=== PATIENT | female | born 1960 | race Caucasian/White ===

== ENCOUNTER 2019-04-04 15:50 | Inpatient (IN) | payer MEDICARE, MEDICAID, SELFPAY ==
[2019-04-04] VITALS (9 sets, daily range): BP systolic 99–150; BP diastolic 38–91; PULSE 84–92; RESP 16–22; TEMP 36.1–36.7; O2SAT 92–100; BMI 26.6
--- NOTE | ~2019-04-04 | US_ITS ---
EXAMINATION: US soft tissue buttock LT DATE: 04/08/2019 13:56 INDICATION: Left buttock hematoma. TECHNIQUE: Multiple grayscale and Doppler ultrasound images of the left buttock were obtained. COMPARISON: CT abdomen and pelvis 04/04/2019 FINDINGS: There is a large hematoma in the left buttock. IMPRESSION: 1. Large hematoma in the left buttock. Consider repeat CT if a size comparison with the prior exam is desired. Reviewed, dictated and finalized at location A. MANAGER CPA
--- NOTE | ~2019-04-04 | CT_ITS ---
EXAMINATION: CT abdomen pelvis w con DATE: 04/04/2019 17:51 INDICATION: Status post fall. Pelvic hematoma. TECHNIQUE: Computed tomography (CT) of the abdomen and pelvis was performed with 100 cc Omnipaque 350 intravenous contrast. The dose-length product was 930.30 mGy-cm. Automated exposure control and iter ative reconstruction technique were employed. COMPARISON: CT dated 09/24/2018 FINDINGS: There is a right pleural effusion which may be partially loculated. There is right basilar airspace consolidation. There is extensive edema throughout the soft tissues. In the anterior abdomin al wall to the left of the umbilicus there is a 1.8 cm hyperdense mass, image 124. There is a bilobed fluid collection in the left anterior abdominal wall measuring 9.3 x 3.1 cm greatest axial dimension with enhancing rim, image 131. There is a hyperdense mass of the left gluteal region overlying the l eft iliac crest measuring 5.8 x 3.6 cm greatest axial dimension, 139. There is a walled off fluid col lection in the subcutaneous tissues adjacent to the gluteal musculature, image 161. There is signific ant enlargement of the left gluteal musculature with areas of hypervascularity, consistent with large complex hematoma with possible active hemorrhage. This extends into the left leg posteriorly, incomp letely visualized. There is free fluid in the pelvis. The liver, spleen, pancreas, adrenal glands are unremarkable. There is severe renal atrophy. Nonobstr uctive bowel gas pattern. No acute osseous abnormality. There is atherosclerosis throughout the abdom en. No evidence for aneurysm. No lymphadenopathy. IMPRESSION: 1. Large complex fluid collection of the left gluteal musculature extending into the left leg posteri lucia. There are associated areas of focal contrast enhancement internally, suspicious for active hemo rrhage. 2: Multiple complex fluid collections and focal areas of hyperdense mass involving the left anterior abdominal wall and left lateral gluteal soft tissues, likely representing areas of focal hemorrhage g iven the clinical history, although infection could have a similar appearance. 3: Moderate right pleural effusion, likely loculated. 4: Right basilar airspace consolidation may represent atelectasis and/or pneumonia. 5: Ascites. 6: Extensive subcutaneous edema. Reviewed, dictated and finalized at location A. OSIVE OPERATOR GRENADE IMPRESSION: 1. Large complex fluid collection of the left gluteal musculature extending int o the left leg posteriorly. There are associated areas of focal contrast enhanc ement internally, suspicious for active hemorrhage. 2: Multiple complex fluid collections and focal areas of hyperdense mass involv ing the left anterior abdominal wall and left lateral gluteal soft tissues, lik kp representing areas of focal hemorrhage given the clinical history, although infection could have a similar appearance. 3: Moderate right pleural effusion, likely loculated. 4: Right basilar airspace consolidation may represent atelectasis and/or pneumo gregg. 5: Ascites. 6: Extensive subcutaneous edema.
--- NOTE | ~2019-04-04 | CT_ITS ---
EXAMINATION: CT abdomen pelvis w con INDICATION: Gluteal hematoma and TECHNIQUE: Computed tomographic images of the abdomen and pelvis were obtained after the administrati on of 100 cc of Omnipaque 350 intravenous contrast. The dose-length product (DLP) was 759.20 mGy-cm. Automated exposure control and iterative reconstruction technique were employed. COMPARISON: 04/04/2019 FINDINGS: There is a moderate-sized loculated right pleural effusion with heterogeneous attenuation. Cardiomegaly is noted. There are airspace opacities of the right lower lobe. There is dependent atele ctasis in the left lower lobe. There is heterogeneous enhancement of liver. The spleen, pancreas, and adrenal glands are normal. Stones are present in the nondistended gallbladder. There is atrophy of t he kidneys. There is a small amount of abdominal and pelvic ascites. No pathologically enlarged abdom inal or pelvic lymph nodes are identified. There is no free intraperitoneal gas or evidence of bowel obstruction. There is a large hematoma of the left buttock which extends into the left proximal thigh and appears to be encompassed in the fascial layer of the left leg resulting in mass effect on the lower extremit y vasculature. Overall size of the hematoma has increased accounting for differences in technique. A 4.6 x 3.6 cm left pelvic soft tissue hematoma projecting over the iliac wing is slightly decreased in size. There are two additional stable hematomas of the left anterior abdominal wall. IMPRESSION: 1. Large hematoma of the left buttock extending into the left proximal thigh within the fascial layer with mass effect on the lower limb vasculature. Recommend clinical correlation for any signs of comp artment syndrome. 2. Three additional hematomas of the left anterior abdominal wall and left pelvic soft tissues, stabl e to slightly decreased in size. 3. Loculated pleural effusion with heterogeneous attenuation, possible empyema. 4. Right lower lobe airspace opacity, consistent with atelectasis and pneumonia. 5. Cardiomegaly. Reviewed, dictated and finalized at location A. TRANSPORT NURSE IMPRESSION: 1. Large hematoma of the left buttock extending into the left proximal thigh wi thin the fascial layer with mass effect on the lower limb vasculature. Recommen d clinical correlation for any signs of compartment syndrome. 2. Three additional hematomas of the left anterior abdominal wall and left pelv ic soft tissues, stable to slightly decreased in size. 3. Loculated pleural effusion with heterogeneous attenuation, possible empyema. 4. Right lower lobe airspace opacity, consistent with atelectasis and pneumonia . 5. Cardiomegaly.
--- NOTE | ~2019-04-04 | CT_ITS ---
EXAMINATION: CT brain wo con DATE: 04/05/2019 12:07 INDICATION: Mental status change. TECHNIQUE: Computed tomography (CT) of the head was performed without intravenous contrast. The mA wa s adjusted according to patient size. Iterative reconstruction technique was employed. The dose-lengt h product was 605.33 mGy-cm. COMPARISON: Head CT 02/27/2019 FINDINGS: Motion artifact is noted. There are scattered areas of low attenuation in the cerebral whit e matter. There is no intracranial hemorrhage, acute infarction, or abnormal intracranial mass lesion . The ventricles are normal in size. The paranasal sinuses are clear. The orbits are normal. There is a trace left mastoid effusion. IMPRESSION: 1. Unchanged moderate nonspecific cerebral white matter disease, which likely represents chronic smal l vessel ischemic disease. Reviewed, dictated and finalized at location A. K LEASING MANAGER IMPRESSION: 1. Unchanged moderate nonspecific cerebral white matter disease, which likely r epresents chronic small vessel ischemic disease.
--- NOTE | 2019-04-04 16:23 | ED.LOWEXIN ---
HPI - Extremity Injury (Lower) General Chief Complaint: Extremity Injury, Lower Stated Complaint: L HIP PAIN S/P FALL Time Seen by Provider: 04/04/19 16:13 Source: patient and RN notes reviewed Mode of arrival: EMS Limitations: no limitations History of Present Illness HPI Narrative: A 59 y/o female presents to the ED via EMS from [facility] with lt hip pain beginning this morning. She states that she fell out of her bed on 03/28/2019 but she denied any pain at that time. She reports associated bruising. She notes that she is on Warfarin. She denies any HI, RENTERIA, arm pain, ABD pain, CP, N/V/D, or SOB. MD complaint: hip injury Onset (ago): hour(s) (pain began this morning but she fell a week ago) Injury: Left: hip Type of Injury: blunt Place: other (NH) Context: fall (out of bed) Associated symptoms: other (pain and bruising) Other symptoms: none Related Data Home Medications Medication Instructions Recorded Confirmed Symbicort 2 puff INHALATION BID 01/31/19 02/27/19 Vraylar 3 mg PO DAILY 01/31/19 02/27/19 albuterol sulfate [Ventolin HFA] 2 puff INHALATION TID PRN 01/31/19 02/27/19 carvedilol 6.25 mg PO BID 01/31/19 02/27/19 clotrimazole-betamethasone 1 applic TOPICAL BID 01/31/19 02/27/19 duloxetine 60 mg PO DAILY 01/31/19 02/27/19 escitalopram oxalate [Lexapro] 10 mg PO DAILY 01/31/19 02/27/19 esomeprazole magnesium 20 mg PO DAILY 01/31/19 02/27/19 furosemide 80 mg PO DAILY 01/31/19 02/27/19 ipratropium-albuterol 3 ml INHALATION QID 01/31/19 02/27/19 lamotrigine 400 mg PO HS 01/31/19 02/27/19 levothyroxine 125 mcg PO DAILY 01/31/19 02/27/19 meclizine 12.5 mg PO TID PRN 01/31/19 02/27/19 omeprazole 40 mg PO DAILY 01/31/19 02/27/19 polyethylene glycol 3350 [Miralax] 17 g PO DAILY PRN 01/31/19 02/27/19 ropinirole 5 mg PO HS 01/31/19 02/27/19 sevelamer carbonate [Renvela] 800 mg PO TIDWM 01/31/19 02/27/19 simvastatin 40 mg PO DAILY 01/31/19 02/27/19 alprazolam 1 mg PO DAILY 02/27/19 02/27/19 alprazolam 2 mg PO HS 02/27/19 02/27/19 warfarin [Coumadin] 8 mg PO DAILY 02/27/19 02/27/19 Allergies Allergy/AdvReac Type Severity Reaction Status Date / Time adhesive tape Allergy Intermediate blisters Verified 04/04/19 19:31 iron Allergy Unknown Nausea And Verified 04/04/19 19:31 Vomiting Review of Systems Review of Systems: All systems reviewed & are unremarkable except as noted in HPI and below Cardiovascular: Cardiovascular: Denies chest pain Respiratory: Respiratory: Denies dyspnea Gastrointestinal: Gastrointestinal: Denies abdominal pain, Denies diarrhea, Denies nausea and Denies vomiting Musculoskeletal: Musculoskeletal: Reports arthralgias (lt hip with bruising) and Denies other (arm pain) Neurologic: Denies headache(s) and Denies other (HI) [facility] Past Medical History Medical History Anemia of chronic disease With history of blood transfusion. Arthritis Atrial fibrillation Bipolar disorder Breast mass Chronic breast mass which was biopsied previously, showing acute on chronic inflammation and fat necrosis. She had a negative bone scan done at that time as well. Cataracts, bilateral Chronic anticoagulation Long-term warfarin due to presence of mechanical heart valves. Chronic back pain With history of narcotic abuse. Chronic respiratory failure with hypoxia Clostridium difficile infection COPD (chronic obstructive pulmonary disease) Coronary artery disease Depression with anxiety Diastolic congestive heart failure DVT (deep venous thrombosis) Eating disorder Emphysema of lung End-stage renal disease on hemodialysis Endometriosis Status post hysterectomy. ESRD (end stage renal disease) GERD (gastroesophageal reflux disease) Gout History of ectopic Hyperlipidemia Hypertension Hyperthyroidism Morbid obesity Prior history of obesity, reportedly weighing as much as 408 pounds previously. She now appears to have protein calorie mal
[2019-04-04 17:16] LABS: Basophils Percent Auto 0.3 % (0.2-1.2); Eosinophils Absolute Auto 0.1 K/mm3 (0-0.3); Eosinophils Percent Auto 1.2 % (0-4.4); Immature Granulocyte Percent A 2.6 % (0-0.5); Lymphocytes Absolute Auto 0.76 K/mm3 (0.9-3.2); Mean Corpuscular HGB Conc 30.5 g/dl (32-36); Mean Corpuscular Hemoglobin 28.4 pg (26-34); Mean Platelet Volume 10.2 fl (7.4-10.4); Monocytes Absolute Auto 0.5 K/mm3 (0.1-0.6); Monocytes Percent Auto 6.2 % (2.6-8.5); Neutrophils Absolute Auto 6.1 K/mm3 (1.3-6.7); Neutrophils Percent Auto 79.7 % (45.5-73.1); Platelet Count Result 141 k/mm3 (150-375); Red Blood Count 2.01 M/mm3 (4.2-5.4); Red Cell Distribution Width 18.7 % (11.5-14.5); White Blood Count 7.6 K/mm3 (4.5-10.0)
[2019-04-04 17:26] LABS: INR 1.7; Prothrombin Time 19.7 Seconds (11.1-14.7)
[2019-04-04 17:28] LABS: Alanine Aminotransferase 9 U/L (4-35); Albumin Level 3.2 g/dL (3.5-5.1); Alkaline Phosphatase 153 U/L (38-126); Aspartate Amino Transferase 19 U/L (14-36); Bilirubin,Total 0.6 mg/dL (0.2-1.3); Blood Urea Nitrogen 26 mg/dL (7-17); Calcium 7.9 mg/dL (8.4-10.2); Carbon Dioxide 26 mmol/L (22-30); Chloride 102 mmol/L (98-107); Estimated Glomerular Filt Rate 14; Glucose 105 mg/dL (65-105); Partial Thromboplastin Time 95.7 SECONDS (22.3-36.8); Potassium 4.2 mmol/L (3.4-5.0); Sodium 135 mmol/L (137-145)
[2019-04-04 17:30] LABS: Hematocrit 18.7 % (37.0-47.0); Hemoglobin 5.7 g/dL (12.0-15.0)
[2019-04-04] MEDS: MORPHINE SULFATE 2 MG/ML INJ IV PUSH (19:30)
--- NOTE | 2019-04-04 19:32 | PC.NURSE ---
Attempted to contact patient's son, no answer.
--- NOTE | 2019-04-04 19:55 | ADMGEN ---
This patient, Bessy Pandey, was admitted to IMU Room 200-01 from er 04/04/191944. Patient/family oriented to hospital policies and general routines including ID bracelet, bed and alarms, visiting hours, pain management, procedures, bathroom and other care routines, personal items, smoking policy, room service/diet, and visiting hours. Valuables list has been completed. Information on how to activate the Rapid Response Team has been discussed. Patient/Family are encouraged to report perceived risks to care and to ask questions if they do not understand what they are told or what they should do.
--- NOTE | 2019-04-04 20:15 | PM.IMHP ---
H&P: HPI History of Present Illness Chief complaint: Left butt pain Narrative: Date and time of patient contact: 04/04/20192014 Bessy Pandey is a 59 year old female with past medical history of mechanical mitral and aortic valve replacement on long-term anticoagulant, end-stage renal disease on hemodialysis and anemia who presented to the ER from [facility] via EMS due to left hip pain following a fall March 28. The patient stated that she fell in the shower on the . She denies having any injury. Then on the she rolled out of the bed at the custodial. She denies hitting her head or having loss of consciousnes. She did not have any immediate pain at that time. She woke up this morning with pain in her left buttock radiating down into her thigh. She reports that her pain was a 10/10 intensity. She reported that the morphine 4 mg given by EMS did not help her pain at all. She then received 2 mg of morphine in the ER and 1 gram of IV Tylenol. She reports that her pain is now a 5/10 in intensity. He she has noticed a larger bruising on anterior left hip over the last couple of days. She reports that the area is a lumpy. She had a CT scan performed in the ER that demonstrated a large complex fluid collection left gluteal muscle extending into the left leg posteriorly with evidence of active hemorrhage with contrast enhancement internally. Multiple complex fluid collections left anterior abdominal wall and left gluteal soft tissues representing areas of focal hemorrhage. But reports that her pain is worse in the left buttock and down the back of the left leg. She reports that her weight is down a few pounds. She reports that her appetite is been variable. She has not had any recent shortness of breath or cough or congestion. She has cut down her tobacco use down to a couple of cigarettes a day since she has been at the custodial. She is due for dialysis in the morning. She denies any nausea vomiting or changes in bowel habits. Review of Systems Review of Systems: Narrative: Except as documented in the HPI, all other systems were reviewed and are negative. [facility] Past Medical History Medical History Anemia of chronic disease With history of blood transfusion. Arthritis Atrial fibrillation Bipolar disorder Breast mass Chronic breast mass which was biopsied previously, showing acute on chronic inflammation and fat necrosis. She had a negative bone scan done at that time as well. Cataracts, bilateral Chronic anticoagulation Long-term warfarin due to presence of mechanical heart valves. Chronic back pain With history of narcotic abuse. Chronic respiratory failure with hypoxia Clostridium difficile infection COPD (chronic obstructive pulmonary disease) Coronary artery disease Depression with anxiety Diastolic congestive heart failure DVT (deep venous thrombosis) Eating disorder Emphysema of lung End-stage renal disease on hemodialysis Endometriosis Status post hysterectomy. ESRD (end stage renal disease) GERD (gastroesophageal reflux disease) Gout History of ectopic Hyperlipidemia Hypertension Hyperthyroidism Morbid obesity Prior history of obesity, reportedly weighing as much as 408 pounds previously. She now appears to have protein calorie malnutrition. 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 Myocardial infarction Obstructive sleep apnea Osteoarthritis Both knees. Patient has refused replacement and is no essentially wheelchair-bound. PVD (peripheral vascular disease) Restless leg syndrome Rheumatic disease Suicidal ideation Prior hospitalization October 2017 due to suicidal ideation overdose. TIA (transient ischemic attack) Tobacco dependence UTI (urinary tract infection) Valvular heart disease Status post mechanical mitral and aortic valv
[2019-04-04] MEDS: TUBING, BLOOD PLUM PUMP TUBING 1 EACH XX (20:52)
[2019-04-04] MEDS: SODIUM CHLORIDE 0.9% IV 250 ML 30 ML IV CONT (20:52)
[2019-04-04] MEDS: ALPRAZOLAM 0.5 MG TABLET 2 MG PO (21:42)
[2019-04-04] MEDS: lamoTRIgine 100 MG TABLET 400 MG PO (22:07)
[2019-04-05] VITALS (37 sets, daily range): BP systolic 104–178; BP diastolic 35–76; PULSE 1–103; RESP 12–22; TEMP 36.2–37.1; O2SAT 95–100; BMI 26.9
[2019-04-05 04:24] LABS: Mean Corpuscular HGB Conc 30.8 g/dl (32-36); Mean Corpuscular Hemoglobin 28.6 pg (26-34); Mean Corpuscular Volume 92.9 fl (80-100); Mean Platelet Volume 11.5 fl (7.4-10.4); Platelet Count Result 163 k/mm3 (150-375); Red Blood Count 2.24 M/mm3 (4.2-5.4); Red Cell Distribution Width 17.2 % (11.5-14.5); White Blood Count 16.2 K/mm3 (4.5-10.0)
[2019-04-05 04:32] LABS: Hematocrit 20.8 % (37.0-47.0); Hemoglobin 6.4 g/dL (12.0-15.0)
[2019-04-05 04:43] LABS: Blood Urea Nitrogen 26 mg/dL (7-17); Calcium 7.9 mg/dL (8.4-10.2); Carbon Dioxide 18 mmol/L (22-30); Chloride 99 mmol/L (98-107); Estimated CRCL calculation 14 ml/min; Estimated Glomerular Filt Rate 12; Glucose 109 mg/dL (65-105); Magnesium 1.6 mg/dL (1.6-2.3); Phosphorus 3.7 mg/dL (2.5-4.5); Potassium 4.6 mmol/L (3.4-5.0); Sodium 133 mmol/L (137-145)
[2019-04-05 05:12] LABS: Hepatitis B Surface Antigen Negative (Negative)
[2019-04-05 05:18] LABS: HAV RESULT Negative (Negative); Hepatitis B Core IgM Result Negative (Negative)
[2019-04-05 05:30] LABS: Hepatitis B Surface Anti Res Negative; Hepatitis C Virus Antibody Negative (Negative)
[2019-04-05] MEDS: LEVOTHYROXINE SODIUM 125 MCG TABLET PO (06:09)
[2019-04-05] MEDS: BUDESONIDE RESPULE NEB 0.5 MG/2 ML AMP 0.25 MG INHALATION ×2 (07:47→19:30)
[2019-04-05] MEDS: ALBUTEROL SULFATE NEB 2.5 MG/0.5 ML INH INHALATION ×4 (07:47→19:30)
[2019-04-05] MEDS: IPRATROPIUM BR 0.02% INH SOLN 0.5 MG/2.5 ML VIAL INHALATION ×4 (07:47→19:31)
[2019-04-05] MEDS: FLUTICASONE PROPIONATE 0.05% NA SPR 16 GM BTL (*BKC) 1 SPRAY NASAL ×2 (09:09→21:06)
[2019-04-05] MEDS: BETAMETHASONE/CLOTRIMAZOLE CR 15 GM TUBE 1 APPLIC TOPICAL ×2 (09:09→18:37)
[2019-04-05] MEDS: ESCITALOPRAM OXALATE 10 MG TABLET PO (09:09)
[2019-04-05] MEDS: SIMVASTATIN 20 MG TABLET 40 MG PO (09:10)
[2019-04-05] MEDS: FUROSEMIDE 80 MG TABLET PO (09:10)
[2019-04-05] MEDS: PANTOPRAZOLE 40 MG TABLET PO (09:10)
[2019-04-05] MEDS: ALPRAZOLAM 0.5 MG TABLET 1 MG PO (09:15)
--- NOTE | 2019-04-05 09:42 | PM.IMPN ---
Progress Note: A&P Assessment and Plan (1) Acute post-hemorrhagic anemia: Code(s): D62 - Acute posthemorrhagic anemia Status: Acute Assessment and Plan: Likely due to hematoma and buttock and thigh due to blunt trauma sustained during fall from bed at facility INR was subtherapeutic at 1.7 upon admission. (2) Chronic anticoagulation: Code(s): Z79.01 - senior care (current) use of anticoagulants Status: Acute Assessment and Plan: Patient has active bleeding visit very high risk for stroke due to mechanical heart valves Will need to resume coagulation with heparin expeditiously when safe (3) Mechanical heart valve present: Code(s): Z95.2 - Presence of prosthetic heart valve Status: Acute Assessment and Plan: Aortic and mitral Very high risk for stroke Will likely need heparin when bleeding stops Due to possible head trauma and excessive drowsiness this morning which may be due to narcotics will obtain CT brain prior to considering further anticoagulation (4) ESRD (end stage renal disease): Code(s): N18.6 - End stage renal disease Status: Chronic Assessment and Plan: Nephrology has been consulted for dialysis management. Subjective Date/time seen: 04/05/19 09:42 Interval history: Drowsy this morning. Review of Systems Review of Systems: ROS unobtainable: unobtainable due to mental status Exam Narrative: Exam Narrative: Skin with ecchymoses over right shoulder and buttocks with tenderness HEENT: EOMI, PERRL, pharyngeal mucosa pink and intact NECK: No JVD CHEST: Clear to auscultation. Normal effort. HEART: Metallic s1/S2, regular ABDOMEN: BS+, soft, nontender, no mass, no bruits EXTREMITIES: No cyanosis, edema, or clubbing NEUROLOGIC: CN intact and symmetric to inspection. MUSCULOSKELETAL: Tone and strength symmetric. PSYCH: Drowsy. Difficult to arouse. Objective Data Vital Signs Vital Signs: Vital Signs - 24 hr 04/04/19 15:59 04/04/19 18:53 04/04/19 19:45 Temperature 98.1 F 97.1 F L Pulse Rate 88 84 84 Respiratory Rate 19 17 16 Blood Pressure 150/82 H 122/74 110/38 L Pulse Oximetry 100 100 100 04/04/19 20:00 04/04/19 21:32 04/04/19 21:49 Temperature 97 F L 97.1 F L Pulse Rate 90 85 88 Respiratory Rate 20 22 H Blood Pressure 128/54 L 99/55 L Pulse Oximetry 100 98 04/04/19 22:00 04/04/19 22:49 04/04/19 23:49 Temperature 97.2 F L 97.1 F L Pulse Rate 86 92 90 Respiratory Rate 22 H 18 Blood Pressure 107/91 H 116/40 L Pulse Oximetry 96 92 04/05/19 00:00 04/05/19 00:39 04/05/19 00:58 Temperature 97.1 F L 97.6 F Pulse Rate 88 90 88 Respiratory Rate 22 H 22 H Blood Pressure 128/56 L 141/63 H Pulse Oximetry 96 98 04/05/19 01:58 04/05/19 02:00 04/05/19 02:58 Temperature 97.1 F L 97.7 F Pulse Rate 88 90 1 L Respiratory Rate 18 20 Blood Pressure 117/55 L 108/71 Pulse Oximetry 100 100 04/05/19 03:07 04/05/19 03:48 04/05/19 04:00 Temperature 97.6 F 97.5 F L Pulse Rate 88 90 92 Respiratory Rate 22 H 18 Blood Pressure 154/76 H 155/75 H Pulse Oximetry 98 100 04/05/19 06:00 04/05/19 08:16 Temperature 97.3 F L Pulse Rate 93 93 Respiratory Rate 14 Blood Pressure 152/65 H Pulse Oximetry 99 Intake/Output Intake/Output: Intake & Output 04/02/19 04/03/19 04/04/19 04/05/19 23:59 23:59 23:59 23:59 Intake Total 450 1145 Balance 450 1145 Meds/Results Medications: Active Medications Generic Name Dose Route Start Last Admin Trade Name Freq PRN Reason Stop Dose Admin Acetaminophen 650 mg 04/04/19 18:37 Tylenol Tablet PO Q4H PRN Mild Pain (1-3) or Fever Albuterol 2.5 mg 04/05/19 08:00 04/05/19 07:47 Albuterol Sulf Neb 2.5mg/0.5ml INHALATION 2.5 mg QIDRT GORDON Administration Alprazolam 1 mg 04/05/19 09:00 04/05/19 09:15 Xanax PO 1 mg DAILY GORDON Administration Alprazolam 2 mg 04/05/19 21:00 Xanax PO HS GORDON Valier
--- NOTE | 2019-04-05 11:52 | PM.PNNEP ---
Progress Note: A&P Assessment and Plan (1) ESRD (end stage renal disease): Code(s): N18.6 - End stage renal disease Status: Chronic Assessment and Plan: HD today and continue M/W/F schedule follow electrolytes, volume status, and clearance may consider HD tomorrow as well as since quite insistent on ending her treatment early today (2) Anemia: Qualifiers: Anemia type: unspecified type Qualified Code(s): D64.9 - Anemia, unspecified Code(s): D64.9 - Anemia, unspecified Status: Acute Assessment and Plan: PRBC transfusion yesterday and today with HD follow H/H anticoagulation on hold for now FULL CONSULT TO FOLLOW Subjective Date/time seen: 04/05/19 11:52 Tolerating dialysis at the time of my visit (seen at ~ 10:35am) but states she will end her treatment after PRBC infusion is complete due to pain; no other complaints voiced other than pain. Exam Narrative: Exam Narrative: General: WD/WN female in NAD Heart: normal S1 and S2; no rub Lungs: clear to auscultation Abdomen: soft, nontender, nondistended, positive bowel sounds Extremities: no cyanosis or clubbing; 1+ edema Skin: warm and dry Objective Data Vital Signs Vital Signs: Vital Signs Temp Pulse Resp BP Pulse Ox 04/05/19 11:41 94 18 04/05/19 10:25 37.1 C 90 12 104/51 L 04/05/19 10:00 91 04/05/19 08:16 36.3 C L 93 14 152/65 H 99 04/05/19 08:00 92 04/05/19 07:57 92 18 04/05/19 07:47 90 18 04/05/19 06:00 93 04/05/19 04:00 36.4 C L 92 18 155/75 H 100 04/05/19 03:48 90 04/05/19 03:07 36.4 C 88 22 H 154/76 H 98 04/05/19 02:58 36.5 C 1 L 20 108/71 100 04/05/19 02:00 90 04/05/19 01:58 36.2 C L 88 18 117/55 L 100 04/05/19 00:58 36.4 C 88 22 H 141/63 H 98 04/05/19 00:39 36.2 C L 90 22 H 128/56 L 96 04/05/19 00:00 88 04/04/19 23:49 36.2 C L 90 18 116/40 L 92 04/04/19 22:49 36.2 C L 92 22 H 107/91 H 96 04/04/19 22:00 86 04/04/19 21:49 36.2 C L 88 22 H 99/55 L 98 04/04/19 21:32 36.1 C L 85 20 128/54 L 100 04/04/19 20:00 90 04/04/19 19:45 36.2 C L 84 16 110/38 L 100 04/04/19 18:53 84 17 122/74 100 04/04/19 15:59 36.7 C 88 19 150/82 H 100 Intake/Output Intake/Output: Intake & Output 04/02/19 04/03/19 04/04/19 04/05/19 23:59 23:59 23:59 23:59 Intake Total 450 1495 Balance 450 1495 Meds/Results Medications: Active Medications Generic Name Dose Route Start Last Admin Trade Name Freq PRN Reason Stop Dose Admin Acetaminophen 650 mg 04/04/19 18:37 Tylenol Tablet PO Q4H PRN Mild Pain (1-3) or Fever Albuterol 2.5 mg 04/05/19 08:00 04/05/19 11:41 Albuterol Sulf Neb 2.5mg/0.5ml INHALATION 2.5 mg QIDRT GORDON Administration Alprazolam 1 mg 04/05/19 09:00 04/05/19 09:15 Xanax PO 1 mg DAILY GORDON Administration Alprazolam 2 mg 04/05/19 21:00 Xanax PO HS GORDON Budesonide 0.25 mg 04/05/19 08:00 04/05/19 07:47 Pulmicort Respule Neb INHALATION 0.25 mg Q12HRT GORDON Administration Clotrimazole 1 applic 04/05/19 09:00 04/05/19 09:09 Lotrisone Cream TOPICAL 1 applic BID GORDON Administration Epoetin Jeronimo 20,000 units 04/05/19 19:00 Epogen IV PUSH 04/05/19 19:01 ONCE ONE Escitalopram Oxalate 10 mg 04/05/19 09:00 04/05/19 09:09 Lexapro PO 10 mg DAILY GORDON Administration Fluticasone Propionate 1 spray 04/05/19 09:00 04/05/19 09:09 Flonase 0.05% Nasal [place]ibernia NASAL 1 spray Q12HR GORDON Administration Furosemide 80 mg 04/05/19 09:00 04/05/19 09:10 Lasix Tablet PO 80 mg DAILY GORDON Administration Acetaminophen 1,000 mg in 100 mls @ 400 mls/hr 04/04/19 21:13 Ofirmev 1,000 Mg Ivpb IVPB 04/05/19 21:14 Q6H PRN Pain Rated 4-6 Albumin Human 50 mls @ 999 mls/hr 04/05/19 07:00 Albutein IVPB 05/05/19 07:01 Q10M PRN HYPOTENSION
[2019-04-05] MEDS: SEVELAMER CARBONATE 800 MG TABLET PO ×2 (12:56→18:37)
--- NOTE | 2019-04-05 13:11 | PM.CNCAR ---
Assessment and Plan Additional Plan 59-year-old white female with very challenging situation in that she require systemic anticoagulation as she has mechanical prosthetic mitral and aortic valves. In this setting she has a fall a hematoma in the region of her buttocks that is very painful and according to imaging seems to have evidence of ongoing bleeding. We have no choice but to interrupt systemic anticoagulation at this time. When it is clear that there is no longer active bleeding she should be heparinized. There is no role for Lovenox in the setting of this patient with mechanical valves and end-stage renal disease. Once it is clear that she is not bleeding any longer also than warfarin can be reinstituted. I anticipate this to be a fairly likely hospitalization since when anticoagulation in this lady has been interrupted in the past and has taken a long time to achieve a therapeutic INR allowing discharge to occur. Remi Mohr MD [facility] History of Present Illness History of Present Illness Consult date/time: D service: 04/05/19 13:11 Reason For Visit: Left butt pain Narrative: This is a chronically ill-appearing very complex 59-year-old patient with valvular heart disease followed in our office by Dr. Luz. Patient has a history of rheumatic valvular heart disease and has undergone mechanical aortic and mitral valve prosthetic replacements. The patient has been very challenging to manage because at times she has been noncompliant with medical therapy including her anticoagulation and follow-up per INRs. Now that I believe she is in a assisted living/skilled care facility of some sort the follow-up seems to have been more consistent. In any event she came to the hospital yesterday because she sustained a fall at her assisted living/skilled facility falling out of bed. She states she was in a bed without any side rales and fell about the bed on the floor. She was admitted to the hospitalist she was having severe pain in the region of her buttocks and has been found to have a significant traumatic hematoma in that area. According to the studies that have been done there appears to be concern regarding active venous oozing into the hematoma cavity this morning. The patient's Coumadin has appropriately been discontinued her INR upon arrival was actually below target at 1.7. And in this setting I am seeing her in consultation. She is not having any specific cardiac symptoms in the way of chest pain pressure heaviness shortness of breath palpitations or syncope. The patient is not known to have any history of coronary artery disease in the past from our looking at her records. The last 2 or 3 appointments in our office was with the nurse practitioner at which time there was no significant cardiac instability. There have been some frustrating conversations with the patient regarding anticoagulation with Lovenox when she needs to be bridged off her Coumadin. I have set in previous consultation notes at [facility] that Lovenox is not just not indicated for this but contraindicated given her end-stage renal disease and dialysis. For some reason she states that physicians at her detention facility still bridge her with Lovenox at times. Upon entering the room to see her for consultation she was sleeping upon awakening her her only complaint is pain around the buttocks. Review of Systems Constitutional: Constitutional: Reports lethargy and Reports weakness Eyes: Eyes: Reports no additional eye complaints ENT: Reports system reviewed and no additional complaints, except as documented Cardiovascular: Cardiovascular: Reports no additional cardiovascular complaints Respiratory: Respiratory: Reports no additional respiratory complaints Gastrointestinal: Gastrointestinal: Reports no additional gastrointestinal complaints Musculoskeletal: Comments: Significant pain in the region of the buttocks Neurologic: Reports as per HPI Psychiatri
[2019-04-05 13:14] LABS: Hematocrit 19.8 % (37.0-47.0); Hemoglobin 6.3 g/dL (12.0-15.0)
[2019-04-05] MEDS: SODIUM CHLORIDE 0.9% IV 250 ML 30 ML IV CONT (14:40)
--- NOTE | 2019-04-05 15:10 | PC.NURSE ---
This patient, Bessy Pandey, [facility] 04[facility] at 1510. Personal belongings sent with patient. Belongings list checked and signed with receiving RN. Report given to COLT Veras. Appropriate documentation sent with patient.
[2019-04-05] MEDS: ACETAMINOPHEN 325 MG TABLET 650 MG PO (18:31)
[2019-04-05] MEDS: ALPRAZOLAM 0.5 MG TABLET 2 MG PO (21:01)
[2019-04-05] MEDS: lamoTRIgine 100 MG TABLET 400 MG PO (21:05)
--- NOTE | 2019-04-05 21:50 | PC.NURSE ---
This patient, Bessy Pandey, was received from [facility][ ] on 04/05/19 at 1505 . Personal belongings list checked and signed. Patient/family oriented to unit policies and routines
[2019-04-05] MEDS: ACETAMINOPHEN 500 MG TABLET 1000 MG PO (23:25)
[2019-04-06] VITALS (32 sets, daily range): BP systolic 106–164; BP diastolic 40–76; PULSE 64–103; RESP 16–22; TEMP 35.9–37.1; O2SAT 92–100
[2019-04-06] MEDS: LEVOTHYROXINE SODIUM 125 MCG TABLET PO (05:53)
[2019-04-06] MEDS: ACETAMINOPHEN 500 MG TABLET 1000 MG PO ×2 (05:54→20:32)
[2019-04-06 06:44] LABS: Mean Corpuscular HGB Conc 32.7 g/dl (32-36); Mean Corpuscular Hemoglobin 29.9 pg (26-34); Mean Corpuscular Volume 91.6 fl (80-100); Mean Platelet Volume 10.7 fl (7.4-10.4); Platelet Count Result 162 k/mm3 (150-375); Red Blood Count 1.67 M/mm3 (4.2-5.4); Red Cell Distribution Width 16.5 % (11.5-14.5); White Blood Count 23.1 K/mm3 (4.5-10.0)
[2019-04-06 06:47] LABS: Hematocrit 15.3 % (37.0-47.0)
[2019-04-06 06:54] LABS: INR 1.7; Prothrombin Time 19.8 Seconds (11.1-14.7)
[2019-04-06 07:12] LABS: Blood Urea Nitrogen 29 mg/dL (7-17); Calcium 8.1 mg/dL (8.4-10.2); Carbon Dioxide 22 mmol/L (22-30); Chloride 96 mmol/L (98-107); Estimated CRCL calculation 15 ml/min; Estimated Glomerular Filt Rate 13; Glucose 130 mg/dL (65-105); Potassium 4.7 mmol/L (3.4-5.0); Sodium 132 mmol/L (137-145)
[2019-04-06] MEDS: BUDESONIDE RESPULE NEB 0.5 MG/2 ML AMP 0.25 MG INHALATION ×2 (07:49→20:52)
[2019-04-06] MEDS: ALBUTEROL SULFATE NEB 2.5 MG/0.5 ML INH INHALATION ×3 (07:49→20:52)
[2019-04-06] MEDS: IPRATROPIUM BR 0.02% INH SOLN 0.5 MG/2.5 ML VIAL INHALATION ×3 (07:49→20:52)
[2019-04-06] MEDS: FLUTICASONE PROPIONATE 0.05% NA SPR 16 GM BTL (*BKC) 1 SPRAY NASAL ×2 (08:31→20:31)
[2019-04-06] MEDS: SEVELAMER CARBONATE 800 MG TABLET PO ×2 (08:31→17:05)
[2019-04-06] MEDS: ESCITALOPRAM OXALATE 10 MG TABLET PO (08:31)
[2019-04-06] MEDS: BETAMETHASONE/CLOTRIMAZOLE CR 15 GM TUBE 1 APPLIC TOPICAL ×2 (08:31→17:03)
[2019-04-06] MEDS: FUROSEMIDE 80 MG TABLET PO (08:32)
[2019-04-06] MEDS: SIMVASTATIN 20 MG TABLET 40 MG PO (08:32)
[2019-04-06] MEDS: PANTOPRAZOLE 40 MG TABLET PO (08:32)
--- NOTE | 2019-04-06 11:09 | PC.NURSE ---
Pt complaining of intense pain in left hip. She states she cannot tolerated dialysis. When I informed her that she needed two units of PRBCs transfused, she asked how long it would take. I informed her 5-6 hours, she repeatedly stated she can't do that. She also stated that was too long that yesterday she got three units in one hour. I told her she received one unit yesterday evening and it took a couple of hours as well. I let her know that she would be able to move about and adjust to any position she wanted. Pt stated she needed something for her nerves and for her pain. I spoke with Dr. Lomeli who wants to wait until she will complete some dialysis to help improve kidney function. Pt restless and agitated, but then fell asleep after 15 minutes.
--- NOTE | 2019-04-06 13:39 | PM.PNCARD ---
Progress Note: A&P Assessment and Plan (1) Intramuscular hematoma: Code(s): T14.8XXA - Other injury of unspecified body region, initial encounter Status: Acute (2) ESRD (end stage renal disease) on dialysis: Code(s): N18.6 - End stage renal disease; Z99.2 - Dependence on renal dialysis Status: Acute Assessment and Plan: Renal replacement therapy with hemodialysis (3) Mechanical heart valve present: Code(s): Z95.2 - Presence of prosthetic heart valve Status: Acute Assessment and Plan: Patient has history of remote valvular heart disease, and status post mechanical mitral and aortic valve replacement. She will need to be on chronic anticoagulation with warfarin, target INR 2.5-3.5; with low-dose aspirin regimen. Unfortunately, patient had a fall and has left gluteal hematoma with possible active bleed. Her anticoagulation has been put on hold. Recommend further evaluation from surgery as soon as possible, and advise if it is safe to resume anticoagulation. Patient will need unfractionated heparin, to be bridged with warfarin with a target INR as mentioned above. Plan discussed with the patient and the staff. Subjective Date/time seen: 04/06/19 13:39 Patient admitted with a fall, found to have left gluteal area hematoma. Patient has history of mechanical mitral and aortic valve, and is on chronic anticoagulation with warfarin. Today, patient was undergoing hemodialysis at the time of evaluation. She complained of left hip discomfort. She denies chest pain, shortness of breath. Exam Const: General: no acute distress, alert and awake HENMT: Head: normocephalic and atraumatic Ears: hearing grossly normal bilaterally and external ears normal General nose exam: Normal external nose present and no epistaxis Face and sinus: normal facial exam and no ecchymosis Mouth: Yes tongue normal and Yes moist mucous membranes Teeth and gingiva: dentition normal Eyes: Conjunctivae: conjunctivae normal Sclera: sclerae normal Pupils: Equal, round and reactive pupils present EOM: EOMs intact bilaterally Neck: Neck: normal visual inspection, supple and no JVD Thyroid: thyroid normal Carotids: normal carotid upstroke Resp: Effort & Inspection: normal respiratory effort and able to speak in complete sentences Auscultation: clear to auscultation bilaterally Cardio: Jugular venous distension: no JVD Rate: regular rate Rhythm: regular rhythm Heart sounds: Murmur heart sound present Other: Mechanical S1 and S2 GI: Inspection: normal to inspection GI Palp: No abdominal tenderness Auscultation: normal bowel sounds Skin: Other: no rash on exposed areas, no cyanosis Neuro: Cranial nerves: Yes Equal, round and reactive pupils present and Yes Normal hearing present Other: alert, oriented, no major focal deficits on gross neurological examination Extrem: Other: no edema, no cyanosis, no major deformities Psych: Appearance: grossly normal Mental Status: mental status grossly normal Objective Data Vital Signs Vital Signs: Vital Signs - 24 hr 04/05/19 15:05 04/05/19 16:05 04/05/19 16:15 Temperature 36.2 C L Pulse Rate 97 96 97 Respiratory Rate 18 18 18 Blood Pressure 158/55 H Pulse Oximetry 98 04/05/19 16:40 04/05/19 16:58 04/05/19 18:00 Temperature 36.7 C 36.6 C 36.7 C Pulse Rate 101 H 96 95 Respiratory Rate 16 20 18 Blood Pressure 152/52 H 146/50 H 147/55 H Pulse Oximetry 100 100 95 04/05/19 19:00 04/05/19 19:31 04/05/19 19:40 Temperature 36.8 C 36.8 C Pulse Rate 96 96 96 Respiratory Rate 20 18 20 Blood Pressure 151/69 H 151/69 H Pulse Oximetry 98 98 04/05/19 19:41 04/05/19 22:00 04/06/19 06:00 Temperature 36.4 C L 36.6 C Pulse Rate 97 94 82 Respiratory Rate 18 18 20 Blood Pressure 155/70 H 153/49 H Pulse Oximetry 96 100 04/06/19 07:49 04/06/19 08:01 04/06/19 09:13 Temperature 35.9 C L Pulse Rate 86 87 64 Respiratory Rate 18 18 18 Blood Pre
--- NOTE | 2019-04-06 13:55 | PM.CNNEP ---
Assessment and Plan Assessment and plan (1) ESRD (end stage renal disease): Code(s): N18.6 - End stage renal disease Status: Chronic (2) Anemia: Qualifiers: Anemia type: unspecified type Qualified Code(s): D64.9 - Anemia, unspecified Code(s): D64.9 - Anemia, unspecified Status: Acute (3) Intramuscular hematoma: Code(s): T14.8XXA - Other injury of unspecified body region, initial encounter Status: Acute (4) Mechanical heart valve present: Code(s): Z95.2 - Presence of prosthetic heart valve Status: Acute (5) Bipolar disorder: Qualifiers: Active/Remission status: currently active Current bipolar episode type: mixed Current episode severity: unspecified Qualified Code(s): F31.60 - Bipolar disorder, current episode mixed, unspecified Code(s): F31.9 - Bipolar disorder, unspecified Status: Acute Assessment and Plan: . Additional Plan Bessy has end-stage renal disease. She only received a partial treatment of dialysis yesterday and she was rescheduled to make up what she did not receive yesterday with a dialysis treatment today. From what I am told by nursing, she refused dialysis today as well as another unit of packed red blood cells despite her critical hemoglobin and hematocrit. I was able to convince the patient to do her dialysis treatment today as well as to receive the packed red blood cells with her dialysis treatment. However, I am more concerned by the fact that she received several units of blood already and she initially increment appropriately but then dropped again as evidenced by her a.m. labs. To further facilitate stability in her hemoglobin and hematocrit, I will give high-dose Epogen therapy and follow trend of her H&H. I suspect she will probably need more packed red blood cell transfusions during her hospital course given the severity of the acute bleeding as noted by her CT scan yesterday on admission. Her anticoagulation has been placed on hold and will likely need to be reinstituted once her active bleeding has subsided/resolved. While she remains hospitalized, I will continue her scheduled dialysis treatment on her Monday, Monday, Monday schedule with further adjustments in her dialysis prescription as deemed necessary by her labs. I will continue follow the patient with you while she is hospitalized make further recommendations during hospital course. Thank you for allowing me to participate in the care this patient. History of Present Illness Reason for Consult Consult date: 04/06/19 Reason for consult: end stage renal disease Chief Complaint Chief complaint: Left butt pain History of Present Illness Narrative: The patient is a 59 year old female with an extensive medical history as outlined below who presented to the [facility] ER from [facility] via EMS due to left hip pain following a fall almost a week ago. The patient states that she fell in the shower on March 26 and denied any injury. She then reportedly fell/rolled of her bed on March 28 but denied and immediate injury or pain at that time. She did not his her head or loose consciousness. However, on the day of admission, she woke up this morning with pain in her left buttock area with radiation down into her thigh that was 10/10 in intensity. While in the ER, she noted a large bruising on anterior left hip that she thinks started a couple of days ago. She has not had any recent shortness of breath or cough or congestion. She denies any nausea vomiting or changes in bowel habits. Work-up and evaluation in the ER demonstrated severe anemia and a CT scan with a large complex fluid collection in the left gluteal muscle extending into the left leg posteriorly with evidence of active hemorrhage with contrast enhancement internally along with multiple complex fluid collections left anterior abdominal wall and
[2019-04-06] MEDS: ACETAMINOPHEN 325 MG TABLET 650 MG PO (15:15)
[2019-04-06] MEDS: EPOETIN ALFA 20,000 UNITS/ML VIAL 20000 UNITS IV PUSH (16:02)
[2019-04-06] MEDS: TUBING, BLOOD PLUM PUMP TUBING 1 EACH XX ×3 (16:27→16:28)
[2019-04-06] MEDS: SODIUM CHLORIDE 0.9% IV 250 ML 30 ML IV CONT (16:27)
[2019-04-06] MEDS: SODIUM CHLORIDE 0.9% IV 250 ML 30 ML (16:28)
[2019-04-06] MEDS: HEPARIN SODIUM 1,000 UNITS/ML VIAL 1000 UNITS IV PUSH (16:52)
--- NOTE | 2019-04-06 17:28 | PC.NURSE ---
Received call from billet heater operator. Stated patient wished to speak with someone other than my nurse . Upon arrival, patient was resting comfortably in bed. Patient stated she felt RN was rude because she would not let her go to the cafeteria or go outside to smoke. Patient stated, I know I can go out and smoke 4 times a day and I have never had to stay in my room to eat . Patient was asked if she thought she was at the rehab facility and she stated, Of course I am at rehab . Patient reoriented to place. Patient denies further needs or complaints at this time. Nurse assignement changed.
[2019-04-06 17:53] LABS: Hemoglobin 6.9 g/dL (12.0-15.0)
[2019-04-06 17:54] LABS: Hematocrit 20.3 % (37.0-47.0)
--- NOTE | 2019-04-06 18:16 | PC.NURSE ---
At 1130 pt called me in the room to let me know she was refusing her second unit and dialysis again. I reminded her that her H&H were extremely low and that 2 units were the minimum recommended. She said she knew, but she still wanted to refuse. She later let me know she wanted to get dressed and go downstairs for lunch. I let her know that we would be happy to call food up for her at any time. She said she wanted to go down. I informed her that patients do not leave the floor for meals. She asked why not; I let her know hospital policy that patients stay on their floor. She wanted to know why. I let her know that administrators set that up for patient safety. She wanted to know why they did that. I explained how difficult it would be to manage patient care for all of the patients with people leaving the floor. She still wanted to go. I again offered a tray. She stated she wanted a good reason. I let her know that I explained why and apologized that it was not what she wanted. I offered if there was anything else she needed. She stated a good reason. I let her know that I would be back to check on her. She stated, do not leave, Im not through with you.
--- NOTE | 2019-04-06 18:21 | PM.IMPN ---
Progress Note: A&P Assessment and Plan (1) Acute post-hemorrhagic anemia: Code(s): D62 - Acute posthemorrhagic anemia Status: Acute Assessment and Plan: Likely due to hematoma and buttock and thigh due to blunt trauma sustained during fall from bed at facility INR was subtherapeutic at 1.7 upon admission, 04/06 1.7 Hgb 6.9 after transfusion 04/06 (6 U since admission) (2) Chronic anticoagulation: Code(s): Z79.01 - penitentiary (current) use of anticoagulants Status: Acute Assessment and Plan: Patient has active bleeding visit very high risk for stroke due to mechanical heart valves Will need to resume coagulation with heparin expeditiously when h/h stabilizes, likely 04/07 (3) Mechanical heart valve present: Code(s): Z95.2 - Presence of prosthetic heart valve Status: Acute Assessment and Plan: Aortic and mitral Very high risk for stroke Will need heparin bridge when bleeding stops (4) ESRD (end stage renal disease): Code(s): N18.6 - End stage renal disease Status: Chronic Assessment and Plan: HD TIW (5) Left foot drop: Code(s): M21.372 - Foot drop, left foot Status: Acute (6) Bipolar disorder: Qualifiers: Active/Remission status: currently active Current bipolar episode type: mixed Current episode severity: unspecified Qualified Code(s): F31.60 - Bipolar disorder, current episode mixed, unspecified Code(s): F31.9 - Bipolar disorder, unspecified Status: Acute Assessment and Plan: Reduce alprazolam Switch antidepressant from escitalpram to mirtazapine (to improve sleep and appetite) Continue Vraylar and lamotrigine for mood stabilization (7) Tobacco dependence: Code(s): F17.200 - Nicotine dependence, unspecified, uncomplicated Status: Acute Assessment and Plan: Not interested in quitting (8) Narcotic dependence: Code(s): F11.20 - Opioid dependence, uncomplicated Status: Acute Assessment and Plan: Dose oxycodone at bedtime and possibly with dialysis Subjective Date/time seen: 04/06/19 18:21 Interval history: C/o tingling left foot since her fall. C/o moderate to severe pain over left buttock. No bleeding. No cp or sob. Chronic cough stable. Poor appetite. Refuses to take supplements. Review of Systems Review of Systems: All systems reviewed & are unremarkable except as noted in HPI and below Exam Narrative: Exam Narrative: Skin with ecchymoses over right shoulder and left buttock with tenderness HEENT: EOMI, PERRL, pharyngeal mucosa pink and intact NECK: No JVD CHEST: Coarse BS HEART: Metallic s1/S2, regular ABDOMEN: BS+, soft, nontender, no mass, no bruits EXTREMITIES: No cyanosis, edema, or clubbing NEUROLOGIC: CN intact and symmetric to inspection. MUSCULOSKELETAL: Tone and strength symmetric.Left foot drop. PSYCH: Drowsy. Difficult to arouse. Objective Data Vital Signs Vital Signs: Vital Signs - 24 hr 04/05/19 19:00 04/05/19 19:31 04/05/19 19:40 Temperature 98.2 F 98.2 F Pulse Rate 96 96 96 Respiratory Rate 20 18 20 Blood Pressure 151/69 H 151/69 H Pulse Oximetry 98 98 04/05/19 19:41 04/05/19 22:00 04/06/19 06:00 Temperature 97.5 F L 97.8 F Pulse Rate 97 94 82 Respiratory Rate 18 18 20 Blood Pressure 155/70 H 153/49 H Pulse Oximetry 96 100 04/06/19 07:49 04/06/19 08:01 04/06/19 09:13 Temperature 96.6 F L Pulse Rate 86 87 64 Respiratory Rate 18 18 18 Blood Pressure 140/40 L Pulse Oximetry 99 04/06/19 09:28 04/06/19 10:15 04/06/19 11:15 Temperature 96.7 F L 97.2 F L 97.4 F L Pulse Rate 88 78 85 Respiratory Rate 20 16 18 Blood Pressure 138/40 L 149/71 H 140/57 L Pulse Oximetry 100 93 92 04/06/19 11:30 04/06/19 12:04 04/06/19 12:11 Temperature 96.8 F L Pulse Rate 89 85 80 Respiratory Rate 18 18 18 Blood Pressure 152/63 H Pulse Oximetry 100 04/06/19 13:22 04/06/19
[2019-04-06] MEDS: ALPRAZOLAM 0.5 MG TABLET 1 MG PO (20:32)
[2019-04-06] MEDS: MIRTAZAPINE 15 MG TABLET PO (20:32)
[2019-04-06] MEDS: lamoTRIgine 100 MG TABLET 400 MG PO (20:32)
[2019-04-07] VITALS (20 sets, daily range): BP systolic 103–146; BP diastolic 35–65; PULSE 98–110; RESP 16–24; TEMP 36.6–37.7; O2SAT 91–100
[2019-04-07] MEDS: ACETAMINOPHEN 500 MG TABLET 1000 MG PO ×3 (05:43→20:26)
[2019-04-07] MEDS: LEVOTHYROXINE SODIUM 125 MCG TABLET PO (05:43)
[2019-04-07 06:18] LABS: Mean Corpuscular HGB Conc 33.2 g/dl (32-36); Mean Corpuscular Hemoglobin 29.9 pg (26-34); Mean Corpuscular Volume 90.2 fl (80-100); Mean Platelet Volume 10.6 fl (7.4-10.4); Platelet Count Result 158 k/mm3 (150-375); Red Blood Count 2.04 M/mm3 (4.2-5.4); Red Cell Distribution Width 16.7 % (11.5-14.5); White Blood Count 23.1 K/mm3 (4.5-10.0)
[2019-04-07 06:20] LABS: Hematocrit 18.4 % (37.0-47.0); Hemoglobin 6.1 g/dL (12.0-15.0)
[2019-04-07 06:27] LABS: INR 1.6; Prothrombin Time 18.6 Seconds (11.1-14.7)
[2019-04-07 06:32] LABS: Blood Urea Nitrogen 22 mg/dL (7-17); Calcium 7.8 mg/dL (8.4-10.2); Carbon Dioxide 27 mmol/L (22-30); Chloride 95 mmol/L (98-107); Estimated CRCL calculation 20 ml/min; Estimated Glomerular Filt Rate 19; Glucose 106 mg/dL (65-105); Potassium 4.1 mmol/L (3.4-5.0); Sodium 135 mmol/L (137-145)
[2019-04-07] MEDS: IPRATROPIUM BR 0.02% INH SOLN 0.5 MG/2.5 ML VIAL INHALATION ×4 (07:26→21:12)
[2019-04-07] MEDS: BUDESONIDE RESPULE NEB 0.5 MG/2 ML AMP 0.25 MG INHALATION ×2 (07:26→21:12)
[2019-04-07] MEDS: ALBUTEROL SULFATE NEB 2.5 MG/0.5 ML INH INHALATION ×4 (07:26→21:12)
[2019-04-07] MEDS: SIMVASTATIN 20 MG TABLET 40 MG PO (09:20)
[2019-04-07] MEDS: PANTOPRAZOLE 40 MG TABLET PO (09:20)
[2019-04-07] MEDS: FUROSEMIDE 80 MG TABLET PO (09:20)
[2019-04-07] MEDS: SEVELAMER CARBONATE 800 MG TABLET PO ×3 (09:20→17:25)
[2019-04-07] MEDS: BETAMETHASONE/CLOTRIMAZOLE CR 15 GM TUBE 1 APPLIC TOPICAL ×2 (09:21→17:25)
[2019-04-07] MEDS: FLUTICASONE PROPIONATE 0.05% NA SPR 16 GM BTL (*BKC) 1 SPRAY NASAL ×2 (09:21→20:26)
--- NOTE | 2019-04-07 11:56 | PM.PNCARD ---
Progress Note: A&P Assessment and Plan (1) Intramuscular hematoma: Code(s): T14.8XXA - Other injury of unspecified body region, initial encounter Status: Acute (2) ESRD (end stage renal disease) on dialysis: Code(s): N18.6 - End stage renal disease; Z99.2 - Dependence on renal dialysis Status: Acute Assessment and Plan: Renal replacement therapy with hemodialysis (3) Mechanical heart valve present: Code(s): Z95.2 - Presence of prosthetic heart valve Status: Acute Assessment and Plan: Patient has history of remote valvular heart disease, and status post mechanical mitral and aortic valve replacement. She will need to be on chronic anticoagulation with warfarin, target INR 2.5-3.5; with low-dose aspirin regimen. Unfortunately, patient had a fall and has left gluteal hematoma with possible active bleed. Her anticoagulation has been put on hold. She has been receiving multiple transfusions due to severe anemia. Her anticoagulation is on hold for now. Monitor H&H and improvement in the left gluteal hematoma. Patient will need unfractionated heparin, to be bridged with warfarin with a target INR as mentioned above. Plan discussed with the patient and the staff. Subjective Date/time seen: 04/06/19 13:39 Patient admitted with a fall, found to have left gluteal area hematoma. Patient has history of mechanical mitral and aortic valve, and is on chronic anticoagulation with warfarin. Today, patient was undergoing hemodialysis at the time of evaluation. She complained of left hip discomfort. She denies chest pain, shortness of breath. 04/07/19 11:56 Patient reports left discomfort, which is minimally improved. She received hemodialysis yesterday. She has received 6 units of PRBC so far for severe anemia. She denies chest pain or shortness of breath at rest. Her anticoagulation has been put on hold for now due to severe anemia requiring transfusions, and also due to hematoma in the left gluteal area. Exam Const: General: no acute distress, alert and awake HENMT: Head: normocephalic and atraumatic Ears: hearing grossly normal bilaterally and external ears normal General nose exam: Normal external nose present and no epistaxis Face and sinus: normal facial exam and no ecchymosis Mouth: Yes tongue normal and Yes moist mucous membranes Teeth and gingiva: dentition normal Eyes: Conjunctivae: conjunctivae normal Sclera: sclerae normal Pupils: Equal, round and reactive pupils present EOM: EOMs intact bilaterally Neck: Neck: normal visual inspection, supple and no JVD Thyroid: thyroid normal Carotids: normal carotid upstroke Resp: Effort & Inspection: normal respiratory effort and able to speak in complete sentences Auscultation: clear to auscultation bilaterally Cardio: Jugular venous distension: no JVD Rate: regular rate Rhythm: regular rhythm Heart sounds: Murmur heart sound present Other: Mechanical S1 and S2 GI: Inspection: normal to inspection Auscultation: normal bowel sounds Skin: Other: no rash on exposed areas, no cyanosis Neuro: Cranial nerves: Yes Equal, round and reactive pupils present and Yes Normal hearing present Other: alert, oriented, no major focal deficits on gross neurological examination Extrem: Other: no edema, no cyanosis, no major deformities Psych: Appearance: grossly normal Mental Status: mental status grossly normal Objective Data Vital Signs Vital Signs: Vital Signs - 24 hr 04/06/19 12:04 04/06/19 12:11 04/06/19 13:22 Temperature 36.0 C L Pulse Rate 85 80 90 Respiratory Rate 18 18 16 Blood Pressure 164/70 H Pulse Oximetry 04/06/19 13:36 04/06/19 13:45 04/06/19 14:00 Temperature Pulse Rate 91 90 89 Respiratory Rate Blood Pressure 159/69 H 151/57 H 142/53 H Pulse Oximetry 04/06/19 14:15 04/06/19 14:30 04/06/19 14:34 Temperature 36.4 C L Pulse Rate 92 92 92 Respiratory Rate 18 Blood Pressure 135/64 11
--- NOTE | 2019-04-07 12:47 | PM.IMPN ---
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 Status: Acute Assessment and Plan: Patient has active bleeding visit very high risk for stroke due to mechanical heart valves Will need to resume coagulation with heparin expeditiously when h/h stabilizes, likely 04/07 PM if h/h stabe after transfusion (3) Mechanical heart valve present: Code(s): Z95.2 - Presence of prosthetic heart valve Status: Acute Assessment and Plan: Aortic and mitral Very high risk for stroke Will need heparin bridge when bleeding stops (4) ESRD (end stage renal disease): Code(s): N18.6 - End stage renal disease Status: Chronic Assessment and Plan: HD TIW (5) Left foot drop: Code(s): M21.372 - Foot drop, left foot Status: Acute (6) Bipolar disorder: Qualifiers: Active/Remission status: currently active Current bipolar episode type: mixed Current episode severity: unspecified Qualified Code(s): F31.60 - Bipolar disorder, current episode mixed, unspecified Code(s): F31.9 - Bipolar disorder, unspecified Status: Acute Assessment and Plan: Reduce alprazolam Switch antidepressant from escitalpram to mirtazapine (to improve sleep and appetite) Continue Vraylar and lamotrigine for mood stabilization (7) Tobacco dependence: Code(s): F17.200 - Nicotine dependence, unspecified, uncomplicated Status: Acute Assessment and Plan: Not interested in quitting (8) Narcotic dependence: Code(s): F11.20 - Opioid dependence, uncomplicated Status: Acute Assessment and Plan: Dose oxycodone at bedtime and possibly with dialysis Subjective Date/time seen: 04/07/19 12:47 Interval history: No overt bleeding. No chest pain or shortness of breath. Chronic smoker's cough. Left buttock and thigh swelling diminished. Still with pain on with pressure movement. Slept well. Mood better. Tolerating diet but not much appetite. No GI or complaints. Review of Systems Review of Systems: All systems reviewed & are unremarkable except as noted in HPI and below Exam Narrative: Exam Narrative: Skin with ecchymoses over right shoulder and left buttock with tenderness HEENT: EOMI, PERRL, pharyngeal mucosa pink and intact NECK: No JVD CHEST: Coarse BS HEART: Metallic s1/S2, regular ABDOMEN: BS+, soft, nontender, no mass, no bruits EXTREMITIES: No cyanosis, edema, or clubbing NEUROLOGIC: CN intact and symmetric to inspection. MUSCULOSKELETAL: Tone and strength symmetric.Left foot drop. PSYCH: Drowsy. Difficult to arouse. Objective Data Vital Signs Vital Signs: Vital Signs - 24 hr 04/06/19 13:22 04/06/19 13:36 04/06/19 13:45 Temperature 96.8 F L Pulse Rate 90 91 90 Respiratory Rate 16 Blood Pressure 164/70 H 159/69 H 151/57 H Pulse Oximetry 04/06/19 14:00 04/06/19 14:15 04/06/19 14:30 Temperature Pulse Rate 89 92 92 Respiratory Rate Blood Pressure 142/53 H 135/64 115/52 L Pulse Oximetry 04/06/19 14:34 04/06/19 14:45 04/06/19 14:50 Temperature 97.5 F L 97.7 F Pulse Rate 92 102 H 92 Respiratory Rate 18 20 Blood Pressure 115/52 L 118/55 L 106/43 L Pulse Oximetry 99 04/06/19 15:00 04/06/19 15:15 04/06/19 15:30 Temperature 98.1 F Pulse Rate 94 92 90 Respiratory Rate 20 Blood Pressure 126/64 123/63 140/54 L Pulse Oximetry 04/06/19 15:45 04/06/19 16:00 04/06/19 16:15 Temperature Pulse Rat
--- NOTE | 2019-04-07 16:29 | PM.PNNEP ---
Progress Note: A&P Assessment and Plan (1) ESRD (end stage renal disease): Code(s): N18.6 - End stage renal disease Status: Chronic Assessment and Plan: HD tomorrow and continue M/W/F dialysis schedule while hospitalized electrolytes, volume status, and clearance acceptable (2) Anemia: Qualifiers: Anemia type: unspecified type Qualified Code(s): D64.9 - Anemia, unspecified Code(s): D64.9 - Anemia, unspecified Status: Acute Assessment and Plan: quite severe and secondary to #3 anticoagulation on hold PRBC transfusion per protocol Epogen with HD (3) Intramuscular hematoma: Code(s): T14.8XXA - Other injury of unspecified body region, initial encounter Status: Acute Assessment and Plan: as evidence by imagining on admission follow H/H with transfusions as needed continue supportive therapy (4) Mechanical heart valve present: Code(s): Z95.2 - Presence of prosthetic heart valve Status: Acute Assessment and Plan: Cardiology following resume anticoagulation when safe to do so (5) Bipolar disorder: Qualifiers: Active/Remission status: currently active Current bipolar episode type: mixed Current episode severity: unspecified Qualified Code(s): F31.60 - Bipolar disorder, current episode mixed, unspecified Code(s): F31.9 - Bipolar disorder, unspecified Status: Acute Assessment and Plan: mentation/mood better today follow trend Will continue to follow. Subjective Date/time seen: 04/07/19 16:29 Tolerated dialysis yestereday without any issue or problems; H/H still fluctuating in spite of multiple PRBC transfusions to date; sleeping a bit better and seems more calm today. Exam Narrative: Exam Narrative: General: WD/WN female in NAD Heart: normal S1 and S2; no rub Lungs: clear to auscultation Abdomen: soft, nontender, nondistended, positive bowel sounds Extremities: no cyanosis or clubbing; 1+ edema Skin: warm and dry Objective Data Vital Signs Vital Signs: Vital Signs Temp Pulse Resp BP Pulse Ox 04/07/19 16:30 106 H 16 04/07/19 14:35 37.7 C H 106 H 20 144/65 H 94 04/07/19 14:23 36.8 C 102 H 20 132/62 94 04/07/19 12:35 36.8 C 102 H 20 132/62 94 04/07/19 12:18 37.2 C 98 20 146/54 H 98 04/07/19 12:10 37.2 C 104 H 20 146/54 H 98 04/07/19 12:04 102 H 16 04/07/19 11:55 103 H 16 04/07/19 11:25 36.9 C 100 22 H 136/52 L 94 04/07/19 10:24 37.0 C 100 22 H 136/56 L 93 04/07/19 09:25 37.2 C 102 H 24 H 103/35 L 96 04/07/19 09:05 37.1 C 103 H 24 H 132/49 L 96 04/07/19 08:00 101 H 16 100 04/07/19 07:36 101 H 16 04/07/19 07:28 102 H 16 04/07/19 06:00 37.1 C 100 18 139/55 L 100 04/07/19 02:40 37.6 C 104 H 20 138/60 94 04/06/19 21:56 37.1 C 103 H 22 H 141/52 H 96 04/06/19 20:55 101 H 16 04/06/19 17:32 36.4 C 84 18 142/76 H 93 04/06/19 16:45 36.4 C 82 16 128/61 04/06/19 16:37 87 117/59 L Intake/Output Intake/Output: Intake & Output 04/04/19 04/05/19 04/06/19 04/07/19 23:59 23:59 23:59 23:59 Intake Total 450 1950 907 830 Output Total 3000 0 Balance 450 1950 -2092 830 Meds/Results Medications: Active Medications Generic Name Dose Route Start Last Admin Trade Name Freq PRN Reason Stop Dose Admin Acetaminophen 1,000 mg 04/06/19 22:00 04/07/19 05:43 Tylenol Tablet PO 1,000 mg Q8HR GORDON Administration Albuterol 2.5 mg 04/05/19 08:00 04/07/19 16:28 Albuterol Sulf Neb 2.5mg/0.5ml INHALATION 2.5 mg QIDRT GORDON Administration Alprazolam 1 mg 04/06/19 21:00 04/06/19 20:32 Xanax PO 1 mg HS GORDON Administration Budesonide 0.25 mg 04/05/19 08:00 04/07/19 07:26 Pulmicort Respule Neb INHALATION 0.25 mg Q12HRT GORDON Administration Clotrimazole 1 applic 04/05/19 09:00 04/07/19 09:21 Lotrisone Cream TOPICA
[2019-04-07 17:03] LABS: Hemoglobin 8.2 g/dL (12.0-15.0)
[2019-04-07 19:12] LABS: Basophils Percent Auto 0.2 % (0.2-1.2); Eosinophils Percent Auto 0.1 % (0-4.4); Hematocrit 22.8 % (37.0-47.0); Hemoglobin 7.8 g/dL (12.0-15.0); Immature Granulocyte Absolute 0.23 K/mm3 (0.00-0.031); Immature Granulocyte Percent A 1.2 % (0-0.5); Lymphocytes Absolute Auto 0.79 K/mm3 (0.9-3.2); Lymphocytes Percent Auto 4.2 % (18.3-44.2); Mean Corpuscular HGB Conc 34.2 g/dl (32-36); Mean Corpuscular Hemoglobin 30.6 pg (26-34); Mean Corpuscular Volume 89.4 fl (80-100); Mean Platelet Volume 10.5 fl (7.4-10.4); Monocytes Absolute Auto 1.2 K/mm3 (0.1-0.6); Monocytes Percent Auto 6.3 % (2.6-8.5); Neutrophils Absolute Auto 16.7 K/mm3 (1.3-6.7); Platelet Count Result 151 k/mm3 (150-375); Red Blood Count 2.55 M/mm3 (4.2-5.4); Red Cell Distribution Width 15.7 % (11.5-14.5)
[2019-04-07 19:20] LABS: INR 1.3; Prothrombin Time 15.6 Seconds (11.1-14.7)
[2019-04-07 19:21] LABS: Partial Thromboplastin Time 57.5 SECONDS (22.3-36.8)
[2019-04-07] MEDS: lamoTRIgine 100 MG TABLET 400 MG PO (20:25)
[2019-04-07] MEDS: ALPRAZOLAM 0.5 MG TABLET 1 MG PO (20:25)
[2019-04-07] MEDS: HEPARIN SOD/D5W 100 UNITS/ML 25,000 UNITS/250 ML BAG 8 UNITS IV CONT (20:26)
[2019-04-07] MEDS: MIRTAZAPINE 15 MG TABLET PO (20:26)
[2019-04-08] VITALS (31 sets, daily range): BP systolic 89–139; BP diastolic 40–64; PULSE 15–108; RESP 16–20; TEMP 36.4–37; O2SAT 94–100
[2019-04-08 03:00] LABS: Blood Urea Nitrogen 32 mg/dL (7-17); Calcium 8.1 mg/dL (8.4-10.2); Carbon Dioxide 26 mmol/L (22-30); Chloride 96 mmol/L (98-107); Estimated CRCL calculation 16 ml/min; Estimated Glomerular Filt Rate 14; Glucose 100 mg/dL (65-105); Potassium 4.1 mmol/L (3.4-5.0); Sodium 133 mmol/L (137-145)
[2019-04-08 03:14] LABS: Basophils Percent Auto 0.2 % (0.2-1.2); Eosinophils Percent Auto 0.2 % (0-4.4); Hematocrit 24.1 % (37.0-47.0); Hemoglobin 7.9 g/dL (12.0-15.0); Immature Granulocyte Absolute 0.15 K/mm3 (0.00-0.031); Immature Granulocyte Percent A 0.9 % (0-0.5); Lymphocytes Absolute Auto 0.92 K/mm3 (0.9-3.2); Lymphocytes Percent Auto 5.7 % (18.3-44.2); Mean Corpuscular HGB Conc 32.8 g/dl (32-36); Mean Corpuscular Volume 91.6 fl (80-100); Mean Platelet Volume 10.7 fl (7.4-10.4); Monocytes Absolute Auto 0.9 K/mm3 (0.1-0.6); Monocytes Percent Auto 5.9 % (2.6-8.5); Neutrophils Percent Auto 87.1 % (45.5-73.1); Platelet Count Result 157 k/mm3 (150-375); Red Blood Count 2.63 M/mm3 (4.2-5.4); Red Cell Distribution Width 16.3 % (11.5-14.5); White Blood Count 16.1 K/mm3 (4.5-10.0)
[2019-04-08 03:23] LABS: INR 1.4; Prothrombin Time 16.5 Seconds (11.1-14.7)
[2019-04-08] MEDS: HEPARIN SODIUM 5,000 UNITS/ML VIAL 4000 UNITS IV PUSH ×3 (03:29→19:21)
[2019-04-08] MEDS: LEVOTHYROXINE SODIUM 125 MCG TABLET PO (05:53)
[2019-04-08] MEDS: ACETAMINOPHEN 500 MG TABLET 1000 MG PO ×3 (05:53→22:07)
--- NOTE | 2019-04-08 09:39 | PC.NURSE ---
To dialysis per bed at 0805.
--- NOTE | 2019-04-08 10:10 | PM.PNCARD ---
Progress Note: A&P Assessment and Plan (1) Intramuscular hematoma: Code(s): T14.8XXA - Other injury of unspecified body region, initial encounter Status: Acute Assessment and Plan: will reimage with ultrasound today. Will consider CT scan with contrast also if the ultrasound is not effective enough fat assessing active hemorrhage. Will need to restart anticoagulation ARIEL (2) ESRD (end stage renal disease) on dialysis: Code(s): N18.6 - End stage renal disease; Z99.2 - Dependence on renal dialysis Status: Acute Assessment and Plan: Renal replacement therapy with hemodialysis (3) Mechanical heart valve present: Code(s): Z95.2 - Presence of prosthetic heart valve Status: Acute Assessment and Plan: Patient has history of remote valvular heart disease, and status post mechanical mitral and aortic valve replacement. She will need to be on chronic anticoagulation with warfarin, target INR 2.5-3.5; with low-dose aspirin regimen. Unfortunately, patient had a fall and has left gluteal hematoma with possible active bleed. Her anticoagulation has been put on hold. She has been receiving multiple transfusions due to severe anemia. Her anticoagulation is on hold for now. Monitor H&H and improvement in the left gluteal hematoma. Patient will need unfractionated heparin, to be bridged with warfarin with a target INR as mentioned above. Plan discussed with the patient and the staff. Additional Plan 59-year-old white female with very challenging situation in that she require systemic anticoagulation as she has mechanical prosthetic mitral and aortic valves. Subjective Date/time seen: 04/08/19 10:10 Interval history: reason for visit: Hematoma, anticoagulation, mechanical mitral and aortic valves date of service 04/08/2019: Still has buttock pain but she states that this is better. No chest pain or shortness of breath. No stroke symptoms Review of Systems Review of Systems: All systems reviewed & are unremarkable except as noted in HPI and below Constitutional: Constitutional: Reports lethargy and Reports weakness Eyes: Eyes: Reports no additional eye complaints ENT: Reports system reviewed and no additional complaints, except as documented and Reports Normal hearing present Cardiovascular: Cardiovascular: Reports no additional cardiovascular complaints Respiratory: Respiratory: Reports no additional respiratory complaints Gastrointestinal: Gastrointestinal: Reports no additional gastrointestinal complaints Musculoskeletal: Comments: buttock pain as above Integumentary/Breasts: Skin/Breast: Reports as per HPI Neurologic: Reports as per HPI, Reports Normal hearing present and Reports weakness Psychiatric: Psychiatric: Reports anxiety Hematologic/Lymphatic: Hematologic/Lymphatic: Reports no additional hematologic/lymphatic complaints Exam Const: General: no acute distress, alert, awake and uncomfortable Other: Chronically ill-appearing white female with his significantly older than stated age was sleeping and upon awakening is only complaining of pain in the region of the buttocks because of the fall and hematoma HENMT: Head: normocephalic and atraumatic Ears: hearing grossly normal bilaterally and external ears normal General nose exam: Normal external nose present and no epistaxis Face and sinus: normal facial exam and no ecchymosis Mouth: Yes tongue normal, Yes moist mucous membranes and Yes dry mucous membranes Teeth and gingiva: dentition normal Eyes: Conjunctivae: conjunctivae normal Sclera: sclerae normal Pupils: Equal, round and reactive pupils present EOM: EOMs intact bilaterally Neck: Neck: normal visual inspection, supple and no JVD Thyroid: thyroid normal Carotids: normal carotid upstroke Resp: Effort & Inspection: normal respiratory effort and able to speak in complete sentences Auscultation: clear to auscultation bilaterally Cardio: Jugular venous
[2019-04-08] MEDS: HEPARIN SOD/D5W 100 UNITS/ML 25,000 UNITS/250 ML BAG 14 UNITS IV CONT (10:54)
[2019-04-08] MEDS: EPOETIN ALFA 20,000 UNITS/ML VIAL 20000 UNITS IV PUSH (11:18)
[2019-04-08] MEDS: IPRATROPIUM BR 0.02% INH SOLN 0.5 MG/2.5 ML VIAL INHALATION ×3 (11:20→21:00)
[2019-04-08] MEDS: BUDESONIDE RESPULE NEB 0.5 MG/2 ML AMP 0.25 MG INHALATION ×2 (11:20→20:59)
[2019-04-08] MEDS: ALBUTEROL SULFATE NEB 2.5 MG/0.5 ML INH INHALATION ×3 (11:21→20:59)
--- NOTE | 2019-04-08 11:26 | PCNFU ---
Nutrition Follow-Up Complete: Involuntary weight loss related to multiple medical issues as evidenced by reported and documented weight loss. Patient to consume 50% of meals or greater in addition to Nepro Shake. Goal: progressing towards goal. Pt current nutrition is Renal Dialysis Diet . Nutrition recommendation: Agree Last recorded weight is 76.5 kg. Bowel Motility:no reported BM Labs Reviewed:GFR 14,BUN 32,Cr 3.4,Na 133 Meds Noted:Remeron Additional Notes: Patient in dialysis this morning. Reported intakes 50%, had been refusing meals over the weekend. Agree with diet orders. Patient is also receiving Nepro Shakes BID for an additional 425 kcals and 19 gms protein. Monitoring: Follow up in 5 days.
[2019-04-08] MEDS: HEPARIN SODIUM 1,000 UNITS/ML VIAL 1000 UNITS IV PUSH (12:04)
--- NOTE | 2019-04-08 12:15 | PC.NURSE ---
Ret'd from dialysis per bed.
[2019-04-08] MEDS: FLUTICASONE PROPIONATE 0.05% NA SPR 16 GM BTL (*BKC) 1 SPRAY NASAL ×2 (12:16→20:36)
[2019-04-08] MEDS: SEVELAMER CARBONATE 800 MG TABLET PO ×2 (12:16→17:25)
[2019-04-08] MEDS: PANTOPRAZOLE 40 MG TABLET PO (12:17)
[2019-04-08] MEDS: SIMVASTATIN 20 MG TABLET 40 MG PO (12:17)
[2019-04-08] MEDS: FUROSEMIDE 80 MG TABLET PO (12:17)
--- NOTE | 2019-04-08 12:28 | PM.PNNEP ---
Progress Note: A&P Assessment and Plan (1) ESRD (end stage renal disease): Code(s): N18.6 - End stage renal disease Status: Chronic Assessment and Plan: HD today and continue M/W/F dialysis schedule while hospitalized electrolytes, volume status, and clearance acceptable (2) Anemia: Qualifiers: Anemia type: unspecified type Qualified Code(s): D64.9 - Anemia, unspecified Code(s): D64.9 - Anemia, unspecified Status: Acute Assessment and Plan: quite severe and secondary to #3 anticoagulation on hold PRBC transfusion per protocol Epogen with HD (3) Intramuscular hematoma: Code(s): T14.8XXA - Other injury of unspecified body region, initial encounter Status: Acute Assessment and Plan: as evidence by imagining on admission follow H/H with transfusions as needed continue supportive therapy (4) Mechanical heart valve present: Code(s): Z95.2 - Presence of prosthetic heart valve Status: Acute Assessment and Plan: Cardiology following resume anticoagulation when safe to do so (5) Bipolar disorder: Qualifiers: Active/Remission status: currently active Current bipolar episode type: mixed Current episode severity: unspecified Qualified Code(s): F31.60 - Bipolar disorder, current episode mixed, unspecified Code(s): F31.9 - Bipolar disorder, unspecified Status: Acute Assessment and Plan: mentation/mood better follow trend Will continue to follow. Subjective Date/time seen: 04/08/19 12:28 Tolerating dialysis at the time of my visit (seen on HD at ~ 11:45AM); seems to be sleeping better with better mood in the last couple of days; noted trend of H/H; no acute distress voiced at this time. Exam Narrative: Exam Narrative: General: WD/WN female in NAD Heart: normal S1 and S2; no rub Lungs: clear to auscultation Abdomen: soft, nontender, nondistended, positive bowel sounds Extremities: no cyanosis or clubbing; 1+ edema Skin: warm and intact Objective Data Vital Signs Vital Signs: Vital Signs Temp Pulse Resp BP Pulse Ox 04/08/19 11:55 36.6 C 108 H 20 99/55 L 04/08/19 11:51 107 H 112/56 L 04/08/19 11:45 107 H 102/57 L 04/08/19 11:43 95 04/08/19 11:42 98 16 04/08/19 11:30 102 H 116/40 L 04/08/19 11:21 100 16 04/08/19 11:15 102 H 102/46 L 04/08/19 11:00 15 L 89/48 L 04/08/19 10:45 106 H 93/52 L 04/08/19 10:30 101 H 93/51 L 04/08/19 10:15 106 H 110/61 04/08/19 10:00 102 H 107/53 L 04/08/19 09:45 100 105/55 L 04/08/19 09:30 104 H 108/56 L 04/08/19 09:15 102 H 110/60 04/08/19 09:00 102 H 98/56 L 04/08/19 08:45 102 H 113/61 04/08/19 08:30 101 H 123/56 L 04/08/19 08:21 102 H 115/64 04/08/19 08:10 36.8 C 103 H 20 118/62 04/08/19 05:45 36.6 C 101 H 20 139/56 L 100 04/07/19 22:05 36.6 C 100 20 112/47 L 91 04/07/19 21:22 110 H 16 04/07/19 21:12 103 H 16 04/07/19 16:30 106 H 16 04/07/19 14:35 37.7 C H 106 H 20 144/65 H 94 04/07/19 14:23 36.8 C 102 H 20 132/62 94 04/07/19 12:35 36.8 C 102 H 20 132/62 94 Intake/Output Intake/Output: Intake & Output 04/05/19 04/06/19 04/07/19 04/08/19 23:59 23:59 23:59 23:59 Intake Total 3719 453 3739 100 Output Total 3000 300 3000 Balance 1950 850 -2900 Meds/Results Medications: Active Medications Generic Name Dose Route Start Last Admin Trade Name Freq PRN Reason Stop Dose Admin Acetaminophen 1,000 mg 04/06/19 22:00 04/08/19 05:53 Tylenol Tablet PO 1,000 mg Q8HR GORDON Administration Albuterol 2.5 mg 04/05/19 08:00 04/08/19 11:21 Albuterol Sulf Neb 2.5mg/0.5ml INHALATION 2.5 mg QIDRT GORDON Administration Alprazolam 1 mg 04/06/19 21:00 04/07/19 20:25 Xanax PO 1 mg HS GORDON Administration Budesonide 0.25 mg 04/05/19 08:00 0
[2019-04-08 13:33] LABS: Hematocrit 25.9 % (37.0-47.0); Hemoglobin 8.8 g/dL (12.0-15.0)
--- NOTE | 2019-04-08 15:35 | P.PNIM_ITS ---
Progress Note: A&P Assessment and Plan (1) Acute post-hemorrhagic anemia: Code(s): D62 - Acute posthemorrhagic anemia Status: Acute Assessment and Plan: * Likely due to hematoma and buttock and thigh due to blunt trauma sustained during fall from bed at facility * INR was subtherapeutic at 1.7 upon admission, 04/06 1.7 * Hgb 6.9 after transfusion 04/06 (6 U since admission) * Hgb 6.1 04/07 AM, additional 1 U PRBC ordered * 04/07 PM restarted anticoagulation with heparin, * 04/08AM hgb 8.8 * consider adding back warfarin 04/09 if H/H remains relatively stable, w/o signs of bleeding (2) Chronic anticoagulation: Code(s): Z79.01 - assisted (current) use of anticoagulants Status: Acute Assessment and Plan: * Patient was active bleeding visit very high risk for stroke due to mechanical heart valves * High risk for falls, but very high risk for stroke (3) Mechanical heart valve present: Code(s): Z95.2 - Presence of prosthetic heart valve Status: Acute Assessment and Plan: * Aortic and mitral * Very high risk for stroke (4) ESRD (end stage renal disease): Code(s): N18.6 - End stage renal disease Status: Chronic Assessment and Plan: * HD TIW (5) Left foot drop: Code(s): M21.372 - Foot drop, left foot Status: Acute Assessment and Plan: * Likely due to traumatic sciatic nerve injury during fall at [facility] * Will ask neurology to confirm (6) Bipolar disorder: Qualifiers: Active/Remission status: currently active Current bipolar episode type: mixed Current episode severity: unspecified Qualified Code(s): F31.60 - Bipolar disorder, current episode mixed, unspecified Code(s): F31.9 - Bipolar disorder, unspecified Status: Acute Assessment and Plan: * Reduce alprazolam * Switch antidepressant from escitalpram to mirtazapine (to improve sleep and appetite) * Give low dose oxycodone 2.5mg at HS only * Continue Vraylar and lamotrigine for mood stabilization * So far she is sleeping much better (7) Tobacco dependence: Code(s): F17.200 - Nicotine dependence, unspecified, uncomplicated Status: Acute Assessment and Plan: * Not interested in quitting (8) Narcotic dependence: Code(s): F11.20 - Opioid dependence, uncomplicated Status: Acute Assessment and Plan: * Dose oxycodone at bedtime and possibly with dialysis (but so far she is tolerating bedtime dose only) Subjective Date/time seen: 04/08/19 15:35 Interval history: Buttock pain better. Appetite poor (chronic). Left foot weak and numb since fall at [facility] (landed on left buttock). No BM for 4 days. Denied cp or sob (at rest). Denied other gi/gu c/o. Denied bleeding. Review of Systems Review of Systems: All systems reviewed & are unremarkable except as noted in HPI and below Exam Narrative: Exam Narrative: Skin with ecchymoses over right shoulder and left buttock with tenderness HEENT: EOMI, PERRL, pharyngeal mucosa pink and intact NECK: No JVD CHEST: Coarse BS HEART: Metallic s1/S2, regular ABDOMEN: BS+, soft, nontender, no mass, no bruits EXTREMITIES: No cyanosis, edema, or clubbing NEUROLOGIC: CN intact and symmetric to inspection. DTRs intact at knees, absent at ankles MUSCULOSKELETAL: Tone and strength symmetric.Left foot drop. PSYCH: Drowsy. Difficult to arouse. Objective Data Vital Signs Vital Signs: Vital Signs - 24 hr
--- NOTE | 2019-04-08 15:35 | PM.IMPN ---
Progress Note: A&P Assessment and Plan (1) Acute post-hemorrhagic anemia: Code(s): D62 - Acute posthemorrhagic anemia Status: Acute Assessment and Plan: Likely due to hematoma and buttock and thigh due to blunt trauma sustained during fall from bed at facility INR was subtherapeutic at 1.7 upon admission, 04/06 1.7 Hgb 6.9 after transfusion 04/06 (6 U since admission) Hgb 6.1 04/07 AM, additional 1 U PRBC ordered 04/07 PM restarted anticoagulation with heparin, 04/08AM hgb 8.8 consider adding back warfarin 04/09 if H/H remains relatively stable, w/o signs of bleeding (2) Chronic anticoagulation: Code(s): Z79.01 - group home (current) use of anticoagulants Status: Acute Assessment and Plan: Patient was active bleeding visit very high risk for stroke due to mechanical heart valves High risk for falls, but very high risk for stroke (3) Mechanical heart valve present: Code(s): Z95.2 - Presence of prosthetic heart valve Status: Acute Assessment and Plan: Aortic and mitral Very high risk for stroke (4) ESRD (end stage renal disease): Code(s): N18.6 - End stage renal disease Status: Chronic Assessment and Plan: HD TIW (5) Left foot drop: Code(s): M21.372 - Foot drop, left foot Status: Acute Assessment and Plan: Likely due to traumatic sciatic nerve injury during fall at [facility] Will ask neurology to confirm (6) Bipolar disorder: Qualifiers: Active/Remission status: currently active Current bipolar episode type: mixed Current episode severity: unspecified Qualified Code(s): F31.60 - Bipolar disorder, current episode mixed, unspecified Code(s): F31.9 - Bipolar disorder, unspecified Status: Acute Assessment and Plan: Reduce alprazolam Switch antidepressant from escitalpram to mirtazapine (to improve sleep and appetite) Give low dose oxycodone 2.5mg at HS only Continue Vraylar and lamotrigine for mood stabilization So far she is sleeping much better (7) Tobacco dependence: Code(s): F17.200 - Nicotine dependence, unspecified, uncomplicated Status: Acute Assessment and Plan: Not interested in quitting (8) Narcotic dependence: Code(s): F11.20 - Opioid dependence, uncomplicated Status: Acute Assessment and Plan: Dose oxycodone at bedtime and possibly with dialysis (but so far she is tolerating bedtime dose only) Subjective Date/time seen: 04/08/19 15:35 Interval history: Buttock pain better. Appetite poor (chronic). Left foot weak and numb since fall at [facility] (landed on left buttock). No BM for 4 days. Denied cp or sob (at rest). Denied other gi/gu c/o. Denied bleeding. Review of Systems Review of Systems: All systems reviewed & are unremarkable except as noted in HPI and below Exam Narrative: Exam Narrative: Skin with ecchymoses over right shoulder and left buttock with tenderness HEENT: EOMI, PERRL, pharyngeal mucosa pink and intact NECK: No JVD CHEST: Coarse BS HEART: Metallic s1/S2, regular ABDOMEN: BS+, soft, nontender, no mass, no bruits EXTREMITIES: No cyanosis, edema, or clubbing NEUROLOGIC: CN intact and symmetric to inspection. DTRs intact at knees, absent at ankles MUSCULOSKELETAL: Tone and strength symmetric.Left foot drop. PSYCH: Drowsy. Difficult to arouse. Objective Data Vital Signs Vital Signs: Vital Signs - 24 hr 04/07/19 16:30 04/07/19 21:12 04/07/19 21:22 Temperature Pulse Rate 106 H 103 H 110 H Respiratory Rate 16 16 16 Blood Pressure Pulse Oximetry 04/07/19 22:05 04/08/19 05:45 04/08/19 08:10 Temperature 97.8 F 97.9 F 98.3 F Pulse Rate 100 101 H 103 H Respiratory Rate 20 20 20 Blood Pressure 112/47 L 139/56 L 118/62 Pulse Oximetry 91 100 04/08/19 08:21 04/08/19 08:30 04/08/19 08:45 Temperature Pulse Rate 102 H 101 H 102 H Respiratory Rate Blood Pressure 115/64 123/56 L 113/61
[2019-04-08] MEDS: polyethylene glycoL 3350 17 GM POWD.PACK PO (17:24)
[2019-04-08] MEDS: SENNOSIDES 8.6 MG TABLET PO (17:26)
[2019-04-08 17:38] LABS: Partial Thromboplastin Time 45.9 SECONDS (22.3-36.8)
[2019-04-08] MEDS: MIRTAZAPINE 15 MG TABLET PO (20:37)
[2019-04-08] MEDS: lamoTRIgine 100 MG TABLET 400 MG PO (20:37)
[2019-04-08] MEDS: ALPRAZOLAM 0.5 MG TABLET 1 MG PO (22:06)
[2019-04-09] VITALS (14 sets, daily range): BP systolic 105–119; BP diastolic 60–66; PULSE 77–98; RESP 16–22; TEMP 36.3–36.8; O2SAT 93–100
[2019-04-09 01:21] LABS: Partial Thromboplastin Time 52.6 SECONDS (22.3-36.8)
[2019-04-09] MEDS: HEPARIN SODIUM 5,000 UNITS/ML VIAL 4000 UNITS IV PUSH (01:28)
[2019-04-09] MEDS: HEPARIN SOD/D5W 100 UNITS/ML 25,000 UNITS/250 ML BAG 20 UNITS IV CONT ×2 (05:42→18:57)
[2019-04-09] MEDS: LEVOTHYROXINE SODIUM 125 MCG TABLET PO (05:47)
[2019-04-09] MEDS: ACETAMINOPHEN 500 MG TABLET 1000 MG PO ×3 (05:47→23:25)
[2019-04-09 07:34] LABS: Hematocrit 22.2 % (37.0-47.0); Mean Corpuscular HGB Conc 31.5 g/dl (32-36); Mean Corpuscular Hemoglobin 29.7 pg (26-34); Mean Corpuscular Volume 94.1 fl (80-100); Mean Platelet Volume 10.2 fl (7.4-10.4); Platelet Count Result 163 k/mm3 (150-375); Red Blood Count 2.36 M/mm3 (4.2-5.4); Red Cell Distribution Width 17.2 % (11.5-14.5); White Blood Count 11.9 K/mm3 (4.5-10.0)
[2019-04-09 07:42] LABS: Blood Urea Nitrogen 24 mg/dL (7-17); Calcium 7.9 mg/dL (8.4-10.2); Carbon Dioxide 28 mmol/L (22-30); Chloride 98 mmol/L (98-107); Estimated CRCL calculation 20 ml/min; Estimated Glomerular Filt Rate 18; Glucose 88 mg/dL (65-105); Potassium 3.9 mmol/L (3.4-5.0); Sodium 136 mmol/L (137-145)
[2019-04-09 07:43] LABS: INR 1.3; Prothrombin Time 15.5 Seconds (11.1-14.7)
[2019-04-09 07:44] LABS: Partial Thromboplastin Time 80.2 SECONDS (22.3-36.8)
[2019-04-09] MEDS: FUROSEMIDE 80 MG TABLET PO (08:35)
[2019-04-09] MEDS: SIMVASTATIN 20 MG TABLET 40 MG PO (08:35)
[2019-04-09] MEDS: SENNOSIDES 8.6 MG TABLET PO ×2 (08:35→18:41)
[2019-04-09] MEDS: BETAMETHASONE/CLOTRIMAZOLE CR 15 GM TUBE 1 APPLIC TOPICAL ×2 (08:36→18:41)
[2019-04-09] MEDS: SEVELAMER CARBONATE 800 MG TABLET PO ×3 (08:36→18:36)
[2019-04-09] MEDS: FLUTICASONE PROPIONATE 0.05% NA SPR 16 GM BTL (*BKC) 1 SPRAY NASAL ×2 (08:36→20:39)
[2019-04-09] MEDS: PANTOPRAZOLE 40 MG TABLET PO (08:36)
--- NOTE | 2019-04-09 09:08 | PM.PNCARD ---
Progress Note: A&P Assessment and Plan (1) Intramuscular hematoma: Code(s): T14.8XXA - Other injury of unspecified body region, initial encounter Status: Acute Assessment and Plan: Ultrasound 04/08/2019: Hematoma. Hemoglobin 7.[address] scan with contrast to reassess for any active bleeding. Should be done sometime this afternoon as she is eating breakfast at this time. If there is no evidence of any active bleeding will restart warfarin. Heparin was started on 04/07/2019 (2) ESRD (end stage renal disease) on dialysis: Code(s): N18.6 - End stage renal disease; Z99.2 - Dependence on renal dialysis Status: Acute Assessment and Plan: Renal replacement therapy with hemodialysis (3) Mechanical heart valve present: Code(s): Z95.2 - Presence of prosthetic heart valve Status: Acute Assessment and Plan: History of remote valvular heart disease, and status post mechanical mitral and aortic valve replacement. She will need to be on chronic anticoagulation with warfarin, target INR 2.5-3.5; with low-dose aspirin regimen. Plan as above Additional Plan Plan discussed with Dr. Campos 0915 04/09/2019 Subjective Date/time seen: 04/09/19 09:08 Interval history: Follow-up for:: Hematoma, anticoagulation, mechanical mitral and aortic valves Date of service: 04/09/2019 Subjective: Left foot numbness bothering her the most. Buttock pain no worse. Denied chest discomfort or shortness of breath. Eating breakfast. Review of Systems Constitutional: Constitutional: Denies fatigue and Denies weakness Eyes: Eyes: Denies blurry vision ENT: Reports Normal hearing present Cardiovascular: Cardiovascular: Denies chest pain, Reports pedal edema (Bilateral), Reports leg edema (Left), Denies lightheadedness and Denies palpitations Respiratory: Respiratory: Denies cough, Denies dyspnea and Denies dyspnea on exertion Gastrointestinal: Gastrointestinal: Denies abdominal pain and Denies bloating Musculoskeletal: Musculoskeletal: Reports numbness (Left foot with drop) Integumentary/Breasts: Skin/Breast: Reports other (Significant ecchymosis left hip/buttocks/lower abdomen) Neurologic: Denies Abnormal speech present and Reports numbness (Left foot) Psychiatric: Psychiatric: Denies anxiety Exam Const: General: no acute distress, alert, awake and uncomfortable HENMT: Head: normocephalic and atraumatic Ears: hearing grossly normal bilaterally and external ears normal General nose exam: Normal external nose present and no epistaxis Face and sinus: normal facial exam and no ecchymosis Mouth: Yes dry mucous membranes Eyes: Conjunctivae: conjunctivae normal Sclera: sclerae normal Pupils: Equal, round and reactive pupils present EOM: EOMs intact bilaterally Neck: Neck: normal visual inspection and supple Resp: Effort & Inspection: normal respiratory effort and able to speak in complete sentences Auscultation: clear to auscultation bilaterally Cardio: Rate: regular rate Rhythm: regular rhythm Heart sounds: Murmur heart sound present systolic II/ and at the apex and Other heart sounds present (Mechanical S1 and S2) GI: Inspection: normal to inspection Auscultation: normal bowel sounds Skin: General skin exam: normal color Neuro: Cranial nerves: Yes Equal, round and reactive pupils present and Yes Normal hearing present Cognition (Neuro): normal cognition Extrem: General: normal to inspection Psych: Appearance: grossly normal Mental Status: mental status grossly normal Objective Data Vital Signs Vital Signs: Vital Signs - 24 hr 04/08/19 09:15 04/08/19 09:30 04/08/19 09:45 Temperature Pulse Rate 102 H 104 H 100 Respiratory Rate Blood Pressure 110/60 108/56 L 105/55 L Pulse Oximetry 04/08/19 10:00 04/08/19 10:15 04/08/19 10:30 Temperature Pu
[2019-04-09] MEDS: IPRATROPIUM BR 0.02% INH SOLN 0.5 MG/2.5 ML VIAL INHALATION ×4 (09:15→19:46)
[2019-04-09] MEDS: BUDESONIDE RESPULE NEB 0.5 MG/2 ML AMP 0.25 MG INHALATION ×2 (09:15→19:46)
[2019-04-09] MEDS: ALBUTEROL SULFATE NEB 2.5 MG/0.5 ML INH INHALATION ×4 (09:15→19:46)
--- NOTE | 2019-04-09 11:19 | PM.PNNEP ---
Progress Note: A&P Assessment and Plan (1) ESRD (end stage renal disease): Code(s): N18.6 - End stage renal disease Status: Chronic Assessment and Plan: HD tomorrow and continue M/W/F dialysis schedule while hospitalized electrolytes, volume status, and clearance acceptable (2) Anemia: Qualifiers: Anemia type: unspecified type Qualified Code(s): D64.9 - Anemia, unspecified Code(s): D64.9 - Anemia, unspecified Status: Acute Assessment and Plan: quite severe and secondary to #3 anticoagulation on hold PRBC transfusion per protocol Epogen with HD (3) Intramuscular hematoma: Code(s): T14.8XXA - Other injury of unspecified body region, initial encounter Status: Acute Assessment and Plan: as evidence by imagining on admission follow H/H with transfusions as needed continue supportive therapy (4) Mechanical heart valve present: Code(s): Z95.2 - Presence of prosthetic heart valve Status: Acute Assessment and Plan: Cardiology following resume anticoagulation when safe to do so (today?) (5) Bipolar disorder: Qualifiers: Active/Remission status: currently active Current bipolar episode type: mixed Current episode severity: unspecified Qualified Code(s): F31.60 - Bipolar disorder, current episode mixed, unspecified Code(s): F31.9 - Bipolar disorder, unspecified Status: Acute Assessment and Plan: mentation/mood better follow trend Will continue to follow. Subjective Date/time seen: 04/09/19 11:19 Tolerated dialysis yesterday without any issues or problems; H/H seems relatively stable at this time; no apparent distress voiced at the time of my visit. Exam Narrative: Exam Narrative: General: WD/WN female in NAD Heart: normal S1 and S2; no rub Lungs: clear to auscultation Abdomen: soft, nontender, nondistended, positive bowel sounds Extremities: no cyanosis or clubbing; 1+ edema Skin: no rash Objective Data Vital Signs Vital Signs: Vital Signs Temp Pulse Resp BP Pulse Ox 04/09/19 09:31 93 20 04/09/19 09:16 77 22 H 93 04/09/19 08:54 95 04/09/19 07:48 88 20 96 04/09/19 06:00 36.3 C L 88 20 114/61 96 04/08/19 22:00 36.4 C L 97 18 109/56 L 94 04/08/19 21:15 97 20 04/08/19 21:06 96 100 04/08/19 21:04 96 20 04/08/19 20:32 90 122/61 100 04/08/19 15:35 102 H 18 04/08/19 15:29 104 H 18 04/08/19 14:00 36.8 C 105 H 18 116/49 L 100 04/08/19 11:55 36.6 C 108 H 20 99/55 L 04/08/19 11:51 107 H 112/56 L 04/08/19 11:45 107 H 102/57 L 04/08/19 11:43 95 04/08/19 11:42 98 16 04/08/19 11:30 102 H 116/40 L 04/08/19 11:21 100 16 Intake/Output Intake/Output: Intake & Output 04/06/19 04/07/19 04/08/19 04/09/19 23:59 23:59 23:59 23:59 Intake Total 907 1150 640 820 Output Total 3000 300 3070 0 Balance -2093 850 -2430 820 Meds/Results Medications: Active Medications Generic Name Dose Route Start Last Admin Trade Name Freq PRN Reason Stop Dose Admin Acetaminophen 1,000 mg 04/06/19 22:00 04/09/19 05:47 Tylenol Tablet PO 1,000 mg Q8HR GORDON Administration Albuterol 2.5 mg 04/05/19 08:00 04/09/19 09:15 Albuterol Sulf Neb 2.5mg/0.5ml INHALATION 2.5 mg QIDRT GORDON Administration Alprazolam 1 mg 04/06/19 21:00 04/08/19 22:06 Xanax PO 1 mg HS GORDON Administration Budesonide 0.25 mg 04/05/19 08:00 04/09/19 09:15 Pulmicort Respule Neb INHALATION 0.25 mg Q12HRT GORDON Administration Clotrimazole 1 applic 04/05/19 09:00 04/09/19 08:36 Lotrisone Cream TOPICAL 1 applic BID GORDON Administration Fluticasone Propionate 1 spray 04/05/19 09:00 04/09/19 08:36 Flonase 0.05% Nasal [place] NASAL 1 spray Q12HR GORDON Administration Furosemide 80 mg 04/05/19 09:00 04/09/19 08:35 Lasix Tablet PO 80 mg DAILY GORDON
[2019-04-09 13:07] LABS: Hematocrit 22.3 % (37.0-47.0); Hemoglobin 7.1 g/dL (12.0-15.0); Mean Corpuscular HGB Conc 31.8 g/dl (32-36); Mean Corpuscular Hemoglobin 30.1 pg (26-34); Mean Corpuscular Volume 94.5 fl (80-100); Mean Platelet Volume 10.5 fl (7.4-10.4); Platelet Count Result 169 k/mm3 (150-375); Red Blood Count 2.36 M/mm3 (4.2-5.4); White Blood Count 10.7 K/mm3 (4.5-10.0)
[2019-04-09] MEDS: polyethylene glycoL 3350 17 GM POWD.PACK PO (14:42)
--- NOTE | 2019-04-09 14:54 | CONS_ITS ---
DATE OF CONSULTATION: 04/09/2019 HISTORY OF PRESENT ILLNESS: This 59-year-old right-handed female has been admitted to [facility] through the emergency room via EMS for the complaints of left hip pain subsequent to a fall on 03/28. When she fell in shower on , she rolled out of the bed at senior care, hitting her head becoming unconscious, and she woke up in the morning with pain in her left buttock radiating down into her right thigh for which she received the pain medication, but the pain was unbearable. She was noted to have bruising on the lip over the last couple of days, which was lumpy on palpation. CT scan was performed in the ER, which documented a large complex fluid collection in the left gluteal muscle extending into the left leg posteriorly with evidence of active hemorrhage with contrast enhancement internally. There were multiple complex fluid collections in left anterior abdominal wall, left gluteal soft tissue representing areas of focal hemorrhage. Pain was worse in the left buttock and down the back of the left leg. PAST MEDICAL HISTORY: As per the other information, she has ongoing history of anemia of chronic diseases with history of blood transfusion, arthritis, atrial fibrillation, bipolar disorder, chronic breast mass, which had been biopsied, showing acute on chronic inflammation and fat necrosis with a negative bone scan, bilateral cataract, chronic anticoagulation therapy due to presence of mechanical heart valves, chronic back pain, chronic respiratory failure, C difficile infection in the past, COPD, coronary artery disease, depression with anxiety, diastolic congestive heart failure, history of DVT, eating disorder, emphysema of the lung, end-stage renal disease, on hemodialysis; GERD, gout, hyperlipidemia, hypertension, hyperthyroidism, and morbid obesity. PAST SURGICAL HISTORY: She has undergone cardiac cath, mitral valve replacement with mechanical valve, arthroscopy of the left knee, cholecystectomy, hemorrhoidectomy, hysterectomy, left foot surgery, mechanical aortic valve replacement, tonsillectomy, and tubal ligation. SOCIAL HISTORY: She has smoked 2 packs per day with a smoking history of 92 pack-years. Former alcohol drinker. MEDICATIONS: Multiple as outlined above. ALLERGIES: SHE IS ALLERGIC TO ADHESIVE TAPE AND IRON. PHYSICAL EXAMINATION: GENERAL: On examination, she is awake, alert. HEENT: Head normocephalic with no cranial bruit. Ears, nose, throat examination normal. NECK: Supple with no meningeal signs. No cervical bruit. No thyromegaly or lymphadenopathy. HEART: Irregular. LUNGS: With occasional rhonchi. ABDOMEN: Soft. No organomegaly. NEUROLOGICAL: She is awake, alert. Pupils round, regular. Lopez of vision full. Extraocular movements full. Face symmetrical. Tongue midline. Motor examination revealed her to have decreased strength in upper and lower extremities. Reflexes are sluggish and plantars are downgoing. IMPRESSION: Chronically ill patient with multiple medical problems as outlined above with most recent abdominal and pelvic x-ray documenting large complex fluid collection in left gluteal musculature, obviously more weakness in that side with moderate right pleural effusion. Head scan on 04/05 is with chronic small-vessel ischemic changes. Tissue ultrasound on 04/08 showed large hematoma in the left buttock for which repeat CT scan is recommended. She also has had, as mentioned above, head CT scan which is negative. I will discuss and recommend further what is necessary neurologically. WILLIAM LISA M.D. MIRROR MACHINE FEEDER MIRROR MACHINE FEEDER D Peg [place]
--- NOTE | 2019-04-09 15:25 | P.PNIM_ITS ---
Progress Note: A&P Assessment and Plan (1) Acute post-hemorrhagic anemia: Code(s): D62 - Acute posthemorrhagic anemia Status: Acute Assessment and Plan: * Likely due to hematoma and buttock and thigh due to blunt trauma sustained during fall from bed at facility * INR was subtherapeutic at 1.7 upon admission, 04/06 1.7 * Hgb 6.9 after transfusion 04/06 (6 U since admission) * Hgb 6.1 04/07 AM, additional 1 U PRBC ordered * 04/07 PM restarted anticoagulation with heparin, * 04/08AM hgb 8.8 * 04/09 hemoglobin is 7, 6 hours later still 7.1, CT scan showed with looked be large hematoma around the hip but smaller on the abdominal wall with no active bleeding * Have resumed anticoagulation hand will start warfarin this p.m. 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 (4) ESRD (end stage renal disease): Code(s): N18.6 - End stage renal disease Status: Chronic Assessment and Plan: * HD continue all usual regime (5) Left foot drop: Code(s): M21.372 - Foot drop, left foot Status: Acute Assessment and Plan: * Likely due to traumatic sciatic nerve injury during fall at [place] * Will ask neurology to confirm (6) Bipolar disorder: Qualifiers: Active/Remission status: currently active Current bipolar episode type: mixed Current episode severity: unspecified Qualified Code(s): F31.60 - Bipolar disorder, current episode mixed, unspecified Code(s): F31.9 - Bipolar disorder, unspecified Status: Acute Assessment and Plan: * Reduce alprazolam * Switched antidepressant from escitalpram to mirtazapine (to improve sleep and appetite) * low dose oxycodone 2.5mg at HS only * Continue Vraylar and lamotrigine for mood stabilization * So far she is sleeping much better (7) Tobacco dependence: Code(s): F17.200 - Nicotine dependence, unspecified, uncomplicated Status: Acute Assessment and Plan: * Not interested in quitting (8) Narcotic dependence: Code(s): F11.20 - Opioid dependence, uncomplicated Status: Acute Assessment and Plan: * Dose oxycodone at bedtime and possibly with dialysis (but so far she is tolerating bedtime dose only) Subjective Date/time seen: 04/09/19 15:25 Interval history: Follow-up for:: Hematoma, anticoagulation, mechanical mitral and aortic valves Date of service: 04/09/2019 Subjective: Left foot numbness bothering her the most. Buttock pain no worse. Denied chest discomfort or shortness of breath. Back on heparin Exam Narrative: Exam Narrative: Blood pressure 106/66 pulse is 90 regular Skin with ecchymoses over right shoulder and left buttock still but slowly resolving HEENT: EOMI, PERRL, NECK: No JVD supple CHEST: Coarse BS HEART: Metallic s1/S2, regular ABDOMEN: BS+, soft, nontender, no mass, no bruits EXTREMITIES: No cyanosis, edema, or clubbing NEUROLOGIC: CN intact and symmetric to inspection. DTRs intact at knees, absent at ankles MUSCULOSKELETAL: Tone and
--- NOTE | 2019-04-09 15:25 | PM.IMPN ---
Progress Note: A&P Assessment and Plan (1) Acute post-hemorrhagic anemia: Code(s): D62 - Acute posthemorrhagic anemia Status: Acute Assessment and Plan: Likely due to hematoma and buttock and thigh due to blunt trauma sustained during fall from bed at facility INR was subtherapeutic at 1.7 upon admission, 04/06 1.7 Hgb 6.9 after transfusion 04/06 (6 U since admission) Hgb 6.1 04/07 AM, additional 1 U PRBC ordered 04/07 PM restarted anticoagulation with heparin, 04/08AM hgb 8.8 04/09 hemoglobin is 7, 6 hours later still 7.1, CT scan showed with looked be large hematoma around the hip but smaller on the abdominal wall with no active bleeding Have resumed anticoagulation hand will start warfarin this p.m. 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 (4) ESRD (end stage renal disease): Code(s): N18.6 - End stage renal disease Status: Chronic Assessment and Plan: HD continue all usual regime (5) Left foot drop: Code(s): M21.372 - Foot drop, left foot Status: Acute Assessment and Plan: Likely due to traumatic sciatic nerve injury during fall at [place] Will ask neurology to confirm (6) Bipolar disorder: Qualifiers: Active/Remission status: currently active Current bipolar episode type: mixed Current episode severity: unspecified Qualified Code(s): F31.60 - Bipolar disorder, current episode mixed, unspecified Code(s): F31.9 - Bipolar disorder, unspecified Status: Acute Assessment and Plan: Reduce alprazolam Switched antidepressant from escitalpram to mirtazapine (to improve sleep and appetite) low dose oxycodone 2.5mg at HS only Continue Vraylar and lamotrigine for mood stabilization So far she is sleeping much better (7) Tobacco dependence: Code(s): F17.200 - Nicotine dependence, unspecified, uncomplicated Status: Acute Assessment and Plan: Not interested in quitting (8) Narcotic dependence: Code(s): F11.20 - Opioid dependence, uncomplicated Status: Acute Assessment and Plan: Dose oxycodone at bedtime and possibly with dialysis (but so far she is tolerating bedtime dose only) Subjective Date/time seen: 04/09/19 15:25 Interval history: Follow-up for:: Hematoma, anticoagulation, mechanical mitral and aortic valves Date of service: 04/09/2019 Subjective: Left foot numbness bothering her the most. Buttock pain no worse. Denied chest discomfort or shortness of breath. Back on heparin Exam Narrative: Exam Narrative: Blood pressure 106/66 pulse is 90 regular Skin with ecchymoses over right shoulder and left buttock still but slowly resolving HEENT: EOMI, PERRL, NECK: No JVD supple CHEST: Coarse BS HEART: Metallic s1/S2, regular ABDOMEN: BS+, soft, nontender, no mass, no bruits EXTREMITIES: No cyanosis, edema, or clubbing NEUROLOGIC: CN intact and symmetric to inspection. DTRs intact at knees, absent at ankles MUSCULOSKELETAL: Tone and strength symmetric.Left foot drop. Unchanged : Alert and talking. Objective Data Vital Signs Vital Signs: Vital Signs - 24 hr 04/08/19 15:29 04/08/19 15:35 04/08/19 20:32 Temperature Pulse Rate 104 H 102 H 90 Respiratory Rate 18 18 Blood Pressure 122/61 Pulse Oximetry 100 04/08/19 21:04 04/08/19 21:06 04/08/19 21:15 Temperature Pulse Rate 96 96 97 Respiratory Rate 20 20 Blood Pressure Pulse Oximetry 100
[2019-04-09 18:13] LABS: Partial Thromboplastin Time > 200.0 SECONDS (22.3-36.8)
[2019-04-09] MEDS: WARFARIN (*PBKC) 4 MG TABLET 8 MG PO (18:35)
[2019-04-09] MEDS: lamoTRIgine 100 MG TABLET 400 MG PO (20:40)
[2019-04-09] MEDS: MIRTAZAPINE 15 MG TABLET PO (20:41)
[2019-04-09] MEDS: ALPRAZOLAM 0.5 MG TABLET 1 MG PO (21:55)
[2019-04-10] VITALS (36 sets, daily range): BP systolic 91–152; BP diastolic 50–82; PULSE 77–100; RESP 16–20; TEMP 36.3–37.1; O2SAT 90–95
[2019-04-10 01:23] LABS: Partial Thromboplastin Time 143.6 SECONDS (22.3-36.8)
[2019-04-10] MEDS: TRAMADOL HCL 50 MG TABLET PO ×4 (02:01→14:46)
[2019-04-10] MEDS: ACETAMINOPHEN 500 MG TABLET 1000 MG PO ×3 (06:21→21:18)
[2019-04-10] MEDS: LEVOTHYROXINE SODIUM 125 MCG TABLET PO (06:21)
--- NOTE | 2019-04-10 07:30 | PHAR ---
Patient info sheet sent with first eopgen dose for dialysis.
[2019-04-10] MEDS: ALBUTEROL SULFATE NEB 2.5 MG/0.5 ML INH INHALATION ×4 (07:34→20:40)
[2019-04-10] MEDS: IPRATROPIUM BR 0.02% INH SOLN 0.5 MG/2.5 ML VIAL INHALATION ×4 (07:34→20:41)
[2019-04-10] MEDS: BUDESONIDE RESPULE NEB 0.5 MG/2 ML AMP 0.25 MG INHALATION ×2 (07:34→20:40)
[2019-04-10] MEDS: FLUTICASONE PROPIONATE 0.05% NA SPR 16 GM BTL (*BKC) 1 SPRAY NASAL ×2 (08:00→21:18)
[2019-04-10] MEDS: FUROSEMIDE 80 MG TABLET PO (08:00)
[2019-04-10] MEDS: PANTOPRAZOLE 40 MG TABLET PO (08:00)
[2019-04-10] MEDS: SEVELAMER CARBONATE 800 MG TABLET PO ×3 (08:00→19:10)
[2019-04-10] MEDS: SENNOSIDES 8.6 MG TABLET PO ×2 (08:02→19:10)
[2019-04-10] MEDS: SIMVASTATIN 20 MG TABLET 40 MG PO (08:03)
[2019-04-10] MEDS: BETAMETHASONE/CLOTRIMAZOLE CR 15 GM TUBE 1 APPLIC TOPICAL ×2 (08:21→19:10)
[2019-04-10 10:43] LABS: Blood Urea Nitrogen 36 mg/dL (7-17); Calcium 7.8 mg/dL (8.4-10.2); Carbon Dioxide 28 mmol/L (22-30); Chloride 94 mmol/L (98-107); Estimated CRCL calculation 16 ml/min; Estimated Glomerular Filt Rate 14; Glucose 86 mg/dL (65-105); Sodium 132 mmol/L (137-145)
[2019-04-10 10:47] LABS: Basophils Percent Auto 0.2 % (0.2-1.2); Eosinophils Absolute Auto 0.1 K/mm3 (0-0.3); Eosinophils Percent Auto 1.3 % (0-4.4); Hematocrit 21.3 % (37.0-47.0); Immature Granulocyte Absolute 0.09 K/mm3 (0.00-0.031); Lymphocytes Absolute Auto 0.69 K/mm3 (0.9-3.2); Lymphocytes Percent Auto 7.5 % (18.3-44.2); Mean Corpuscular HGB Conc 31.9 g/dl (32-36); Mean Corpuscular Hemoglobin 30.2 pg (26-34); Mean Corpuscular Volume 94.7 fl (80-100); Mean Platelet Volume 10.8 fl (7.4-10.4); Monocytes Absolute Auto 0.5 K/mm3 (0.1-0.6); Monocytes Percent Auto 5.8 % (2.6-8.5); Neutrophils Absolute Auto 7.8 K/mm3 (1.3-6.7); Neutrophils Percent Auto 84.2 % (45.5-73.1); Nucleated Red Blood Cells Perc 0.3 % (0.0-0.2); Platelet Count Result 196 k/mm3 (150-375); Red Blood Count 2.25 M/mm3 (4.2-5.4); Red Cell Distribution Width 17.3 % (11.5-14.5); White Blood Count 9.3 K/mm3 (4.5-10.0)
[2019-04-10 10:51] LABS: INR 1.3; Prothrombin Time 15.6 Seconds (11.1-14.7)
[2019-04-10 10:53] LABS: Partial Thromboplastin Time 120.1 SECONDS (22.3-36.8)
[2019-04-10 10:55] LABS: Hemoglobin 6.8 g/dL (12.0-15.0)
--- NOTE | 2019-04-10 11:12 | PM.PNNEP ---
Progress Note: A&P Assessment and Plan (1) ESRD (end stage renal disease): Code(s): N18.6 - End stage renal disease Status: Chronic Assessment and Plan: HD today and continue M/W/F dialysis schedule while hospitalized electrolytes, volume status, and clearance acceptable (2) Anemia: Qualifiers: Anemia type: unspecified type Qualified Code(s): D64.9 - Anemia, unspecified Code(s): D64.9 - Anemia, unspecified Status: Acute Assessment and Plan: quite severe and secondary to #3 anticoagulation resumed (but H/H dropped again) PRBC transfusion per protocol Epogen with HD (3) Intramuscular hematoma: Code(s): T14.8XXA - Other injury of unspecified body region, initial encounter Status: Acute Assessment and Plan: as evidence by imagining on admission follow H/H with transfusions as needed continue supportive therapy (4) Mechanical heart valve present: Code(s): Z95.2 - Presence of prosthetic heart valve Status: Acute Assessment and Plan: Cardiology following resumed on anticoagulation (5) Bipolar disorder: Qualifiers: Active/Remission status: currently active Current bipolar episode type: mixed Current episode severity: unspecified Qualified Code(s): F31.60 - Bipolar disorder, current episode mixed, unspecified Code(s): F31.9 - Bipolar disorder, unspecified Status: Acute Assessment and Plan: mentation/mood better follow trend Will continue to follow. Subjective Date/time seen: 04/10/19 11:12 Tolerated dialysis at the time of visit (seen on HD at ~ 10:45AM); sleeping comfortably and in no apparent distress; back on anticoagulation. Exam Narrative: Exam Narrative: General: WD/WN female in NAD Heart: normal S1 and S2; no rub Lungs: clear to auscultation Abdomen: soft, nontender, nondistended, positive bowel sounds Extremities: no cyanosis or clubbing; 1+ edema Skin: no nodules Objective Data Vital Signs Vital Signs: Vital Signs Temp Pulse Resp BP Pulse Ox 04/10/19 11:00 92 119/65 04/10/19 10:45 93 125/60 04/10/19 10:30 94 95/57 L 04/10/19 10:15 90 91/52 L 04/10/19 10:00 94 102/64 04/10/19 09:45 94 113/50 L 04/10/19 09:42 95 113/58 L 04/10/19 09:30 36.6 C 92 20 113/58 L 04/10/19 08:00 94 20 91 04/10/19 07:49 96 20 04/10/19 07:35 91 18 91 04/10/19 06:38 36.4 C L 94 16 95/53 L 90 04/10/19 01:57 121/63 04/09/19 22:00 36.6 C 95 16 119/66 96 04/09/19 20:36 98 108/60 100 04/09/19 20:03 96 04/09/19 19:49 94 94 04/09/19 16:32 88 16 04/09/19 16:23 94 16 04/09/19 14:35 36.8 C 92 16 105/65 98 04/09/19 12:51 93 20 04/09/19 12:47 92 16 Intake/Output Intake/Output: Intake & Output 04/07/19 04/08/19 04/09/19 04/10/19 23:59 23:59 23:59 23:59 Intake Total 1385 004 3047 324 Output Total 300 3070 0 0 Balance 850 -2430 2150 324 Meds/Results Medications: Active Medications Generic Name Dose Route Start Last Admin Trade Name Camelia PRN Reason Stop Dose Admin Acetaminophen 1,000 mg 04/06/19 22:00 04/10/19 06:21 Tylenol Tablet PO 1,000 mg Q8HR GORDON Administration Albuterol 2.5 mg 04/05/19 08:00 04/10/19 07:34 Albuterol Sulf Neb 2.5mg/0.5ml INHALATION 2.5 mg QIDRT GORDON Administration Alprazolam 1 mg 04/06/19 21:00 04/09/19 21:55 Xanax PO 1 mg HS GORDON Administration Budesonide 0.25 mg 04/05/19 08:00 04/10/19 07:34 Pulmicort Respule Neb INHALATION 0.25 mg Q12HRT GORDON Administration Clotrimazole 1 applic 04/05/19 09:00 04/10/19 08:21 Lotrisone Cream TOPICAL 1 applic BID GORDON Administration Fluticasone Propionate 1 spray 04/05/19 09:00 04/10/19 08:00 Flonase 0.05% Nasal [place] NASAL 1 spray Q12HR GORDON Administration Furosemide 80 mg 04/05/19 09:00 04/10/19 08:00 Adalgisa Leon
[2019-04-10] MEDS: EPOETIN ALFA 20,000 UNITS/ML VIAL 20000 UNITS IV PUSH (11:45)
[2019-04-10] MEDS: HEPARIN SOD/D5W 100 UNITS/ML 25,000 UNITS/250 ML BAG 15 UNITS IV CONT (12:56)
[2019-04-10] MEDS: HEPARIN SODIUM 1,000 UNITS/ML VIAL 4000 UNITS (14:02)
[2019-04-10] MEDS: polyethylene glycoL 3350 17 GM POWD.PACK PO (14:40)
--- NOTE | 2019-04-10 15:21 | P.PNIM_ITS ---
Progress Note: A&P Assessment and Plan (1) Acute post-hemorrhagic anemia: Code(s): D62 - Acute posthemorrhagic anemia Status: Acute Assessment and Plan: * Likely due to hematoma and buttock and thigh due to blunt trauma sustained during fall from bed at facility * INR was subtherapeutic at 1.7 upon admission, 04/06 1.7 * Hgb 6.9 after transfusion 04/06 (6 U since admission) * Hgb 6.1 04/07 AM, additional 1 U PRBC ordered * 04/07 PM restarted anticoagulation with heparin, * 04/08AM hgb 8.8 * 04/09 hemoglobin is 7, 6 hours later still 7.1, CT scan showed with looked be large hematoma around the hip but smaller on the abdominal wall with no active bleeding * hgb 6.8 today so 1 unit given at dialysis(8 total) * Have resumed anticoagulation with heparin and warfarin D # 2 INR 1.3 (2) Chronic anticoagulation: Code(s): Z79.01 - correction (current) use of anticoagulants Status: Acute Assessment and Plan: * Patient had active bleeding and very high risk for stroke due to mechanical heart valves * High risk for falls, but very high risk for stroke so have to continue anticoagulation (3) Mechanical heart valve present: Code(s): Z95.2 - Presence of prosthetic heart valve Status: Acute Assessment and Plan: * Aortic and mitral * Very high risk for stroke * On heparin and back on oral warfarin 04/10 D #2 (4) ESRD (end stage renal disease): Code(s): N18.6 - End stage renal disease Status: Chronic Assessment and Plan: * HD continue all usual regime, MWF and 3 liters off today (5) Left foot drop: Code(s): M21.372 - Foot drop, left foot Status: Acute Assessment and Plan: * Likely due to traumatic sciatic nerve injury during fall at [facility] * Neurology seeing (6) Bipolar disorder: Qualifiers: Active/Remission status: currently active Current bipolar episode type: mixed Current episode severity: unspecified Qualified Code(s): F31.60 - Bip olar disorder, current episode mixed, unspecified Code(s): F31.9 - Bipolar disorder, unspecified Status: Acute Assessment and Plan: * Reduce alprazolam * Switched antidepressant from escitalpram to mirtazapine (to improve sleep and appetite) * low dose oxycodone 2.5mg at HS and bid prn * Continue Vraylar and lamotrigine for mood stabilization * So far she is sleeping much better (7) Tobacco dependence: Code(s): F17.200 - Nicotine dependence, unspecified, uncomplicated Status: Acute Assessment and Plan: * Not interested in quitting (8) Narcotic dependence: Code(s): F11.20 - Opioid dependence, uncomplicated Status: Acute Assessment and Plan: * Dose oxycodone at bedtime and with dialysis and daily as needed Subjective Date/time seen: 04/10/19 15:21 Interval history: Follow-up for:: Hematoma, anticoagulation, mechanical mitral and aortic valves Date of service: 04/09/2019 Subjective: Left foot numbness bothering her the most. Buttock pain no worse. Denied chest discomfort or shortness of breath. on heparin and warfarin started last pm. still pain and wants increase in pain med Exam Narrative: Exam Narrative: Blood pressure 144/82 pulse is 86 regular Skin with ecchymoses over right shoulder and left buttock still but slowly resolving HEENT: EOMI, PERRL, NECK: No JVD supple CHEST: Coarse BS HEART: Metallic s1/S2, regular ABDOMEN: BS+, soft, nontender, no mass, no bruits EXTREMITIES: No cyanosis, edema, or clubbing, warm with strong
--- NOTE | 2019-04-10 15:21 | PM.IMPN ---
Progress Note: A&P Assessment and Plan (1) Acute post-hemorrhagic anemia: Code(s): D62 - Acute posthemorrhagic anemia Status: Acute Assessment and Plan: Likely due to hematoma and buttock and thigh due to blunt trauma sustained during fall from bed at facility INR was subtherapeutic at 1.7 upon admission, 04/06 1.7 Hgb 6.9 after transfusion 04/06 (6 U since admission) Hgb 6.1 04/07 AM, additional 1 U PRBC ordered 04/07 PM restarted anticoagulation with heparin, 04/08AM hgb 8.8 04/09 hemoglobin is 7, 6 hours later still 7.1, CT scan showed with looked be large hematoma around the hip but smaller on the abdominal wall with no active bleeding hgb 6.8 today so 1 unit given at dialysis(8 total) Have resumed anticoagulation with heparin and warfarin D # 2 INR 1.3 (2) Chronic anticoagulation: Code(s): 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 Status: Acute Assessment and Plan: Patient had active bleeding and very high risk for stroke due to mechanical heart valves High risk for falls, but very high risk for stroke so have to continue anticoagulation (3) Mechanical heart valve present: Code(s): Z95.2 - Presence of prosthetic heart valve Status: Acute Assessment and Plan: Aortic and mitral Very high risk for stroke On heparin and back on oral warfarin 04/10 D #2 (4) ESRD (end stage renal disease): Code(s): N18.6 - End stage renal disease Status: Chronic Assessment and Plan: HD continue all usual regime, MWF and 3 liters off today (5) Left foot drop: Code(s): M21.372 - Foot drop, left foot Status: Acute Assessment and Plan: Likely due to traumatic sciatic nerve injury during fall at [place] Neurology seeing (6) Bipolar disorder: Qualifiers: Active/Remission status: currently active Current bipolar episode type: mixed Current episode severity: unspecified Qualified Code(s): F31.60 - Bipolar disorder, current episode mixed, unspecified Code(s): F31.9 - Bipolar disorder, unspecified Status: Acute Assessment and Plan: Reduce alprazolam Switched antidepressant from escitalpram to mirtazapine (to improve sleep and appetite) low dose oxycodone 2.5mg at HS and bid prn Continue Vraylar and lamotrigine for mood stabilization So far she is sleeping much better (7) Tobacco dependence: Code(s): F17.200 - Nicotine dependence, unspecified, uncomplicated Status: Acute Assessment and Plan: Not interested in quitting (8) Narcotic dependence: Code(s): F11.20 - Opioid dependence, uncomplicated Status: Acute Assessment and Plan: Dose oxycodone at bedtime and with dialysis and daily as needed Subjective Date/time seen: 04/10/19 15:21 Interval history: Follow-up for:: Hematoma, anticoagulation, mechanical mitral and aortic valves Date of service: 04/09/2019 Subjective: Left foot numbness bothering her the most. Buttock pain no worse. Denied chest discomfort or shortness of breath. on heparin and warfarin started last pm. still pain and wants increase in pain med Exam Narrative: Exam Narrative: Blood pressure 144/82 pulse is 86 regular Skin with ecchymoses over right shoulder and left buttock still but slowly resolving HEENT: EOMI, PERRL, NECK: No JVD supple CHEST: Coarse BS HEART: Metallic s1/S2, regular ABDOMEN: BS+, soft, nontender, no mass, no bruits EXTREMITIES: No cyanosis, edema, or clubbing, warm with strong DP, PT NEUROLOGIC: CN intact and symmetric to inspection. DTRs intact at knees, absent at ankles MUSCULOSKELETAL: Tone and strength symmetric.Left foot drop. Unchanged : Alert and talking. Objective Data Vital Signs Vital Signs: Vital Signs - 24 hr 04/09/19 16:23 04/09/19 16:32 04/09/19 19:49 Temperature Pulse Rate 94 88 94 Respiratory Rate 16 16 Blood Pressure Pulse Oximetry 94 04/09/19 20:03 04/09/19 2
[2019-04-10 18:40] LABS: Partial Thromboplastin Time 81.4 SECONDS (22.3-36.8)
[2019-04-10] MEDS: WARFARIN (*PBKC) 4 MG TABLET 8 MG PO (19:10)
[2019-04-10] MEDS: MAGNESIUM HYDROXIDE SUSP 30 ML UDC PO (19:10)
[2019-04-10] MEDS: ALPRAZOLAM 0.5 MG TABLET 1 MG PO (21:16)
[2019-04-10] MEDS: MIRTAZAPINE 15 MG TABLET PO (21:17)
[2019-04-10] MEDS: lamoTRIgine 100 MG TABLET 400 MG PO (21:17)
[2019-04-10] MEDS: MECLIZINE HCL 12.5 MG TABLET PO (21:17)
[2019-04-11] VITALS (13 sets, daily range): BP systolic 122–171; BP diastolic 64–74; PULSE 83–99; RESP 18–20; TEMP 36.5–36.9; O2SAT 90–98
[2019-04-11 00:38] LABS: Partial Thromboplastin Time 77.4 SECONDS (22.3-36.8)
[2019-04-11] MEDS: TRAMADOL HCL 50 MG TABLET PO (03:52)
[2019-04-11] MEDS: ACETAMINOPHEN 500 MG TABLET 1000 MG PO ×3 (05:57→21:19)
[2019-04-11] MEDS: LEVOTHYROXINE SODIUM 125 MCG TABLET PO (05:57)
[2019-04-11] MEDS: HEPARIN SOD/D5W 100 UNITS/ML 25,000 UNITS/250 ML BAG 15 UNITS IV CONT (06:00)
[2019-04-11 06:25] LABS: Basophils Percent Auto 0.3 % (0.2-1.2); Eosinophils Absolute Auto 0.1 K/mm3 (0-0.3); Hematocrit 28.1 % (37.0-47.0); Immature Granulocyte Absolute 0.14 K/mm3 (0.00-0.031); Immature Granulocyte Percent A 1.3 % (0-0.5); Lymphocytes Absolute Auto 0.66 K/mm3 (0.9-3.2); Lymphocytes Percent Auto 6.2 % (18.3-44.2); Mean Corpuscular Hemoglobin 29.7 pg (26-34); Mean Corpuscular Volume 92.7 fl (80-100); Mean Platelet Volume 10.5 fl (7.4-10.4); Monocytes Absolute Auto 0.7 K/mm3 (0.1-0.6); Monocytes Percent Auto 6.6 % (2.6-8.5); Neutrophils Percent Auto 84.6 % (45.5-73.1); Nucleated Red Blood Cells Perc 0.4 % (0.0-0.2); Platelet Count Result 223 k/mm3 (150-375); Red Blood Count 3.03 M/mm3 (4.2-5.4); Red Cell Distribution Width 17.4 % (11.5-14.5); White Blood Count 10.6 K/mm3 (4.5-10.0)
[2019-04-11 06:39] LABS: Blood Urea Nitrogen 23 mg/dL (7-17); Calcium 8.2 mg/dL (8.4-10.2); Carbon Dioxide 28 mmol/L (22-30); Chloride 94 mmol/L (98-107); Estimated CRCL calculation 22 ml/min; Estimated Glomerular Filt Rate 21; Glucose 89 mg/dL (65-105); Potassium 4.2 mmol/L (3.4-5.0); Sodium 135 mmol/L (137-145)
[2019-04-11 06:40] LABS: INR 1.7; Prothrombin Time 19.1 Seconds (11.1-14.7)
[2019-04-11 06:42] LABS: Partial Thromboplastin Time 117.6 SECONDS (22.3-36.8)
[2019-04-11] MEDS: IPRATROPIUM BR 0.02% INH SOLN 0.5 MG/2.5 ML VIAL INHALATION ×4 (08:01→20:05)
[2019-04-11] MEDS: ALBUTEROL SULFATE NEB 2.5 MG/0.5 ML INH INHALATION ×4 (08:01→20:05)
[2019-04-11] MEDS: BUDESONIDE RESPULE NEB 0.5 MG/2 ML AMP 0.25 MG INHALATION ×2 (08:02→20:05)
[2019-04-11] MEDS: polyethylene glycoL 3350 17 GM POWD.PACK PO (09:13)
[2019-04-11] MEDS: PANTOPRAZOLE 40 MG TABLET PO (09:13)
[2019-04-11] MEDS: SEVELAMER CARBONATE 800 MG TABLET PO ×3 (09:13→17:16)
[2019-04-11] MEDS: FUROSEMIDE 80 MG TABLET PO (09:13)
[2019-04-11] MEDS: SIMVASTATIN 20 MG TABLET 40 MG PO (09:13)
[2019-04-11] MEDS: FLUTICASONE PROPIONATE 0.05% NA SPR 16 GM BTL (*BKC) 1 SPRAY NASAL ×2 (09:15→21:16)
[2019-04-11] MEDS: SENNOSIDES 8.6 MG TABLET PO ×2 (09:21→17:15)
--- NOTE | 2019-04-11 11:48 | WPDNEUROPN ---
Progress Note: A&P Assessment and Plan (1) Sciatic neuropathy: Code(s): G57.00 - Lesion of sciatic nerve, unspecified lower limb Status: Acute Additional Plan LLE extension and abduction weekness at the hip secondary to hematoma Review of Systems Review of Systems: All systems reviewed & are unremarkable except as noted in HPI and below Exam Const: General: cooperative, comfortable, no acute distress, alert and awake Nutritional Appearance: average body habitus Orientation/consciousness: patient oriented x3 Limitations: no limitations Other: LLE weekness Eyes: General: appearance normal, both eyes and all related structures Alignment and Position: alignment normal Periorbital: periorbital findings normal Eyelids: eyelids normal Conjunctivae: conjunctivae normal Sclera: sclerae normal Pupils: Equal, round and reactive pupils present EOM: EOMs intact bilaterally Resp: Effort & Inspection: normal respiratory effort Auscultation: clear to auscultation bilaterally Cardio: Rhythm: abnormal rhythm GI: Auscultation: normal bowel sounds Neuro: General: patient oriented x3, moves all extremities, no meningeal signs and no focal motor deficits (LLEextension at hip particularly and abduction as well) Cranial nerves: Yes CN's II-XII intact bilaterally, Yes Equal, round and reactive pupils present, Yes Bilaterally intact EOM present, Yes Normal facial strength present, Yes facial symmetry, Yes Midline tongue present, Yes Symmetric palate elevation present, Yes Normal hearing present and Yes Ability to bilaterally rotate head present Cognition (Neuro): normal cognition Speech: normal speech Psych: Appearance: grossly normal Objective Data Vital Signs Vital Signs: Vital Signs - 24 hr 04/10/19 12:00 04/10/19 12:15 04/10/19 12:29 Temperature 36.6 C Pulse Rate 96 89 86 Respiratory Rate 20 Blood Pressure 116/70 99/56 L 121/57 L Pulse Oximetry 04/10/19 12:30 04/10/19 12:44 04/10/19 12:45 Temperature 36.3 C L Pulse Rate 90 88 88 Respiratory Rate 20 Blood Pressure 116/70 128/67 137/65 Pulse Oximetry 04/10/19 13:00 04/10/19 13:07 04/10/19 13:08 Temperature 36.4 C Pulse Rate 88 88 88 Respiratory Rate 20 Blood Pressure 129/73 134/76 134/76 Pulse Oximetry 04/10/19 13:14 04/10/19 13:20 04/10/19 14:00 Temperature 36.4 C 37.1 C Pulse Rate 86 88 96 Respiratory Rate 20 19 Blood Pressure 152/81 H 144/82 H 144/76 H Pulse Oximetry 95 04/10/19 16:29 04/10/19 16:42 04/10/19 20:41 Temperature Pulse Rate 100 92 77 Respiratory Rate 18 18 20 Blood Pressure Pulse Oximetry 04/10/19 20:53 04/10/19 22:00 04/11/19 06:00 Temperature 36.3 C L 36.7 C Pulse Rate 96 93 91 Respiratory Rate 20 20 20 Blood Pressure 112/54 L 151/64 H Pulse Oximetry 94 90 04/11/19 08:02 04/11/19 08:13 Temperature Pulse Rate 91 92 Respiratory Rate 20 20 Blood Pressure Pulse Oximetry Intake/Output Intake/Output: Intake & Output 04/08/19 04/09/19 04/10/19 04/11/19 23:59 23:59 23:59 23:59 Intake Total 640 2150 1180 630 Output Total 3070 0 3150 Balance -2430 2150 -1970 630 Meds/Results Medications: Active Medications Generic Name Dose Route Start Last Admin Trade Name Freq PRN Reason Stop Dose Admin Acetaminophen 1,000 mg 04/06/19 22:00 04/11/19 05:57 Tylenol Tablet PO 1,000 mg Q8HR GORDON Administration Albuterol 2.5 mg 04/05/19 08:00 04/11/19 08:01 Albuterol Sulf Neb 2.5mg/0.5ml INHALATION 2.5 mg QIDRT GORDON Administration Alprazolam 1 mg 04/06/19 21:00 04/10/19 21:16 Xanax PO 1 mg HS GORDON Administration Budesonide 0.25 mg 04/05/19 08:00 04/11/19 08:02 Pulmicort Respule Neb INHALATION 0.25 mg Q12HRT GORDON Administration Clotrimazole 1 applic 04/05/19 09:00 04/11/19 09:22 Lotrisone Cream TOPICAL Not Given BID GORDON Fluticasone Propionate 1 spray 04/05/19 09:00 04/11/19 09:15 Flonase 0.05% Nasal [place]
[2019-04-11 13:12] LABS: Partial Thromboplastin Time 56.1 SECONDS (22.3-36.8)
[2019-04-11] MEDS: HEPARIN SODIUM 5,000 UNITS/ML VIAL 2500 UNITS IV PUSH (13:18)
--- NOTE | 2019-04-11 13:50 | PCDIET ---
Nutrition Follow-Up Complete: Involuntary weight loss related to multiple medical issues as evidenced by reported and documented weight loss. Patient to consume 50% of meals or greater in addition to Nepro Shake. Goal:Goal partially met. Continue adequate intake but change supplement Pt current nutrition is Renal Dialysis + Nepro BID. Nutrition recommendation: Recommend low Na diet and Thrive BID per pt request vs Nepro Last recorded weight is 73.2 kg (down from 77.8 kg on assessment) Bowel Motility: yesterday BM Labs Reviewed:K normal, no PO4, GFR up to 21 from 14 on assessment Meds Noted:Senna, Miralax, Remeron, Lasix, Heparin Additional Notes: Pt not liking current diet. PO intake has been 50-100%. She is refusing Nepro for additional protein. Pt agreeable to trying Thrive BID. Thrive provides 9 grams of protein, 24 vitamins and minerals, 6grams of fiber, and 270 kcal per serving. No PO 4 lab ordered. K normal today. Pt may be appropriate for liberalized diet: 2gm Na. Recommend daily weights and PO 4 lab every other day. We will continue to monitor labs, PO intake and wt every five days.
[2019-04-11] MEDS: BISACODYL 5 MG TABLET EC 10 MG PO (14:27)
--- NOTE | 2019-04-11 14:41 | PM.PNCARD ---
Progress Note: A&P Assessment and Plan (1) Intramuscular hematoma: Code(s): T14.8XXA - Other injury of unspecified body region, initial encounter Status: Acute Assessment and Plan: Remains on heparin drip. INR 1.7. Has had 2 doses of warfarin at 8 mg. Continue at current dose. (2) ESRD (end stage renal disease) on dialysis: Code(s): N18.6 - End stage renal disease; Z99.2 - Dependence on renal dialysis Status: Acute Assessment and Plan: Renal replacement therapy with hemodialysis (3) Mechanical heart valve present: Code(s): Z95.2 - Presence of prosthetic heart valve Status: Acute Assessment and Plan: History of remote valvular heart disease, and status post mechanical mitral and aortic valve replacement. Chronic anticoagulation with warfarin, target INR 2.5-3.5; with low-dose aspirin regimen. Plan as above Additional Plan Only real complaint is that she is constipated. Receiving medications at this time to resolve this problem. Plan discussed with Dr. Campos [id number] 04/11/2019 Subjective Date/time seen: 04/11/19 14:41 Interval history: Follow-up for:: Hematoma, anticoagulation, mechanical mitral and aortic valves Date of service: 04/11/2019 Subjective: Able to move left leg better. Still not able to move foot. Pain is somewhat better. Swelling is better. Denied chest discomfort, shortness of breath, lightheadedness or palpitations. No stroke symptoms. Review of Systems Constitutional: Constitutional: Denies fatigue and Denies weakness Eyes: Eyes: Denies blurry vision ENT: Reports Normal hearing present Cardiovascular: Cardiovascular: Denies chest pain, Denies lightheadedness, Denies palpitations, Denies dyspnea and Denies dyspnea on exertion Respiratory: Respiratory: Denies cough, Denies dyspnea and Denies dyspnea on exertion Gastrointestinal: Gastrointestinal: Denies abdominal pain, Denies bloating and Reports constipation Musculoskeletal: Musculoskeletal: Denies numbness Integumentary/Breasts: Skin/Breast: Reports other (Significant ecchymosis left hip/buttocks/lower abdomen) Neurologic: Reports Normal hearing present, Denies Abnormal speech present, Reports numbness (Left foot) and Denies weakness Psychiatric: Psychiatric: Denies anxiety Endocrine: Endocrine: Denies fatigue and Denies palpitations Hematologic/Lymphatic: Hematologic/Lymphatic: Reports easy bruising Exam Const: General: cooperative, comfortable, no acute distress, alert and awake HENMT: Head: normocephalic and atraumatic Ears: hearing grossly normal bilaterally and external ears normal General nose exam: Normal external nose present and no epistaxis Face and sinus: normal facial exam and no ecchymosis Mouth: Yes dry mucous membranes Eyes: Conjunctivae: conjunctivae normal Sclera: sclerae normal Neck: Neck: normal visual inspection and supple Resp: Effort & Inspection: normal respiratory effort and able to speak in complete sentences Auscultation: clear to auscultation bilaterally Cardio: Rate: regular rate Rhythm: regular rhythm Heart sounds: Murmur heart sound present systolic II/ and at the apex and Other heart sounds present (Mechanical S1 and S2) GI: Inspection: normal to inspection Auscultation: normal bowel sounds Skin: General skin exam: normal color Neuro: Cranial nerves: Yes Equal, round and reactive pupils present and Yes Normal hearing present Cognition (Neuro): normal cognition Speech: No Abnormal speech present Extrem: General: normal to inspection Psych: Appearance: grossly normal Mental Status: mental status grossly normal Objective Data Vital Signs Vital Signs: Vital Signs - 24 hr 04/10/19 16:29 04/10/19 16:42 04/10/19 20:41 Temperature Pulse Rate 100 92 77 Respiratory Rate 18 18 20 Blood Pressure Pulse Oximetry 04/10/19 20:53 04/10/19
--- NOTE | 2019-04-11 15:07 | PM.PNNEP ---
Progress Note: A&P Assessment and Plan (1) ESRD (end stage renal disease): Code(s): N18.6 - End stage renal disease Status: Chronic Assessment and Plan: HD tomorrow and continue M/W/F dialysis schedule while hospitalized electrolytes, volume status, and clearance acceptable (2) Anemia: Qualifiers: Anemia type: unspecified type Qualified Code(s): D64.9 - Anemia, unspecified Code(s): D64.9 - Anemia, unspecified Status: Acute Assessment and Plan: quite severe and secondary to #3 anticoagulation resumed (but H/H dropped again) PRBC transfusion per protocol Epogen with HD (3) Intramuscular hematoma: Code(s): T14.8XXA - Other injury of unspecified body region, initial encounter Status: Acute Assessment and Plan: as evidence by imagining on admission follow H/H with transfusions as needed continue supportive therapy (4) Mechanical heart valve present: Code(s): Z95.2 - Presence of prosthetic heart valve Status: Acute Assessment and Plan: Cardiology following resumed on anticoagulation (5) Bipolar disorder: Qualifiers: Active/Remission status: currently active Current bipolar episode type: mixed Current episode severity: unspecified Qualified Code(s): F31.60 - Bipolar disorder, current episode mixed, unspecified Code(s): F31.9 - Bipolar disorder, unspecified Status: Acute Assessment and Plan: mentation/mood better follow trend Will continue to follow. Subjective Date/time seen: 04/11/19 15:07 Tolerated dialysis yesterday without any acute issues or problems; sleeping at the time of my visit in no apparent distress; no other events overnight or this AM. Exam Narrative: Exam Narrative: General: WD/WN female in NAD Heart: normal S1 and S2; no rub Lungs: clear to auscultation Abdomen: soft, nontender, nondistended, positive bowel sounds Extremities: no cyanosis or clubbing; trace edema Skin: warm and dry Objective Data Vital Signs Vital Signs: Vital Signs Temp Pulse Resp BP Pulse Ox 04/11/19 12:47 90 20 04/11/19 12:41 89 20 04/11/19 08:13 92 20 04/11/19 08:02 91 20 04/11/19 06:00 36.7 C 91 20 151/64 H 90 04/10/19 22:00 36.3 C L 93 20 112/54 L 94 04/10/19 20:53 96 20 04/10/19 20:41 77 20 04/10/19 16:42 92 18 04/10/19 16:29 100 18 Intake/Output Intake/Output: Intake & Output 04/08/19 04/09/19 04/10/19 04/11/19 23:59 23:59 23:59 23:59 Intake Total 640 2150 1180 630 Output Total 3070 0 3150 Balance -2430 2150 -1970 630 Meds/Results Medications: Active Medications Generic Name Dose Route Start Last Admin Trade Name Freq PRN Reason Stop Dose Admin Acetaminophen 1,000 mg 04/06/19 22:00 04/11/19 14:28 Tylenol Tablet PO 1,000 mg Q8HR GORDON Administration Albuterol 2.5 mg 04/05/19 08:00 04/11/19 12:40 Albuterol Sulf Neb 2.5mg/0.5ml INHALATION 2.5 mg QIDRT GORDON Administration Alprazolam 1 mg 04/06/19 21:00 04/10/19 21:16 Xanax PO 1 mg HS GORDON Administration Budesonide 0.25 mg 04/05/19 08:00 04/11/19 08:02 Pulmicort Respule Neb INHALATION 0.25 mg Q12HRT GORDON Administration Clotrimazole 1 applic 04/05/19 09:00 04/11/19 09:22 Lotrisone Cream TOPICAL Not Given BID GORDON Fluticasone Propionate 1 spray 04/05/19 09:00 04/11/19 09:15 Flonase 0.05% Nasal [place] NASAL 1 spray Q12HR GORDON Administration Furosemide 80 mg 04/05/19 09:00 04/11/19 09:13 Lasix Tablet PO 80 mg DAILY GORDON Administration Heparin Sodium (Porcine) 4,000 units 04/07/19 18:41 04/09/19 01:28 Heparin Sodium IV PUSH 4,000 units PRN PRN Administration aPTT less than 55 seconds Heparin Sodium (Porcine) 2,500 units 04/07/19 18:41 04/11/19 13:18 Heparin Sodium IV PUSH 2,500 units PRN PRN Administration aPTT 55 - 70 seconds Albumin
[2019-04-11] MEDS: polyethylene glycoL 3350 17 GM POWD.PACK 34 GM PO (15:10)
--- NOTE | 2019-04-11 16:43 | P.PNIM_ITS ---
Progress Note: A&P Assessment and Plan (1) Acute post-hemorrhagic anemia: Code(s): D62 - Acute posthemorrhagic anemia Status: Acute Assessment and Plan: * Likely due to hematoma and buttock and thigh due to blunt trauma sustained during fall from bed at facility * INR was subtherapeutic upon admission, 04/06 1.7 * Hgb 6.9 after transfusion 04/06 (6 U since admission) * Hgb 6.1 04/07 AM, additional 1 U PRBC ordered * 04/07 PM restarted anticoagulation with heparin, * 04/08AM hgb 8.8 * 04/09 hemoglobin is 7, 6 hours later still 7.1, CT scan showed with looked be large hematoma around the hip but smaller on the abdominal wall with no active bleeding * hgb 6.8 04/10 so 1 unit given at dialysis(8 total) * ghb 9.0 04/01 * Have resumed anticoagulation with heparin and warfarin D # 3 INR 1.7 (2) Chronic anticoagulation: 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 Status: Acute Assessment and Plan: * Patient had active bleeding and very high risk for stroke due to mechanical heart valves * High risk for falls, but very high risk for stroke so have to continue anticoagulation (3) Mechanical heart valve present: Code(s): Z95.2 - Presence of prosthetic heart valve Status: Acute Assessment and Plan: * Aortic and mitral * Very high risk for stroke * On heparin and back on oral warfarin 04/10 D #3 (4) ESRD (end stage renal disease): Code(s): N18.6 - End stage renal disease Status: Chronic Assessment and Plan: * HD continue all usual regime, MWF and 3 liters off 04/10 and repeat dialysis 04/12 (5) Left foot drop: Code(s): M21.372 - Foot drop, left foot Status: Acute Assessment and Plan: * Likely due to traumatic sciatic nerve injury during fall at [place] * Neurology seeing (6) Bipolar disorder: Qualifiers: Active/Remission status: currently active Current bipolar episode type: mixed Current episode severity: unspecified Qualified Code(s): F31.60 - Bipolar disorder, current episode mixed, unspecified Code(s): F31.9 - Bipolar disorder, unspecified Status: Acute Assessment and Plan: * Reduce alprazolam * Switched antidepressant from escitalpram to mirtazapine (to improve sleep and appetite) * low dose oxycodone 2.5mg at HS and bid prn * Continue Vraylar and lamotrigine for mood stabilization * So far she is sleeping much better (7) Tobacco dependence: Code(s): F17.200 - Nicotine dependence, unspecified, uncomplicated Status: Acute Assessment and Plan: * Not interested in quitting (8) Narcotic dependence: Code(s): F11.20 - Opioid dependence, uncomplicated Status: Acute Assessment and Plan: * Dose oxycodone at bedtime and with dialysis and daily as needed Subjective Date/time seen: 04/11/19 16:43 Interval history: Follow-up for:: Hematoma, anticoagulation, mechanical mitral and aortic valves Date of service: 04/11/2019 Subjective: Left foot numbness still present but less. Buttock pain no worse. Denied chest discomfort or shortness of breath. on heparin and warfarin started pm 3 . still some pain constipated also Exam Narrative: Exam Narrative: Blood pressure 160/74 pulse is 82 regular Skin with ecchymoses over right shoulder and left buttock still but slowly resolving HEENT: EOMI, PERRL, NECK: No JVD supple CHEST: Coarse BS HEART: Metallic s1/S2, regular ABDOMEN: BS+, soft, nontender, no mass, no bruits EXTREMITIES: No cya
--- NOTE | 2019-04-11 16:43 | PM.IMPN ---
Progress Note: A&P Assessment and Plan (1) Acute post-hemorrhagic anemia: Code(s): D62 - Acute posthemorrhagic anemia Status: Acute Assessment and Plan: Likely due to hematoma and buttock and thigh due to blunt trauma sustained during fall from bed at facility INR was subtherapeutic upon admission, 04/06 1.7 Hgb 6.9 after transfusion 04/06 (6 U since admission) Hgb 6.1 04/07 AM, additional 1 U PRBC ordered 04/07 PM restarted anticoagulation with heparin, 04/08AM hgb 8.8 04/09 hemoglobin is 7, 6 hours later still 7.1, CT scan showed with looked be large hematoma around the hip but smaller on the abdominal wall with no active bleeding hgb 6.8 04/10 so 1 unit given at dialysis(8 total) ghb 9.0 04/01 Have resumed anticoagulation with heparin and warfarin D # 3 INR 1.7 (2) 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 Status: Acute Assessment and Plan: Patient had active bleeding and very high risk for stroke due to mechanical heart valves High risk for falls, but very high risk for stroke so have to continue anticoagulation (3) Mechanical heart valve present: Code(s): Z95.2 - Presence of prosthetic heart valve Status: Acute Assessment and Plan: Aortic and mitral Very high risk for stroke On heparin and back on oral warfarin 04/10 D #3 (4) ESRD (end stage renal disease): Code(s): N18.6 - End stage renal disease Status: Chronic Assessment and Plan: HD continue all usual regime, MWF and 3 liters off 04/10 and repeat dialysis 04/12 (5) Left foot drop: Code(s): M21.372 - Foot drop, left foot Status: Acute Assessment and Plan: Likely due to traumatic sciatic nerve injury during fall at [place] [facility] seeing (6) Bipolar disorder: Qualifiers: Active/Remission status: currently active Current bipolar episode type: mixed Current episode severity: unspecified Qualified Code(s): F31.60 - Bipolar disorder, current episode mixed, unspecified Code(s): F31.9 - Bipolar disorder, unspecified Status: Acute Assessment and Plan: Reduce alprazolam Switched antidepressant from escitalpram to mirtazapine (to improve sleep and appetite) low dose oxycodone 2.5mg at HS and bid prn Continue Vraylar and lamotrigine for mood stabilization So far she is sleeping much better (7) Tobacco dependence: Code(s): F17.200 - Nicotine dependence, unspecified, uncomplicated Status: Acute Assessment and Plan: Not interested in quitting (8) Narcotic dependence: Code(s): F11.20 - Opioid dependence, uncomplicated Status: Acute Assessment and Plan: Dose oxycodone at bedtime and with dialysis and daily as needed Subjective Date/time seen: 04/11/19 16:43 Interval history: Follow-up for:: Hematoma, anticoagulation, mechanical mitral and aortic valves Date of service: 04/11/2019 Subjective: Left foot numbness still present but less. Buttock pain no worse. Denied chest discomfort or shortness of breath. on heparin and warfarin started pm 05/07 . still some pain constipated also Exam Narrative: Exam Narrative: Blood pressure 160/74 pulse is 82 regular Skin with ecchymoses over right shoulder and left buttock still but slowly resolving HEENT: EOMI, PERRL, NECK: No JVD supple CHEST: Coarse BS HEART: Metallic s1/S2, regular ABDOMEN: BS+, soft, nontender, no mass, no bruits EXTREMITIES: No cyanosis, edema, or clubbing, warm with strong DP, PT NEUROLOGIC: CN intact and symmetric to inspection. DTRs intact at knees, absent at ankles MUSCULOSKELETAL: Tone and strength symmetric.Left foot drop. Unchanged but moving left leg better : drowsy during exam today Objective Data Vital Signs Vital Signs: Vital Signs - 24 hr 04/10/19 20:41 04/10/19 20:53 04/10/19 22:00 Temperature 36.3 C L Pulse Rate 77 96 93 Respiratory Rate 20 20 20
[2019-04-11] MEDS: WARFARIN (*PBKC) 4 MG TABLET 8 MG PO (17:15)
[2019-04-11 19:22] LABS: Partial Thromboplastin Time 127.7 SECONDS (22.3-36.8)
[2019-04-11] MEDS: ALPRAZOLAM 0.5 MG TABLET 1 MG PO (21:15)
[2019-04-11] MEDS: lamoTRIgine 100 MG TABLET 400 MG PO (21:18)
[2019-04-11] MEDS: MIRTAZAPINE 15 MG TABLET PO (21:19)
[2019-04-12] VITALS (24 sets, daily range): BP systolic 126–165; BP diastolic 64–83; PULSE 77–99; RESP 16–20; TEMP 36.6–37.1; O2SAT 90–97
[2019-04-12] MEDS: HEPARIN SOD/D5W 100 UNITS/ML 25,000 UNITS/250 ML BAG 14 UNITS IV CONT (02:47)
[2019-04-12 03:15] LABS: Basophils Percent Auto 0.3 % (0.2-1.2); Eosinophils Absolute Auto 0.1 K/mm3 (0-0.3); Eosinophils Percent Auto 0.7 % (0-4.4); Hematocrit 27.5 % (37.0-47.0); Hemoglobin 8.6 g/dL (12.0-15.0); Immature Granulocyte Absolute 0.13 K/mm3 (0.00-0.031); Immature Granulocyte Percent A 1.5 % (0-0.5); Lymphocytes Absolute Auto 0.79 K/mm3 (0.9-3.2); Lymphocytes Percent Auto 9.2 % (18.3-44.2); Mean Corpuscular HGB Conc 31.3 g/dl (32-36); Mean Corpuscular Hemoglobin 29.6 pg (26-34); Mean Corpuscular Volume 94.5 fl (80-100); Mean Platelet Volume 10.6 fl (7.4-10.4); Monocytes Absolute Auto 0.6 K/mm3 (0.1-0.6); Monocytes Percent Auto 7.1 % (2.6-8.5); Neutrophils Percent Auto 81.2 % (45.5-73.1); Platelet Count Result 220 k/mm3 (150-375); Red Blood Count 2.91 M/mm3 (4.2-5.4); Red Cell Distribution Width 18.2 % (11.5-14.5); White Blood Count 8.6 K/mm3 (4.5-10.0)
[2019-04-12 03:19] LABS: INR 2.4; Prothrombin Time 25.8 Seconds (11.1-14.7)
[2019-04-12 03:21] LABS: Partial Thromboplastin Time 107.5 SECONDS (22.3-36.8)
[2019-04-12] MEDS: ACETAMINOPHEN 500 MG TABLET 1000 MG PO ×3 (06:44→21:25)
[2019-04-12] MEDS: LEVOTHYROXINE SODIUM 125 MCG TABLET PO (06:44)
[2019-04-12] MEDS: ALBUTEROL SULFATE NEB 2.5 MG/0.5 ML INH INHALATION ×4 (08:37→21:55)
[2019-04-12] MEDS: BUDESONIDE RESPULE NEB 0.5 MG/2 ML AMP 0.25 MG INHALATION ×2 (08:38→21:55)
[2019-04-12] MEDS: IPRATROPIUM BR 0.02% INH SOLN 0.5 MG/2.5 ML VIAL INHALATION ×4 (08:38→21:54)
[2019-04-12] MEDS: FLUTICASONE PROPIONATE 0.05% NA SPR 16 GM BTL (*BKC) 1 SPRAY NASAL ×2 (09:35→21:25)
[2019-04-12] MEDS: SEVELAMER CARBONATE 800 MG TABLET PO ×3 (09:36→21:26)
[2019-04-12] MEDS: FUROSEMIDE 80 MG TABLET PO (09:36)
[2019-04-12] MEDS: PANTOPRAZOLE 40 MG TABLET PO (09:37)
[2019-04-12] MEDS: SIMVASTATIN 20 MG TABLET 40 MG PO (09:38)
[2019-04-12] MEDS: BISACODYL 5 MG TABLET EC 15 MG PO (09:43)
--- NOTE | 2019-04-12 09:43 | PM.PNCARD ---
Progress Note: A&P Assessment and Plan (1) Intramuscular hematoma: Code(s): T14.8XXA - Other injury of unspecified body region, initial encounter Status: Acute Assessment and Plan: INR 2.4 this morning after 3 doses of 8 mg of warfarin. Discontinue heparin drip. She is happy that she will no longer have to have labs drawn except in the morning. Check INR in the morning. (2) ESRD (end stage renal disease) on dialysis: Code(s): N18.6 - End stage renal disease; Z99.2 - Dependence on renal dialysis Status: Acute Assessment and Plan: Renal replacement therapy with hemodialysis (3) Mechanical heart valve present: Code(s): Z95.2 - Presence of prosthetic heart valve Status: Acute Assessment and Plan: History of remote valvular heart disease, and status post mechanical mitral and aortic valve replacement. Chronic anticoagulation with warfarin, target INR 2.5-3.5 Plan as above Additional Plan Still working on her constipation. Has lot of leg pain today. Pain medications are being given now. Plan discussed with Dr. Mohr [id number] 04/12/2019 Subjective Date/time seen: 04/12/19 09:43 Interval history: Follow-up for:: Hematoma, anticoagulation, mechanical mitral and aortic valves Date of service: 04/12/2019 Subjective: Having a lot of leg pain today. Still able to move it is much she did yesterday. Still has foot drop in unable to move the foot. Hematomas are smaller again today. No chest pain or shortness of breath. No lightheadedness or palpitations. No stroke symptoms. Review of Systems Constitutional: Constitutional: Denies fatigue, Reports lethargy and Denies weakness Eyes: Eyes: Reports no additional eye complaints and Denies blurry vision ENT: Reports system reviewed and no additional complaints, except as documented and Reports Normal hearing present Cardiovascular: Cardiovascular: Reports no additional cardiovascular complaints, Denies chest pain, Denies lightheadedness, Denies palpitations, Denies dyspnea and Denies dyspnea on exertion Respiratory: Respiratory: Reports no additional respiratory complaints, Denies cough, Denies dyspnea and Denies dyspnea on exertion Gastrointestinal: Gastrointestinal: Reports no additional gastrointestinal complaints, Denies abdominal pain, Denies bloating and Reports constipation Musculoskeletal: Musculoskeletal: Reports numbness (Left foot) and Reports other (Left leg pain.) Integumentary/Breasts: Skin/Breast: Reports other (Significant ecchymosis left hip/buttocks/lower abdomen) Neurologic: Reports Normal hearing present, Denies Abnormal speech present, Reports numbness (Left foot) and Denies weakness Psychiatric: Psychiatric: Denies anxiety Endocrine: Endocrine: Denies fatigue and Denies palpitations Hematologic/Lymphatic: Hematologic/Lymphatic: Reports easy bruising Exam Const: General: cooperative, no acute distress, alert and awake HENMT: Head: normocephalic and atraumatic Ears: hearing grossly normal bilaterally and external ears normal General nose exam: Normal external nose present and no epistaxis Face and sinus: normal facial exam and no ecchymosis Mouth: Yes dry mucous membranes Eyes: Conjunctivae: conjunctivae normal Sclera: sclerae normal Pupils: Equal, round and reactive pupils present EOM: EOMs intact bilaterally Neck: Neck: normal visual inspection and supple Resp: Effort & Inspection: normal respiratory effort and able to speak in complete sentences Auscultation: rhonchi (Course throughout) Cardio: Rate: regular rate Rhythm: regular rhythm Heart sounds: Murmur heart sound present systolic II/ and at the apex and Other heart sounds present (Mechanical S1 and S2) GI: Inspection: normal to inspection Auscultation: normal bowel sounds Skin: General skin exam: normal color Neuro: Cranial nerves: Yes Equal,
[2019-04-12] MEDS: polyethylene glycoL 3350 238 GM BOTTLE 64 GM PO (09:45)
--- NOTE | 2019-04-12 11:35 | PHAR ---
Home med verified: Vraylar 3mg take 1 capsule PO daily #5 remaining in bubble packing
--- NOTE | 2019-04-12 12:39 | PM.IMPN ---
Subjective Date/time seen: 04/12/19 12:39 Objective Data Vital Signs Vital Signs: Vital Signs - 24 hr 04/11/19 12:41 04/11/19 12:47 04/11/19 14:00 Temperature 36.9 C Pulse Rate 89 90 83 Respiratory Rate 20 20 18 Blood Pressure 171/74 H Pulse Oximetry 93 04/11/19 15:40 04/11/19 15:48 04/11/19 20:00 Temperature Pulse Rate 99 88 86 Respiratory Rate 20 20 18 Blood Pressure Pulse Oximetry 98 04/11/19 20:05 04/11/19 20:20 04/11/19 20:24 Temperature Pulse Rate 88 88 Respiratory Rate 20 20 Blood Pressure Pulse Oximetry 97 04/11/19 22:00 04/12/19 06:00 04/12/19 08:39 Temperature 36.5 C 37.1 C Pulse Rate 86 95 95 Respiratory Rate 18 18 20 Blood Pressure 122/72 148/76 H Pulse Oximetry 98 95 90 04/12/19 11:25 04/12/19 11:31 Temperature Pulse Rate 91 92 Respiratory Rate 20 20 Blood Pressure Pulse Oximetry Intake/Output Intake/Output: Intake & Output 04/09/19 04/10/19 04/11/19 04/12/19 23:59 23:59 23:59 23:59 Intake Total 0 1180 1190 480 Output Total 0 3150 Balance 2149 -1969 1190 480 Meds/Results Medications: Active Medications Generic Name Dose Route Start Last Admin Trade Name Freq PRN Reason Stop Dose Admin Acetaminophen 1,000 mg 04/06/19 22:00 04/12/19 09:44 Tylenol Tablet PO 1,000 mg Q8HR GORDON Administration Albuterol 2.5 mg 04/05/19 08:00 04/12/19 11:25 Albuterol Sulf Neb 2.5mg/0.5ml INHALATION 2.5 mg QIDRT GORDON Administration Alprazolam 1 mg 04/06/19 21:00 04/11/19 21:15 Xanax PO 1 mg HS GORDON Administration Budesonide 0.25 mg 04/05/19 08:00 04/12/19 08:38 Pulmicort Respule Neb INHALATION 0.25 mg Q12HRT GORDON Administration Clotrimazole 1 applic 04/05/19 09:00 04/12/19 09:45 Lotrisone Cream TOPICAL Not Given BID GORDON Epoetin [place] 20,000 units 04/12/19 20:00 Epogen IV PUSH 04/12/19 20:01 ONCE ONE Fluticasone Propionate 1 spray 04/05/19 09:00 04/12/19 09:35 Flonase 0.05% Nasal [place] NASAL 1 spray Q12HR GORDON Administration Furosemide 80 mg 04/05/19 09:00 04/12/19 09:36 Lasix Tablet PO 80 mg DAILY GORDON Administration Albumin Human 50 mls @ 999 mls/hr 04/05/19 07:00 Albutein IVPB 05/05/19 07:01 Q10M PRN HYPOTENSION Ipratropium [place] 0.5 mg 04/05/19 08:00 04/12/19 11:25 Atrovent Neb INHALATION 0.5 mg QIDRT GORDON Administration Lamotrigine 400 mg 04/04/19 21:35 04/11/19 21:18 Lamictal PO 400 mg HS GORDON Administration Levothyroxine Sodium 125 mcg 04/05/19 06:30 04/12/19 06:44 Synthroid PO 125 mcg DAILY@0630 GORDON Administration Meclizine HCl 12.5 mg 04/04/19 21:16 04/10/19 21:17 Antivert PO 12.5 mg TID PRN Administration Dizziness Mirtazapine 15 mg 04/06/19 21:00 04/11/19 21:19 Remeron PO 15 mg HS GORDON Administration Oxycodone HCl 2.5 mg 04/10/19 15:00 04/12/19 09:44 Roxicodone Ir Tablet PO 2.5 mg BID PRN Administration Pain Rated 7-10 Pantoprazole Sodium 40 mg 04/05/19 09:00 04/12/19 09:37 Protonix PO 05/05/19 09:01 40 mg DAILY GORDON Administration Polyethylene Glycol 17 gm 04/08/19 15:35 04/10/19 14:40 Miralax PO 17 gm QAM PRN Administration Constipation Polyethylene Glycol 17 gm 04/11/19 09:00 04/12/19 09:35 Miralax PO 17 gm QAM GORDON Administration Ropinirole HCl 5 mg 04/04/19 21:30 04/11/19 21:17 Requip PO 5 mg HS GORDON Administration Senna 8.6 mg 04/08/19 17:00 04/11/19 17:15 Senokot Tablet PO 8.6 mg BID GORDON Administration Sevelamer Carbonate 800 mg 04/05/19 08:00 04/12/19 09:36 Renvela PO 800 mg TIDWM GORDON Administration Simvastatin 40 mg 04/05/19 09:00 04/12/19 09:38 Zocor PO 40 mg DAILY GORDON Administration Tramadol HCl 50 mg 04/09/19 18:15 04/11/19 03:52 Ultram PO 50 mg Q6H PRN Administration Pain Rated 4-6 Warfarin Sodium 8 mg 04/09/19 17:00 04/11/19
--- NOTE | 2019-04-12 12:41 | PM.IMPN ---
Progress Note: A&P Assessment and Plan (1) Acute post-hemorrhagic anemia: Code(s): D62 - Acute posthemorrhagic anemia Status: Acute Assessment and Plan: Likely due to hematoma and buttock and thigh due to blunt trauma sustained during fall from bed at facility INR was subtherapeutic at 1.7 upon admission, 04/06 1.7 Hgb 6.9 after transfusion 04/06 (6 U since admission) Hgb 6.1 04/07 AM, additional 1 U PRBC ordered 04/07 PM restarted anticoagulation with heparin, 04/08AM hgb 8.8 04/09 hemoglobin is 7, 6 hours later still 7.1, CT scan showed with looked be large hematoma around the hip but smaller on the abdominal wall with no active bleeding hgb 6.8 04/10 so 1 unit given at dialysis(8 total) Have resumed anticoagulation with heparin and warfarin INR 2.4 after 3 days and heparin drip stopped D# 4 of warfarin today and hgb 8.6 (2) 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 Status: Acute Assessment and Plan: Patient had active bleeding and very high risk for stroke due to mechanical heart valves High risk for falls, but very high risk for stroke so have to continue anticoagulation (3) Mechanical heart valve present: Code(s): Z95.2 - Presence of prosthetic heart valve Status: Acute Assessment and Plan: Aortic and mitral Very high risk for stroke On heparin and back on oral warfarin 04/09 D #4 (4) ESRD (end stage renal disease): Code(s): N18.6 - End stage renal disease Status: Chronic Assessment and Plan: HD continue all usual regime, MWF and 3 liters off 04/10 and repeat today (5) Left foot drop: Code(s): M21.372 - Foot drop, left foot Status: Acute Assessment and Plan: Likely due to traumatic sciatic nerve injury during fall at [place] [facility] seeing (6) Bipolar disorder: Qualifiers: Active/Remission status: currently active Current bipolar episode type: mixed Current episode severity: unspecified Qualified Code(s): F31.60 - Bipolar disorder, current episode mixed, unspecified Code(s): F31.9 - Bipolar disorder, unspecified Status: Acute Assessment and Plan: Reduce alprazolam Switched antidepressant from escitalpram to mirtazapine (to improve sleep and appetite) low dose oxycodone 2.5mg at HS and bid prn Continue Vraylar and lamotrigine for mood stabilization So far she is sleeping much better (7) Tobacco dependence: Code(s): F17.200 - Nicotine dependence, unspecified, uncomplicated Status: Acute Assessment and Plan: Not interested in quitting (8) Narcotic dependence: Code(s): F11.20 - Opioid dependence, uncomplicated Status: Acute Assessment and Plan: Dose oxycodone at bedtime and with dialysis and daily as needed Subjective Date/time seen: 04/12/19 12:41 Interval history: Follow-up for:: Hematoma, anticoagulation, mechanical mitral and aortic valves Date of service: 04/12/2019 Subjective: Left foot numbness still present but less. Buttock pain better. Denied chest discomfort or shortness of breath. on heparin and warfarin started pm 05/07 . still some pain constipated also, small bm last pm Exam Narrative: Exam Narrative: Blood pressure 148/76 pulse is 84 regular Skin with ecchymoses over right shoulder and left buttock still but slowly resolving HEENT: EOMI, PERRL, NECK: No JVD supple CHEST: Coarse BS HEART: Metallic s1/S2, regular ABDOMEN: BS+, soft, nontender, no mass, no bruits, resolving hematoma of abd wall EXTREMITIES: No cyanosis, edema, or clubbing, warm with strong DP, PT NEUROLOGIC: CN intact MUSCULOSKELETAL: Tone and strength symmetric .Left foot drop. Unchanged but moving left leg better : more alert today Objective Data Vital Signs Vital Signs: Vital Signs - 24 hr 04/11/19 12:47 04/11/19 14:00 04/11/19 15:40 Temperature 36.9 C Pulse Rate 90 83 99 Re
--- NOTE | 2019-04-12 12:41 | P.PNIM_ITS ---
Progress Note: A&P Assessment and Plan (1) Acute post-hemorrhagic anemia: Code(s): D62 - Acute posthemorrhagic anemia Status: Acute Assessment and Plan: * Likely due to hematoma and buttock and thigh due to blunt trauma sustained during fall from bed at facility * INR was subtherapeutic at 1.7 upon admission, 04/06 1.7 * Hgb 6.9 after transfusion 04/06 (6 U since admission) * Hgb 6.1 04/07 AM, additional 1 U PRBC ordered * 04/07 PM restarted anticoagulation with heparin, * 04/08AM hgb 8.8 * 04/09 hemoglobin is 7, 6 hours later still 7.1, CT scan showed with looked be large hematoma around the hip but smaller on the abdominal wall with no active bleeding * hgb 6.8 04/10 so 1 unit given at dialysis(8 total) * Have resumed anticoagulation with heparin and warfarin INR 2.4 after 3 days and heparin drip stopped * D# 4 of warfarin today and hgb 8.6 (2) 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 Status: Acute Assessment and Plan: * Patient had active bleeding and very high risk for stroke due to mechanical heart valves * High risk for falls, but very high risk for stroke so have to continue anticoagulation (3) Mechanical heart valve present: Code(s): Z95.2 - Presence of prosthetic heart valve Status: Acute Assessment and Plan: * Aortic and mitral * Very high risk for stroke * On heparin and back on oral warfarin 04/09 D #4 (4) ESRD (end stage renal disease): Code(s): N18.6 - End stage renal disease Status: Chronic Assessment and Plan: * HD continue all usual regime, MWF and 3 liters off 04/10 and repeat today (5) Left foot drop: Code(s): M21.372 - Foot drop, left foot Status: Acute Assessment and Plan: * Likely due to traumatic sciatic nerve injury during fall at [facility] * Neurology seeing (6) Bipolar disorder: Qualifiers: Active/Remission status: currently active Current bipolar episode type: mixed Current episode severity: unspecified Qualified Code(s): F31.60 - Bipolar disorder, current episode mixed, unspecified Code(s): F31.9 - Bipolar disorder, unspecified Status: Acute Assessment and Plan: * Reduce alprazolam * Switched antidepressant from escitalpram to mirtazapine (to improve sleep and appetite) * low dose oxycodone 2.5mg at HS and bid prn * Continue Vraylar and lamotrigine for mood stabilization * So far she is sleeping much better (7) Tobacco dependence: Code(s): F17.200 - Nicotine dependence, unspecified, uncomplicated Status: Acute Assessment and Plan: * Not interested in quitting (8) Narcotic dependence: Code(s): F11.20 - Opioid dependence, uncomplicated Status: Acute Assessment and Plan: * Dose oxycodone at bedtime and with dialysis and daily as needed Subjective Date/time seen: 04/12/19 12:41 Interval history: Follow-up for:: Hematoma, anticoagulation, mechanical mitral and aortic valves Date of service: 04/12/2019 Subjective: Left foot numbness still present but less. Buttock pain better. Denied chest discomfort or shortness of breath. on heparin and warfarin started pm 05/07 . still some pain constipated also, small bm last pm Exam Narrative: Exam Narrative: Blood pressure 148/76 pulse is 84 regular Skin with ecchymoses over right shoulder and left buttock still but slowly resolving HEENT: EOMI, PERRL, NECK: No JVD supple CHEST: Coarse BS HEART: Metallic s1/S2, regular ABD
--- NOTE | 2019-04-12 12:56 | WPDNEUROPN ---
Progress Note: A&P Assessment and Plan (1) Sciatic neuropathy: Code(s): G57.00 - Lesion of sciatic nerve, unspecified lower limb Status: Acute (2) Narcotic dependence: Code(s): F11.20 - Opioid dependence, uncomplicated Status: Acute (3) Left foot drop: Code(s): M21.372 - Foot drop, left foot Status: Acute (4) Intramuscular hematoma: Code(s): T14.8XXA - Other injury of unspecified body region, initial encounter Status: Acute (5) Anemia: Qualifiers: Anemia type: unspecified type Qualified Code(s): D64.9 - Anemia, unspecified Code(s): D64.9 - Anemia, unspecified Status: Acute (6) Warfarin-induced coagulopathy: Code(s): D68.32 - Hemorrhagic disorder due to extrinsic circulating anticoagulants; T45.515A - Adverse effect of anticoagulants, initial encounter Status: Acute (7) ESRD (end stage renal disease) on dialysis: Code(s): N18.6 - End stage renal disease; Z99.2 - Dependence on renal dialysis Status: Acute (8) Acute post-hemorrhagic anemia: Code(s): D62 - Acute posthemorrhagic anemia Status: Acute (9) Metabolic encephalopathy: Code(s): G93.41 - Metabolic encephalopathy Status: Acute (10) Acute respiratory failure with hypoxia: Code(s): J96.01 - Acute respiratory failure with hypoxia Status: Acute (11) Tobacco dependence: Code(s): F17.200 - Nicotine dependence, unspecified, uncomplicated Status: Acute (12) Thrombocytopenia: Code(s): D69.6 - Thrombocytopenia, unspecified Status: Acute (13) Psychiatric illness: Code(s): F99 - Mental disorder, not otherwise specified Status: Acute (14) Protein calorie malnutrition: Code(s): E46 - Unspecified protein-calorie malnutrition Status: Acute (15) Acute on chronic anemia: Code(s): D64.9 - Anemia, unspecified Status: Acute (16) Hypotension: Qualifiers: Hypotension type: other hypotension type Qualified Code(s): I95.89 - Other hypotension Code(s): I95.9 - Hypotension, unspecified Status: Acute (17) COPD (chronic obstructive pulmonary disease): Qualifiers: COPD type: unspecified COPD Qualified Code(s): J44.9 - Chronic obstructive pulmonary disease, unspecified Code(s): J44.9 - Chronic obstructive pulmonary disease, unspecified Status: Acute (18) Pulmonary edema: Code(s): J81.1 - Chronic pulmonary edema Status: Acute (19) Encephalopathy: Code(s): G93.40 - Encephalopathy, unspecified Status: Acute (20) ESRD (end stage renal disease): Code(s): N18.6 - End stage renal disease Status: Chronic (21) Chronic 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 Status: Acute (22) Mechanical heart valve present: Code(s): Z95.2 - Presence of prosthetic heart valve Status: Acute (23) Hypothyroidism: Qualifiers: Hypothyroidism type: acquired Qualified Code(s): E03.9 - Hypothyroidism, unspecified Code(s): E03.9 - Hypothyroidism, unspecified Status: Acute (24) Bipolar disorder: Qualifiers: Active/Remission status: currently active Current bipolar episode type: mixed Current episode severity: unspecified Qualified Code(s): F31.60 - Bipolar disorder, current episode mixed, unspecified Code(s): F31.9 - Bipolar disorder, unspecified Status: Acute (25) Anemia: Code(s): D64.9 - Anemia, unspecified Status: Chronic (26) Elevated troponin: Code(s): R79.89 - Other specified abnormal findings of blood chemistry Status: Acute Additional Plan better Review of Systems Review of Systems: All systems reviewed & are unremarkable except as noted in HPI and below Exam Const: General: cooperative, comfortable and no acute distress Eyes: General: appearance normal, both
[2019-04-12] MEDS: SENNOSIDES 8.6 MG TABLET PO ×2 (13:40→18:52)
--- NOTE | 2019-04-12 15:42 | PM.PNNEP ---
Progress Note: A&P Assessment and Plan (1) ESRD (end stage renal disease): Code(s): N18.6 - End stage renal disease Status: Chronic Assessment and Plan: HD today and continue M/W/F dialysis schedule while hospitalized electrolytes, volume status, and clearance acceptable (2) Anemia: Qualifiers: Anemia type: unspecified type Qualified Code(s): D64.9 - Anemia, unspecified Code(s): D64.9 - Anemia, unspecified Status: Acute Assessment and Plan: quite severe and secondary to #3 anticoagulation resumed PRBC transfusion per protocol Epogen with HD (3) Intramuscular hematoma: Code(s): T14.8XXA - Other injury of unspecified body region, initial encounter Status: Acute Assessment and Plan: as evidence by imagining on admission follow H/H with transfusions as needed continue supportive therapy (4) Mechanical heart valve present: Code(s): Z95.2 - Presence of prosthetic heart valve Status: Acute Assessment and Plan: Cardiology following resumed on anticoagulation - INR almost to goal (5) Bipolar disorder: Qualifiers: Active/Remission status: currently active Current bipolar episode type: mixed Current episode severity: unspecified Qualified Code(s): F31.60 - Bipolar disorder, current episode mixed, unspecified Code(s): F31.9 - Bipolar disorder, unspecified Status: Acute Assessment and Plan: mentation/mood better follow trend Will continue to follow. Subjective Date/time seen: 04/12/19 15:42 Patient tolerating dialysis at the time of my visit (seen on HD at ~ 3:30 PM); very anxious for discharge; no issues or problems overnight; no apparent distress voiced; overall, feels pretty good. Exam Narrative: Exam Narrative: General: WD/WN female in NAD Heart: normal S1 and S2; no rub Lungs: clear to auscultation Abdomen: soft, nontender, nondistended, positive bowel sounds Extremities: no cyanosis or clubbing; trace edema Skin: warm and intact Objective Data Vital Signs Vital Signs: Vital Signs Temp Pulse Resp BP Pulse Ox 04/12/19 15:14 86 20 04/12/19 15:09 83 20 04/12/19 11:31 92 20 04/12/19 11:25 91 20 04/12/19 08:39 95 20 90 02/28/20 06:00 37.1 C 95 18 148/76 H 95 04/11/19 22:00 36.5 C 86 18 122/72 98 04/11/19 20:24 88 20 04/11/19 20:20 97 04/11/19 20:05 88 20 04/11/19 20:00 86 18 98 04/11/19 15:48 88 20 Intake/Output Intake/Output: Intake & Output 04/09/19 04/10/19 04/11/19 04/12/19 23:59 23:59 23:59 23:59 Intake Total 2150 1180 1190 504 Output Total 0 3150 Balance 2149 1190 504 Meds/Results Medications: Active Medications Generic Name Dose Route Start Last Admin Trade Name Freq PRN Reason Stop Dose Admin Acetaminophen 1,000 mg 04/06/19 22:00 04/12/19 13:39 Tylenol Tablet PO 1,000 mg Q8HR GORDON Administration Albuterol 2.5 mg 04/05/19 08:00 04/12/19 15:09 Albuterol Sulf Neb 2.5mg/0.5ml INHALATION 2.5 mg QIDRT GORDON Administration Alprazolam 1 mg 04/06/19 21:00 04/11/19 21:15 Xanax PO 1 mg HS GORDON Administration Budesonide 0.25 mg 04/05/19 08:00 04/12/19 08:38 Pulmicort Respule Neb INHALATION 0.25 mg Q12HRT GORDON Administration Clotrimazole 1 applic 04/05/19 09:00 04/12/19 09:45 Lotrisone Cream TOPICAL Not Given BID [facility] Epoetin [place] 20,000 units 04/12/19 20:00 Epogen IV PUSH 04/12/19 20:01 ONCE ONE Fluticasone Propionate 1 spray 04/05/19 09:00 04/12/19 09:35 Flonase 0.05% Nasal [place] NASAL 1 spray Q12HR GORDON Administration Furosemide 80 mg 04/05/19 09:00 04/12/19 09:36 Lasix Tablet PO 80 mg DAILY GORDON Administration Albumin Human 50 mls @ 999 mls/hr 04/05/19 07:00 Albutein IVPB 05/05/19 07:01 Q10M PRN HYPOTENSION Ipratropium [place] 0.5 mg 04/05/19 08:00 02/2
[2019-04-12] MEDS: EPOETIN ALFA 20,000 UNITS/ML VIAL 20000 UNITS IV PUSH (17:27)
[2019-04-12] MEDS: WARFARIN (*PBKC) 4 MG TABLET 8 MG PO (18:48)
[2019-04-12] MEDS: ALPRAZOLAM 0.5 MG TABLET 1 MG PO (21:25)
[2019-04-12] MEDS: lamoTRIgine 100 MG TABLET 400 MG PO (21:25)
[2019-04-12] MEDS: MIRTAZAPINE 15 MG TABLET PO (21:25)
[2019-04-12] MEDS: TRAMADOL HCL 50 MG TABLET PO (21:31)
[2019-04-13] MEDS: LEVOTHYROXINE SODIUM 125 MCG TABLET PO (05:34)
[2019-04-13] MEDS: ACETAMINOPHEN 500 MG TABLET 1000 MG PO ×2 (05:34→13:12)
[2019-04-13] MEDS: TRAMADOL HCL 50 MG TABLET PO (05:36)
[2019-04-13 06:00] VITALS: BP 172/63; PULSE 86; RESP 20; TEMP 36.5; O2SAT 100
[2019-04-13 06:24] LABS: Basophils Percent Auto 0.6 % (0.2-1.2); Eosinophils Absolute Auto 0.1 K/mm3 (0-0.3); Eosinophils Percent Auto 1.6 % (0-4.4); Hematocrit 31.4 % (37.0-47.0); Hemoglobin 9.5 g/dL (12.0-15.0); Immature Granulocyte Absolute 0.24 K/mm3 (0.00-0.031); Immature Granulocyte Percent A 3.6 % (0-0.5); Lymphocytes Absolute Auto 0.59 K/mm3 (0.9-3.2); Lymphocytes Percent Auto 8.8 % (18.3-44.2); Mean Corpuscular HGB Conc 30.3 g/dl (32-36); Mean Corpuscular Hemoglobin 29.1 pg (26-34); Mean Corpuscular Volume 96.3 fl (80-100); Mean Platelet Volume 10.3 fl (7.4-10.4); Monocytes Absolute Auto 0.6 K/mm3 (0.1-0.6); Monocytes Percent Auto 9.4 % (2.6-8.5); Neutrophils Absolute Auto 5.1 K/mm3 (1.3-6.7); Platelet Count Result 239 k/mm3 (150-375); Red Blood Count 3.26 M/mm3 (4.2-5.4); Red Cell Distribution Width 18.9 % (11.5-14.5); White Blood Count 6.7 K/mm3 (4.5-10.0)
[2019-04-13 06:34] LABS: Albumin Level 3.2 g/dL (3.5-5.1); Blood Urea Nitrogen 26 mg/dL (7-17); Calcium 8.2 mg/dL (8.4-10.2); Carbon Dioxide 26 mmol/L (22-30); Chloride 94 mmol/L (98-107); Estimated CRCL calculation 20 ml/min; Estimated Glomerular Filt Rate 19; Glucose 88 mg/dL (65-105); Phosphorus 2.8 mg/dL (2.5-4.5); Potassium 3.9 mmol/L (3.4-5.0); Sodium 134 mmol/L (137-145)
[2019-04-13 06:35] LABS: INR 3.5; Prothrombin Time 34.9 Seconds (11.1-14.7)
[2019-04-13 07:35] VITALS: PULSE 76; RESP 20
[2019-04-13 07:44] VITALS: PULSE 78; RESP 20
[2019-04-13] MEDS: BUDESONIDE RESPULE NEB 0.5 MG/2 ML AMP 0.25 MG INHALATION (07:44)
[2019-04-13] MEDS: ALBUTEROL SULFATE NEB 2.5 MG/0.5 ML INH INHALATION ×2 (07:44→12:36)
[2019-04-13] MEDS: IPRATROPIUM BR 0.02% INH SOLN 0.5 MG/2.5 ML VIAL INHALATION ×2 (07:44→12:36)
[2019-04-13] MEDS: SEVELAMER CARBONATE 800 MG TABLET PO ×2 (08:35→12:41)
[2019-04-13] MEDS: SIMVASTATIN 20 MG TABLET 40 MG PO (08:36)
[2019-04-13] MEDS: PANTOPRAZOLE 40 MG TABLET PO (08:36)
[2019-04-13] MEDS: SENNOSIDES 8.6 MG TABLET PO (08:37)
[2019-04-13] MEDS: FUROSEMIDE 80 MG TABLET PO (08:37)
[2019-04-13] MEDS: FLUTICASONE PROPIONATE 0.05% NA SPR 16 GM BTL (*BKC) 1 SPRAY NASAL (08:38)
[2019-04-13] MEDS: BETAMETHASONE/CLOTRIMAZOLE CR 15 GM TUBE 1 APPLIC TOPICAL (08:38)
--- NOTE | 2019-04-13 12:00 | WPDNEUROPN ---
Progress Note: A&P Assessment and Plan (1) Sciatic neuropathy: Code(s): G57.00 - Lesion of sciatic nerve, unspecified lower limb Status: Acute (2) Narcotic dependence: Code(s): F11.20 - Opioid dependence, uncomplicated Status: Acute (3) Left foot drop: Code(s): M21.372 - Foot drop, left foot Status: Acute (4) Intramuscular hematoma: Code(s): T14.8XXA - Other injury of unspecified body region, initial encounter Status: Acute (5) Anemia: Qualifiers: Anemia type: unspecified type Qualified Code(s): D64.9 - Anemia, unspecified Code(s): D64.9 - Anemia, unspecified Status: Acute (6) Warfarin-induced coagulopathy: Code(s): D68.32 - Hemorrhagic disorder due to extrinsic circulating anticoagulants; T45.515A - Adverse effect of anticoagulants, initial encounter Status: Acute (7) ESRD (end stage renal disease) on dialysis: Code(s): N18.6 - End stage renal disease; Z99.2 - Dependence on renal dialysis Status: Acute (8) Acute post-hemorrhagic anemia: Code(s): D62 - Acute posthemorrhagic anemia Status: Acute (9) Acute respiratory failure with hypoxia: Code(s): J96.01 - Acute respiratory failure with hypoxia Status: Acute (10) Tobacco dependence: Code(s): F17.200 - Nicotine dependence, unspecified, uncomplicated Status: Acute (11) Thrombocytopenia: Code(s): D69.6 - Thrombocytopenia, unspecified Status: Acute (12) Psychiatric illness: Code(s): F99 - Mental disorder, not otherwise specified Status: Acute (13) Protein calorie malnutrition: Code(s): E46 - Unspecified protein-calorie malnutrition Status: Acute (14) Acute on chronic anemia: Code(s): D64.9 - Anemia, unspecified Status: Acute (15) Hypotension: Qualifiers: Hypotension type: other hypotension type Qualified Code(s): I95.89 - Other hypotension Code(s): I95.9 - Hypotension, unspecified Status: Acute (16) COPD (chronic obstructive pulmonary disease): Qualifiers: COPD type: unspecified COPD Qualified Code(s): J44.9 - Chronic obstructive pulmonary disease, unspecified Code(s): J44.9 - Chronic obstructive pulmonary disease, unspecified Status: Acute (17) Pulmonary edema: Code(s): J81.1 - Chronic pulmonary edema Status: Acute (18) Encephalopathy: Code(s): G93.40 - Encephalopathy, unspecified Status: Acute (19) ESRD (end stage renal disease): Code(s): N18.6 - End stage renal disease Status: Chronic (20) Chronic anticoagulation: Code(s): Z79.01 - retirement (current) use of anticoagulants Status: Acute (21) Mechanical heart valve present: Code(s): Z95.2 - Presence of prosthetic heart valve Status: Acute (22) Hypothyroidism: Qualifiers: Hypothyroidism type: acquired Qualified Code(s): E03.9 - Hypothyroidism, unspecified Code(s): E03.9 - Hypothyroidism, unspecified Status: Acute (23) Bipolar disorder: Qualifiers: Active/Remission status: currently active Current bipolar episode type: mixed Current episode severity: unspecified Qualified Code(s): F31.60 - Bipolar disorder, current episode mixed, unspecified Code(s): F31.9 - Bipolar disorder, unspecified Status: Acute (24) Anemia: Code(s): D64.9 - Anemia, unspecified Status: Chronic (25) Elevated troponin: Code(s): R79.89 - Other specified abnormal findings of blood chemistry Status: Acute Additional Plan improving left siatic nerve injury secondary to hematoma Review of Systems Review of Systems: All systems reviewed & are unremarkable except as noted in HPI and below Exam Const: General: cooperative, comfortable, no acute distress, alert and awake Nutritional Appearance: average body habitus Orientation/consciousness: oriented
[2019-04-13 12:30] VITALS: PULSE 75; RESP 20
[2019-04-13 12:37] VITALS: PULSE 78; RESP 20
[2019-04-13 14:00] VITALS: BP 122/54; PULSE 92; RESP 16; TEMP 36.8; O2SAT 100
--- NOTE | 2019-04-13 14:34 | PM.PNNEP ---
Progress Note: A&P Assessment and Plan (1) ESRD (end stage renal disease): Code(s): N18.6 - End stage renal disease Status: Chronic Assessment and Plan: HD yesterday and continue M/W/ dialysis schedule while hospitalized electrolytes, volume status, and clearance acceptable (2) Anemia: Qualifiers: Anemia type: unspecified type Qualified Code(s): D64.9 - Anemia, unspecified Code(s): D64.9 - Anemia, unspecified Status: Acute Assessment and Plan: H/H stable at this time quite severe on admission and secondary to #3 anticoagulation resumed PRBC transfusion per protocol Epogen with HD (3) Intramuscular hematoma: Code(s): T14.8XXA - Other injury of unspecified body region, initial encounter Status: Acute Assessment and Plan: as evidence by imagining on admission follow H/H with transfusions as needed continue supportive therapy (4) Mechanical heart valve present: Code(s): Z95.2 - Presence of prosthetic heart valve Status: Acute Assessment and Plan: Cardiology following resumed on anticoagulation - INR in range today (5) Bipolar disorder: Qualifiers: Active/Remission status: currently active Current bipolar episode type: mixed Current episode severity: unspecified Qualified Code(s): F31.60 - Bipolar disorder, current episode mixed, unspecified Code(s): F31.9 - Bipolar disorder, unspecified Status: Acute Assessment and Plan: mentation/mood better follow trend Not opposed to discharge today from renal perspective - Dr. Johnson will follow-up with her at her outpatient dialysis center. Subjective Date/time seen: 04/13/19 14:34 Tolerated dialysis yesterday but insistent on a reduce treatment time; no other acute issues or problems mentioned at this time; no distress noted. Exam Narrative: Exam Narrative: General: WD/WN female in NAD Heart: normal S1 and S2; no rub Lungs: clear to auscultation Abdomen: soft, nontender, nondistended, positive bowel sounds Extremities: no cyanosis or clubbing; trace edema Skin: warm and intact Objective Data Vital Signs Vital Signs: Vital Signs Temp Pulse Resp BP Pulse Ox 04/13/19 12:37 78 20 04/13/19 12:30 75 20 04/13/19 07:44 78 20 04/13/19 07:35 76 20 04/13/19 06:00 36.5 C 86 20 172/63 H 100 04/12/19 22:08 78 20 04/12/19 22:00 36.9 C 85 20 138/72 97 04/12/19 21:56 77 20 04/12/19 18:00 36.6 C 89 20 155/76 H 04/12/19 17:55 89 157/79 H 04/12/19 17:45 93 165/79 H 04/12/19 17:30 88 131/71 04/12/19 17:15 86 134/67 04/12/19 17:00 85 140/68 04/12/19 16:45 93 149/74 H 04/12/19 16:15 99 145/80 H 04/12/19 16:00 85 132/64 04/12/19 15:45 77 133/67 04/12/19 15:30 87 137/70 04/12/19 15:15 86 158/81 H 04/12/19 15:14 86 20 04/12/19 15:09 83 20 04/12/19 15:05 85 164/70 H 04/12/19 14:53 36.7 C 88 16 161/76 H Intake/Output Intake/Output: Intake & Output 04/10/19 04/11/19 04/12/19 04/13/19 23:59 23:59 23:59 23:59 Intake Total 1180 1190 904 480 Output Total 3150 3130 Balance -1970 1190 -2226 480 Meds/Results Medications: Active Medications Generic Name Dose Route Start Last Admin Trade Name Freq PRN Reason Stop Dose Admin Acetaminophen 1,000 mg 04/06/19 22:00 04/13/19 13:12 Tylenol Tablet PO 1,000 mg Q8HR GORDON Administration Albuterol 2.5 mg 04/05/19 08:00 04/13/19 12:36 Albuterol Sulf Neb 2.5mg/0.5ml INHALATION 2.5 mg QIDRT GORDON Administration Alprazolam 1 mg 04/06/19 21:00 04/12/19 21:25 Xanax PO 1 mg HS GORDON Administration Budesonide 0.25 mg 04/05/19 08:00 04/13/19 07:44 Pulmicort Respule Neb INHALATION 0.25 mg Q12HRT GORDON Administration Clotrimazole 1 applic 04/05/19 09:00 04/13/19 08:38 Lotrisone Cream TOPICAL 1 applic
--- NOTE | 2019-04-13 16:07 | P.DS_ITS ---
DS: Diagnosis Admitting Diagnosis Admitting Diagnosis: Acute posthemorrhagic anemia Discharge Diagnosis (1) Acute post-hemorrhagic anemia: Code(s): D62 - Acute posthemorrhagic anemia Status: Acute Assessment and Plan: * Likely due to hematoma and buttock and thigh due to blunt trauma sustained during fall from bed at facility * INR was subtherapeutic at 1.7 upon admission, 04/06 1.7 * Hgb 6.9 after transfusion 04/06 (6 U since admission) * Hgb 6.1 04/07 AM, additional 1 U PRBC ordered * 04/07 PM restarted anticoagulation with heparin, * 04/08AM hgb 8.8 * 04/09 hemoglobin is 7, 6 hours later still 7.1, CT scan showed with looked be large hematoma around the hip but smaller on the abdominal wall with no active bleeding * hgb 6.8 04/10 so 1 unit given at dialysis(8 total) * Have resumed anticoagulation with heparin and warfarin INR 2.4 after 3 days and heparin drip stopped * D# 4 of warfarin today and hgb 8.6 * Discharge her INR with 3.5 and hemoglobin 9.2 and will be discharged on 7 mg a warfarin to have INR drawn on the (2) Chronic anticoagulation: Code(s): 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 INR 3.5 the day of discharge and warfarin decrease to 7 mg daily (4) ESRD (end stage renal disease): Code(s): N18.6 - End stage renal disease Status: Chronic Assessment and Plan: * HD continue all usual regime, MWF and 3 liters off 04/10 and 04/12 (5) Left foot drop: Code(s): M21.372 - Foot drop, left foot Status: Acute Assessment and Plan: * Likely due to traumatic sciatic nerve injury during fall at [place] * Neurology seeing continued exercises and PT OT at [facility] (6) Bipolar disorder: Qualifiers: Active/Remission status: currently active Current bipolar episode type: mixed Current episode severity: unspecified Qualified Code(s): F31.60 - Bipolar disorder, current episode mixed, unspecified Code(s): F31.9 - Bipolar disorder, unspecified Status: Acute Assessment and Plan: * Reduce alprazolam * Switched antidepressant from escitalpram to mirtazapine (to improve sleep and appetite) * low dose oxycodone 5.0 mg at HS and bid prn * Continue Vraylar and lamotrigine for mood stabilization * So far she is sleeping much better (7) Tobacco dependence: Code(s): F17.200 - Nicotine dependence, unspecified, uncomplicated Status: Acute Assessment and Plan: * Not interested in quitting (8) Narcotic dependence: Code(s): F11.20 - Opioid dependence, uncomplicated Status: Acute Assessment and Plan: * Dose oxycodone at bedtime and with dialysis and daily as needed and hopefully taper as hematoma and compression neuropathy resolve DS: Summary Hospital Course Hospital Course: 59-year-old white female with bipolar disorder and aortic and mitral mechanical valves on chronic warfarin therapy [facility] after she had [facility] and sustained large hematoma to left buttocks initial area. She had drop in hemoglobin secondary to that and had to be transfused a total of
--- NOTE | 2019-04-13 16:07 | PM.DS ---
DS: Diagnosis Admitting Diagnosis Admitting Diagnosis: Acute posthemorrhagic anemia Discharge Diagnosis (1) Acute post-hemorrhagic anemia: Code(s): D62 - Acute posthemorrhagic anemia Status: Acute Assessment and Plan: Likely due to hematoma and buttock and thigh due to blunt trauma sustained during fall from bed at facility INR was subtherapeutic at 1.7 upon admission, 04/06 1.7 Hgb 6.9 after transfusion 04/06 (6 U since admission) Hgb 6.1 04/07 AM, additional 1 U PRBC ordered 04/07 PM restarted anticoagulation with heparin, hgb 8.8 04/09 hemoglobin is 7, 6 hours later still 7.1, CT scan showed with looked be large hematoma around the hip but smaller on the abdominal wall with no active bleeding hgb 6.8 04/10 so 1 unit given at dialysis(8 total) Have resumed anticoagulation with heparin and warfarin INR 2.4 after 3 days and heparin drip stopped D# 4 of warfarin today and hgb 8.6 Discharge her INR with 3.5 and hemoglobin 9.2 and will be discharged on 7 mg a warfarin to have INR drawn on the (2) Chronic anticoagulation: Code(s): 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 INR 3.5 the day of discharge and warfarin decrease to 7 mg daily (4) ESRD (end stage renal disease): Code(s): N18.6 - End stage renal disease Status: Chronic Assessment and Plan: HD continue all usual regime, MWF and 3 liters off 04/10 and 04/12 (5) Left foot drop: Code(s): M21.372 - Foot drop, left foot Status: Acute Assessment and Plan: Likely due to traumatic sciatic nerve injury during fall at [place] Neurology seeing continued exercises and PT OT at [facility] living (6) Bipolar disorder: Qualifiers: Active/Remission status: currently active Current bipolar episode type: mixed Current episode severity: unspecified Qualified Code(s): F31.60 - Bipolar disorder, current episode mixed, unspecified Code(s): F31.9 - Bipolar disorder, unspecified Status: Acute Assessment and Plan: Reduce alprazolam Switched antidepressant from escitalpram to mirtazapine (to improve sleep and appetite) low dose oxycodone 5.0 mg at HS and bid prn Continue Vraylar and lamotrigine for mood stabilization So far she is sleeping much better (7) Tobacco dependence: Code(s): F17.200 - Nicotine dependence, unspecified, uncomplicated Status: Acute Assessment and Plan: Not interested in quitting (8) Narcotic dependence: Code(s): F11.20 - Opioid dependence, uncomplicated Status: Acute Assessment and Plan: Dose oxycodone at bedtime and with dialysis and daily as needed and hopefully taper as hematoma and compression neuropathy resolve DS: Summary Hospital Course Hospital Course: 59-year-old white female with bipolar disorder and aortic and mitral mechanical valves on chronic warfarin therapy admitted from the [facility] living after she had fallen and sustained large hematoma to left buttocks initial area. She had drop in hemoglobin secondary to that and had to be transfused a total of 8 units while here. Held her anticoagulation 1st couple days with trepidation with her mechanical valves. When hemoglobin stabilized she is placed back on IV heparin until stay INR was therapeutic with her warfarin. Date of discharge hemoglobin 9.2 and INR was 3.5 after 4 days of warfarin 8 mg. She would discharge on 7 mg daily. INR will be drawn on the 2nd. She had compression neuropathy and footdrop on the lef
== END 2019-04-13 14:25 | DRG 604 ==
LOC: ANHED 19:01 → ANHIMU 20:35 → ANH3MEDSUR 04-05 16:56 → ANHIMU 04-15 14:08
PROVIDERS: Internal Medicine; Internal Medicine Nephrology; Admitting Provider Internal Medicine; Emergency Provider Emergency Medicine; PCP Family Medicine; Visit Provider Internal Medicine
DX: S30.0XXA Contusion of lower back and pelvis, initial encounter (principal); N18.6 End stage renal disease; D62 Acute posthemorrhagic anemia; I13.2 Hypertensive heart and chronic kidney disease with heart failure and with stage 5 chronic kidney disease, or end stage renal disease; I50.32 Chronic diastolic (congestive) heart failure; J96.11 Chronic respiratory failure with hypoxia; F11.20 Opioid dependence, uncomplicated; F31.60 Bipolar disorder, current episode mixed, unspecified; E46 Unspecified protein-calorie malnutrition; D68.32 Hemorrhagic disorder due to extrinsic circulating anticoagulants; G93.40 Encephalopathy, unspecified; S70.11XA Contusion of right thigh, initial encounter; S74.02XA Injury of sciatic nerve at hip and thigh level, left leg, initial encounter; W06.XXXA Fall from bed, initial encounter; M21.372 Foot drop, left foot; F17.210 Nicotine dependence, cigarettes, uncomplicated; D63.8 Anemia in other chronic diseases classified elsewhere; J43.9 Emphysema, unspecified; M19.90 Unspecified osteoarthritis, unspecified site; I25.10 Atherosclerotic heart disease of native coronary artery without angina pectoris; E78.5 Hyperlipidemia, unspecified; E05.90 Thyrotoxicosis, unspecified without thyrotoxic crisis or storm; K21.9 Gastro-esophageal reflux disease without esophagitis; I73.9 Peripheral vascular disease, unspecified; M17.0 Bilateral primary osteoarthritis of knee; G25.81 Restless legs syndrome; M10.9 Gout, unspecified; G47.33 Obstructive sleep apnea (adult) (pediatric); Z95.2 Presence of prosthetic heart valve; Z79.01 Long term (current) use of anticoagulants; Z86.718 Personal history of other venous thrombosis and embolism; Z99.2 Dependence on renal dialysis; Z90.710 Acquired absence of both cervix and uterus; Z68.25 Body mass index [BMI] 25.0-25.9, adult; I25.2 Old myocardial infarction; Z86.73 Personal history of transient ischemic attack (TIA), and cerebral infarction without residual deficits; Z90.49 Acquired absence of other specified parts of digestive tract; Z91.14 Patient's other noncompliance with medication regimen
CPT/HCPCS: 36415; 36430; 70450; 74177; 76705; 80048; 80053; 80069; 80074; 83735; 84100; 85014; 85018; 85025; 85027; 85610; 85730; 86706; 86850; 86900; 86901; 86923; 87040; 87081; 94640; 96365; 96366; 96375; 97110; 97161; 97165; 97530; 97535; 99285; A9270; G0257; J0131; J1644; J2270; J7030; J7050; P9016; Q4081; Q9967

== ENCOUNTER 2019-04-25 20:45 | Inpatient (IN) | payer MEDICARE, MEDICAID, SELFPAY ==
--- NOTE | ~2019-04-25 | XR_ITS ---
XR chest 2V 04/25/2019 22:17 Indication: Cough and dyspnea. Generalized chest pain. History of COPD. Procedure: 2 view chest Comparison: Comparison to multiple prior studies sequentially, with oldest reviewed study dated 01/13. Findings: Large bore dual lumen central venous catheter. Moderate cardiomegaly. There is interstitial edema. There are bilateral pleural effusions, likely loculated on the right. No pneumothorax. Impression: 1: Cardiomegaly with interstitial edema. 2: Bilateral pleural effusions, likely loculated on the right. Reviewed, dictated and finalized at location A. Impression: 1: Cardiomegaly with interstitial edema. 2: Bilateral pleural effusions, likely loculated on the right.
--- NOTE | ~2019-04-25 | US_ITS ---
EXAMINATION: US venous doppler [facility] DATE: 04/26/2019 10:28 INDICATION: Left lower limb pain. TECHNIQUE: Grayscale ultrasound images without and with compression and Doppler ultrasound images of the left lower extremity veins were obtained. COMPARISON: Ultrasound 10/25/2017, 04/08/2019, CT abdomen and pelvis 04/09/2019 FINDINGS: The visualized portions of left common femoral vein, profunda (deep) femoral vein, femoral vein, post erior tibial veins, and greater saphenous vein outflow are patent. There is thrombus in left poplitea l, peroneal, and gastrocnemius veins. There is a large hematoma in the left thigh. IMPRESSION: 1. Deep vein thrombosis involving left popliteal, peroneal, and gastrocnemius veins. I called this r esult to Dr. Martínez on 04/26/19 at 10:40 AM. 2. Large hematoma in the left thigh again seen. Reviewed, dictated and finalized at location A. IMPRESSION: 1. Deep vein thrombosis involving left popliteal, peroneal, and gastrocnemius veins. I called this result to Dr. Martínez on 04/26/19 at 10:40 AM. 2. Large hematoma in the left thigh again seen.
--- NOTE | 2019-04-25 20:51 | ED.CHESTPAIN ---
HPI - Chest Pain General Chief Complaint: Chest Pain Stated Complaint: chest pain Time Seen by Provider: 04/25/19 20:48 Source: patient and RN notes reviewed Mode of arrival: EMS Limitations: no limitations History of Present Illness HPI narrative: A 59 y/o female presents via EMS from her rehab facility with constant generalized CP beginning at 9 AM this morning. She states that her pain radiates into her back and that it was aggravated after her dialysis treatment. She reports associated productive cough and sweats. PT denies severe pain with inspiration or lower flank pain. She denies any fevers or chills. She reports left lower extremity swelling which has been chronic since being discharged from the hospital. MD complaint: chest pain Pertinent past history: coronary artery disease and prior AR Onset (ago): hour(s) (12) Timing of current episode: constant Pain location: other (generalized) Pain radiation: back Exacerbating factors: inspiration and other (dialysis) Associated symptoms: diaphoresis and cough (productive) Treatment prior to arrival: none Risk Factors Coronary artery disease risk factors: smoking history, hyperlipidemia and hypertension Related Data Home Medications Medication Instructions Recorded Confirmed Vraylar 3 mg PO DAILY 01/31/19 04/04/19 albuterol sulfate [Ventolin HFA] 2 puff INHALATION TID PRN 01/31/19 04/04/19 budesonide-formoterol [Symbicort] 2 puff INHALATION BID 01/31/19 04/04/19 clotrimazole-betamethasone 1 applic TOPICAL BID 01/31/19 04/04/19 escitalopram oxalate [Lexapro] 10 mg PO DAILY 01/31/19 04/04/19 furosemide 80 mg PO DAILY 01/31/19 04/04/19 ipratropium-albuterol 3 ml INHALATION QID 01/31/19 04/04/19 lamotrigine 400 mg PO HS 01/31/19 04/04/19 levothyroxine 125 mcg PO DAILY 01/31/19 04/04/19 meclizine 12.5 mg PO TID PRN 01/31/19 04/04/19 omeprazole 40 mg PO DAILY 01/31/19 04/04/19 ropinirole 5 mg PO HS 01/31/19 04/04/19 sevelamer carbonate [Renvela] 800 mg PO TIDWM 01/31/19 04/04/19 simvastatin 40 mg PO DAILY 01/31/19 04/04/19 budesonide [Pulmicort] 0.25 mg INHALATION BID 04/04/19 04/04/19 enoxaparin [Lovenox] 120 mg SUBCUT Q12H 04/04/19 04/04/19 Allergies Allergy/AdvReac Type Severity Reaction Status Date / Time adhesive tape Allergy Intermediate blisters Verified 04/04/19 19:31 iron Allergy Unknown Nausea And Verified 04/04/19 19:31 Vomiting Review of Systems Review of Systems: Narrative: CONSTITUTIONAL: Denies fever or chills. Reports sweats. CARDIOVASCULAR: Reports generalized CP. RESPIRATORY: Reports a productive cough. Extremities: Reports left lower extremity swelling Neuro: Denies numbness All systems reviewed & are unremarkable except as noted in HPI and below PMFSH Past Medical History Medical History Anemia of chronic disease With history of blood transfusion. Arthritis Atrial fibrillation Bipolar disorder Breast mass Chronic breast mass which was biopsied previously, showing acute on chronic inflammation and fat necrosis. She had a negative bone scan done at that time as well. Cataracts, bilateral Chronic anticoagulation Long-term warfarin due to presence of mechanical heart valves. Chronic back pain With history of narcotic abuse. Chronic respiratory failure with hypoxia Clostridium difficile infection COPD (chronic obstructive pulmonary disease) Coronary artery disease Depression with anxiety Diastolic congestive heart failure DVT (deep venous thrombosis) Eating disorder Emphysema of lung End-stage renal disease on hemodialysis Endometriosis Status post hysterectomy. ESRD (end stage renal disease) GERD (gastroesophageal reflux disease) Gout History of ectopic Hyperlipidemia Hypertension Hyperthyroidism Morbid obesity Prior history of obesity, reportedly weighing as much as 408 pounds previously. She now appears to have protein calorie malnutrition. MRSA (methicillin resistant staph aureus) cult
[2019-04-25 20:57] VITALS: BP 174/79; PULSE 87; RESP 22; TEMP 36.7; O2SAT 94
--- NOTE | 2019-04-25 21:00 | ECG_ITS ---
Measurements Intervals [place] Rate: 83 P: 16 IA: 111 QRS: -42 QRSD: 138 T: 46 QT: 423 QTc: 498 Interpretive Statements SINUS RHYTHM WITH SHORT IA INTERVAL LEFT AXIS DEVIATION INTRAVENTRICULAR CONDUCTION DELAY POOR R WAVE PROGRESSION, ANTERIOR LEADS MINIMAL Q WAVES- LATERAL LEADS BASELINE ARTIFACT- I, II, AVR BORDERLINE ECG Electronically Signed On 04-26-2019 7:05:22 CDT by Preet Velázquez D.O.
[2019-04-25] MEDS: ACETAMINOPHEN 500 MG TABLET 1000 MG PO (21:14)
[2019-04-25] MEDS: ALBUTEROL SULFATE NEB 2.5 MG/0.5 ML INH 5 MG INHALATION (21:19)
[2019-04-25 21:20] VITALS: PULSE 84; RESP 25
[2019-04-25] MEDS: IPRATROPIUM BR 0.02% INH SOLN 0.5 MG/2.5 ML VIAL INHALATION (21:20)
[2019-04-25 21:29] VITALS: PULSE 83; RESP 21
[2019-04-25 21:45] LABS: Basophils Percent Auto 0.8 % (0.2-1.2); Hematocrit 25.9 % (37.0-47.0); Immature Granulocyte Absolute 0.04 K/mm3 (0.00-0.031); Immature Granulocyte Percent A 0.8 % (0-0.5); Lymphocytes Absolute Auto 0.33 K/mm3 (0.9-3.2); Lymphocytes Percent Auto 6.2 % (18.3-44.2); Mean Corpuscular HGB Conc 30.9 g/dl (32-36); Mean Corpuscular Hemoglobin 29.9 pg (26-34); Mean Corpuscular Volume 96.6 fl (80-100); Mean Platelet Volume 10.9 fl (7.4-10.4); Monocytes Absolute Auto 0.4 K/mm3 (0.1-0.6); Monocytes Percent Auto 7.8 % (2.6-8.5); Neutrophils Absolute Auto 4.5 K/mm3 (1.3-6.7); Neutrophils Percent Auto 84.4 % (45.5-73.1); Platelet Count Result 198 k/mm3 (150-375); Red Blood Count 2.68 M/mm3 (4.2-5.4); Red Cell Distribution Width 19.1 % (11.5-14.5); White Blood Count 5.3 K/mm3 (4.5-10.0)
[2019-04-25 21:54] LABS: Anisocytosis 1+ (NORMAL); Platelet Estimate Adequate (Adequate)
[2019-04-25 21:55] LABS: INR 3.1; Prothrombin Time 31.1 Seconds (11.1-14.7)
[2019-04-25 21:57] LABS: Blood Urea Nitrogen 23 mg/dL (7-17); Calcium 8.2 mg/dL (8.4-10.2); Carbon Dioxide 25 mmol/L (22-30); Chloride 100 mmol/L (98-107); Estimated CRCL calculation 20 ml/min; Estimated Glomerular Filt Rate 18; Glucose 131 mg/dL (65-105); Partial Thromboplastin Time 87.5 SECONDS (22.3-36.8); Potassium 3.8 mmol/L (3.4-5.0); Sodium 131 mmol/L (137-145)
[2019-04-25 22:06] LABS: NT Pro B Type Natriuretic Pept > 35000 PG/ML (5-100)
[2019-04-25 22:11] LABS: Troponin I 0.051 ng/mL (0.000-0.034)
[2019-04-25 23:38] VITALS: PULSE 77
[2019-04-25] MEDS: FUROSEMIDE 20 MG TABLET PO (23:38)
[2019-04-25 23:48] VITALS: BP 145/78; PULSE 78; RESP 20; O2SAT 94
[2019-04-25 23:55] VITALS: O2SAT 88
[2019-04-26] VITALS (43 sets, daily range): BP systolic 109–154; BP diastolic 40–97; PULSE 63–107; RESP 16–28; TEMP 36–37.3; O2SAT 91–100; BMI 25.2
--- NOTE | 2019-04-26 00:33 | PM.IMHP ---
H&P: HPI History of Present Illness Chief complaint: Chest pain, CHF exacerbation, hypoxia Narrative: This is a 59 year old female with known ESRD on hemodialysis, chronically anticoagulated secondary to mechanical heart valves, and bipolar disorder who is well known to our Hospitalist service from a recent hospitalization returned to the hospital [facility] with a complaint of intermittent midsternal chest pain at rest that has been ongoing all day yesterday. She describes her pain as severe and sharp when it comes on. Associated symptoms include shortness of breath. The patient recently also had a history of posthemorrhagic anemia secondary to a large hematoma around her hip which seems to have stablized. She also denies any recent rectal bleeding. The patient continues to have signifiant LLE swelling which has been ongoing since her last admission when she had suffered a fall. She tells me that she recently had a LLE doppler U/S done a few days ago which did not demonstrate any clots. The patient was evaluated in the ER [facility] and found to be hypoxic on room air. She refused an ABG. Troponin was mildly elevated. EKG was otherwise unremarkable. We have been asked to admit the patient to the hospital for her chest pain. Cardiology has been consulted by ER provider. No other complaints. Review of Systems Review of Systems: All systems reviewed & are unremarkable except as noted in HPI and below PMFSH Past Medical History Medical History Anemia of chronic disease With history of blood transfusion. Arthritis Atrial fibrillation Bipolar disorder Breast mass Chronic breast mass which was biopsied previously, showing acute on chronic inflammation and fat necrosis. She had a negative bone scan done at that time as well. Cataracts, bilateral Chronic anticoagulation Long-term warfarin due to presence of mechanical heart valves. Chronic back pain With history of narcotic abuse. Chronic respiratory failure with hypoxia Clostridium difficile infection COPD (chronic obstructive pulmonary disease) Coronary artery disease Depression with anxiety Diastolic congestive heart failure DVT (deep venous thrombosis) Eating disorder Emphysema of lung End-stage renal disease on hemodialysis Endometriosis Status post hysterectomy. ESRD (end stage renal disease) GERD (gastroesophageal reflux disease) Gout History of ectopic Hyperlipidemia Hypertension Hyperthyroidism Morbid obesity Prior history of obesity, reportedly weighing as much as 408 pounds previously. She now appears to have protein calorie malnutrition. 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 Myocardial infarction Obstructive sleep apnea Osteoarthritis Both knees. Patient has refused replacement and is no essentially wheelchair-bound. PVD (peripheral vascular disease) Restless leg syndrome Rheumatic disease Suicidal ideation Prior hospitalization October 2017 due to suicidal ideation overdose. TIA (transient ischemic attack) Tobacco dependence UTI (urinary tract infection) Valvular heart disease Status post mechanical mitral and aortic valve replacements, on long-term anticoagulation with Coumadin. Surgical History Surgical History History of cardiac cath History of mitral valve replacement with mechanical valve Status post arthroscopy of left knee Status post cholecystectomy Status post D&C Status post hemorrhoidectomy Status post hysterectomy For endometriosis. Status post left foot surgery Status post mechanical aortic valve replacement Status post tonsillectomy Status post tubal ligation Family History Family History Mother Depression Hypertension Osteoporosis Mental disorder Father Cerebrovascular accident Mary
--- NOTE | 2019-04-26 02:23 | ECG_ITS ---
Measurements Intervals [place] Rate: 75 P: 80 TX: 153 QRS: -17 QRSD: 141 T: 72 QT: 444 QTc: 498 Interpretive Statements SINUS RHYTHM IVCD, CONSIDER ATYPICAL RBBB ABNORMAL ECG Electronically Signed On 04-26-2019 7:04:13 CDT by Preet Velázquez D.O.
--- NOTE | 2019-04-26 02:32 | ADMGEN ---
This patient, eBssy Pandey, was admitted to IMU Room 213-01 on 04/26/19 at 0133. Patient/family oriented to hospital policies and general routines including ID bracelet, bed and alarms, visiting hours, pain management, procedures, bathroom and other care routines, personal items, smoking policy, room service/diet, and visiting hours. Valuables list has been completed. Information on how to activate the Rapid Response Team has been discussed. Patient/Family are encouraged to report perceived risks to care and to ask questions if they do not understand what they are told or what they should do.
[2019-04-26] MEDS: IPRATROPIUM BR 0.02% INH SOLN 0.5 MG/2.5 ML VIAL INHALATION ×4 (02:40→20:05)
[2019-04-26] MEDS: ALBUTEROL SULFATE NEB 2.5 MG/0.5 ML INH 5 MG INHALATION ×4 (02:40→20:05)
[2019-04-26] MEDS: lamoTRIgine 100 MG TABLET 400 MG PO ×2 (04:11→20:21)
[2019-04-26] MEDS: MIRTAZAPINE 15 MG TABLET PO ×2 (04:11→20:21)
[2019-04-26] MEDS: LEVOTHYROXINE SODIUM 125 MCG TABLET PO (05:53)
--- NOTE | 2019-04-26 07:17 | PHAR ---
PT EPOGEN INFO SHEET SENT WITH FIRST DOSE FOR DIALYSIS PATIENT
[2019-04-26] MEDS: SEVELAMER CARBONATE 800 MG TABLET PO ×3 (08:49→19:09)
[2019-04-26] MEDS: carvediloL 6.25 MG TABLET PO ×2 (08:50→20:21)
[2019-04-26] MEDS: SIMVASTATIN 20 MG TABLET 40 MG PO (08:51)
[2019-04-26] MEDS: PANTOPRAZOLE 40 MG TABLET PO ×2 (08:51→19:09)
[2019-04-26] MEDS: DULOXETINE 60 MG CAPSULE.DR PO (08:51)
[2019-04-26] MEDS: FLUTICASONE PROPIONATE 0.05% NA SPR 16 GM BTL (*BKC) 1 SPRAY NASAL (08:52)
[2019-04-26] MEDS: ESCITALOPRAM OXALATE 10 MG TABLET PO (08:52)
[2019-04-26] MEDS: FUROSEMIDE 80 MG TABLET PO (08:52)
[2019-04-26] MEDS: BETAMETHASONE/CLOTRIMAZOLE CR 15 GM TUBE 1 APPLIC TOPICAL ×2 (08:53→19:05)
--- NOTE | 2019-04-26 09:40 | PC.NURSE ---
Pt left floor for ultrasound
--- NOTE | 2019-04-26 10:30 | PC.NURSE ---
Patient returned from ultrasound
[2019-04-26] MEDS: TRAMADOL HCL 50 MG TABLET PO (10:42)
--- NOTE | 2019-04-26 10:54 | PM.CNCAR ---
Assessment and Plan Additional Plan 59-year-old lady with valvular heart disease she has mechanical aortic and mitral valves and for that reason is systemically anticoagulated with warfarin chronically. She enters the hospital with a syndrome of pain and some unilateral left lower extremity edema which appears to be the result of the large hematoma that she sustained a few weeks ago when she fell. She does have some below the knee DVTs. This patient is already systemically anticoagulated chronically with warfarin. I do not believe there is anything else that needs to be done in the way of treatment for this. We were consulted to see her primarily because of concern regarding ACS/mi. As ID is detailed in my note this is a lady who is not known to have any coronary artery disease and her current symptoms are not suggestive of an ACS and her troponin levels are slightly elevated as 1 would expect with this degree of renal insufficiency. I do not believe she would benefit from conducting an ischemia workup during this hospitalization Remi Mohr MD [facility] History of Present Illness History of Present Illness Consult date/time: Date of service: 04/26/19 10:54 Consult reason: chest pain Reason For Visit: Chest pain, CHF exacerbation, hypoxia Narrative: This is a 59-year-old white female who is well known to most of the physicians here at [facility] OM seeing this morning at the request of the hospitalist because she was admitted yesterday from the emergency room where she came in complaining of chest pain. The patient is known to Dr. baker our practice and has history of valvular heart disease with mechanical aortic and mitral valve replacements have been done in the remote remote past. She therefore of course is been systemically anticoagulated chronically with Coumadin. The majority of her cardiac history is summarized in my dictation from a couple of weeks ago and will not be reiterated in this note. In any event this lady is known not to have coronary artery disease by virtue of a negative angiogram that was done about 8 years ago. She has never had a myocardial infarction or coronary event that I am aware of which is in contrast to the ER staff noted indicates she does have coronary disease and previous infarction. The patient is very unfortunate lady who now resides in a alf. She was in the hospital here most recently just a few weeks ago after sustaining a fall and resulting in a significant hematoma in region of her buttocks. Following that she did has developed some a left lower extremity edema. Her left lower extremity venous ultrasound just to short time ago demonstrates some a below the knee DVTs and a large resolving hematoma in the thigh. The patient yesterday started to experience episodes of chest pain which is a she relatively sharp sensation in the central chest that does seem to occur or at least be aggravated by coughing and deep breathing. The electrocardiogram in the emergency room does not demonstrate any evidence of an acute coronary syndrome with ST segment deviation. Her troponin levels are 0.05 x 3 sets and are flat. This appears to be related to chronic a kidney disease she has an EGFR of 18. At the time of this interview the patient's principal complaint is of back pain following her fall and she would like higher doses of nor narcotics and at more frequent intervals. Review of Systems Constitutional: Constitutional: Reports body ache(s) and Reports weakness Eyes: Eyes: Reports no additional eye complaints ENT: Reports system reviewed and no additional complaints, except as documented Cardiovascular: Cardiovascular: Reports no additional cardiovascular complaints Respiratory: Comments: Chest discomfort with breathing effort as detailed above Gastrointestinal: Gastrointestinal: Reports no additional gastrointestinal complaints Musculoskeletal: Musculoskeletal: Reports as per HPI Neurologic:
--- NOTE | 2019-04-26 15:05 | PC.NURSE ---
Patient left floor for dialysis at 15:05
[2019-04-26] MEDS: EPOETIN ALFA 10,000 UNITS/ML VIAL 10000 UNITS IV PUSH (16:10)
--- NOTE | 2019-04-26 16:50 | PM.PNNEP ---
Progress Note: A&P Assessment and Plan (1) ESRD (end stage renal disease): Code(s): N18.6 - End stage renal disease Status: Chronic Assessment and Plan: HD today to maintain her outpatient schedule of M/W/F electrolytes, volume status, and clearance acceptable (2) Chest pain: Qualifiers: Chest pain type: chest pain on breathing Qualified Code(s): R07.1 - Chest pain on breathing Code(s): R07.9 - Chest pain, unspecified Status: Acute Assessment and Plan: Cardiology recommendations noted no further work-up planned FULL CONSULT TO FOLLOW Subjective Date/time seen: 04/26/19 16:50 Tolerating dialysis at the time of my visit (seen on HD at ~ 4:30PM); no other acute issues or problems to report; no further chest pain since admission. Exam Narrative: Exam Narrative: General: WD/WN female in NAD Heart: normal S1 and S2; no rub Lungs: clear to auscultation Abdomen: soft, nontender, nondistended, positive bowel sounds Extremities: no cyanosis or clubbing; no edema Skin: warm and dry Objective Data Vital Signs Vital Signs: Vital Signs Temp Pulse Resp BP Pulse Ox 04/26/19 14:07 84 18 04/26/19 14:00 100 04/26/19 13:56 86 18 04/26/19 12:00 36.6 C 92 28 H 117/55 L 95 04/26/19 10:00 87 04/26/19 08:50 84 04/26/19 08:08 66 18 04/26/19 08:00 36.0 C L 84 28 H 154/74 H 100 04/26/19 07:58 63 18 93 04/26/19 06:00 79 04/26/19 04:00 76 18 93 04/26/19 03:41 36.3 C L 76 18 154/65 H 93 04/26/19 02:51 76 18 04/26/19 02:48 95 04/26/19 02:41 74 18 04/26/19 02:00 78 04/26/19 01:43 36.0 C L 76 20 140/72 91 04/26/19 01:40 80 04/26/19 01:29 79 24 H 04/25/19 23:55 88 L 04/25/19 23:48 78 20 145/78 H 94 04/25/19 23:38 77 04/25/19 21:29 83 21 H 04/25/19 21:20 84 25 H 04/25/19 20:57 36.7 C 87 22 H 174/79 H 94 Intake/Output Intake/Output: Intake & Output 04/23/19 04/24/19 04/25/19 04/26/19 23:59 23:59 23:59 23:59 Intake Total 400 Balance 400 Meds/Results Medications: Active Medications Generic Name Dose Route Start Last Admin Trade Name Freq PRN Reason Stop Dose Admin Albuterol 5 mg 04/26/19 02:00 04/26/19 13:56 Albuterol Sulf Neb 2.5mg/0.5ml INHALATION 5 mg Q6HRT [facility] Administration Albuterol 2 puff 04/26/19 03:29 Proventil Hfa INHALATION TID PRN Shortness Of Breath Or Wheezing Aspirin 81 mg 04/27/19 09:00 Aspirin Ec PO QAM [facility] Budesonide 0.25 mg 04/26/19 08:00 Pulmicort Respule Neb INHALATION Q12HRT [facility] Budesonide/Formoterol Fumarate 2 puff 04/26/19 09:00 Symbicort 160-4.5 Mcg (*Sp) Inhaler INHALATION BID [facility] Carvedilol 6.25 mg 04/26/19 09:00 04/26/19 08:50 Coreg PO 6.25 mg Q12H [facility] Administration Clotrimazole 1 applic 04/26/19 09:00 04/26/19 08:53 Lotrisone Cream TOPICAL 1 applic BID [facility] Administration Duloxetine HCl 60 mg 04/26/19 09:00 04/26/19 08:51 Cymbalta PO 60 mg DAILY [facility] Administration Epoetin [place] 10,000 units 04/26/19 19:12 04/26/19 16:10 Epogen IV PUSH 04/26/19 19:13 10,000 units ONCE ONE Administration Escitalopram Oxalate 10 mg 04/26/19 09:00 04/26/19 08:52 Lexapro PO 10 mg DAILY [facility] Administration Fluticasone Propionate 1 spray 04/26/19 09:00 04/26/19 08:52 Flonase 0.05% Nasal [place] NASAL 1 spray Q12HR [facility] Administration Furosemide 80 mg 04/26/19 09:00 04/26/19 08:52 Lasix Tablet PO 80 mg DAILY [facility] Administration Albumin Human 50 mls @ 999 mls/hr 04/26/19 07:12 Albutein IVPB 05/26/19 07:13 Q10M PRN HYPOTENSION Ipratropium [place] 0.5 mg 04/26/19 02:00 04/26/19 13:56 Atrovent Neb INHALATION 0.5 mg Q6HRT [facility] Administration Lamotrigine 400 mg 04/26/19 03:45 04/26/19 04:11 Lamictal PO 400 mg HS [facility] Adm
--- NOTE | 2019-04-26 16:54 | PM.IMPN ---
Subjective Date/time seen: 04/26/19 16:54 Interval history: See history and physical from earlier this morning, pt complains of chest pain. Pt known ESRD on hemodialysis, chronically anticoagulated secondary to mechanical heart valves, and bipolar disorder. Pt had venous doppler shows clot pt started on ASA continue coumadin also. Pt to have dialysis today. CHest pain not cardiac in nature- as per cardiology. likley musculosketetal. Hopeful discharge tomorrow once chest wall pain is improved. Objective Data Vital Signs Vital Signs: Vital Signs - 24 hr 04/25/19 20:57 04/25/19 21:20 04/25/19 21:29 Temperature 36.7 C Pulse Rate 87 84 83 Respiratory Rate 22 H 25 H 21 H Blood Pressure 174/79 H Pulse Oximetry 94 04/25/19 23:38 04/25/19 23:48 04/25/19 23:55 Temperature Pulse Rate 77 78 Respiratory Rate 20 Blood Pressure 145/78 H Pulse Oximetry 94 88 L 04/26/19 01:29 04/26/19 01:40 04/26/19 01:43 Temperature 36.0 C L Pulse Rate 79 80 76 Respiratory Rate 24 H 20 Blood Pressure 140/72 Pulse Oximetry 91 04/26/19 02:00 04/26/19 02:41 04/26/19 02:48 Temperature Pulse Rate 78 74 Respiratory Rate 18 Blood Pressure Pulse Oximetry 95 04/26/19 02:51 04/26/19 03:41 04/26/19 04:00 Temperature 36.3 C L Pulse Rate 76 76 76 Respiratory Rate 18 18 18 Blood Pressure 154/65 H Pulse Oximetry 93 93 04/26/19 06:00 04/26/19 07:58 04/26/19 08:00 Temperature 36.0 C L Pulse Rate 79 63 84 Respiratory Rate 18 28 H Blood Pressure 154/74 H Pulse Oximetry 93 100 04/26/19 08:08 04/26/19 08:50 04/26/19 10:00 Temperature Pulse Rate 66 84 87 Respiratory Rate 18 Blood Pressure Pulse Oximetry 04/26/19 12:00 04/26/19 13:56 04/26/19 14:00 Temperature 36.6 C Pulse Rate 92 86 100 Respiratory Rate 28 H 18 Blood Pressure 117/55 L Pulse Oximetry 95 04/26/19 14:07 Temperature Pulse Rate 84 Respiratory Rate 18 Blood Pressure Pulse Oximetry Intake/Output Intake/Output: Intake & Output 04/23/19 04/24/19 04/25/19 04/26/19 23:59 23:59 23:59 23:59 Intake Total 400 Balance 400 Meds/Results Medications: Active Medications Generic Name Dose Route Start Last Admin Trade Name Freq PRN Reason Stop Dose Admin Albuterol 5 mg 04/26/19 02:00 04/26/19 13:56 Albuterol Sulf Neb 2.5mg/0.5ml INHALATION 5 mg Q6HRT [facility] Administration Albuterol 2 puff 04/26/19 03:29 Proventil Hfa INHALATION TID PRN Shortness Of Breath Or Wheezing Aspirin 81 mg 04/27/19 09:00 Aspirin Ec PO QAM [facility] Budesonide 0.25 mg 04/26/19 08:00 Pulmicort Respule Neb INHALATION Q12HRT [facility] Budesonide/Formoterol Fumarate 2 puff 04/26/19 09:00 Symbicort 160-4.5 Mcg (*Sp) Inhaler INHALATION BID [facility] Carvedilol 6.25 mg 04/26/19 09:00 04/26/19 08:50 Coreg PO 6.25 mg Q12H [facility] Administration Clotrimazole 1 applic 04/26/19 09:00 04/26/19 08:53 Lotrisone Cream TOPICAL 1 applic BID [facility] Administration Duloxetine HCl 60 mg 04/26/19 09:00 04/26/19 08:51 Cymbalta PO 60 mg DAILY [facility] Administration Epoetin [place] 10,000 units 04/26/19 19:12 04/26/19 16:10 Epogen IV PUSH 04/26/19 19:13 10,000 units ONCE ONE Administration Escitalopram Oxalate 10 mg 04/26/19 09:00 04/26/19 08:52 Lexapro PO 10 mg DAILY [facility] Administration Fluticasone Propionate 1 spray 04/26/19 09:00 04/26/19 08:52 Flonase 0.05% Nasal [place] NASAL 1 spray Q12HR [facility] Administration Furosemide 80 mg 04/26/19 09:00 04/26/19 08:52 Lasix Tablet PO 80 mg DAILY [facility] Administration Albumin Human 50 mls @ 999 mls/hr 04/26/19 07:12 Albutein IVPB 05/26/19 07:13 Q10M PRN HYPOTENSION Ipratropium [place] 0.5 mg 04/26/19 02:00 04/26/19 13:56 Atrovent Neb INHALATION 0.5 mg Q6HRT [facility] Administration Lamotrigine 400 mg 04/26/19 03:45 04/26/19 04:11 Lamictal PO 400 mg
--- NOTE | 2019-04-26 19:01 | PC.NURSE ---
Pt back from dialysis. Pt tolerated well. Removed 3 1/2L 18:20
[2019-04-26] MEDS: WARFARIN (*PBKC) 3 MG TABLET 6 MG PO (19:29)
[2019-04-27] VITALS (31 sets, daily range): BP systolic 77–132; BP diastolic 38–63; PULSE 76–96; RESP 16–24; TEMP 36.2–37.1; O2SAT 85–100
[2019-04-27] MEDS: IPRATROPIUM BR 0.02% INH SOLN 0.5 MG/2.5 ML VIAL INHALATION ×4 (01:45→21:10)
[2019-04-27] MEDS: ALBUTEROL SULFATE NEB 2.5 MG/0.5 ML INH 5 MG INHALATION ×4 (01:45→21:10)
[2019-04-27] MEDS: SODIUM CHLORIDE 0.9% IV 500 ML 999 ML IV CONT (03:35)
[2019-04-27 04:57] LABS: Hematocrit 21.7 % (37.0-47.0); Mean Corpuscular HGB Conc 30.9 g/dl (32-36); Mean Corpuscular Hemoglobin 29.4 pg (26-34); Mean Corpuscular Volume 95.2 fl (80-100); Platelet Count Result 164 k/mm3 (150-375); Red Blood Count 2.28 M/mm3 (4.2-5.4); Red Cell Distribution Width 18.9 % (11.5-14.5); White Blood Count 7.7 K/mm3 (4.5-10.0)
[2019-04-27 05:09] LABS: Hemoglobin 6.7 g/dL (12.0-15.0)
[2019-04-27 05:14] LABS: Prothrombin Time 45.7 Seconds (11.1-14.7)
[2019-04-27 05:16] LABS: Blood Urea Nitrogen 20 mg/dL (7-17); Calcium 7.5 mg/dL (8.4-10.2); Carbon Dioxide 31 mmol/L (22-30); Chloride 98 mmol/L (98-107); Estimated CRCL calculation 22 ml/min; Estimated Glomerular Filt Rate 21; Glucose 108 mg/dL (65-105); Potassium 3.3 mmol/L (3.4-5.0); Sodium 132 mmol/L (137-145)
[2019-04-27] MEDS: LEVOTHYROXINE SODIUM 125 MCG TABLET PO (06:09)
--- NOTE | 2019-04-27 09:45 | PM.CNNEP ---
Assessment and Plan Assessment and plan (1) ESRD (end stage renal disease): Code(s): N18.6 - End stage renal disease Status: Chronic Assessment and Plan: HD yesterda to maintain her outpatient schedule of M/W/F electrolytes, volume status, and clearance acceptable (2) Chest pain: Qualifiers: Chest pain type: chest pain on breathing Qualified Code(s): R07.1 - Chest pain on breathing Code(s): R07.9 - Chest pain, unspecified Status: Acute Assessment and Plan: Cardiology recommendations noted no further work-up planned (3) Anemia: Code(s): D64.9 - Anemia, unspecified Status: Chronic Assessment and Plan: partly due to ESRD but #4 playing some issue Epogen with HD follow trend of H/H PRBC transfusion today (4) Intramuscular hematoma: Code(s): T14.8XXA - Other injury of unspecified body region, initial encounter Status: Chronic Assessment and Plan: as evidence by imagining on last hospitalization and this one follow H/H PRBC transfusions PRN continue supportive therapy (5) Mechanical heart valve present: Code(s): Z95.2 - Presence of prosthetic heart valve Status: Chronic Assessment and Plan: on anticoagulation - INR supratherapeutic Will continue to follow. History of Present Illness Reason for Consult Consult date: 04/27/19 Reason for consult: end stage renal disease Chief Complaint Chief complaint: Chest pain, CHF exacerbation, hypoxia History of Present Illness Narrative: The patient is a 59 year old female with an extensive past medical history as outlined below presented to [facility] ER with complaints of chest pain. The chest pain was intermittent and localized to the midsternal area and had apparently been present all day on the day prior to admission. She describes her pain as severe and sharp when it occurs. Associated symptoms include shortness of breath. The patient was just recently hospitalized for a posthemorrhagic anemia secondary to a large hematoma around her hip which seems to have stablized although the patinent continues to have signifiant left lower extremity with regard to this problems. Workup and evaluation in the emergency room demonstrated the patient to be hemodynamically stable but she was apparently hypoxic. An ABG was ordered but she refused to have it done. Routine blood test demonstrated labs consistent with her known history of end-stage renal disease and her EKG was unremarkable. Her troponin was mildly elevated but difficult to interpret given her significant kidney disease. Given the patient's constellation of syndromes as well as her complex medical history, she was admitted to the hospital for further evaluation and therapy. Since her admission, she has been seen in consultation by Cardiology who feels that her chest pain is not cardiac related and will not likely pursue any further ischemic evaluation at this time. She did receive dialysis yesterday to maintain her dialysis schedule of Monday and tolerated this procedure reasonably well. Her chest pain symptoms appear to have improved significantly but is still somewhat bothered by this swelling that she has her left lower extremity secondary to the hematoma that was discovered on her last hospitalization. Renal consultation was requested due to her end-stage renal disease. The patient normally dialyzes on a Monday, Monday, Monday schedule at [facility] under the care of Dr. Norm Johnson. From a dialysis perspective, she has numerous issues to speak of. She usually ends her treatments somewhat early and her consistency in showing up for her dialysis treatments is less than ideal. This is further complicated by her significant fluid gains in between her dialysis treatments/sessions. That being said, she did complete her entire dialysis treatment yesterday her
--- NOTE | 2019-04-27 10:05 | PM.PNCARD ---
Progress Note: A&P Assessment and Plan (1) Chest pain: Qualifiers: Chest pain type: chest pain on breathing Qualified Code(s): R07.1 - Chest pain on breathing Code(s): R07.9 - Chest pain, unspecified Status: Acute Assessment and Plan: Noncardiac chest pain. Going to get a CTA of the chest to rule out PE. (2) Chronic anticoagulation: Code(s): Z79.01 - care home (current) use of anticoagulants Status: Chronic Assessment and Plan: Very difficult patient anticoagulate, INR highly variable. INRs leg several days behind the warfarin dose but can plummet or rise precipitously. Although INR high today, I would still give 1 mg of warfarin today and re-evaluate INR tomorrow. (3) Mechanical heart valve present: Code(s): Z95.2 - Presence of prosthetic heart valve Status: Chronic Assessment and Plan: History of mechanical aortic and mitral valves (4) DVT of lower limb, acute: Code(s): I82.409 - Acute embolism and thrombosis of unspecified deep veins of unspecified lower extremity Status: Acute Assessment and Plan: Hematoma and now DVT left lower extremity, [id number] (5) Anemia: Qualifiers: Anemia type: unspecified type Qualified Code(s): D64.9 - Anemia, unspecified Code(s): D64.9 - Anemia, unspecified Status: Acute Assessment and Plan: H&H has declined, no obvious bleeding, hematoma seems to be resolving Daily H&H Subjective Date/time seen: 04/27/19 10:05 Follow-up for mechanical aortic and mitral valves, difficulties with anticoagulation, anemia Date of service: 04/27/2019 The patient's chest pain has improved; she still has a little residual right lateral discomfort which is nonpleuritic. Overall is feeling a lot better. Does have a cough and some congestion/wheezing. Some discomfort from the leg hematoma. Venous Doppler of the left leg shows [id number] DVT so started on ASA. No appetite. Warfarin dosin04/22/19 INR 3.7, Continue 7 mg warfarin daily 04/23/19 INR 4.2. Warfarin 4 mg x 1 then 6 mg Monday, 7 mg other days 04/25/2019 INR 3.1. Continue same. 04/27/2019 INR 5.0 Warfarin 1 mg today as pt's INR plummets if given no warfarin. Review of Systems Constitutional: Constitutional: Reports weakness ENT: Denies epistaxis Cardiovascular: Cardiovascular: Reports chest pain, Reports leg edema (LLE) and Denies palpitations Respiratory: Respiratory: Reports chest congestion, Denies dyspnea and Reports wheezing Gastrointestinal: Gastrointestinal: Denies abdominal pain, Denies melena and Denies hematochezia Genitourinary: Genitourinary: Denies hematuria Musculoskeletal: Musculoskeletal: Reports myalgias and Reports arthralgias Integumentary/Breasts: Skin/Breast: Reports unusual bruising (LLE) Neurologic: Denies confusion Psychiatric: Psychiatric: Reports no additional psychiatric complaints Exam Const: General: comfortable and no acute distress HENMT: Mouth: Yes moist mucous membranes Eyes: EOM: EOMs intact bilaterally Neck: Neck: supple Resp: Auscultation: wheezes (scattered exp wheeze) Cardio: Rate: regular rate Rhythm: regular rhythm Heart sounds: Murmur heart sound present Other: crisp valve clicks GI: Inspection: non-distended Neuro: Cognition (Neuro): normal cognition Speech: normal speech Extrem: Left lower extremity: edema Objective Data Vital Signs Vital Signs: Vital Signs - 24 hr 04/26/19 12:00 04/26/19 13:56 04/26/19 14:00 Temperature 97.9 F Pulse Rate 92 86 100 Pulse Rate [Radial] Respiratory Rate 28 H 18 Blood Pressure 117/55 L Blood Pressure [Orthostatic Lying] Pulse Oximetry 95 04/26/19 14:07 04/26/19 15:00 04/26/19 15:11 Temperature 98.3 F Pulse Rate 84 90 Pulse Rate [Radial] 73 Respiratory Rate 18 18 Blood Pressure 142/73 H Blood Pressure [Orthostatic Lying] 150/60 H Pulse Oximetry
[2019-04-27] MEDS: SIMVASTATIN 20 MG TABLET 40 MG PO (10:22)
[2019-04-27] MEDS: DULOXETINE 60 MG CAPSULE.DR PO (10:22)
[2019-04-27] MEDS: MECLIZINE HCL 12.5 MG TABLET PO ×2 (10:22→17:06)
[2019-04-27] MEDS: PANTOPRAZOLE 40 MG TABLET PO ×2 (10:23→17:07)
[2019-04-27] MEDS: ASPIRIN 81 MG ENTERIC TABLET PO (10:23)
[2019-04-27] MEDS: FUROSEMIDE 80 MG TABLET PO (10:23)
[2019-04-27] MEDS: ESCITALOPRAM OXALATE 10 MG TABLET PO (10:23)
[2019-04-27] MEDS: SEVELAMER CARBONATE 800 MG TABLET PO ×2 (10:23→17:06)
[2019-04-27] MEDS: BETAMETHASONE/CLOTRIMAZOLE CR 15 GM TUBE 1 APPLIC TOPICAL ×2 (10:24→17:08)
[2019-04-27] MEDS: SODIUM CHLORIDE 0.9% IV 250 ML 30 ML IV CONT (11:15)
[2019-04-27] MEDS: TUBING, BLOOD PLUM PUMP TUBING 1 EACH XX (11:15)
--- NOTE | 2019-04-27 13:14 | PM.IMPN ---
Progress Note: A&P Assessment and Plan (1) Chest pain: Qualifiers: Chest pain type: chest pain on breathing Qualified Code(s): R07.1 - Chest pain on breathing Code(s): R07.9 - Chest pain, unspecified Status: Acute Assessment and Plan: Kerry[place] MS, cardiac chest pain ruled out. (2) Hypoxia: Code(s): R09.02 - Hypoxemia Status: Acute Assessment and Plan: Appears to be secondary to pleural effusions from being fluid overloaded. Pt still needing oxygen lung sounds wheezy. Order VQ scan to rule out PE. Continue oral lasix for pulmonary edema. Echo shows EF of 50%. 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 Continue coumadin therapy. Monitor PT/INR. (7) Hypothyroidism: Qualifiers: Hypothyroidism type: acquired Qualified Code(s): E03.9 - Hypothyroidism, unspecified Code(s): E03.9 - Hypothyroidism, unspecified Status: Chronic Assessment and Plan: Continue levothyroxine. (8) Bipolar disorder: Qualifiers: Active/Remission status: currently active Current bipolar episode type: mixed Current episode severity: unspecified Qualified Code(s): F31.60 - Bipolar disorder, current episode mixed, unspecified Code(s): F31.9 - Bipolar disorder, unspecified Status: Chronic Assessment and Plan: Continue Lexapro. (9) COPD (chronic obstructive pulmonary disease): Qualifiers: COPD type: unspecified COPD Qualified Code(s): J44.9 - Chronic obstructive pulmonary disease, unspecified Code(s): J44.9 - Chronic obstructive pulmonary disease, unspecified Status: Chronic Assessment and Plan: Continue bronchodilators. (10) Tobacco dependence: Code(s): F17.200 - Nicotine dependence, unspecified, uncomplicated Status: Chronic Assessment and Plan: Pt refuses nicotine patch (11) DVT of lower limb, acute: Code(s): I82.409 - Acute embolism and thrombosis of unspecified deep veins of unspecified lower extremity Status: Acute Assessment and Plan: ASA added to coumadin, pt to have VQ scan to rule out PE as she initially was admitted with chest pain and is still needing oxygen Subjective Date/time seen: 04/27/19 13:14 Interval history: Pt states her chest pain is better complains of SOB. Pt known ESRD on hemodialysis, chronically anticoagulated secondary to mechanical heart valves, and bipolar disorder. Pt had venous doppler shows clot pt started on ASA already on coumadin also. Pt to have dialysis today. Chest pain not cardiac in nature- as per cardiology. alyse musculosketetal. Pt on 2 liters of oxygen feels sob and wheezy will continue treating her pulmonary edema but will order VQ scan to rule out PE. prior to discharge. Review of Systems Review of Systems: All systems reviewed & are unremarkable except as noted in HPI and below Cardiovascular: Cardiovascular: Denies chest pain Respiratory: Respiratory: Reports cough, Reports dyspnea and Reports wheezing Musculoskeletal: Comments: No edema Exam Const: General: cooperative and other (SOB wheezy sounding ) HENMT: Mouth: Yes oropharynx normal Resp: Effort & Inspection: normal respiratory effort Auscultation: wheezes and dimi
[2019-04-27] MEDS: WARFARIN (*PBKC) 1 MG TABLET PO (17:07)
[2019-04-27 19:36] LABS: Hematocrit 25.7 % (37.0-47.0); Hemoglobin 7.9 g/dL (12.0-15.0)
[2019-04-27] MEDS: FLUTICASONE PROPIONATE 0.05% NA SPR 16 GM BTL (*BKC) 1 SPRAY NASAL (21:22)
[2019-04-27] MEDS: MIRTAZAPINE 15 MG TABLET PO (21:23)
[2019-04-27] MEDS: lamoTRIgine 100 MG TABLET 400 MG PO (21:23)
[2019-04-28] VITALS (22 sets, daily range): BP systolic 127–152; BP diastolic 56–70; PULSE 72–99; RESP 16–22; TEMP 36.4–37.3; O2SAT 94–100
[2019-04-28] MEDS: ALBUTEROL SULFATE NEB 2.5 MG/0.5 ML INH 5 MG INHALATION ×4 (01:55→22:12)
[2019-04-28] MEDS: IPRATROPIUM BR 0.02% INH SOLN 0.5 MG/2.5 ML VIAL INHALATION ×4 (01:55→22:13)
[2019-04-28 05:32] LABS: Hematocrit 24.1 % (37.0-47.0); Hemoglobin 7.6 g/dL (12.0-15.0); Mean Corpuscular HGB Conc 31.5 g/dl (32-36); Mean Corpuscular Hemoglobin 29.8 pg (26-34); Mean Corpuscular Volume 94.5 fl (80-100); Mean Platelet Volume 11.4 fl (7.4-10.4); Platelet Count Result 177 k/mm3 (150-375); Red Blood Count 2.55 M/mm3 (4.2-5.4); Red Cell Distribution Width 18.1 % (11.5-14.5); White Blood Count 7.5 K/mm3 (4.5-10.0)
[2019-04-28 05:45] LABS: Blood Urea Nitrogen 32 mg/dL (7-17); Calcium 7.9 mg/dL (8.4-10.2); Carbon Dioxide 29 mmol/L (22-30); Chloride 97 mmol/L (98-107); Estimated CRCL calculation 16 ml/min; Estimated Glomerular Filt Rate 14; Glucose 96 mg/dL (65-105); Potassium 3.7 mmol/L (3.4-5.0); Sodium 131 mmol/L (137-145)
[2019-04-28 05:46] LABS: INR 4.3; Prothrombin Time 40.6 Seconds (11.1-14.7)
[2019-04-28] MEDS: LEVOTHYROXINE SODIUM 125 MCG TABLET PO (06:19)
--- NOTE | 2019-04-28 09:11 | PM.PNCARD ---
Progress Note: A&P Assessment and Plan (1) Chest pain: Qualifiers: Chest pain type: chest pain on breathing Qualified Code(s): R07.1 - Chest pain on breathing Code(s): R07.9 - Chest pain, unspecified Status: Acute Assessment and Plan: Noncardiac chest pain. (2) Chronic anticoagulation: Code(s): Z79.01 - intermediate (current) use of anticoagulants Status: Chronic Assessment and Plan: Very difficult patient anticoagulate, INR highly variable. INRs leg several days behind the warfarin dose but can plummet or rise precipitously. Although INR high today, I would still give 6 mg of warfarin today. On discharge, will continue 6 mg warfarin Monday, 7 mg remaining days of the week as before, since she was therapeutic on admission. Will ask half-way to check PT/INR on Monday and Monday My office follows her INRs closely (3) Mechanical heart valve present: Code(s): Z95.2 - Presence of prosthetic heart valve Status: Chronic Assessment and Plan: History of mechanical aortic and mitral valves (4) DVT of lower limb, acute: Code(s): I82.409 - Acute embolism and thrombosis of unspecified deep veins of unspecified lower extremity Status: Acute Assessment and Plan: Hematoma and now DVT left lower extremity, [id number] (5) Anemia: Qualifiers: Anemia type: unspecified type Qualified Code(s): D64.9 - Anemia, unspecified Code(s): D64.9 - Anemia, unspecified Status: Acute Assessment and Plan: H&H stable, no obvious bleeding, hematoma seems to be resolving Subjective Date/time seen: 04/28/19 09:11 Interval history: Follow-up for mechanical aortic and mitral valves, difficulties with anticoagulation, anemia Visit 04/27/2019: The patient's chest pain has improved; she still has a little residual right lateral discomfort which is nonpleuritic. Overall is feeling a lot better. Does have a cough and some congestion/wheezing. Some discomfort from the leg hematoma. Venous Doppler of the left leg shows [id number] DVT so started on ASA. No appetite. Date of service 04/28/2019: Hopes to go home today. Has not been out of bed because of painful leg. Still has a productive cough, back hurts with coughing, some slight chest discomfort with coughing but not short of breath. Says she will participate with physical therapy when she goes back to [facility] re[facility]. Warfarin dosin04/22/19 INR 3.7, Continue 7 mg warfarin daily 04/23/19 INR 4.2. Warfarin 4 mg x 1 then 6 mg Monday, 7 mg other days 04/25/2019 INR 3.1. Continue same. 04/27/2019 INR 5.0 Warfarin 1 mg today as pt's INR plummets if given no warfarin. 04/28/2019 INR 4.3 Will give 6 mg today, then resume prior dose of warfarin 6 mg MWF and 7 mg TuThSaSu Planning on obtaining INR MWFri this week. Review of Systems Constitutional: Constitutional: Reports body ache(s), Reports lethargy and Reports weakness ENT: Reports epistaxis (Very minimal) Cardiovascular: Cardiovascular: Reports chest pain and Denies leg edema Respiratory: Respiratory: Reports chest congestion, Reports cough and Denies dyspnea Gastrointestinal: Gastrointestinal: Denies no additional gastrointestinal complaints (Poor appetite) and Denies abdominal pain Genitourinary: Genitourinary: Denies hematuria Musculoskeletal: Musculoskeletal: Reports myalgias Integumentary/Breasts: Skin/Breast: Reports unusual bruising Psychiatric: Psychiatric: Denies confusion Exam Const: General: comfortable and no acute distress HENMT: Mouth: Yes moist mucous membranes Eyes: EOM: EOMs intact bilaterally Neck: Neck: supple Resp: Auscultation: wheezes (A few scattered fine wheezes, frequent cough) Cardio: Rate: regular rate Rhythm: regular rhythm Other: Kidder valve clicks Skin: General skin exam: nor
[2019-04-28] MEDS: DULOXETINE 60 MG CAPSULE.DR PO (09:17)
[2019-04-28] MEDS: POTASSIUM CHLORIDE 20 MEQ PACKET (FOR LIQUID) PO (09:17)
[2019-04-28] MEDS: SEVELAMER CARBONATE 800 MG TABLET PO ×2 (09:17→17:03)
[2019-04-28] MEDS: ASPIRIN 81 MG ENTERIC TABLET PO (09:17)
[2019-04-28] MEDS: ESCITALOPRAM OXALATE 10 MG TABLET PO (09:17)
[2019-04-28] MEDS: PANTOPRAZOLE 40 MG TABLET PO ×2 (09:17→17:03)
[2019-04-28] MEDS: FUROSEMIDE 80 MG TABLET PO (09:17)
[2019-04-28] MEDS: SIMVASTATIN 20 MG TABLET 40 MG PO (09:18)
--- NOTE | 2019-04-28 16:07 | PM.PNNEP ---
Progress Note: A&P Assessment and Plan (1) ESRD (end stage renal disease): Code(s): N18.6 - End stage renal disease Status: Chronic Assessment and Plan: HD tomorrow and continue her outpatient schedule of M/W/F electrolytes, volume status, and clearance acceptable (2) Chest pain: Qualifiers: Chest pain type: chest pain on breathing Qualified Code(s): R07.1 - Chest pain on breathing Code(s): R07.9 - Chest pain, unspecified Status: Acute Assessment and Plan: Cardiology recommendations noted no further work-up planned (3) Anemia: Code(s): D64.9 - Anemia, unspecified Status: Chronic Assessment and Plan: partly due to ESRD but #4 playing some issue Epogen with HD follow trend of H/H PRBC transfusion yesterday (4) Intramuscular hematoma: Code(s): T14.8XXA - Other injury of unspecified body region, initial encounter Status: Chronic Assessment and Plan: as evidence by imagining on last hospitalization and this one follow H/H PRBC transfusions PRN continue supportive therapy (5) Mechanical heart valve present: Code(s): Z95.2 - Presence of prosthetic heart valve Status: Chronic Assessment and Plan: on anticoagulation - INR somewhat erratic Will continue to follow. Subjective Date/time seen: 04/28/19 16:07 Asking if she can be discharged today; has not been very mobile but she states she can do therapy at her home facility; transfused with PRBCs yesterday and tolerated well; still has some leg pain where hematoma discovered on her last hospitalization. Exam Narrative: Exam Narrative: General: WD/WN female in NAD Heart: normal S1 and S2; no rub Lungs: clear to auscultation Abdomen: soft, nontender, nondistended, positive bowel sounds Extremities: no cyanosis or clubbing; no edema Skin: warm and dry Objective Data Vital Signs Vital Signs: Vital Signs Temp Pulse Resp BP Pulse Ox 04/28/19 14:00 79 04/28/19 12:00 36.6 C 82 16 127/65 100 04/28/19 10:34 78 18 04/28/19 10:24 72 18 94 04/28/19 10:00 89 04/28/19 08:00 36.6 C 83 20 145/66 H 99 04/28/19 05:30 81 04/28/19 04:00 37.3 C 87 22 H 135/62 95 04/28/19 02:05 98 20 04/28/19 02:00 99 04/28/19 01:55 99 20 04/28/19 00:00 91 18 97 04/27/19 23:17 37.1 C 91 18 132/63 97 04/27/19 22:00 92 04/27/19 21:20 76 18 93 04/27/19 21:10 94 20 04/27/19 20:00 86 18 98 04/27/19 19:54 36.5 C 86 18 117/50 L 98 04/27/19 18:00 84 Intake/Output Intake/Output: Intake & Output 04/25/19 04/26/19 04/27/19 04/28/19 23:59 23:59 23:59 23:59 Intake Total 1020 1812 545 Output Total 100 50 Balance 920 1812 495 Meds/Results Medications: Active Medications Generic Name Dose Route Start Last Admin Trade Name Freq PRN Reason Stop Dose Admin Albuterol 5 mg 04/26/19 02:00 04/28/19 10:24 Albuterol Sulf Neb 2.5mg/0.5ml INHALATION 5 mg Q6HRT GORDON Administration Albuterol 2 puff 04/26/19 03:29 Proventil Hfa INHALATION TID PRN Shortness Of Breath Or Wheezing Aspirin 81 mg 04/27/19 09:00 04/28/19 09:17 Aspirin Ec PO 81 mg QAM GORDON Administration Budesonide 0.25 mg 04/28/19 20:00 Pulmicort Respule Neb INHALATION Q12HRT [facility] Carvedilol 6.25 mg 04/26/19 09:00 04/26/19 20:21 Coreg PO 6.25 mg Q12H GORDON Administration Clotrimazole 1 applic 04/26/19 09:00 04/28/19 09:22 Lotrisone Cream TOPICAL Not Given BID [facility] Duloxetine HCl 60 mg 04/26/19 09:00 04/28/19 09:17 Cymbalta PO 60 mg DAILY GORDON Administration Escitalopram Oxalate 10 mg 04/26/19 09:00 04/28/19 09:17 Lexapro PO 10 mg DAILY GORDON Administration Fluticasone Propionate 1 spray 04/26/19 09:00 04/28/19 09:22 Flonase 0.05% Nasal [place] NASAL Not Given Q12HR GORDON Furosemide 80 mg 0
--- NOTE | 2019-04-28 16:47 | PM.IMPN ---
Progress Note: A&P Assessment and Plan (1) Chest pain: Qualifiers: Chest pain type: chest pain on breathing Qualified Code(s): R07.1 - Chest pain on breathing Code(s): R07.9 - Chest pain, unspecified Status: Acute Assessment and Plan: Hernandez CURTIS, cardiac chest pain ruled out. Patient is 59-year-old female with history of end-stage renal disease on hemodialysis, mechanical aortic and mitral wall on Coumadin, patient presented emergency department with a complaint of chest pain and lower extremity swelling, patient seen by steel handler suspect chest pain most likely musculoskeletal, and has a labile INR fluctuates, currently patient on warfarin 6 mg daily her INR is slightly above target, managed by steel handler, today patient complains of back pain states he was coughing and developed back pain, patient with lower extremity swelling showed patient has a DVT the patient is on supratherapeutic INR, see denies any chest pain shortness of breath palpitation fever today (2) Hypoxia: Code(s): R09.02 - Hypoxemia Status: Acute Assessment and Plan: Appears to be secondary to pleural effusions from being fluid overloaded. Pt still needing oxygen lung sounds wheezy. Order VQ scan to rule out PE. However patient chronically anticoagulated has a supratherapeutic INR continue oral lasix for pulmonary edema. Echo shows EF of 50%. 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 Continue coumadin therapy. Monitor PT/INR. (7) Hypothyroidism: Qualifiers: Hypothyroidism type: acquired Qualified Code(s): E03.9 - Hypothyroidism, unspecified Code(s): E03.9 - Hypothyroidism, unspecified Status: Chronic Assessment and Plan: Continue levothyroxine. (8) Bipolar disorder: Qualifiers: Active/Remission status: currently active Current bipolar episode type: mixed Current episode severity: unspecified Qualified Code(s): F31.60 - Bipolar disorder, current episode mixed, unspecified Code(s): F31.9 - Bipolar disorder, unspecified Status: Chronic Assessment and Plan: Continue Lexapro. (9) COPD (chronic obstructive pulmonary disease): Qualifiers: COPD type: unspecified COPD Qualified Code(s): J44.9 - Chronic obstructive pulmonary disease, unspecified Code(s): J44.9 - Chronic obstructive pulmonary disease, unspecified Status: Chronic Assessment and Plan: Continue bronchodilators. (10) Tobacco dependence: Code(s): F17.200 - Nicotine dependence, unspecified, uncomplicated Status: Chronic Assessment and Plan: Pt refuses nicotine patch (11) DVT of lower limb, acute: Code(s): I82.409 - Acute embolism and thrombosis of unspecified deep veins of unspecified lower extremity Status: Acute Assessment and Plan: ASA added to coumadin, pt to have VQ scan to rule out PE as she initially was admitted with chest pain and is still needing oxygen Subjective Date/time seen: 04/28/19 16:47 Interval history: Patient is 59-year-old female with history of end-stage renal disease on hemodialysis, mechanical aortic and mitral wall on Coumadin, patient presented emergency department with a complaint of chest pain and lower ext
[2019-04-28] MEDS: WARFARIN (*PBKC) 3 MG TABLET 6 MG PO (17:03)
[2019-04-28] MEDS: TRAMADOL HCL 50 MG TABLET PO (19:33)
[2019-04-28] MEDS: FLUTICASONE PROPIONATE 0.05% NA SPR 16 GM BTL (*BKC) 1 SPRAY NASAL (21:40)
[2019-04-28] MEDS: lamoTRIgine 100 MG TABLET 400 MG PO (21:41)
[2019-04-28] MEDS: MIRTAZAPINE 15 MG TABLET PO (21:41)
[2019-04-28] MEDS: BUDESONIDE RESPULE NEB 0.5 MG/2 ML AMP 0.25 MG INHALATION (22:11)
[2019-04-29] VITALS (34 sets, daily range): BP systolic 124–177; BP diastolic 65–82; PULSE 80–110; RESP 16–24; TEMP 36–37.2; O2SAT 92–98
[2019-04-29] MEDS: TRAMADOL HCL 50 MG TABLET PO ×3 (01:53→21:08)
[2019-04-29] MEDS: IPRATROPIUM BR 0.02% INH SOLN 0.5 MG/2.5 ML VIAL INHALATION ×3 (04:04→14:37)
[2019-04-29] MEDS: ALBUTEROL SULFATE NEB 2.5 MG/0.5 ML INH 5 MG INHALATION ×3 (04:04→14:37)
[2019-04-29] MEDS: LEVOTHYROXINE SODIUM 125 MCG TABLET PO (06:00)
[2019-04-29 06:29] LABS: INR 4.8; Prothrombin Time 44.4 Seconds (11.1-14.7)
[2019-04-29 06:34] LABS: Albumin Level 3.2 g/dL (3.5-5.1); Blood Urea Nitrogen 41 mg/dL (7-17); Calcium 8.2 mg/dL (8.4-10.2); Carbon Dioxide 27 mmol/L (22-30); Chloride 96 mmol/L (98-107); Estimated CRCL calculation 12 ml/min; Estimated Glomerular Filt Rate 10; Glucose 98 mg/dL (65-105); Phosphorus 3.3 mg/dL (2.5-4.5); Potassium 4.2 mmol/L (3.4-5.0); Sodium 130 mmol/L (137-145)
[2019-04-29] MEDS: BUDESONIDE RESPULE NEB 0.5 MG/2 ML AMP 0.25 MG INHALATION (09:07)
[2019-04-29] MEDS: SEVELAMER CARBONATE 800 MG TABLET PO ×2 (09:47→18:51)
[2019-04-29] MEDS: FUROSEMIDE 80 MG TABLET PO (09:48)
[2019-04-29] MEDS: ASPIRIN 81 MG ENTERIC TABLET PO (09:48)
[2019-04-29] MEDS: PANTOPRAZOLE 40 MG TABLET PO ×2 (09:48→18:51)
[2019-04-29] MEDS: POTASSIUM CHLORIDE 20 MEQ PACKET (FOR LIQUID) PO (09:49)
[2019-04-29] MEDS: DULOXETINE 60 MG CAPSULE.DR PO (09:49)
[2019-04-29] MEDS: SIMVASTATIN 20 MG TABLET 40 MG PO (09:49)
[2019-04-29] MEDS: ESCITALOPRAM OXALATE 10 MG TABLET PO (09:49)
--- NOTE | 2019-04-29 13:30 | PC.NURSE ---
Patient off the floor at dialasis
[2019-04-29 15:28] LABS: Hepatitis B Surface Antigen Negative (Negative)
[2019-04-29 15:33] LABS: Hepatitis B Core IgM Result Negative (Negative)
[2019-04-29 15:45] LABS: Hepatitis B Surface Anti Res Negative
[2019-04-29] MEDS: EPOETIN ALFA 20,000 UNITS/ML VIAL 20000 UNITS IV PUSH (15:49)
--- NOTE | 2019-04-29 16:48 | PM.DS ---
DS: Diagnosis Admitting Diagnosis Admitting Diagnosis: Other chest pain Discharge Diagnosis (1) Chest pain: Qualifiers: Chest pain type: chest pain on breathing Qualified Code(s): R07.1 - Chest pain on breathing Code(s): R07.9 - Chest pain, unspecified Status: Acute Assessment and Plan: Hernandez CURTIS, cardiac chest pain ruled out. Patient is 59-year-old female with history of end-stage renal disease on hemodialysis, mechanical aortic and mitral wall on Coumadin, patient presented emergency department with a complaint of chest pain and lower extremity swelling, patient seen by self propelled mining machine operator suspect chest pain most likely musculoskeletal, and has a labile INR fluctuates, currently patient on warfarin 6 mg daily her INR is slightly above target, managed by self propelled mining machine operator, today patient complains of back pain states she was coughing and developed back pain, patient with lower extremity swelling showed patient has a DVT the patient is on supratherapeutic INR, she denies any chest pain shortness of breath palpitation fever today (2) Hypoxia: Code(s): R09.02 - Hypoxemia Status: Acute Assessment and Plan: Appears to be secondary to pleural effusions from being fluid overloaded. Pt still needing oxygen lung sounds wheezy. Order VQ scan to rule out PE. However patient chronically anticoagulated has a supratherapeutic INR continue oral lasix for pulmonary edema. Echo shows EF of 50%. 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 Continue coumadin therapy. Monitor PT/INR. (7) Hypothyroidism: Qualifiers: Hypothyroidism type: acquired Qualified Code(s): E03.9 - Hypothyroidism, unspecified Code(s): E03.9 - Hypothyroidism, unspecified Status: Chronic Assessment and Plan: Continue levothyroxine. (8) Bipolar disorder: Qualifiers: Active/Remission status: currently active Current bipolar episode type: mixed Current episode severity: unspecified Qualified Code(s): F31.60 - Bipolar disorder, current episode mixed, unspecified Code(s): F31.9 - Bipolar disorder, unspecified Status: Chronic Assessment and Plan: Continue Lexapro. (9) COPD (chronic obstructive pulmonary disease): Qualifiers: COPD type: unspecified COPD Qualified Code(s): J44.9 - Chronic obstructive pulmonary disease, unspecified Code(s): J44.9 - Chronic obstructive pulmonary disease, unspecified Status: Chronic Assessment and Plan: Continue bronchodilators. (10) Tobacco dependence: Code(s): F17.200 - Nicotine dependence, unspecified, uncomplicated Status: Chronic Assessment and Plan: Pt refuses nicotine patch (11) DVT of lower limb, acute: Code(s): I82.409 - Acute embolism and thrombosis of unspecified deep veins of unspecified lower extremity Status: Acute Assessment and Plan: ASA added to coumadin, pt to have VQ scan to rule out PE as she initially was admitted with chest pain and is still needing oxygen DS: Summary Hospital Course Reason for hospitalization: This is a 59 year old female with known ESRD on hemodialysis, chronically anticoagulated secondary to mechanical heart valves, and bipolar disorder who is w
[2019-04-29] MEDS: WARFARIN (*PBKC) 3 MG TABLET 6 MG PO (19:13)
--- NOTE | 2019-04-29 19:37 | PC.NURSE ---
patient return from dialysis at 1710. pt resting comfortably. Dr. Moon notified and patient to be discharged
--- NOTE | 2019-04-29 19:40 | PC.NURSE ---
Patient to be discharged to [facility]. report called to Nurse. Discharge packet faxed to facility per care coordination instructions. ambulance called for transport.
[2019-04-29] MEDS: FLUTICASONE PROPIONATE 0.05% NA SPR 16 GM BTL (*BKC) 1 SPRAY NASAL (21:07)
[2019-04-29] MEDS: lamoTRIgine 100 MG TABLET 400 MG PO (21:07)
[2019-04-29] MEDS: MIRTAZAPINE 15 MG TABLET PO (21:08)
--- NOTE | 2019-04-29 22:37 | PM.PNNEP ---
Progress Note: A&P Assessment and Plan (1) ESRD (end stage renal disease): Code(s): N18.6 - End stage renal disease Status: Chronic Assessment and Plan: HD now (2) Chest pain: Qualifiers: Chest pain type: chest pain on breathing Qualified Code(s): R07.1 - Chest pain on breathing Code(s): R07.9 - Chest pain, unspecified Status: Acute Assessment and Plan: Cardiology recommendations noted no further work-up planned (3) Anemia: Code(s): D64.9 - Anemia, unspecified Status: Chronic Assessment and Plan: partly due to ESRD but #4 playing some issue Epogen with HD follow h/h as an outpatient (4) Intramuscular hematoma: Code(s): T14.8XXA - Other injury of unspecified body region, initial encounter Status: Chronic Assessment and Plan: as evidence by imagining on last hospitalization and this one follow H/H PRBC transfusions PRN continue supportive therapy (5) Mechanical heart valve present: Code(s): Z95.2 - Presence of prosthetic heart valve Status: Chronic Assessment and Plan: on anticoagulation - INR somewhat erratic Subjective Date/time seen: 04/29/19 22:37 Interval history: pt feels good. she is eager for discharge. she is on HD yaneth it well. seen at 4:30 pm. Exam Narrative: Exam Narrative: General: WD/WN female in NAD Heart: normal S1 and S2; no gallop or rub Lungs: clear to auscultation Abdomen: soft, nontender, nondistended, positive bowel sounds Extremities: no cyanosis or clubbing; trace edema Skin: warm and dry without rash Objective Data Vital Signs Vital Signs: Vital Signs - 24 hr 04/28/19 23:00 04/29/19 00:00 04/29/19 02:00 Temperature 37.2 C Pulse Rate 94 95 Respiratory Rate 22 H Blood Pressure 159/71 H Pulse Oximetry 95 97 04/29/19 03:59 04/29/19 04:06 04/29/19 04:16 Temperature 37.2 C Pulse Rate 93 94 96 Respiratory Rate 24 H 16 16 Blood Pressure 158/65 H Pulse Oximetry 96 04/29/19 06:00 04/29/19 07:30 04/29/19 08:00 Temperature Pulse Rate 92 110 H 94 Respiratory Rate Blood Pressure Pulse Oximetry 04/29/19 08:43 04/29/19 09:09 04/29/19 09:11 Temperature 36.8 C Pulse Rate 93 90 Respiratory Rate 20 16 Blood Pressure 177/71 H Pulse Oximetry 96 92 04/29/19 09:17 04/29/19 10:00 04/29/19 12:00 Temperature 36.4 C L Pulse Rate 93 94 90 Respiratory Rate 16 20 Blood Pressure 173/82 H Pulse Oximetry 98 04/29/19 13:24 04/29/19 13:30 04/29/19 13:45 Temperature 36.4 C Pulse Rate 85 84 83 Respiratory Rate 20 Blood Pressure 131/78 132/74 132/71 Pulse Oximetry 04/29/19 14:00 04/29/19 14:15 04/29/19 14:30 Temperature Pulse Rate 85 81 83 Respiratory Rate Blood Pressure 134/67 132/71 134/69 Pulse Oximetry 04/29/19 14:38 04/29/19 14:50 04/29/19 14:51 Temperature Pulse Rate 89 92 82 Respiratory Rate 16 16 Blood Pressure 142/79 H Pulse Oximetry 04/29/19 15:00 04/29/19 15:15 04/29/19 15:31 Temperature Pulse Rate 84 80 83 Respiratory Rate Blood Pressure 124/72 146/71 H 142/74 H Pulse Oximetry 04/29/19 15:45 04/29/19 16:00 04/29/19 16:15 Temperature 36.5 C Pulse Rate 85 85 83 Respiratory Rate 20 Blood Pressure 148/75 H 154/69 H 152/73 H Pulse Oximetry 98 04/29/19 16:31 04/29/19 16:46 04/29/19 17:00 Temperature Pulse Rate 83 83 84 Respiratory Rate Blood Pressure 149/78 H 149/79 H 146/72 H Pulse Oximetry 04/29/19 17:10 04/29/19 18:00 Temperature 36.4 C Pulse Rate 86 85 Respiratory Rate 18 Blood Pressure 153/80 H Pulse Oximetry Intake/Output Intake/Output: Intake & Output 04/26/19 04/27/19 04/28/19 04/29/19 23:59 23:59 23:59 23:59 Intake Total 1020 1812 1095 450 Output Total 460 988 9849 Balance [phone] -[phone] Meds/Results Radiology Results: ITS Impressions Chest X-Ray 04/24/
== END 2019-04-29 21:50 | DRG 313 ==
LOC: ANHED 22:57 → ANHIMU 04-26 00:34
PROVIDERS: Family Medicine; Internal Medicine Nephrology; Admitting Provider Family Medicine; Emergency Provider Emergency Medicine; PCP Family Medicine; Visit Provider Family Medicine
DX: R07.89 Other chest pain (principal); I82.452 Acute embolism and thrombosis of left peroneal vein; I82.432 Acute embolism and thrombosis of left popliteal vein; N18.6 End stage renal disease; J96.11 Chronic respiratory failure with hypoxia; I50.32 Chronic diastolic (congestive) heart failure; I13.2 Hypertensive heart and chronic kidney disease with heart failure and with stage 5 chronic kidney disease, or end stage renal disease; E46 Unspecified protein-calorie malnutrition; Z99.2 Dependence on renal dialysis; Z79.01 Long term (current) use of anticoagulants; Z95.2 Presence of prosthetic heart valve; F31.9 Bipolar disorder, unspecified; D63.1 Anemia in chronic kidney disease; M19.90 Unspecified osteoarthritis, unspecified site; I82.462 Acute embolism and thrombosis of left calf muscular vein; Z90.49 Acquired absence of other specified parts of digestive tract; Z90.710 Acquired absence of both cervix and uterus; Z86.73 Personal history of transient ischemic attack (TIA), and cerebral infarction without residual deficits; F17.200 Nicotine dependence, unspecified, uncomplicated; Z91.5 Personal history of self-harm; G25.81 Restless legs syndrome; I73.9 Peripheral vascular disease, unspecified; S70.12XA Contusion of left thigh, initial encounter; M17.0 Bilateral primary osteoarthritis of knee; G89.29 Other chronic pain; M54.9 Dorsalgia, unspecified; J43.9 Emphysema, unspecified; F41.8 Other specified anxiety disorders; F50.9 Eating disorder, unspecified; Z68.25 Body mass index [BMI] 25.0-25.9, adult; Z22.322 Carrier or suspected carrier of Methicillin resistant Staphylococcus aureus; G47.33 Obstructive sleep apnea (adult) (pediatric); E03.9 Hypothyroidism, unspecified; F17.210 Nicotine dependence, cigarettes, uncomplicated; W19.XXXA Unspecified fall, initial encounter; H26.9 Unspecified cataract
CPT/HCPCS: 36415; 36430; 71046; 80048; 80069; 83880; 84484; 85014; 85018; 85025; 85027; 85610; 85730; 86705; 86706; 86850; 86900; 86901; 86923; 87040; 87081; 87340; 87804; 93005; 93971; 94640; 96361; 96374; 96375; 99285; A9270; G0257; G0378; J1644; J3010; J7030; J7040; J7050; P9016; Q4081

== ENCOUNTER 2019-05-22 19:11 | Inpatient (IN) | payer MEDICARE, MEDICAID, SELFPAY ==
[2019-05-22] VITALS (14 sets, daily range): BP systolic 64–122; BP diastolic 34–64; PULSE 66–88; RESP 16–22; TEMP 36.4; O2SAT 91–100
--- NOTE | ~2019-05-22 | XR_ITS ---
EXAMINATION: XR chest 1V portable DATE: 05/24/2019 06:27 INDICATION: Pneumonia. TECHNIQUE: A single frontal view of the chest was obtained. COMPARISON: Chest single view 05/22/2019, CT abdomen and pelvis 04/09/2019 FINDINGS: There is a moderate-sized right pleural effusion. There are airspace opacities at right gen g base. There is mild atelectasis in left lower lung zone. No pneumothorax. Cardiomegaly is noted. Th ere are changes of heart valve replacements. A left internal jugular central venous catheter is seen with tip at the superior cavoatrial junction. IMPRESSION: 1. Stable moderate-sized right pleural effusion. 2. Worsened airspace opacities at right lung base, consistent with atelectasis versus pneumonia. 3. Cardiomegaly. Reviewed, dictated and finalized at location A.
--- NOTE | ~2019-05-22 | XR_ITS ---
XR chest 1V portable 05/22/2019 20:04 Indication: Shortness of breath with cough Procedure: AP portable chest Comparison: Comparison to multiple prior studies sequentially, with oldest reviewed study dated 02/22. Findings: Moderate cardiomegaly. Status post median sternotomy. There is a prosthetic heart valve. Th ere is a moderate right pleural effusion. Right basilar airspace consolidation. No pneumothorax. Larg e bore central venous catheter tip in the SVC. Impression: 1: Right basilar airspace consolidation may represent atelectasis and/or pneumonia. 2: Moderate right pleural effusion. 3: Moderate cardiomegaly. Reviewed, dictated and finalized at location A. Impression: 1: Right basilar airspace consolidation may represent atelectasis and/or pneumo gregg. 2: Moderate right pleural effusion. 3: Moderate cardiomegaly.
--- NOTE | ~2019-05-22 | XR_ITS ---
EXAMINATION: XR chest 1V portable DATE: 05/25/2019 06:26 INDICATION: Pneumonia. TECHNIQUE: A single frontal view of the chest was obtained. COMPARISON: Chest single view 05/24/2019, CT abdomen and pelvis 04/09/2019 FINDINGS: There are airspace opacities in right mid and lower lung zones. There are mild airspace opa cities in left lower lung zone. There is a small right pleural effusion. A skin fold overlies left he mithorax. No pneumothorax. Cardiomegaly is noted. There are changes of heart valve replacement. A lef t internal jugular central venous catheter is seen with tip in the proximal right atrium. IMPRESSION: 1. Improved airspace opacities in right mid and lower lung zones and worsened airspace opacities in l eft lower lung zone, consistent with atelectasis versus pneumonia. 2. Small loculated right pleural effusion. 3. Cardiomegaly. Reviewed, dictated and finalized at location A. IMPRESSION: 1. Improved airspace opacities in right mid and lower lung zones and worsened a irspace opacities in left lower lung zone, consistent with atelectasis versus p neumonia. 2. Small loculated right pleural effusion. 3. Cardiomegaly.
--- NOTE | 2019-05-22 19:28 | ECG_ITS ---
Measurements Intervals [place] Rate: 86 P: 54 MN: 180 QRS: 185 QRSD: 152 T: 59 QT: 431 QTc: 516 Interpretive Statements SINUS OR ECTOPIC ATRIAL RHYTHM POSSIBLE LEFT ATRIAL ENLARGEMENT RIGHT AXIS DEVIATION RIGHT BUNDLE BRANCH BLOCK BASELINE WANDER- I, III, AVR, AVL, AVF, V1 ABNORMAL ECG Electronically Signed On 05-23-2019 7:09:50 CDT by Preet Velázquez D.O.
[2019-05-22 19:51] LABS: Basophils Percent Auto 0.2 % (0.2-1.2); Hematocrit 25.2 % (37.0-47.0); Hemoglobin 7.8 g/dL (12.0-15.0); Immature Granulocyte Absolute 0.14 K/mm3 (0.00-0.031); Immature Granulocyte Percent A 1.2 % (0-0.5); Immature Platelet Fraction Pct 4.6 % (0.9-11.2); Lymphocytes Absolute Auto 0.46 K/mm3 (0.9-3.2); Mean Corpuscular Hemoglobin 29.4 pg (26-34); Mean Corpuscular Volume 95.1 fl (80-100); Mean Platelet Volume 11.9 fl (7.4-10.4); Monocytes Absolute Auto 0.6 K/mm3 (0.1-0.6); Monocytes Percent Auto 4.8 % (2.6-8.5); Neutrophils Absolute Auto 10.4 K/mm3 (1.3-6.7); Neutrophils Percent Auto 89.8 % (45.5-73.1); Platelet Count Result 120 k/mm3 (150-375); Red Blood Count 2.65 M/mm3 (4.2-5.4); Red Cell Distribution Width 18.2 % (11.5-14.5); White Blood Count 11.6 K/mm3 (4.5-10.0)
[2019-05-22 20:02] LABS: Blood Urea Nitrogen 37 mg/dL (7-17); Calcium 8.3 mg/dL (8.4-10.2); Carbon Dioxide 22 mmol/L (22-30); Chloride 98 mmol/L (98-107); Estimated Glomerular Filt Rate 11; Glucose 89 mg/dL (65-105); Potassium 5.9 mmol/L (3.4-5.0); Sodium 128 mmol/L (137-145)
[2019-05-22 20:23] LABS: Alanine Aminotransferase 7 U/L (4-35); Alkaline Phosphatase 175 U/L (38-126); Aspartate Amino Transferase 16 U/L (14-36); Bilirubin,Total 1.4 mg/dL (0.2-1.3)
--- NOTE | 2019-05-22 21:02 | PC.NURSE ---
back end web developer Victoriano called to notify EDP of patients status. EDP notified of pt's status. EDP stuck head into patients room and asked is she coding? and walked out of patients room.
[2019-05-22] MEDS: LACTATED RINGERS 250 ML 999 ML IV CONT (21:15)
--- NOTE | 2019-05-22 21:27 | PC.NURSE ---
COVID-19 Swab obtained and sent to lab w/ patient information sheet filled out.
[2019-05-22 21:28] LABS: Lactic Acid Reflex 1.4 mmol/L (0.7-2.1)
--- NOTE | 2019-05-22 22:24 | ED.SOB ---
HPI - SOB/Dyspnea General Chief Complaint: Shortness of Breath/Dyspnea Stated Complaint: FLU LIKE SYMPTOMS +EXP TO COVID Time Seen by Provider: 05/22/19 19:41 Source: patient, EMS and other History of Present Illness HPI Narrative: 59 f from [facility] skipped dialysis today because of feeling nonspecifically unwell becoming sob afterwards she has a nonproductive cough and possibly subjective fevers has been exposed to covid @ [facility] she is very adamant that she will not allow a central line to be placed she would entertain intubation possibly however is not really hypoxic or in distress to make that a consideration at this point Related Data Home Medications Medication Instructions Recorded Confirmed Vraylar 3 mg PO DAILY 01/31/19 04/26/19 albuterol sulfate [Ventolin HFA] 2 puff INHALATION TID PRN 01/31/19 04/26/19 budesonide-formoterol [Symbicort] 2 puff INHALATION BID 01/31/19 04/26/19 clotrimazole-betamethasone 1 applic TOPICAL BID 01/31/19 04/26/19 escitalopram oxalate [Lexapro] 10 mg PO DAILY 01/31/19 04/26/19 furosemide 80 mg PO DAILY 01/31/19 04/26/19 ipratropium-albuterol 3 ml INHALATION QID PRN 01/31/19 04/26/19 lamotrigine 400 mg PO HS 01/31/19 04/26/19 levothyroxine 125 mcg PO DAILY 01/31/19 04/26/19 meclizine 12.5 mg PO TID PRN 01/31/19 04/26/19 omeprazole 40 mg PO DAILY 01/31/19 04/26/19 ropinirole 5 mg PO HS 01/31/19 04/26/19 sevelamer carbonate [Renvela] 800 mg PO TIDWM 01/31/19 04/26/19 simvastatin 40 mg PO DAILY 01/31/19 04/26/19 budesonide [Pulmicort] 0.25 mg INHALATION BID 04/04/19 04/26/19 carvedilol [Coreg] 6.25 mg PO Q12H 04/26/19 04/26/19 duloxetine [Cymbalta] 60 mg PO DAILY 04/26/19 04/26/19 polyethylene glycol 3350 [Miralax] 17 g PO QAM PRN 04/26/19 04/26/19 Allergies Allergy/AdvReac Type Severity Reaction Status Date / Time adhesive tape Allergy Intermediate blisters Verified 05/22/19 19:27 iron Allergy Unknown Nausea And Verified 05/22/19 19:27 Vomiting Review of Systems Constitutional: Constitutional: Reports fatigue, Reports fever(s) and Reports weakness Eyes: Eyes: Reports no additional eye complaints ENT: Denies dysphagia and Denies sore throat Cardiovascular: Cardiovascular: Denies rapid heart rate and Denies slow heart rate Respiratory: Respiratory: Reports chest congestion, Reports cough and Reports dyspnea Gastrointestinal: Gastrointestinal: Denies abdominal pain, Denies diarrhea and Denies vomiting Genitourinary: Genitourinary: Reports no additional female genitourinary complaints Musculoskeletal: Musculoskeletal: Denies myalgias and Denies arthralgias Neurologic: Denies numbness and Denies weakness Psychiatric: Psychiatric: Reports no additional psychiatric complaints PMFSH Past Medical History Medical History Anemia of chronic disease With history of blood transfusion. Arthritis Atrial fibrillation Bipolar disorder Breast mass Chronic breast mass which was biopsied previously, showing acute on chronic inflammation and fat necrosis. She had a negative bone scan done at that time as well. Cataracts, bilateral Chronic anticoagulation Long-term warfarin due to presence of mechanical heart valves. Chronic back pain With history of narcotic abuse. Chronic respiratory failure with hypoxia Clostridium difficile infection COPD (chronic obstructive pulmonary disease) Coronary artery disease Depression with anxiety Diastolic congestive heart failure DVT (deep venous thrombosis) Eating disorder Emphysema of lung End-stage renal disease on hemodialysis Endometriosis Status post hysterectomy. ESRD (end stage renal disease) GERD (gastroesophageal reflux disease) Gout History of ectopic Hyperlipidemia Hypertension Hyperthyroidism Morbid obesity Prior history of obesity, reportedly weighing as much as 408 pounds previously. She now appears to have protein calorie malnutrition.
--- NOTE | 2019-05-22 23:44 | PC.NURSE ---
This patient, Bessy Pandey, was admitted to Intensive Care Unit-7. Patient/family oriented to hospital policies and general routines including ID bracelet, bed and alarms, visiting hours, pain management, procedures, bathroom and other care routines, personal items, smoking policy, room service/diet, and visiting hours. Valuables list has been completed. Information on how to activate the Rapid Response Team has been discussed. Patient/Family are encouraged to report perceived risks to care and to ask questions if they do not understand what they are told or what they should do.
[2019-05-23] VITALS (15 sets, daily range): BP systolic 69–123; BP diastolic 45–78; PULSE 59–89; RESP 13–21; TEMP 35.8–37; O2SAT 92–100; BMI 25.0
--- NOTE | 2019-05-23 00:56 | PM.IMHP ---
H&P: HPI History of Present Illness Chief complaint: Intermittent fevers Narrative: Date and time of patient contact: 05/22/2019 at 10:00 p.m. Bessy Pandey is a 59 year old female with a past medical history of COPD, mechanical heart valves on long-term anticoagulation, chronic hypoxic respiratory failure, and end-stage renal disease on hemodialysis who presented to the ER via EMS from [facility] due to intermittent fevers. The patient's friend was COVID-19 positive. The patient's friend had been visiting the patient. The patient was sleeping upon EMS arrival to the scene and was only oriented to self in year. At the time of my evaluation the patient was somnolent but arouses to verbal and tactile stimuli. She was oriented to self fact that she was in the hospital and the name of the current president but she could not tell me the year. The patient fell asleep multiple times just in the time it took for me to ask orientation questions. The patient could not recall why she was sent to the ER. Patient has been afebrile since arrival to the hospital. Time of arrival to the hospital the patient was markedly hypotensive with blood pressures as low as 64/56. It appears the patient received 1 L of isotonic fluids and was started on peripheral Carlos-Synephrine. The patient evidently had refused to central line in the ER. I could not get the patient to stay awake long enough to have a discussion about central line placement. I was unable to get any further answers from the patient regarding review of systems. When I asked the patient if she had been coughing she denied however the patient had rattling respirations and cough while I was at bedside. The patient herself had denied fevers or chills at the time of my evaluation but reported subjective fevers to the ER staff. The senior care and also reported the patient is having fevers. The patient evidently skip dialysis today because of not feeling well. The patient does have a history of repeatedly not going to dialysis treatments. Review of Systems Review of Systems: ROS unobtainable: Yes unobtainable due to medical condition and unobtainable due to mental status PMFSH Past Medical History Medical History (Updated 05/23/19 @ 01:51 by Nissa Awad DO) Anemia of chronic disease With history of blood transfusion. Arthritis Atrial fibrillation Bipolar disorder Breast mass Chronic breast mass which was biopsied previously, showing acute on chronic inflammation and fat necrosis. She had a negative bone scan done at that time as well. Cataracts, bilateral Chronic anticoagulation Long-term warfarin due to presence of mechanical heart valves. Chronic back pain With history of narcotic abuse. Chronic respiratory failure with hypoxia Clostridium difficile infection COPD (chronic obstructive pulmonary disease) Coronary artery disease She does not have significant coronary artery disease. She had a cardiac catheterization approximately 8 years ago per Cardiology notes that was not significant for disease Deep vein thrombosis of left lower extremity 04/26/2019 involving left popliteal, peroneal and gastrocnemius which occurred while the patient off of Coumadin due to a large buttock/thigh hematoma resulting from a fall March 2019 Depression with anxiety Diastolic congestive heart failure DVT (deep venous thrombosis) Eating disorder Emphysema of lung End-stage renal disease on hemodialysis Endometriosis Status post hysterectomy. GERD (gastroesophageal reflux disease) Gout History of ectopic Hyperlipidemia Hypertension Hyperthyroidism Morbid obesity Prior history of obesity, reportedly weighing as much as 408 pounds previously. She now appears to have protein calorie malnutrition. 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 Myocardial infarction Obstructive sleep apnea Osteoarthritis
[2019-05-23 01:10] LABS: Alveolar/Arterial O2 Gradient 57.9 mmHg; Base Excess ABG -4.7 mEq/l (+/-2.0); Carboxyhemoglobin 0.2 % THb (0-2.0); Fractional Inspired Oxygen 24 %; HCO3 ABG 20.7 mEq/l (22.0-26.0); Methemoglobin ABG 0.3 %THb (0-1.5); Oxygen Content ABG 11.7 %vol (16.0-22.0); Oxyhemoglobin 91.5 % THb (90.0-100.0); PCO2 ABG 39.6 mmHg (35.0-45.0); PO2 ABG 66.1 mmHg (80.0-100.0); PO2 FiO2 Ratio Arterial Blood 2.75 %; pH ABG 7.337 (7.350-7.450)
[2019-05-23 01:11] LABS: Device NASAL CANNULA; Liters per Minute 1.5 LPM; Modified Allen's Test Pass; Site Drawn RIGHT RADIAL
--- NOTE | 2019-05-23 03:23 | PC.NURSE ---
patient refused blood cultures and morning labs after 3 attempts to draw
[2019-05-23] MEDS: LEVOTHYROXINE SODIUM 125 MCG TABLET PO (06:37)
[2019-05-23] MEDS: SEVELAMER CARBONATE 800 MG TABLET PO ×3 (08:36→17:01)
[2019-05-23] MEDS: PANTOPRAZOLE 40 MG TABLET PO ×2 (08:37→17:01)
[2019-05-23] MEDS: ESCITALOPRAM OXALATE 10 MG TABLET PO (08:37)
[2019-05-23] MEDS: DULOXETINE 60 MG CAPSULE.DR PO (08:37)
[2019-05-23] MEDS: SIMVASTATIN 20 MG TABLET 40 MG PO (08:37)
[2019-05-23] MEDS: BETAMETHASONE/CLOTRIMAZOLE CR 15 GM TUBE 1 APPLIC TOPICAL (08:38)
[2019-05-23] MEDS: FLUTICASONE PROPIONATE 0.05% NA SPR 16 GM BTL (*BKC) 1 SPRAY NASAL ×2 (08:38→20:01)
[2019-05-23 08:40] LABS: Basophils Percent Auto 0.2 % (0.2-1.2); Hematocrit 24.2 % (37.0-47.0); Hemoglobin 7.4 g/dL (12.0-15.0); Immature Granulocyte Absolute 0.14 K/mm3 (0.00-0.031); Immature Granulocyte Percent A 1.4 % (0-0.5); Immature Platelet Fraction Pct 5.1 % (0.9-11.2); Lymphocytes Absolute Auto 0.65 K/mm3 (0.9-3.2); Lymphocytes Percent Auto 6.4 % (18.3-44.2); Mean Corpuscular HGB Conc 30.6 g/dl (32-36); Mean Corpuscular Hemoglobin 28.9 pg (26-34); Mean Corpuscular Volume 94.5 fl (80-100); Mean Platelet Volume 11.8 fl (7.4-10.4); Monocytes Absolute Auto 0.4 K/mm3 (0.1-0.6); Monocytes Percent Auto 4.2 % (2.6-8.5); Neutrophils Percent Auto 87.8 % (45.5-73.1); Platelet Count Result 124 k/mm3 (150-375); Red Blood Count 2.56 M/mm3 (4.2-5.4); Red Cell Distribution Width 18.2 % (11.5-14.5); White Blood Count 10.2 K/mm3 (4.5-10.0)
[2019-05-23 08:50] LABS: D Dimer 3.87 ug/mL (<0.48)
[2019-05-23 08:57] LABS: INR 3.7
[2019-05-23 08:58] LABS: Partial Thromboplastin Time 73.6 SECONDS (22.3-36.8)
[2019-05-23] MEDS: ALBUTEROL SULFATE (*SP) AEROSOL 1 PUFF 6 PUFF INHALATION ×2 (09:00→20:39)
[2019-05-23 09:20] LABS: Alanine Aminotransferase 6 U/L (4-35); Albumin Level 2.7 g/dL (3.5-5.1); Alkaline Phosphatase 150 U/L (38-126); Aspartate Amino Transferase 15 U/L (14-36); Bilirubin,Total 1.3 mg/dL (0.2-1.3); Blood Urea Nitrogen 43 mg/dL (7-17); CRP 26.3 mg/dL (<1.0); Calcium 8.3 mg/dL (8.4-10.2); Carbon Dioxide 22 mmol/L (22-30); Chloride 98 mmol/L (98-107); Estimated CRCL calculation 12 ml/min; Estimated Glomerular Filt Rate 10; Glucose 90 mg/dL (65-105); Magnesium 1.5 mg/dL (1.6-2.3); Phosphorus 3.4 mg/dL (2.5-4.5); Potassium 6.5 mmol/L (3.4-5.0); Sodium 127 mmol/L (137-145)
[2019-05-23 09:30] LABS: Lactate Dehydrogenase 745 U/L (313-618)
--- NOTE | 2019-05-23 09:40 | WPDCNINT ---
Assessment and Plan Assessment and plan (1) Hypotension: Qualifiers: Hypotension type: other hypotension type Qualified Code(s): I95.89 - Other hypotension Code(s): I95.9 - Hypotension, unspecified Status: Acute Assessment and Plan: patient presented with hypotension, received IV fluids and placed on Carlos-Synephrine via peripheral access as she refused a central line. - Patient's baseline systolic blood pressures are around 85-95 mmHg - will wean Carlos-Synephrine to off - blood cultures have been obtained, patient was started on ceftriaxone and doxycycline for presumed pneumonia (2) Suspected 2019 novel coronavirus infection: Code(s): R68.89 - Other general symptoms and signs Status: Acute Assessment and Plan: patient's roommate was tested positive for covid-19, Pts SARS-COV-2 PCR was sent to [facility] and pending - continue droplet and airborne precautions (3) Pleural effusion: Code(s): J90 - Pleural effusion, not elsewhere classified Status: Acute Assessment and Plan: large pleural effusion on the right side compared to 04/25/2019. - currently on Coumadin therapy with elevated INR. - dialysis with removal of fluid would help. (4) Pneumonia: Code(s): J18.9 - Pneumonia, unspecified organism Status: Acute Assessment and Plan: Chest x-ray shows right basilar airspace consolidation may represent atelectasis and/or pneumonia - continue ceftriaxone and doxycycline. - Continue Spiriva and albuterol inhaler. - blood cultures have been obtained - sputum cultures have been ordered (5) ESRD (end stage renal disease) on dialysis: Code(s): N18.6 - End stage renal disease; Z99.2 - Dependence on renal dialysis Status: Chronic Assessment and Plan: patient with end-stage renal disease, on dialysis - appreciate Nephrology evaluation - dialysis per Nephrology (6) Mechanical heart valve present: Code(s): Z95.2 - Presence of prosthetic heart valve Status: Chronic Assessment and Plan: patient on Coumadin with therapeutic INR, will continue Coumadin Additional Plan discussed with patient updated with her condition and plan of care. code status: Full code Critical care time spent: 39 minutes Due to a high probability of clinically significant, life threatening deterioration, the patient required my highest level of preparedness to intervene emergently and I personally spent this critical care time directly and personally managing the patient. This critical care time included obtaining a history; examining the patient; pulse oximetry; ordering and review of studies; arranging urgent treatment with development of a management plan; evaluation of patient's response to treatment; frequent reassessment; and discussions with other providers. It was exclusive of separately billable procedures and treating other patients and teaching time. Please see Assessment and Plan section and the rest of the note for further information on patient assessment and treatment Cso Consult Note Consult date: 05/23/19 Time Seen: 06:59 Reason for consult: hypotension requiring Carlos-Synephrine, pleural effusion, pneumonia, SARS-COV-2 PCR swab sent to rule out COVID-19 HPI: Bessy Pandey is a 59 year old female significant past medical history of COPD, end-stage renal disease on dialysis, history of atrial fibrillation, anemia of chronic disease, chronic hypoxic respiratory failure, chronic back pain with history of narcotic abuse, history of C diff infection, TIA, tobacco dependence, rheumatic disease, history of mitral valve replacement with mechanical valve, mechanical aortic valve replacement on Coumadin presented to the ED on 05/22/2019 with complains of missing her dialysis as she was not feeling well. Complained of nonproductive cough, patient was also hypotensive and was adamant that she will not a large central line t
[2019-05-23] MEDS: ALBUTEROL SULFATE (*SP) AEROSOL 1 PUFF 4 PUFF INHALATION (11:15)
[2019-05-23] MEDS: SODIUM BICARBONATE 8.4% 50 MEQ/50 ML VIAL 100 MEQ IV PUSH (11:16)
[2019-05-23] MEDS: INSULIN HUMAN REGULAR (*BKC) 100 UNITS/ML 10 UNITS IV PUSH (11:16)
[2019-05-23] MEDS: DEXTROSE 50% 25 GM/50 ML SYRINGE IV PUSH (11:17)
[2019-05-23] MEDS: SODIUM POLYSTYRENE SULFONONATE 15 GM/60 ML BTL 60 GM PO (11:17)
--- NOTE | 2019-05-23 12:22 | PM.CNNEP ---
Assessment and Plan Assessment and plan (1) ESRD (end stage renal disease) on dialysis: Code(s): N18.6 - End stage renal disease; Z99.2 - Dependence on renal dialysis Status: Chronic Assessment and Plan: Leonarda has end-stage renal disease. She did not go to dialysis yesterday. Today her potassium is high and we will correct that. She does not have volume overload. Nurses were up all night doing COVID-19 dialysis patients and so we are short staffed today. So I told her we would probably dialyze her tomorrow unless she became more short of breath tonight. We can always do her on emergency basis if needed. In addition her blood pressure is low and so fluid removal would be difficult. The patient is comfortable with that. (2) Hyperkalemia: Code(s): E87.5 - Hyperkalemia Status: Acute Assessment and Plan: The patient's potassium was 6.5. We repeated this and it was the same so we are giving her Kayexalate. (3) Suspected 2019 novel coronavirus infection: Code(s): R68.89 - Other general symptoms and signs Status: Acute Assessment and Plan: The patient had a roommate with COVID-19. This is being tested. (4) Anemia: Qualifiers: Anemia type: unspecified type Qualified Code(s): D64.9 - Anemia, unspecified Code(s): D64.9 - Anemia, unspecified Status: Acute Assessment and Plan: Her hemoglobin is low at 7.4. I will give her a dose of Epogen today. And we will give her more with dialysis. I will also check iron levels and reticulocyte count. She has a low platelet count so could have some sort of bone marrow issue. (5) Thrombocytopenia: Code(s): D69.6 - Thrombocytopenia, unspecified Status: Acute Assessment and Plan: Unclear reason for her thrombocytopenia. ?related to infection? (6) Renal osteodystrophy: Code(s): N25.0 - Renal osteodystrophy Status: Acute Assessment and Plan: Check a renal panel in the morning. History of Present Illness Reason for Consult Consult date: 05/23/19 Chief Complaint Chief complaint: Intermittent fevers History of Present Illness Narrative: Bessy is a very pleasant 59-year-old lady who has multiple medical problems including end-stage renal disease on dialysis 3 times a week, severe pulmonary hypertension, COPD, mechanical heart valves on anticoagulants, chronic back pain, coronary artery disease depression, anxiety, GERD, gout, hyperlipidemia, hypertension, sleep apnea. Yesterday the patient developed aches and pains, nausea with abdominal discomfort, and shortness of breath. She was supposed to go to dialysis yesterday however was too anxious to go so she just stayed home. Yesterday evening the patient felt worse and so came to the ER. She was evaluated in the emergency room. Her electrolytes are okay and her chest x-ray does not show volume overload. She lives in a facility and her roommate has tested positive for COVID 19 and so the patient was tested. Her blood pressures also been somewhat soft and so she was placed in the ICU for this. Her blood pressure did drop in the ICU and so she was placed on Levophed to help with this. She does have some element of chronic hypotension lately and so the Levophed is being weaned. The patient denies any shortness of breath right now. No chest pain. No belly pain. She does have some nausea. Review of Systems Constitutional: Constitutional: Reports no additional constitutional complaints Eyes: Eyes: Reports no additional eye complaints ENT: Reports system reviewed and no additional complaints, except as documented Cardiovascular: Cardiovascular: Reports no additional cardiovascular complaints Respiratory: Respiratory: Reports no additional respiratory complaints Gastrointestinal: Gastrointestinal: Reports no additional gastrointestinal complaints Genitourinary: Genitourinary: Reports no additional female genitourinary comp
[2019-05-23 15:21] LABS: Reticulocyte Hemoglobin Conten 25.7 pg (28.2-35.7); Reticulocyte Percent 2.75 % (0.7-4.3); Reticulocytes Absolute 0.06 B/L (32.2-175.7)
[2019-05-23 15:28] LABS: Potassium 5.8 mmol/L (3.4-5.0)
[2019-05-23 16:01] LABS: Iron 27 ug/dL (37-170)
[2019-05-23 16:09] LABS: Percent Iron Saturation 14 % (20-50)
[2019-05-23] MEDS: WARFARIN (*PBKC) 3 MG TABLET 6 MG PO (17:01)
[2019-05-23] MEDS: EPOETIN ALFA 10,000 UNITS/ML VIAL 10000 UNITS SUB-Q (17:01)
--- NOTE | 2019-05-23 18:10 | PM.IMPN ---
Progress Note: A&P Assessment and Plan (1) Hypotension: Qualifiers: Hypotension type: other hypotension type Qualified Code(s): I95.89 - Other hypotension Code(s): I95.9 - Hypotension, unspecified Status: Acute Assessment and Plan: Blood pressure reviewed on 05/23/2019 and low. Remains on phenylephrine. Wean phenylephrine as tolerates. Will continue to monitor. Telemetry reviewed on 05/23/2019 with sinus rhythm. (2) Pneumonia: Qualifiers: Pneumonia type: due to unspecified organism Laterality: right Lung location: lower lobe of lung Qualified Code(s): J18.9 - Pneumonia, unspecified organism Code(s): J18.9 - Pneumonia, unspecified organism Status: Acute Assessment and Plan: Chest xray with right basilar airspace consolidation may represent atelectasis and/or pneumonia. Continue IV ceftriaxone and doxycycline empirically. Continue albuterol HFA and Spiriva. Also continue Symbicort. Remains on 2 L of oxygen. (3) Suspected 2019 novel coronavirus infection: Code(s): R68.89 - Other general symptoms and signs Status: Acute Assessment and Plan: COVID-19 testing initiated through [facility] as patient had friend who recently tested positive. Continue isolation. Continue treatment of pneumonia as noted above. (4) Pleural effusion: Code(s): J90 - Pleural effusion, not elsewhere classified Status: Acute Assessment and Plan: Imaging with moderate sized right pleural effusion much larger when compared to x-rays from 04/25/2019. No thoracentesis currently with patient on long-term warfarin. Hopefully, will get some improvement once able to have hemodialysis. (5) Acute respiratory failure with hypoxia: Code(s): J96.01 - Acute respiratory failure with hypoxia Status: Acute Assessment and Plan: Result of pneumonia, effusion. On oxygen as noted. Continue treatment of acute issues as noted. (6) ESRD (end stage renal disease) on dialysis: Code(s): N18.6 - End stage renal disease; Z99.2 - Dependence on renal dialysis Status: Chronic Assessment and Plan: Nephrology consulted and appreciate input. Hemodialysis per nephrology with plan for dialysis tomorrow. (7) Hyperkalemia: Code(s): E87.5 - Hyperkalemia Status: Acute Assessment and Plan: Potassium 5.8 today. Should improve with hemodialysis. Will follow. (8) Metabolic encephalopathy: Code(s): G93.41 - Metabolic encephalopathy Status: Acute Assessment and Plan: Multifactorial. Will continue to monitor with treatment of acute issues. (9) DVT prophylaxis: Code(s): Z29.9 - Encounter for prophylactic measures, unspecified Status: Acute Assessment and Plan: On warfarin. Time Spent With Patient Time with patient: 15 - 25 minutes Subjective Date/time seen: 05/23/19 18:10 Interval history: Date of Service: 05/23/2019. Patient seen earlier this afternoon. Admitted with pleural effusion, pneumonia, suspected COVID-19 infection, metabolic encephalopathy. Known multiple medical problems. Tired today. Denies chest pain and shortness of breath. No headache. No abdominal pain. Review of Systems Constitutional: Constitutional: Reports fatigue and Denies fever(s) Cardiovascular: Cardiovascular: Denies chest pain Respiratory: Respiratory: Denies dyspnea Gastrointestinal: Gastrointestinal: Denies abdominal pain, Denies nausea and Denies vomiting Musculoskeletal: Musculoskeletal: Reports no additional musculoskeletal complaints Integumentary/Breasts: Skin/Breast: Denies rash Neurologic: Denies headache(s) Psychiatric: Comments: tired Exam Narrative: Exam Narrative: Awake but drowsy. Const: General: no acute distress HENMT: Mouth: Yes moist mucous membranes Neck: Neck: supple Lymphatic: lymphadenopathy not noted Resp: Auscultation: no wheezes and diminished lung sounds
[2019-05-23] MEDS: MIRTAZAPINE 15 MG TABLET PO (20:00)
[2019-05-23] MEDS: lamoTRIgine 100 MG TABLET 400 MG PO (20:00)
[2019-05-24] VITALS (29 sets, daily range): BP systolic 90–134; BP diastolic 45–84; PULSE 61–88; RESP 15–22; TEMP 35.9–37; O2SAT 73–100
[2019-05-24] MEDS: LEVOTHYROXINE SODIUM 125 MCG TABLET PO (05:48)
[2019-05-24 06:05] LABS: INR 4.1; Prothrombin Time 39.5 Seconds (11.1-14.7)
[2019-05-24 06:07] LABS: D Dimer 3.88 ug/mL (<0.48)
[2019-05-24 06:16] LABS: Basophils Percent Auto 0.1 % (0.2-1.2); Eosinophils Percent Auto 0.4 % (0-4.4); Hemoglobin 7.1 g/dL (12.0-15.0); Immature Granulocyte Absolute 0.06 K/mm3 (0.00-0.031); Immature Granulocyte Percent A 0.8 % (0-0.5); Lymphocytes Absolute Auto 0.57 K/mm3 (0.9-3.2); Lymphocytes Percent Auto 7.7 % (18.3-44.2); Mean Corpuscular HGB Conc 30.9 g/dl (32-36); Mean Corpuscular Hemoglobin 29.1 pg (26-34); Mean Corpuscular Volume 94.3 fl (80-100); Mean Platelet Volume 11.8 fl (7.4-10.4); Monocytes Absolute Auto 0.3 K/mm3 (0.1-0.6); Monocytes Percent Auto 4.2 % (2.6-8.5); Neutrophils Absolute Auto 6.4 K/mm3 (1.3-6.7); Neutrophils Percent Auto 86.8 % (45.5-73.1); Platelet Count Result 135 k/mm3 (150-375); Red Blood Count 2.44 M/mm3 (4.2-5.4); Red Cell Distribution Width 18.1 % (11.5-14.5); White Blood Count 7.4 K/mm3 (4.5-10.0)
[2019-05-24 06:33] LABS: Alanine Aminotransferase 6 U/L (4-35); Albumin Level 2.9 g/dL (3.5-5.1); Alkaline Phosphatase 165 U/L (38-126); Aspartate Amino Transferase 16 U/L (14-36); Bilirubin,Total 1.2 mg/dL (0.2-1.3); Blood Urea Nitrogen 51 mg/dL (7-17); CRP 26.3 mg/dL (<1.0); Calcium 7.9 mg/dL (8.4-10.2); Carbon Dioxide 24 mmol/L (22-30); Chloride 97 mmol/L (98-107); Estimated CRCL calculation 11 ml/min; Estimated Glomerular Filt Rate 9; Glucose 102 mg/dL (65-105); Lactate Dehydrogenase 734 U/L (313-618); Magnesium 1.7 mg/dL (1.6-2.3); Phosphorus 3.5 mg/dL (2.5-4.5); Potassium 4.7 mmol/L (3.4-5.0); Sodium 130 mmol/L (137-145)
[2019-05-24 06:38] LABS: Anisocytosis 1+ (NORMAL); Platelet Estimate Adequate (Adequate)
[2019-05-24 07:28] LABS: Hepatitis B Surface Antigen Negative (Negative)
[2019-05-24 07:46] LABS: Hepatitis B Surface Anti Res Negative
[2019-05-24 08:55] LABS: Ferritin > 2000.00 ng/mL (11.1-264)
[2019-05-24] MEDS: ALBUTEROL SULFATE (*SP) AEROSOL 1 PUFF 6 PUFF INHALATION (10:23)
[2019-05-24] MEDS: SEVELAMER CARBONATE 800 MG TABLET PO ×2 (11:49→17:17)
[2019-05-24] MEDS: PANTOPRAZOLE 40 MG TABLET PO ×2 (11:50→17:17)
[2019-05-24] MEDS: ESCITALOPRAM OXALATE 10 MG TABLET PO (11:50)
[2019-05-24] MEDS: DULOXETINE 60 MG CAPSULE.DR PO (11:51)
[2019-05-24] MEDS: SIMVASTATIN 20 MG TABLET 40 MG PO (11:51)
[2019-05-24] MEDS: BETAMETHASONE/CLOTRIMAZOLE CR 15 GM TUBE 1 APPLIC TOPICAL ×2 (11:52→17:19)
[2019-05-24] MEDS: FLUTICASONE PROPIONATE 0.05% NA SPR 16 GM BTL (*BKC) 1 SPRAY NASAL ×2 (11:52→21:10)
--- NOTE | 2019-05-24 12:19 | PM.PNNEP ---
Progress Note: A&P Assessment and Plan (1) ESRD (end stage renal disease) on dialysis: Code(s): N18.6 - End stage renal disease; Z99.2 - Dependence on renal dialysis Status: Chronic Assessment and Plan: Leonarda has end-stage renal disease. She is going to get dialysis in a few minutes. Will take off what fluid we can. (2) Hyperkalemia: Code(s): E87.5 - Hyperkalemia Status: Acute Assessment and Plan: This is better after the Kayexalate. (3) Suspected 2019 novel coronavirus infection: Code(s): R68.89 - Other general symptoms and signs Status: Acute Assessment and Plan: The patient had a close friend in the care home with COVID-19. This is being tested. (4) Anemia: Qualifiers: Anemia type: unspecified type Qualified Code(s): D64.9 - Anemia, unspecified Code(s): D64.9 - Anemia, unspecified Status: Acute Assessment and Plan: Her hemoglobin is low at 7.4. T sat 14. Once COVID-19 is negative we can give her some iron Continue Epogen for now (5) Thrombocytopenia: Code(s): D69.6 - Thrombocytopenia, unspecified Status: Acute Assessment and Plan: Platelet count is up a little bit. (6) Renal osteodystrophy: Code(s): N25.0 - Renal osteodystrophy Status: Acute Assessment and Plan: Phosphorus is good Subjective Date/time seen: 05/24/19 12:19 Interval history: Patient is comfortable. She is lying flat in bed without shortness of breath. She has some congestion as she often does because of her lung disease. Not much swelling in the legs. Review of Systems Cardiovascular: Cardiovascular: Reports no additional cardiovascular complaints Respiratory: Respiratory: Reports no additional respiratory complaints Gastrointestinal: Gastrointestinal: Reports no additional gastrointestinal complaints Genitourinary: Genitourinary: Reports no additional female genitourinary complaints Exam Narrative: Exam Narrative: Well developed well-nourished in no acute distress Lungs mildly coarse Heart regular without rub Abdomen bowel sounds positive soft nontender Extremities no edema Skin no rash or subcu nodules Objective Data Vital Signs Vital Signs: Vital Signs - 24 hr 05/23/19 14:00 05/23/19 16:00 05/23/19 18:00 Temperature 36.6 C Pulse Rate 74 69 61 Respiratory Rate 18 18 15 Blood Pressure 69/58 L 96/58 L 89/46 L Pulse Oximetry 97 94 98 05/23/19 20:00 05/23/19 20:46 05/23/19 21:59 Temperature 35.8 C L Pulse Rate 60 59 L 59 L Respiratory Rate 13 16 13 Blood Pressure 101/78 98/45 L Pulse Oximetry 97 97 100 05/24/19 00:00 05/24/19 01:57 05/24/19 03:57 Temperature 35.9 C L 35.9 C L Pulse Rate 66 61 84 Respiratory Rate 15 15 20 Blood Pressure 119/58 L 108/49 L 127/66 Pulse Oximetry 100 99 99 05/24/19 04:00 05/24/19 06:00 05/24/19 08:00 Temperature 36.1 C L Pulse Rate 83 81 85 Respiratory Rate 16 16 Blood Pressure 133/69 134/66 Pulse Oximetry 99 97 Intake/Output Intake/Output: Intake & Output 05/21/19 05/22/19 05/23/19 05/24/19 23:59 23:59 23:59 23:59 Intake Total 300 1380 200 Output Total 0 Balance 300 1380 200 Meds/Results Medications: Active Medications Generic Name Dose Route Start Last Admin Trade Name Camelia PRN Reason Stop Dose Admin Acetaminophen 650 mg 05/22/19 22:30 Tylenol Tablet PO Q4H PRN Mild Pain (1-3) or Fever Albuterol 6 puff 05/23/19 08:00 05/24/19 10:23 Proventil Hfa INHALATION 6 puff QIDRT GORDON Administration Albuterol 4 puff 05/23/19 03:30 Proventil Hfa INHALATION QIDRT PRN Shortness Of Breath Aspirin 81 mg 05/23/19 09:00 05/24/19 11:51 Aspirin Chewable PO Not Given DAILY GORDON Budesonide/Formoterol Fumarate 2 puff 05/23/19 08:00 05/23/19 20:41 Symbicort 160-4.5 Mcg (*Sp) Inhaler INHALATION 2 puff Q12HRT GORDON Administration Clotrimazole 1 a
--- NOTE | 2019-05-24 13:17 | PM.IMPN ---
Progress Note: A&P Assessment and Plan (1) Hypotension: Qualifiers: Hypotension type: other hypotension type Qualified Code(s): I95.89 - Other hypotension Code(s): I95.9 - Hypotension, unspecified Status: Acute Assessment and Plan: Blood pressure reviewed on 05/24/2019 and still with low readings at times but stable. Remains on phenylephrine. Continue scheduled midodrine. Telemetry reviewed on 05/24/2019 with sinus rhythm. Will continue to monitor. (2) Pneumonia: Qualifiers: Laterality: right Lung location: lower lobe of lung Pneumonia type: due to unspecified organism Qualified Code(s): J18.9 - Pneumonia, unspecified organism Code(s): J18.9 - Pneumonia, unspecified organism Status: Acute Assessment and Plan: Chest xray on admission with right basilar airspace consolidation may represent atelectasis and/or pneumonia. Still with moderate-sized right pleural effusion and airspace opacities at right lung base. Continue IV ceftriaxone and doxycycline empirically. Continue albuterol HFA, Symbicort and Spiriva. Has weaned down To 1 L of oxygen. Continue to monitor closely. (3) Suspected 2019 novel coronavirus infection: Code(s): R68.89 - Other general symptoms and signs Status: Acute Assessment and Plan: COVID-19 testing initiated through [facility] as patient had friend who recently tested positive. Continue isolation. Continue treatment of pneumonia as noted above. (4) Pleural effusion: Code(s): J90 - Pleural effusion, not elsewhere classified Status: Acute Assessment and Plan: Imaging as noted above with moderate sized right pleural effusion much larger when compared to x-rays from 04/25/2019. No thoracentesis currently with patient on long-term warfarin. Hemodialysis today will hopefully help. Continue to monitor. (5) Acute respiratory failure with hypoxia: Code(s): J96.01 - Acute respiratory failure with hypoxia Status: Acute Assessment and Plan: Result of pneumonia, effusion. On 1 L oxygen as noted. Continue treatment of acute issues as noted. (6) ESRD (end stage renal disease) on dialysis: Code(s): N18.6 - End stage renal disease; Z99.2 - Dependence on renal dialysis Status: Chronic Assessment and Plan: Nephrology consulted and appreciate input. Unable to do hemodialysis yesterday due to staffing issues. Hemodialysis today. Continue to monitor. Continue hemodialysis per Nephrology. (7) Hyperkalemia: Code(s): E87.5 - Hyperkalemia Status: Acute Assessment and Plan: Improved to 4.7 today. Will continue to monitor. (8) Metabolic encephalopathy: Code(s): G93.41 - Metabolic encephalopathy Status: Acute Assessment and Plan: Multifactorial but clearly improved today. Will continue to monitor with treatment of acute issues. (9) DVT prophylaxis: Code(s): Z29.9 - Encounter for prophylactic measures, unspecified Status: Acute Assessment and Plan: On warfarin. Time Spent With Patient Time with patient: 15 - 25 minutes Subjective Date/time seen: 05/24/19 13:17 Interval history: Date of Service: 05/24/2019. Admitted with pleural effusion, pneumonia, suspected COVID-19 infection, metabolic encephalopathy. Known multiple medical problems. Feels better today. No current shortness of breath. Does have cough but feels is smoker's cough . No chest pain. No abdominal pain. Review of Systems Review of Systems: Narrative: Feeling better. Constitutional: Constitutional: Denies fever(s) ENT: Denies headache(s) Cardiovascular: Cardiovascular: Denies chest pain Respiratory: Respiratory: Denies dyspnea Gastrointestinal: Gastrointestinal: Denies abdominal pain, Denies nausea and Denies vomiting Musculoskeletal: Musculoskeletal: Reports no additional musculoskeletal complaints Integumentary/Breasts: Skin/Breast: Den
[2019-05-24] MEDS: MIDODRINE HCL 10 MG TABLET PO ×2 (14:04→17:17)
--- NOTE | 2019-05-24 14:33 | WPDINTPN ---
Progress Note: A&P Assessment and Plan (1) Hypotension: Qualifiers: Hypotension type: other hypotension type Qualified Code(s): I95.89 - Other hypotension Code(s): I95.9 - Hypotension, unspecified Status: Acute Assessment and Plan: patient presented with hypotension, received IV fluids and placed on Carlos-Synephrine via peripheral access as she refused a central line. - Patient's baseline systolic blood pressures are around 85-95 mmHg - will wean Carlos-Synephrine to off - blood cultures negative x2, patient was started on ceftriaxone and doxycycline for presumed pneumonia (2) Suspected 2019 novel coronavirus infection: Code(s): R68.89 - Other general symptoms and signs Status: Acute Assessment and Plan: patient's roommate was tested positive for covid-19, Pts SARS-COV-2 PCR was sent to [facility] and pending - continue droplet and airborne precautions - lymphocytes low, elevated D-dimer, ferritin greater than 2000, elevated LDH, elevated CRP 26.3 (3) Pleural effusion: Code(s): J90 - Pleural effusion, not elsewhere classified Status: Acute Assessment and Plan: large pleural effusion on the right side compared to 04/25/2019. - currently on Coumadin therapy with elevated INR. - dialysis with removal of fluid would help. (4) Pneumonia: Qualifiers: Laterality: right Lung location: lower lobe of lung Pneumonia type: due to unspecified organism Qualified Code(s): J18.9 - Pneumonia, unspecified organism Code(s): J18.9 - Pneumonia, unspecified organism Status: Acute Assessment and Plan: Chest x-ray shows right basilar airspace consolidation may represent atelectasis and/or pneumonia - continue ceftriaxone and doxycycline. - Continue Spiriva and albuterol inhaler. - blood cultures negative x2, sputum cultures ordered and pending (5) ESRD (end stage renal disease) on dialysis: Code(s): N18.6 - End stage renal disease; Z99.2 - Dependence on renal dialysis Status: Chronic Assessment and Plan: patient with end-stage renal disease, on dialysis - appreciate Nephrology evaluation - dialysis per Nephrology (6) Mechanical heart valve present: Code(s): Z95.2 - Presence of prosthetic heart valve Status: Chronic Assessment and Plan: patient on Coumadin with therapeutic INR, will continue Coumadin Additional Plan discussed with patient updated with her condition and plan of care. code status: Full code Critical care time spent: 32 minutes Due to a high probability of clinically significant, life threatening deterioration, the patient required my highest level of preparedness to intervene emergently and I personally spent this critical care time directly and personally managing the patient. This critical care time included obtaining a history; examining the patient; pulse oximetry; ordering and review of studies; arranging urgent treatment with development of a management plan; evaluation of patient's response to treatment; frequent reassessment; and discussions with other providers. It was exclusive of separately billable procedures and treating other patients and teaching time. Please see Assessment and Plan section and the rest of the note for further information on patient assessment and treatment Subjective Date/time seen: 05/24/19 14:33 Reason for consult: hypotension requiring Carlos-Synephrine, pleural effusion, pneumonia, SARS-COV-2 PCR swab sent to rule out COVID-19 05/24/2019: patient seen and examined. Is awake, alert, able to answer questions appropriately and follows simple commands. Patient remains on Carlos-Synephrine with adequate blood pressures. Patient complains of mild shortness of breath, on 1 L nasal cannula with good O2 sats. Patient to be dialyzed today. Patient denies any chest pain, nausea, abdominal pain Review of Systems Review of Systems: All systems r
[2019-05-24] MEDS: lamoTRIgine 100 MG TABLET 400 MG PO (21:10)
[2019-05-24] MEDS: MIRTAZAPINE 15 MG TABLET PO (21:10)
[2019-05-25 04:03] VITALS: BP 125/54; PULSE 85; RESP 23; TEMP 37.4; O2SAT 98
[2019-05-25 05:25] VITALS: O2SAT 96
[2019-05-25 06:37] LABS: Albumin Level 2.5 g/dL (3.5-5.1); Alkaline Phosphatase 142 U/L (38-126); Aspartate Amino Transferase 13 U/L (14-36); Bilirubin,Total 0.9 mg/dL (0.2-1.3); Blood Urea Nitrogen 29 mg/dL (7-17); CRP 17.2 mg/dL (<1.0); Calcium 7.3 mg/dL (8.4-10.2); Carbon Dioxide 28 mmol/L (22-30); Chloride 98 mmol/L (98-107); Estimated CRCL calculation 16 ml/min; Estimated Glomerular Filt Rate 14; Glucose 79 mg/dL (65-105); Magnesium 1.6 mg/dL (1.6-2.3); Phosphorus 2.3 mg/dL (2.5-4.5); Potassium 3.6 mmol/L (3.4-5.0); Sodium 132 mmol/L (137-145)
[2019-05-25] MEDS: LEVOTHYROXINE SODIUM 125 MCG TABLET PO (06:42)
--- NOTE | 2019-05-25 07:27 | PC.NURSE ---
This patient, Bessy Pandey, was transferred to [[id number]] on 05/25/19 at 0700. Personal belongings sent with patient. Belongings list checked and signed with receiving [ ]. Report given to [place]. Appropriate documentation sent with patient.
[2019-05-25 08:05] LABS: Alanine Aminotransferase 5 U/L (4-35)
[2019-05-25] MEDS: ALBUTEROL SULFATE (*SP) AEROSOL 1 PUFF 6 PUFF INHALATION ×2 (08:42→15:01)
[2019-05-25 08:43] VITALS: PULSE 85; O2SAT 95
[2019-05-25] MEDS: FLUTICASONE PROPIONATE 0.05% NA SPR 16 GM BTL (*BKC) 1 SPRAY NASAL (09:00)
[2019-05-25] MEDS: DULOXETINE 60 MG CAPSULE.DR PO (09:00)
[2019-05-25] MEDS: MIDODRINE HCL 10 MG TABLET PO ×2 (09:00→14:02)
[2019-05-25] MEDS: SIMVASTATIN 20 MG TABLET 40 MG PO (09:00)
[2019-05-25] MEDS: ESCITALOPRAM OXALATE 10 MG TABLET PO (09:00)
[2019-05-25] MEDS: ASPIRIN 81 MG CHEWABLE TABLET PO (09:00)
[2019-05-25] MEDS: PANTOPRAZOLE 40 MG TABLET PO (09:00)
[2019-05-25] MEDS: BETAMETHASONE/CLOTRIMAZOLE CR 15 GM TUBE 1 APPLIC TOPICAL (09:00)
--- NOTE | 2019-05-25 09:29 | PM.PNNEP ---
Progress Note: A&P Assessment and Plan (1) ESRD (end stage renal disease) on dialysis: Code(s): N18.6 - End stage renal disease; Z99.2 - Dependence on renal dialysis Status: Chronic Assessment and Plan: Leonarda has end-stage renal disease. She had dialysis yesterday and will get it again on Monday. (2) Hyperkalemia: Code(s): E87.5 - Hyperkalemia Status: Acute Assessment and Plan: Resolved (3) Suspected 2019 novel coronavirus infection: Code(s): R68.89 - Other general symptoms and signs Status: Acute Assessment and Plan: COVID-19 test is negative (4) Anemia: Qualifiers: Anemia type: unspecified type Qualified Code(s): D64.9 - Anemia, unspecified Code(s): D64.9 - Anemia, unspecified Status: Acute Assessment and Plan: Her hemoglobin is low at 7.4. She will get iron at the outpatient facility (5) Thrombocytopenia: Code(s): D69.6 - Thrombocytopenia, unspecified Status: Acute Assessment and Plan: Platelet count is up a little bit. (6) Renal osteodystrophy: Code(s): N25.0 - Renal osteodystrophy Status: Acute Assessment and Plan: Phosphorus is good Subjective Date/time seen: 05/25/19 09:29 Interval history: Patient is comfortable. Her mild baseline cough is all she has. No shortness of breath. Eager for discharge. Review of Systems Cardiovascular: Cardiovascular: Reports no additional cardiovascular complaints Respiratory: Respiratory: Reports no additional respiratory complaints Gastrointestinal: Gastrointestinal: Reports no additional gastrointestinal complaints Genitourinary: Genitourinary: Reports no additional female genitourinary complaints Exam Narrative: Exam Narrative: Well developed well-nourished in no acute distress Lungs some increased respiratory phase which is her usual. Heart regular without rub Abdomen bowel sounds positive soft nontender Extremities no edema Skin no rash Objective Data Vital Signs Vital Signs: Vital Signs - 24 hr 05/24/19 10:02 05/24/19 12:00 05/24/19 12:09 Temperature Pulse Rate 84 86 86 Respiratory Rate 17 19 Blood Pressure 123/63 117/66 Pulse Oximetry 99 97 05/24/19 13:42 05/24/19 14:00 05/24/19 14:02 Temperature Pulse Rate 71 88 84 Respiratory Rate 22 H Blood Pressure 107/57 L 111/60 111/60 Pulse Oximetry 91 05/24/19 14:35 05/24/19 14:37 05/24/19 14:45 Temperature 37.0 C Pulse Rate 73 78 82 Respiratory Rate 20 Blood Pressure 101/62 124/58 L 129/65 Pulse Oximetry 73 L 05/24/19 15:00 05/24/19 15:19 05/24/19 15:30 Temperature Pulse Rate 78 71 77 Respiratory Rate Blood Pressure 112/61 110/84 120/60 Pulse Oximetry 05/24/19 15:47 05/24/19 16:00 05/24/19 16:01 Temperature 36.5 C 36.5 C Pulse Rate 77 76 77 Respiratory Rate 17 17 Blood Pressure 110/64 112/68 112/68 Pulse Oximetry 99 99 05/24/19 16:15 05/24/19 16:33 05/24/19 16:45 Temperature Pulse Rate 65 72 68 Respiratory Rate Blood Pressure 90/52 L 121/54 L 100/54 L Pulse Oximetry 05/24/19 17:20 05/24/19 17:30 05/24/19 18:00 Temperature 36.4 C Pulse Rate 77 66 75 Respiratory Rate 20 Blood Pressure 128/62 128/45 L Pulse Oximetry 05/24/19 18:02 05/24/19 20:22 05/25/19 04:03 Temperature 36.4 C 37.4 C Pulse Rate 73 78 85 Respiratory Rate 16 20 23 H Blood Pressure 114/54 L 120/58 L 125/54 L Pulse Oximetry 100 100 98 05/25/19 05:25 05/25/19 08:43 Temperature Pulse Rate 85 Respiratory Rate Blood Pressure Pulse Oximetry 96 95 Intake/Output Intake/Output: Intake & Output 05/22/19 05/23/19 05/24/19 05/25/19 23:59 23:59 23:59 23:59 Intake Total 300 1380 845 Output Total 2470 50 Balance 300 2640 -0265 -50 Meds/Results Medications: Active Medications Generic Name Dose Route Start Last Admin Trade Name Freq PRN Reason Stop Dose Admin Acetaminoph
[2019-05-25 09:56] LABS: INR 3.7; Prothrombin Time 35.8 Seconds (11.1-14.7)
--- NOTE | 2019-05-25 10:17 | PM.IMPN ---
Progress Note: A&P Assessment and Plan (1) Hypotension: Qualifiers: Hypotension type: other hypotension type Qualified Code(s): I95.89 - Other hypotension Code(s): I95.9 - Hypotension, unspecified Status: Acute Assessment and Plan: Now resolved. Pressors stopped nearly 24 hours ago. Blood pressure reviewed on 05/25/2019 and now stable in normal range. Continue scheduled midodrine. Discussed with nephrology. With patient now stable, will discharge back to [facility] today. (2) Pneumonia: Qualifiers: Laterality: right Lung location: lower lobe of lung Pneumonia type: due to unspecified organism Qualified Code(s): J18.9 - Pneumonia, unspecified organism Code(s): J18.9 - Pneumonia, unspecified organism Status: Acute Assessment and Plan: Chest xray on admission with right basilar airspace consolidation may represent atelectasis and/or pneumonia. Imaging today with improvement in airspace disease. IV access loss this morning. Converted to oral doxycycline. IV ceftriaxone discontinued. Will continue oral doxycycline at discharge. Continue albuterol HFA, Symbicort and Spiriva. (3) Suspected 2019 novel coronavirus infection: Code(s): R68.89 - Other general symptoms and signs Status: Acute Assessment and Plan: COVID-19 testing initiated through [facility] as patient had friend who recently tested positive. COVID-19 test results now available and negative. (4) Pleural effusion: Code(s): J90 - Pleural effusion, not elsewhere classified Status: Acute Assessment and Plan: Imaging today with small right pleural effusion. Improved after hemodialysis. Can follow as outpatient. (5) Acute respiratory failure with hypoxia: Code(s): J96.01 - Acute respiratory failure with hypoxia Status: Acute Assessment and Plan: Result of pneumonia, effusion. On room air. (6) ESRD (end stage renal disease) on dialysis: Code(s): N18.6 - End stage renal disease; Z99.2 - Dependence on renal dialysis Status: Chronic Assessment and Plan: Nephrology consulted and appreciate input. Had hemodialysis yesterday. Continue usual hemodialysis schedule. (7) Hyperkalemia: Code(s): E87.5 - Hyperkalemia Status: Acute Assessment and Plan: Resolved. Potassium 3.6 today. (8) Metabolic encephalopathy: Code(s): G93.41 - Metabolic encephalopathy Status: Acute Assessment and Plan: Now resolved. Mentation back to baseline. (9) DVT prophylaxis: Code(s): Z29.9 - Encounter for prophylactic measures, unspecified Status: Acute Assessment and Plan: On warfarin chronically due to mechanical heart valves. INR was elevated at 4.1 yesterday with warfarin held. INR better at 3.7 today. Will adjust warfarin at discharge but will need to continue to follow INR at nursing facility. Time Spent With Patient Time with patient: 15 - 25 minutes Subjective Date/time seen: 05/25/19 10:17 Interval history: Date of Service: 05/25/2019. Admitted with pleural effusion, pneumonia, suspected COVID-19 infection, metabolic encephalopathy. Known multiple medical problems. Feeling better today. Does still have cough. Denies shortness of breath. No chest pain. No abdominal pain. IV access lost this morning. Review of Systems Review of Systems: Narrative: Feeling better. Constitutional: Constitutional: Denies chills and Denies fever(s) ENT: Denies dysphagia Cardiovascular: Cardiovascular: Denies chest pain Respiratory: Respiratory: Reports cough and Denies dyspnea Gastrointestinal: Gastrointestinal: Denies abdominal pain, Denies nausea and Denies vomiting Genitourinary: Genitourinary: Reports no additional female genitourinary complaints Musculoskeletal: Musculoskeletal: Reports no additional musculoskeletal complaints Integumentary/Breasts: Skin/Breas
[2019-05-25 11:21] LABS: Glucose Point of Care 65 (65-105)
[2019-05-25 11:21] LABS: Glucose Point of Care 71 (65-105)
[2019-05-25] MEDS: DOXYCYCLINE HYCLATE 100 MG TABLET PO (11:28)
[2019-05-25 14:02] VITALS: BP 121/58; PULSE 82; RESP 18; O2SAT 96
[2019-05-25] MEDS: SEVELAMER CARBONATE 800 MG TABLET PO (14:02)
--- NOTE | 2019-05-25 15:00 | PC.NURSE ---
Patient arrived on our floor @0710. Patient A&Ox3, oriented to room, call light placed within reach, bed alarm turned on.
--- NOTE | 2019-05-25 16:48 | PC.NURSE ---
1552 Report given to [facility] ambulance paramedics. Discharged and Transported by [facility] ambulance to [facility]. All belongings accounted for and sent with [facility]
--- NOTE | 2019-05-25 16:53 | PM.DS ---
DS: Diagnosis Admitting Diagnosis Admitting Diagnosis: Pneumonia, unspecified organism Discharge Diagnosis (1) Hypotension: Qualifiers: Hypotension type: other hypotension type Qualified Code(s): I95.89 - Other hypotension Code(s): I95.9 - Hypotension, unspecified Status: Acute (2) Pneumonia: Qualifiers: Laterality: right Lung location: lower lobe of lung Pneumonia type: due to unspecified organism Qualified Code(s): J18.9 - Pneumonia, unspecified organism Code(s): J18.9 - Pneumonia, unspecified organism Status: Acute (3) Suspected 2019 novel coronavirus infection: Code(s): R68.89 - Other general symptoms and signs Status: Acute (4) Pleural effusion: Code(s): J90 - Pleural effusion, not elsewhere classified Status: Acute (5) Acute respiratory failure with hypoxia: Code(s): J96.01 - Acute respiratory failure with hypoxia Status: Acute (6) ESRD (end stage renal disease) on dialysis: Code(s): N18.6 - End stage renal disease; Z99.2 - Dependence on renal dialysis Status: Chronic (7) Hyperkalemia: Code(s): E87.5 - Hyperkalemia Status: Acute (8) Metabolic encephalopathy: Code(s): G93.41 - Metabolic encephalopathy Status: Acute DS: Summary Hospital Course Reason for hospitalization: Intermittent fevers. Hospital Course: Date of Service of Discharge: May 25, 2019. History of Present Illness: Patient is a 59-year-old multiple medical problems including COPD, mechanical heart valves on long-term anticoagulation, chronic hypoxic respiratory failure and end-stage renal disease on hemodialysis who presented to the emergency room by EMS from [facility] due to intermittent fevers. Patient reports her friend was COVID-19 positive. Friend has been visiting her. Patient was sleeping upon EMS arrival to the scene and was only oriented to self and year. Patient with noted cough. No chest pressure. Patient did skip dialysis due to not feeling well the day of presentation. In the emergency room, she was noted to have hypotension with Carlos-Synephrine started peripherally in addition to IV fluids given. Patient also had decreased level of consciousness. Given her findings, she was admitted for further evaluation and treatment. Course in Hospital: Patient was initially admitted to the ICU. She did continue to receive some fluid resuscitation as well as placed on pressor agents. Patient was seen in consultation by stakeholder manager as well as set up worker. COVID testing was initiated as noted and eventually negative. She was started on IV doxycycline and ceftriaxone as findings were also consistent with possible pneumonia. Patient did have mild elevation of WBC on presentation but this had returned to normal by discharge. Patient did require minimal oxygen up to 2 L but was weaned to room air prior to discharge. She was also continued on albuterol HFA and Spiriva as well as Symbicort while in hospital. Patient was able to receive hemodialysis on 05/24/2019. She already made substantial improvement prior to that time. She did have some persistence of cough but no shortness of breath and as noted weaned room air. Potassium was elevated on admission but return to normal quickly after admission. She was also noted to have a pleural effusion of moderate size on the right on admission. This did improve after dialysis. Noted drowsiness on admission also quickly resolved after admission and correction of acute problems. With the patient stable and no need for further inpatient care, she was able to discharge back to [facility] on May 25, 2019. Status at Discharge Cognitive/behavioral status at discharge: Stable. Functional status at discharge: independent ambulation Overall status at discharge: patient is back to baseline Time Spent with Patient Time attestation: Total time spent providi
[2019-05-26 11:17] LABS: Procalcitonin 17.77 ng/mL (<0.10)
== END 2019-05-25 15:52 | DRG 193 ==
LOC: ANHED 22:48 → ANHICU 05-23 00:24 → ANH3MEDSUR 05-25 10:45 → ANHICU 05-28 10:30
PROVIDERS: Internal Medicine; Internal Medicine Nephrology; Admitting Provider Internal Medicine; Emergency Provider Emergency Medicine; PCP Family Medicine; Visit Provider Hospitalist
DX: J18.9 Pneumonia, unspecified organism (principal); N18.6 End stage renal disease; G93.41 Metabolic encephalopathy; J96.11 Chronic respiratory failure with hypoxia; I12.0 Hypertensive chronic kidney disease with stage 5 chronic kidney disease or end stage renal disease; R64 Cachexia; Z95.2 Presence of prosthetic heart valve; Z79.01 Long term (current) use of anticoagulants; Z99.2 Dependence on renal dialysis; Z20.828 Contact with and (suspected) exposure to other viral communicable diseases; D63.8 Anemia in other chronic diseases classified elsewhere; F41.8 Other specified anxiety disorders; F31.9 Bipolar disorder, unspecified; M19.90 Unspecified osteoarthritis, unspecified site; F17.210 Nicotine dependence, cigarettes, uncomplicated; Z90.49 Acquired absence of other specified parts of digestive tract; Z90.710 Acquired absence of both cervix and uterus; I48.91 Unspecified atrial fibrillation; H26.9 Unspecified cataract; M54.9 Dorsalgia, unspecified; G89.29 Other chronic pain; Z86.718 Personal history of other venous thrombosis and embolism; F50.9 Eating disorder, unspecified; Z68.24 Body mass index [BMI] 24.0-24.9, adult; J43.9 Emphysema, unspecified; T42.4X5A Adverse effect of benzodiazepines, initial encounter; T40.605A Adverse effect of unspecified narcotics, initial encounter; E87.5 Hyperkalemia; I95.9 Hypotension, unspecified; Z86.73 Personal history of transient ischemic attack (TIA), and cerebral infarction without residual deficits; Z86.14 Personal history of Methicillin resistant Staphylococcus aureus infection; I25.2 Old myocardial infarction; G47.33 Obstructive sleep apnea (adult) (pediatric); Z99.3 Dependence on wheelchair; Z91.5 Personal history of self-harm; D69.6 Thrombocytopenia, unspecified; N25.0 Renal osteodystrophy; I27.20 Pulmonary hypertension, unspecified
CPT/HCPCS: 36415; 36430; 36600; 71045; 80048; 80053; 80076; 82375; 82728; 82805; 83050; 83540; 83550; 83605; 83615; 83735; 84100; 84132; 84145; 85025; 85046; 85055; 85380; 85610; 85730; 86140; 86706; 86850; 86900; 86901; 86923; 87040; 87340; 87804; 93005; 94640; 94667; 94668; 96365; 96366; 96368; 99285; A9270; G0257; J0696; J1815; J2370; J7040; J7060; J7120; P9016; Q4081

== ENCOUNTER 2019-06-03 15:43 | Inpatient (IN) | payer MEDICARE, MEDICAID, SELFPAY ==
--- NOTE | ~2019-06-03 | XR_ITS ---
EXAMINATION: XR chest 1V portable INDICATION: Cough and low back pain TECHNIQUE: Portable AP chest at 1707 hours COMPARISON: 05/25/2019 FINDINGS: Cardiomegaly is noted. There is a small right pleural effusion without significant change. There is no pneumothorax. A left internal jugular catheter ends with its tip in the right atrium. The re are changes of cardiac valve surgery. Airspace opacities of the right lung base persists with slig ht worsening. IMPRESSION: 1. Right basilar airspace opacity with slight interval worsening, consistent with atelectasis versus pneumonia. 2. Stable cardiomegaly. 3. Small, chronic right pleural effusion. Reviewed, dictated and finalized at location A. IMPRESSION: 1. Right basilar airspace opacity with slight interval worsening, consistent wi th atelectasis versus pneumonia. 2. Stable cardiomegaly. 3. Small, chronic right pleural effusion.
[2019-06-03 15:45] VITALS: BP 153/64; PULSE 72; RESP 20; TEMP 37.3; O2SAT 97
--- NOTE | 2019-06-03 15:52 | ED.GENADULT ---
HPI - General Adult General Chief complaint: Recheck/Abnormal Lab/Rx Stated complaint: LOW INR History of Present Illness HPI narrative: Patient is a 59 y/o female sent to ED for anticoagulation by cardiology for low INR. Patient feels generally well. She denies chest pain or SOB. She has chronic cough which she attributed to COPD. She also has some generalized abdominal pain and diarrhea. Of note, patient recently tested positive for COVID. Related Data Home Medications Medication Instructions Recorded Confirmed Vraylar 3 mg PO DAILY 01/31/19 05/23/19 budesonide-formoterol [Symbicort] 2 puff INHALATION BID 01/31/19 05/23/19 clotrimazole-betamethasone 1 applic TOPICAL BID 01/31/19 05/23/19 escitalopram oxalate [Lexapro] 10 mg PO DAILY 01/31/19 05/23/19 lamotrigine 400 mg PO HS 01/31/19 05/23/19 levothyroxine 125 mcg PO DAILY 01/31/19 05/23/19 meclizine 12.5 mg PO TID PRN 01/31/19 05/23/19 omeprazole 40 mg PO DAILY 01/31/19 05/23/19 ropinirole 5 mg PO HS 01/31/19 05/23/19 sevelamer carbonate [Renvela] 800 mg PO TIDWM 01/31/19 05/23/19 simvastatin 40 mg PO DAILY 01/31/19 05/23/19 duloxetine [Cymbalta] 60 mg PO DAILY 04/26/19 05/23/19 polyethylene glycol 3350 [Miralax] 17 g PO QAM PRN 04/26/19 05/23/19 albuterol sulfate [Proventil HFA] 2 puff INHALATION QIDRT PRN 06/03/19 alprazolam 1 mg PO HS 06/03/19 06/03/19 carvedilol 6.25 Q12H 06/03/19 furosemide 80 mg PO 06/03/19 ipratropium bromide 06/03/19 nicotine 1 patch TRANSDERMAL DAILY PRN 06/03/19 oxycodone 5 mg PRN 06/03/19 Allergies Allergy/AdvReac Type Severity Reaction Status Date / Time adhesive tape Allergy Intermediate blisters Verified 05/22/19 19:27 iron Allergy Unknown Nausea And Verified 05/22/19 19:27 Vomiting Review of Systems Constitutional: Constitutional: Denies chills, Denies fever(s), Denies headache(s) and Denies weakness Eyes: Eyes: Denies blurry vision ENT: Denies headache(s) and Denies neck pain Cardiovascular: Cardiovascular: Denies chest pain and Denies dyspnea Respiratory: Respiratory: Reports cough and Denies dyspnea Gastrointestinal: Gastrointestinal: Reports abdominal pain, Reports diarrhea, Denies nausea and Denies vomiting Genitourinary: Genitourinary: Denies hematuria and Denies dysuria Musculoskeletal: Musculoskeletal: Denies back pain and Denies neck pain Neurologic: Denies headache(s) and Denies weakness [facility] Past Medical History Medical History Anemia of chronic disease With history of blood transfusion. Arthritis Atrial fibrillation Bipolar disorder Breast mass Chronic breast mass which was biopsied previously, showing acute on chronic inflammation and fat necrosis. She had a negative bone scan done at that time as well. Cataracts, bilateral Chronic anticoagulation Long-term warfarin due to presence of mechanical heart valves. Chronic back pain With history of narcotic abuse. Chronic respiratory failure with hypoxia Clostridium difficile infection COPD (chronic obstructive pulmonary disease) Coronary artery disease She does not have significant coronary artery disease. She had a cardiac catheterization approximately 8 years ago per Cardiology notes that was not significant for disease Deep vein thrombosis of left lower extremity 04/26/2019 involving left popliteal, peroneal and gastrocnemius which occurred while the patient off of Coumadin due to a large buttock/thigh hematoma resulting from a fall March 2019 Depression with anxiety Diastolic congestive heart failure DVT (deep venous thrombosis) Eating disorder Emphysema of lung End-stage renal disease on hemodialysis Endometriosis Status post hysterectomy. GERD (gastroesophageal reflux disease) Gout History of ectopic Hyperkalemia Hyperlipidemia Hypertension Hyperthyroidism Morbid obesity Prior history of obesity, reportedly weighing as much as 408 pounds previously. She now appears to hav
[2019-06-03 16:39] LABS: Basophils Percent Auto 0.4 % (0.2-1.2); Eosinophils Percent Auto 0.2 % (0-4.4); Hematocrit 28.2 % (37.0-47.0); Hemoglobin 8.4 g/dL (12.0-15.0); Immature Granulocyte Absolute 0.11 K/mm3 (0.00-0.031); Immature Granulocyte Percent A 1.9 % (0-0.5); Lymphocytes Absolute Auto 1.38 K/mm3 (0.9-3.2); Lymphocytes Percent Auto 24.3 % (18.3-44.2); Mean Corpuscular HGB Conc 29.8 g/dl (32-36); Mean Corpuscular Hemoglobin 27.6 pg (26-34); Mean Corpuscular Volume 92.8 fl (80-100); Mean Platelet Volume 11.1 fl (7.4-10.4); Monocytes Absolute Auto 0.3 K/mm3 (0.1-0.6); Monocytes Percent Auto 5.6 % (2.6-8.5); Neutrophils Absolute Auto 3.8 K/mm3 (1.3-6.7); Neutrophils Percent Auto 67.6 % (45.5-73.1); Platelet Count Result 151 k/mm3 (150-375); Red Blood Count 3.04 M/mm3 (4.2-5.4); Red Cell Distribution Width 18.9 % (11.5-14.5); White Blood Count 5.7 K/mm3 (4.5-10.0)
[2019-06-03 16:48] LABS: INR 1.2; Prothrombin Time 14.9 Seconds (11.1-14.7)
[2019-06-03 16:49] LABS: Partial Thromboplastin Time 42.6 SECONDS (22.3-36.8)
[2019-06-03 16:50] LABS: Blood Urea Nitrogen 24 mg/dL (7-17); Calcium 6.8 mg/dL (8.4-10.2); Carbon Dioxide 24 mmol/L (22-30); Chloride 102 mmol/L (98-107); Estimated Glomerular Filt Rate 12; Glucose 74 mg/dL (65-105); Potassium 4.2 mmol/L (3.4-5.0); Sodium 131 mmol/L (137-145)
[2019-06-03 16:51] LABS: Hypochromasia 1+ (NORMAL); Platelet Estimate Adequate (Adequate)
[2019-06-03 17:00] VITALS: BP 154/68; PULSE 75; RESP 20; O2SAT 100
[2019-06-03] MEDS: HEPARIN SODIUM 5,000 UNITS/ML VIAL 4000 UNITS IV PUSH (17:43)
[2019-06-03] MEDS: HEPARIN SOD/D5W 100 UNITS/ML 25,000 UNITS/250 ML BAG 9 UNITS IV CONT (17:54)
[2019-06-03 18:00] VITALS: BP 163/66; PULSE 72; RESP 20; O2SAT 95
[2019-06-03 18:47] VITALS: BP 151/71; PULSE 74; RESP 16; O2SAT 95
[2019-06-03 19:20] VITALS: BP 156/68; PULSE 74; RESP 16; TEMP 37.1; O2SAT 93; BMI 23.5
[2019-06-03 20:00] VITALS: PULSE 74
--- NOTE | 2019-06-03 21:15 | PM.IMHP ---
H&P: HPI History of Present Illness Chief complaint: Subtherapeutic INR. Narrative: Bessy Pandey is a female with multiple medical problems to include end-stage renal disease on hemodialysis, coronary artery disease, congestive heart failure, valvular heart disease status post mechanical mitral and aortic valve replacement on long-term anticoagulation with warfarin, COPD, sleep apnea, and several other comorbidities who presented to the emergency department earlier this afternoon via EMS from [facility] with chief complaint of subtherapeutic INR. The patient tells me that she tested positive for COVID-19 4 days ago, and she seems to be feeling okay with her only complaints being of a dry cough and mild fatigue. In any regard, she apparently has not been receiving her warfarin since sometime last week for reasons unclear to the patient. I asked her if she inquired why her warfarin was being held, and she tells me ?I just trust that they know what they were doing.? She is now having to be admitted for heparin drip given the presence of mechanical valves. The only complaint she has at this time is that of frustration from even having to be admitted. Of note, she was recently admitted to the hospital on May 21 with pneumonia suspected to be due to COVID-19. She was discharged on May 24 with doxycycline which she did finished. Review of Systems Review of Systems: Narrative: Twelve systems were reviewed. She denies headache. No sinus congestion, rhinorrhea, otalgia, or odynophagia. She denies anosmia and dysgeusia. No fever, chills, or sweats. She still urinates on occasion and denies dysuria. No diarrhea. Except as documented, all other systems were reviewed and are negative. [facility] Past Medical History Medical History (Updated 06/03/19 @ 23:53 by Kayli Mchugh PA-C) Anemia of chronic disease With history of blood transfusion. Arthritis Atrial fibrillation Bipolar disorder Breast mass Chronic breast mass which was biopsied previously, showing acute on chronic inflammation and fat necrosis. She had a negative bone scan done at that time as well. Cataracts, bilateral Chronic anticoagulation Long-term warfarin due to presence of mechanical heart valves. Chronic back pain With history of narcotic abuse. Chronic hyponatremia Chronic respiratory failure with hypoxia Clostridium difficile infection COPD (chronic obstructive pulmonary disease) Coronary artery disease She does not have significant coronary artery disease. She had a cardiac catheterization approximately 8 years ago per Cardiology notes that was not significant for disease Deep vein thrombosis of left lower extremity 04/26/2019 involving left popliteal, peroneal and gastrocnemius which occurred while the patient off of Coumadin due to a large buttock/thigh hematoma resulting from a fall March 2019 Depression with anxiety Diastolic congestive heart failure Eating disorder Emphysema of lung End-stage renal disease on hemodialysis Endometriosis Status post hysterectomy. GERD (gastroesophageal reflux disease) Gout History of ectopic Hyperlipidemia Hypertension Hyperthyroidism Morbid obesity Prior history of obesity, reportedly weighing as much as 408 pounds previously. She now appears to have protein calorie malnutrition. 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 Myocardial infarction Obstructive sleep apnea Osteoarthritis Both knees. Patient has refused replacement and is no essentially wheelchair-bound. PVD (peripheral vascular disease) Renal osteodystrophy Restless leg syndrome Rheumatic disease Suicidal ideation Prior hospitalization October 2017 due to suicidal ideation overdose. TIA (transient ischemic attack) Tobacco dependence UTI (urinary tract infection) Valvular heart disease Status post mechanical mitral and aortic valve replacements, on long-te
[2019-06-03 22:44] LABS: Partial Thromboplastin Time 101.2 SECONDS (22.3-36.8)
--- NOTE | 2019-06-03 23:45 | ADMGEN ---
This patient, Bessy Pandey, was admitted to [facility] Surg Room 327-01. Patient/family oriented to hospital policies and general routines including ID bracelet, bed and alarms, visiting hours, pain management, procedures, bathroom and other care routines, personal items, smoking policy, room service/diet, and visiting hours. Valuables list has been completed. Information on how to activate the Rapid Response Team has been discussed. Patient/Family are encouraged to report perceived risks to care and to ask questions if they do not understand what they are told or what they should do.
[2019-06-04] VITALS (29 sets, daily range): BP systolic 106–161; BP diastolic 42–77; PULSE 51–88; RESP 16–20; TEMP 35.5–37.6; O2SAT 90–96
[2019-06-04] MEDS: ALPRAZOLAM 0.5 MG TABLET 1 MG PO ×2 (03:03→20:28)
[2019-06-04] MEDS: WARFARIN (*PBKC) 5 MG TABLET PO ×2 (03:03→17:40)
[2019-06-04] MEDS: lamoTRIgine 100 MG TABLET 400 MG PO ×2 (03:03→23:00)
[2019-06-04] MEDS: MIRTAZAPINE 15 MG TABLET PO ×2 (03:03→23:01)
[2019-06-04] MEDS: carvediloL 6.25 MG TABLET PO ×3 (03:04→23:01)
[2019-06-04 06:06] LABS: Basophils Percent Auto 0.3 % (0.2-1.2); Eosinophils Percent Auto 0.3 % (0-4.4); Hematocrit 26.3 % (37.0-47.0); Hemoglobin 7.8 g/dL (12.0-15.0); Immature Granulocyte Absolute 0.13 K/mm3 (0.00-0.031); Immature Granulocyte Percent A 3.4 % (0-0.5); Immature Platelet Fraction Pct 2.2 % (0.9-11.2); Lymphocytes Absolute Auto 1.15 K/mm3 (0.9-3.2); Lymphocytes Percent Auto 29.9 % (18.3-44.2); Mean Corpuscular HGB Conc 29.7 g/dl (32-36); Mean Corpuscular Hemoglobin 27.6 pg (26-34); Mean Corpuscular Volume 92.9 fl (80-100); Mean Platelet Volume 10.6 fl (7.4-10.4); Monocytes Absolute Auto 0.3 K/mm3 (0.1-0.6); Monocytes Percent Auto 8.3 % (2.6-8.5); Neutrophils Absolute Auto 2.2 K/mm3 (1.3-6.7); Neutrophils Percent Auto 57.8 % (45.5-73.1); Platelet Count Result 123 k/mm3 (150-375); Red Blood Count 2.83 M/mm3 (4.2-5.4); Red Cell Distribution Width 18.9 % (11.5-14.5); White Blood Count 3.9 K/mm3 (4.5-10.0)
[2019-06-04 06:18] LABS: Blood Urea Nitrogen 27 mg/dL (7-17); Carbon Dioxide 24 mmol/L (22-30); Chloride 102 mmol/L (98-107); Estimated CRCL calculation 13 ml/min; Estimated Glomerular Filt Rate 11; Glucose 75 mg/dL (65-105); Magnesium 1.6 mg/dL (1.6-2.3); Phosphorus 3.8 mg/dL (2.5-4.5); Potassium 4.2 mmol/L (3.4-5.0); Sodium 130 mmol/L (137-145)
[2019-06-04 06:22] LABS: INR 1.2; Prothrombin Time 14.8 Seconds (11.1-14.7)
[2019-06-04 06:23] LABS: Partial Thromboplastin Time 70.7 SECONDS (22.3-36.8)
[2019-06-04 07:13] LABS: Hypochromasia 1+ (NORMAL)
--- NOTE | 2019-06-04 08:18 | PM.CNNEP ---
Assessment and Plan Assessment and plan (1) End-stage renal disease on hemodialysis: Code(s): N18.6 - End stage renal disease; Z99.2 - Dependence on renal dialysis Status: Acute Assessment and Plan: Patient has end-stage renal disease. She is due for dialysis today. Her labs look okay. Volume status looks good. Depending on staffing and the availability of dialysis machines we may need to push her off until tomorrow. I will write the orders and then discuss with the dialysis it security administrator. (2) COVID-19: Code(s): U07.1 - COVID-19 Status: Acute Assessment and Plan: Patient has no symptoms right now. She is in isolation. (3) Anemia of chronic disease: Code(s): D63.8 - Anemia in other chronic diseases classified elsewhere Status: Acute Assessment and Plan: The patient will get EPO with dialysis. (4) Mechanical heart valve present: Code(s): Z95.2 - Presence of prosthetic heart valve Status: Chronic Assessment and Plan: The patient is on Coumadin. She was subtherapeutic and so is on a heparin drip. History of Present Illness Reason for Consult Consult date: 06/04/19 Chief Complaint Chief complaint: Subtherapeutic INR. History of Present Illness Narrative: Bessy is a very pleasant 59-year-old lady who has end-stage renal disease on dialysis 3 times a week, mechanical aortic valve replacement, pulmonary hypertension, COPD, reversible airways disease, anemia of chronic kidney disease, renal osteodystrophy, chronic hypotension treated with midodrine, hypothyroidism, GERD. The patient has been feeling fine. She did have an episode of shortness of breath and anxiety which led to an admission a few days ago. At that point she was tested for COVID and it was negative. She returned to her custodial after stabilization. recently the tmd teacher assistant's tested her INR and it was below therapeutic. So they admitted her for Heparin and reestablishment of Coumadin dosage. In the meantime another COVID test was done and she is positive. The patient feels fine. She has no fevers or cough. No shortness of breath. She is due for dialysis today. Review of Systems Constitutional: Constitutional: Reports no additional constitutional complaints Eyes: Eyes: Reports no additional eye complaints ENT: Reports system reviewed and no additional complaints, except as documented Cardiovascular: Cardiovascular: Reports no additional cardiovascular complaints Respiratory: Respiratory: Reports no additional respiratory complaints Gastrointestinal: Gastrointestinal: Reports no additional gastrointestinal complaints Genitourinary: Genitourinary: Reports no additional female genitourinary complaints Musculoskeletal: Musculoskeletal: Reports no additional musculoskeletal complaints Integumentary/Breasts: Skin/Breast: Reports system reviewed and no additional complaints, except as docu Neurologic: Reports system reviewed and no additional complaints, except as documented Psychiatric: Psychiatric: Reports no additional psychiatric complaints PMFSH Past Medical History Medical History Anemia of chronic disease With history of blood transfusion. Arthritis Atrial fibrillation Bipolar disorder Breast mass Chronic breast mass which was biopsied previously, showing acute on chronic inflammation and fat necrosis. She had a negative bone scan done at that time as well. Cataracts, bilateral Chronic anticoagulation Long-term warfarin due to presence of mechanical heart valves. Chronic back pain With history of narcotic abuse. Chronic hyponatremia Chronic respiratory failure with hypoxia Clostridium difficile infection COPD (chronic obstructive pulmonary disease) Coronary artery disease She does not have significant coronary artery disease. She had a cardiac catheterization approximately 8 ye
--- NOTE | 2019-06-04 08:40 | WPDCN ---
Assessment and Plan Assessment and plan (1) Subtherapeutic international normalized ratio (INR): Code(s): R79.1 - Abnormal coagulation profile Status: Acute Assessment and Plan: [facility] was ordered to resume warfarin 4 mg daily last week but did not and patient is now subtherapeutic. With her 2 mechanical valves she is at risk of cardioembolic events and valve thrombosis. So far, fortunately, no evidence of this She did not do well with Lovenox in the past (severe hematoma rquiring several units PRBCs) so I recommended admission for heparinization. She was started back on warfarin 5 mg daily with her 1st dose at 3:00 a.m. 06/04/2019 Continue 5 mg daily. However, that may be too large a dose for discharge as she was supratherapeutic on this dose a week ago. Continue heparin. INR goal is 2.5-3.5 (2) Status post mechanical aortic valve replacement: Code(s): Z95.2 - Presence of prosthetic heart valve Status: Acute Assessment and Plan: Mechanical aortic valve replacement 2010, normal valve function by recent echo, no clinical evidence of valve thrombosis (3) History of mitral valve replacement with mechanical valve: Code(s): Z95.2 - Presence of prosthetic heart valve Status: Acute Assessment and Plan: Mechanical mitral valve replacement in 2010, normal valve function by recent echo, no clinical evidence of valve thrombosis (4) COVID-19: Code(s): U07.1 - COVID-19 Status: Acute Assessment and Plan: On isolation, not in any respiratory distress, not requiring oxygen. (5) End-stage renal disease on hemodialysis: Code(s): N18.6 - End stage renal disease; Z99.2 - Dependence on renal dialysis Status: Acute HPI Data of Consult Date/Time: 06/04/19 08:40 Requesting Physician: LATASHA Perry Primary Care Provider: Kell Del Rio MD Consult Narrative Reason for consult: Subtherapeutic INR, mechanical mitral and aortic valves. Narrative: Date of service: 06/04/2019 Bessy Pandey is a 59 year old female we were asked to see by the hospitalist for advice and opinion regarding her subtherapeutic anticoagulation in view of her mechanical aortic and mitral valves. She also has a history of end-stage renal disease on dialysis. The patient's anticoagulation status has been extremely difficult to manage. History of chronic diastolic heart failure, hypertension, hyperlipidemia and previous morbid obesity for which she has lost a lot of weight. Long-time smoker. THE PATIENT IS ALSO COVID POSITIVE. The patient has been admitted multiple times over the last year for subtherapeutic INRs, supratherapeutic INRs with bleeding, and respiratory issues, and was last discharged on May 24 after an admission for respiratory issues but with COVID negative at the time. She was discharged on warfarin 5 mg daily but her INR was subsequently supratherapeutic last week, >7, so held. On or Monday her INR was down to approximately 4.7. Knowing how quickly this patient's INR drops, we ordered [facility] to start warfarin 4 mg daily. However they did not resume warfarin and yesterday her INR was 1.4. I recommended admission for heparinization while we re-anticoagulate. Regarding her COVID positive status, she apparently was retested at the long term a few days ago and came back positive. A friend of hers there was positive. She does complain of a cough but not much shortness of breath and is not requiring oxygen. She does not feel sick. 05/17/2019 INR 3.1, taking warfarin 6 mg daily ex 5 mg MWF 05/24/2019 INR 4.7; held 05/25/2019 INR 3.8, resumed at 5 mg qd 05/27/2019 INR 7.3, held 05/28/2019 INR 8.4, held 05/29/2019 INR 6.9, held 05/30/2019 INR 4.7, ordered to resum
[2019-06-04] MEDS: LEVOTHYROXINE SODIUM 125 MCG TABLET PO (09:43)
[2019-06-04] MEDS: FUROSEMIDE 80 MG TABLET PO (09:44)
[2019-06-04] MEDS: SEVELAMER CARBONATE 800 MG TABLET PO ×3 (09:45→17:40)
[2019-06-04] MEDS: DULOXETINE 60 MG CAPSULE.DR PO (09:45)
[2019-06-04] MEDS: MIDODRINE HCL 10 MG TABLET PO ×3 (09:46→17:40)
[2019-06-04] MEDS: PANTOPRAZOLE 40 MG TABLET PO ×2 (09:46→17:40)
[2019-06-04] MEDS: SIMVASTATIN 20 MG TABLET 40 MG PO (09:47)
[2019-06-04] MEDS: BETAMETHASONE/CLOTRIMAZOLE CR 15 GM TUBE 1 APPLIC TOPICAL (11:09)
[2019-06-04] MEDS: HEPARIN SODIUM 5,000 UNITS/ML VIAL 3000 UNITS IV PUSH (14:50)
--- NOTE | 2019-06-04 15:03 | PM.IMPN ---
Progress Note: A&P Assessment and Plan (1) Subtherapeutic international normalized ratio (INR): Code(s): R79.1 - Abnormal coagulation profile Status: Acute Assessment and Plan: Patient with several comorbidities presents to ED due to subtherapeautic INR. She is on long-term anticoagulation with Coumadin for mechanical mitral and aortic valves. Management per cardiology - appreciate input. On 05/28/19 - [facility]in held at [facility] due to INR > 7; cardiology ordered to resume Coumadin 4mg daily on 05/30/19 but for unclear reasons, this was not done at the [facility]. Patient now presents with INR 1.2 on heparin drip per cardiology. (2) COVID-19: Code(s): U07.1 - COVID-19 Status: Acute Assessment and Plan: Stable from respiratory standpoint. Patient was recently admitted for PNA and suspected COVID19 but tested negative here 05/27/19. Patient was retested outpatient and found to be COVID positive 05/31/19. Continue isolation. (3) Chronic hyponatremia: Code(s): E87.1 - Hypo-osmolality and hyponatremia Status: Chronic Assessment and Plan: Sodium is chronically low based on review of previous labs. Low but stable today, will monitor. (4) End-stage renal disease on hemodialysis: Code(s): N18.6 - End stage renal disease; Z99.2 - Dependence on renal dialysis Status: Acute Assessment and Plan: Nephrology consulted for dialysis - appreciate recommendations. (5) Anemia of chronic disease: Code(s): D63.8 - Anemia in other chronic diseases classified elsewhere Status: Chronic Assessment and Plan: H&H low but near her baseline; will get EPO with dialysis. Monitor CBC. No signs or symptoms of acute bleeding. Subjective Date/time seen: 06/04/19 1430 Interval history: Ms. Pandey is a 59yo F admitted due to subtherapeutic INR on long-term anticoagulation with Coumadin for mechanical valves. She also tested positive for COVID-19 05/31/19 outpatient. She is sleepy this afternoon on my encounter but wakes to answer questions. She offers no complaints today. Denies chest pain or shortness of breath. She denies abdominal pain, nausea, or vomiting. Review of Systems Review of Systems: Narrative: Twelve systems were reviewed with pertinent positives and negatives as per HPI. Exam Narrative: Exam Narrative: General: Female resting comfortably in bed in no acute distress, appears older than stated age. HEENT: Normocephalic, EOMI, oral mucosa tacky, ill-fitting dentures. Cardiovascular: Rate and rhythm are regular. Respiratory: Expiratory rhonchi, normal effort with respirations even and nonlabored, tolerating room air. Abdomen: Soft, non-tender, non-distended, bowel sounds present. Extremities: Peripheral pulses intact. Trace PASCUAL lower extremity edema, no pain to palpation. Neuro: No focal neurological deficits. Speech is clear. Objective Data Vital Signs Vital Signs: Last Vital Signs Temp 98.1 F 06/04/19 06:00 Pulse 54 L 06/04/19 12:00 Resp 20 06/04/19 06:00 BP 134/56 L 06/04/19 06:00 Pulse Ox 90 06/04/19 06:00 Intake/Output Intake/Output: Intake & Output 06/01/19 06/02/19 06/03/19 06/04/19 23:59 23:59 23:59 23:59 Intake Total 580 Output Total 150 Balance 430 Meds/Results Medications: Active Medications Generic Name Dose Route Start Last Admin Trade Name Freq PRN Reason Stop Dose Admin Albuterol 2 puff 06/03/19 23:58 Proventil Hfa INHALATION QIDRT PRN Shortness Of Breath Alprazolam 1 mg 06/04/19 21:00 Xanax PO HS GORDON Budesonide/Formoterol Fumarate 2 puff 06/04/19 08:00 Symbicort 160-4.5 Mcg (*Sp) Inhaler INHALATION Q12HRT [facility] Carvedilol 6.25 mg 06/03/19 23:45 06/04/19 09:46 Coreg PO 6.25 mg Q12HR GORDON
[2019-06-04 21:29] LABS: Partial Thromboplastin Time 196.6 SECONDS (22.3-36.8)
[2019-06-04] MEDS: HEPARIN SOD/D5W 100 UNITS/ML 25,000 UNITS/250 ML BAG 8 UNITS IV CONT (21:52)
[2019-06-04] MEDS: HEPARIN SODIUM 1,000 UNITS/ML VIAL 6000 UNITS (23:15)
[2019-06-05] VITALS (19 sets, daily range): BP systolic 125–158; BP diastolic 55–77; PULSE 57–92; RESP 16–20; TEMP 36.5–37.1; O2SAT 85–100
[2019-06-05] MEDS: LEVOTHYROXINE SODIUM 125 MCG TABLET PO (06:00)
[2019-06-05 06:59] LABS: Basophils Percent Auto 0.5 % (0.2-1.2); Eosinophils Percent Auto 0.5 % (0-4.4); Hematocrit 28.4 % (37.0-47.0); Hemoglobin 8.3 g/dL (12.0-15.0); Immature Granulocyte Absolute 0.09 K/mm3 (0.00-0.031); Immature Granulocyte Percent A 2.3 % (0-0.5); Immature Platelet Fraction Pct 3.1 % (0.9-11.2); Lymphocytes Absolute Auto 0.91 K/mm3 (0.9-3.2); Lymphocytes Percent Auto 23.3 % (18.3-44.2); Mean Corpuscular HGB Conc 29.2 g/dl (32-36); Mean Corpuscular Hemoglobin 27.6 pg (26-34); Mean Corpuscular Volume 94.4 fl (80-100); Mean Platelet Volume 11.3 fl (7.4-10.4); Monocytes Absolute Auto 0.3 K/mm3 (0.1-0.6); Monocytes Percent Auto 7.2 % (2.6-8.5); Neutrophils Absolute Auto 2.6 K/mm3 (1.3-6.7); Neutrophils Percent Auto 66.2 % (45.5-73.1); Platelet Count Result 127 k/mm3 (150-375); Red Blood Count 3.01 M/mm3 (4.2-5.4); Red Cell Distribution Width 18.7 % (11.5-14.5); White Blood Count 3.9 K/mm3 (4.5-10.0)
[2019-06-05 07:09] LABS: INR 1.3; Prothrombin Time 15.7 Seconds (11.1-14.7)
[2019-06-05 07:11] LABS: Partial Thromboplastin Time 62.6 SECONDS (22.3-36.8)
[2019-06-05 07:13] LABS: Albumin Level 2.7 g/dL (3.5-5.1); Blood Urea Nitrogen 15 mg/dL (7-17); Calcium 7.3 mg/dL (8.4-10.2); Carbon Dioxide 29 mmol/L (22-30); Chloride 99 mmol/L (98-107); Estimated CRCL calculation 20 ml/min; Estimated Glomerular Filt Rate 18; Glucose 75 mg/dL (65-105); Phosphorus 3.3 mg/dL (2.5-4.5); Potassium 3.9 mmol/L (3.4-5.0); Sodium 132 mmol/L (137-145)
[2019-06-05] MEDS: HEPARIN SODIUM 5,000 UNITS/ML VIAL 4000 UNITS IV PUSH ×2 (07:34→22:53)
[2019-06-05] MEDS: SEVELAMER CARBONATE 800 MG TABLET PO ×3 (07:37→17:52)
[2019-06-05] MEDS: polyethylene glycoL 3350 17 GM POWD.PACK PO (07:37)
[2019-06-05] MEDS: DULOXETINE 60 MG CAPSULE.DR PO (07:38)
[2019-06-05] MEDS: MIDODRINE HCL 10 MG TABLET PO ×3 (07:38→17:52)
[2019-06-05] MEDS: carvediloL 6.25 MG TABLET PO ×2 (07:38→19:59)
[2019-06-05] MEDS: PANTOPRAZOLE 40 MG TABLET PO ×2 (07:39→17:52)
[2019-06-05] MEDS: SIMVASTATIN 20 MG TABLET 40 MG PO (07:40)
[2019-06-05] MEDS: FUROSEMIDE 80 MG TABLET PO (07:40)
--- NOTE | 2019-06-05 09:24 | PM.PNCARD ---
Progress Note: A&P Assessment and Plan (1) Subtherapeutic international normalized ratio (INR): Code(s): R79.1 - Abnormal coagulation profile Status: Acute Assessment and Plan: 05/17/2019 INR 3.1, taking warfarin 6 mg daily except 5 mg MWF 05/24/2019 INR 4.7; held 05/25/2019 INR 3.8, resumed at 5 mg qd 05/27/2019 INR 7.3, held 05/28/2019 INR 8.4, held 05/29/2019 INR 6.9, held 05/30/2019 INR 4.7, ordered to resume warfarin at 4 mg daily but not done. 06/03/2019 INR 1.2, resumed warfarin 5 mg qd + heparin 06/04/2019 INR 1.2 06/05/2019 INR 1.3 Cont same. (2) History of mitral valve replacement with mechanical valve: Code(s): Z95.2 - Presence of prosthetic heart valve Status: Acute Assessment and Plan: INR goal 2.5-3.5 (3) Status post mechanical aortic valve replacement: Code(s): Z95.2 - Presence of prosthetic heart valve Status: Acute Assessment and Plan: INR goal 2.5-3.5. (4) COVID-19 virus infection: Code(s): U07.1 - COVID-19 Status: Acute Assessment and Plan: Does not appear in distress, oxygenating OK. (5) End-stage renal disease on hemodialysis: Code(s): N18.6 - End stage renal disease; Z99.2 - Dependence on renal dialysis Status: Acute Assessment and Plan: Management per DR. Johnson. (6) Hypertension: Code(s): I10 - Essential (primary) hypertension Status: Acute Assessment and Plan: Will monitor. (7) Muscular deconditioning: Code(s): R29.898 - Other symptoms and signs involving the musculoskeletal system Status: Acute Assessment and Plan: Encouraged pt to dangle, and move around. Subjective Date/time seen: 06/05/19 09:24 Interval history: Bessy Pandey is a 59 year old female seen for FU of her subtherapeutic anticoagulation in view of her mechanical aortic and mitral valves. She also has a history of end-stage renal disease on dialysis. The patient's anticoagulation status has been extremely difficult to manage. She is also COVID positive. Date of service: 06/05/2019 Pt doing well, on O2 now for O2 sats in low 90's bur denies SOB. Still w/ cough, no fever. No bleeding. REmains on heparin gtt and warfarin 5 mg qd. Says she is not allowed to bear weight on her feet -- because of swelling??? She is hoarse today. Review of Systems Constitutional: Constitutional: Denies chills, Reports fatigue, Reports lethargy and Reports weakness ENT: Denies epistaxis Cardiovascular: Cardiovascular: Denies chest pain and Denies pedal edema Respiratory: Respiratory: Reports cough, Denies dyspnea and Denies dyspnea on exertion Gastrointestinal: Gastrointestinal: Denies abdominal pain Comments: Poor appetite Genitourinary: Genitourinary: Denies hematuria Musculoskeletal: Musculoskeletal: Denies back pain Integumentary/Breasts: Skin/Breast: Denies rash Neurologic: Reports Abnormal speech present (hoarse today) Psychiatric: Psychiatric: Denies behavioral changes Exam Const: General: comfortable and no acute distress HENMT: General nose exam: no epistaxis Eyes: EOM: EOMs intact bilaterally Resp: Effort & Inspection: normal respiratory effort Cardio: Rhythm: regular rhythm GI: Inspection: non-distended Skin: General skin exam: No normal color (Old ecchymosis noted arms) Neuro: Cognition (Neuro): normal cognition (though in-depth cognition impaired) Extrem: General: pedal edema (trace) bilaterally Psych: Mental Status: mental status grossly normal Affect: normal affect Objective Data Vital Signs Vital Signs: Vital Signs - 24 hr 06/04/19 09:46 06/04/19 12:00 06/04/19 14:00 Temperature 98.3 F Pulse Rate 66 54 L 63 Respiratory Ra
--- NOTE | 2019-06-05 10:59 | PM.IMPN ---
Progress Note: A&P Assessment and Plan (1) Subtherapeutic international normalized ratio (INR): Code(s): R79.1 - Abnormal coagulation profile Status: Acute Assessment and Plan: Patient with several comorbidities presents to ED due to subtherapeautic INR. She is on long-term anticoagulation with Coumadin for mechanical mitral and aortic valves. Noted to have longstanding difficulty controlling this. Management per cardiology - appreciate input. On 05/28/19 - Coumadin held at [facility] due to INR > 7; cardiology ordered to resume Coumadin 4mg daily on 05/30/19 but for unclear reasons, this was not done at the [facility]. INR 1.3 today, warfarin and heparin drip per cardiology. (2) COVID-19: Code(s): U07.1 - COVID-19 Status: Acute Assessment and Plan: Stable from respiratory standpoint. Patient was recently admitted for PNA and suspected COVID19 but tested negative here 05/27/19. Patient was retested outpatient and found to be COVID positive 05/31/19. Continue isolation. (3) Chronic hyponatremia: Code(s): E87.1 - Hypo-osmolality and hyponatremia Status: Chronic Assessment and Plan: Sodium is chronically low based on review of previous labs. Low but stable today, will monitor. (4) End-stage renal disease on hemodialysis: Code(s): N18.6 - End stage renal disease; Z99.2 - Dependence on renal dialysis Status: Acute Assessment and Plan: Nephrology consulted for dialysis - appreciate recommendations. Tu//Sat schedule currently. (5) Anemia of chronic disease: Code(s): D63.8 - Anemia in other chronic diseases classified elsewhere Status: Chronic Assessment and Plan: H&H low but near her baseline. Monitor CBC. No signs or symptoms of acute bleeding. Subjective Date/time seen: 06/05/19 1030 Interval history: Ms. Pandey is a 59yo F admitted due to subtherapeutic INR on long-term anticoagulation with Coumadin for mechanical valves. She also tested positive for COVID-19 05/31/19 outpatient. She denies chest pain, feels slightly more short of breath today than yesterday. She denies abdominal pain, nausea, or vomiting. Review of Systems Review of Systems: Narrative: Twelve systems were reviewed with pertinent positives and negatives as per HPI. Exam Narrative: Exam Narrative: General: Female resting comfortably in bed in no acute distress, appears older than stated age, hoarse voice. HEENT: Normocephalic, EOMI, oral mucosa tacky, ill-fitting dentures. Cardiovascular: Rate and rhythm are regular. Respiratory: Expiratory rhonchi, normal effort with respirations even and nonlabored. Abdomen: Soft, non-tender, non-distended, bowel sounds present. Extremities: Peripheral pulses intact. Trace pedal edema PASCUAL. Neuro: No focal neurological deficits. Speech is clear. Objective Data Vital Signs Vital Signs: Last Vital Signs Temp 98.8 F 06/05/19 10:00 Pulse 76 06/05/19 10:00 Resp 20 06/05/19 10:00 BP 158/77 H 06/05/19 10:00 Pulse Ox 97 06/05/19 10:00 Intake/Output Intake/Output: Intake & Output 06/02/19 06/03/19 06/04/19 06/05/19 23:59 23:59 23:59 23:59 Intake Total 1510 600 Output Total 1025 0 Balance 485 600 Meds/Results Medications: Active Medications Generic Name Dose Route Start Last Admin Trade Name Freq PRN Reason Stop Dose Admin Albuterol 2 puff 06/03/19 23:58 Proventil Hfa INHALATION QIDRT PRN Shortness Of Breath Alprazolam 1 mg 06/04/19 21:00 06/04/19 20:28 Xanax PO 1 mg HS GORDON Administration Budesonide/Formoterol Fumarate 2 puff 06/04/19 08:00 06/05/19 08:37 Symbicort 160-4.5 Mcg (*Sp) Inhaler INHALATION 2 puff Q12HRT G[facility] Administration Carvedilol 6.25 mg 06/03/19 23:45 06/05/19 07:38 Coreg PO
[2019-06-05 14:22] LABS: Partial Thromboplastin Time 164.8 SECONDS (22.3-36.8)
--- NOTE | 2019-06-05 14:57 | PM.PNNEP ---
Progress Note: A&P Assessment and Plan (1) End-stage renal disease on hemodialysis: Code(s): N18.6 - End stage renal disease; Z99.2 - Dependence on renal dialysis Status: Acute Assessment and Plan: Patient has end-stage renal disease. She is due for dialysis tomorrow. (2) COVID-19: Code(s): U07.1 - COVID-19 Status: Acute Assessment and Plan: Patient has no symptoms right now. Although she always has a cough and she always is somewhat short of breath, neither of these are any worse than her baseline. She is in isolation. (3) Anemia of chronic disease: Code(s): D63.8 - Anemia in other chronic diseases classified elsewhere Status: Chronic Assessment and Plan: The patient will get EPO with dialysis. (4) Mechanical heart valve present: Code(s): Z95.2 - Presence of prosthetic heart valve Status: Chronic Assessment and Plan: The patient is on Coumadin. She was subtherapeutic and so is on a heparin drip. INR still 1.3. Subjective Date/time seen: 06/05/19 14:57 Interval history: Patient is feeling okay. No chest pain or shortness of breath. She has her usual smoker's Hack Review of Systems Cardiovascular: Cardiovascular: Reports no additional cardiovascular complaints Respiratory: Respiratory: Reports no additional respiratory complaints Gastrointestinal: Gastrointestinal: Reports no additional gastrointestinal complaints Genitourinary: Genitourinary: Reports no additional female genitourinary complaints Exam Narrative: Exam Narrative: Well developed well-nourished in no acute distress Lungs mildly coarse at bases. This is her baseline. Heart regular without rub Abdomen bowel sounds positive soft nontender Extremities no edema Skin no rash Objective Data Vital Signs Vital Signs: Vital Signs - 24 hr 06/04/19 16:00 06/04/19 17:45 06/04/19 19:53 Temperature 36.9 C 37.6 C H Pulse Rate 65 68 74 Respiratory Rate 16 18 Blood Pressure 147/67 H 156/73 H Pulse Oximetry 94 06/04/19 20:00 06/04/19 20:07 06/04/19 20:15 Temperature Pulse Rate 69 69 68 Respiratory Rate Blood Pressure 154/77 H 157/73 H Pulse Oximetry 06/04/19 20:30 06/04/19 20:45 06/04/19 21:00 Temperature Pulse Rate 68 64 63 Respiratory Rate Blood Pressure 161/71 H 148/62 H 106/47 L Pulse Oximetry 06/04/19 21:15 06/04/19 21:30 06/04/19 21:45 Temperature Pulse Rate 62 63 68 Respiratory Rate Blood Pressure 111/52 L 109/48 L 111/42 L Pulse Oximetry 06/04/19 22:00 06/04/19 22:15 06/04/19 22:30 Temperature 37.3 C Pulse Rate 51 L 53 L 51 L Respiratory Rate 18 Blood Pressure 119/49 L 123/55 L 129/56 L Pulse Oximetry 93 06/04/19 22:45 06/04/19 23:00 06/04/19 23:01 Temperature Pulse Rate 51 L 54 L 54 L Respiratory Rate Blood Pressure 134/56 L 137/60 Pulse Oximetry 06/04/19 23:07 06/04/19 23:15 06/05/19 00:00 Temperature 37.5 C Pulse Rate 55 L 56 L 57 L Respiratory Rate 16 Blood Pressure 134/56 L 130/46 L Pulse Oximetry 06/05/19 02:00 06/05/19 04:00 06/05/19 06:00 Temperature 36.5 C 37.1 C Pulse Rate 92 61 65 Respiratory Rate 20 20 Blood Pressure 130/55 L 158/56 H Pulse Oximetry 91 94 06/05/19 07:38 06/05/19 08:00 06/05/19 08:44 Temperature Pulse Rate 65 78 Respiratory Rate Blood Pressure Pulse Oximetry 98 92 06/05/19 10:00 06/05/19 12:00 06/05/19 13:49 Temperature 37.1 C Pulse Rate 76 72 Respiratory Rate 20 Blood Pressure 158/77 H Pulse Oximetry 97 100 06/05/19 14:30 06/05/19 14:45 Temperature Pulse Rate Respiratory Rate Blood Pressure Pulse Oximetry 85 L 94 Intake/Output Intake/Output: Intake & Output 06/02/19 06/03/19 06/04/19 06/05/19 23:59 23:59 23:59 23:59 Intake Total 1510 600 Output Total 1025 0 Balance 485 600 Meds/Results Medications: Active Medications Generic N
[2019-06-05] MEDS: ALBUTEROL SULFATE (*SP) INHALER 2 PUFF INHALATION ×2 (16:59→20:29)
[2019-06-05] MEDS: WARFARIN (*PBKC) 5 MG TABLET PO (17:52)
[2019-06-05] MEDS: ALPRAZOLAM 0.5 MG TABLET 1 MG PO (19:58)
[2019-06-05] MEDS: lamoTRIgine 100 MG TABLET 400 MG PO (19:58)
[2019-06-05] MEDS: MIRTAZAPINE 15 MG TABLET PO (19:59)
[2019-06-05 22:24] LABS: Partial Thromboplastin Time 54.7 SECONDS (22.3-36.8)
[2019-06-06] VITALS (22 sets, daily range): BP systolic 112–153; BP diastolic 46–74; PULSE 50–71; RESP 18–22; TEMP 36.1–37.2; O2SAT 90–100
[2019-06-06] MEDS: LEVOTHYROXINE SODIUM 125 MCG TABLET PO (06:07)
[2019-06-06] MEDS: carvediloL 6.25 MG TABLET PO ×2 (08:08→21:08)
[2019-06-06] MEDS: SEVELAMER CARBONATE 800 MG TABLET PO ×3 (08:08→17:41)
[2019-06-06] MEDS: MIDODRINE HCL 10 MG TABLET PO ×3 (08:11→17:41)
[2019-06-06] MEDS: PANTOPRAZOLE 40 MG TABLET PO ×2 (08:11→17:41)
[2019-06-06] MEDS: FUROSEMIDE 80 MG TABLET PO (08:11)
[2019-06-06] MEDS: DULOXETINE 60 MG CAPSULE.DR PO (08:11)
[2019-06-06] MEDS: polyethylene glycoL 3350 17 GM POWD.PACK PO (08:12)
[2019-06-06] MEDS: SIMVASTATIN 20 MG TABLET 40 MG PO (08:12)
[2019-06-06 08:38] LABS: INR 1.5; Prothrombin Time 17.7 Seconds (11.1-14.7)
[2019-06-06 08:40] LABS: Partial Thromboplastin Time 95.4 SECONDS (22.3-36.8)
[2019-06-06 08:44] LABS: Potassium 4.1 mmol/L (3.4-5.0)
[2019-06-06 08:55] LABS: Albumin Level 2.4 g/dL (3.5-5.1); Blood Urea Nitrogen 19 mg/dL (7-17); Calcium 7.1 mg/dL (8.4-10.2); Carbon Dioxide 30 mmol/L (22-30); Chloride 98 mmol/L (98-107); Estimated CRCL calculation 16 ml/min; Estimated Glomerular Filt Rate 14; Glucose 74 mg/dL (65-105); Phosphorus 4.3 mg/dL (2.5-4.5); Sodium 130 mmol/L (137-145)
[2019-06-06] MEDS: ALBUTEROL SULFATE (*SP) INHALER 2 PUFF INHALATION ×4 (09:01→21:08)
[2019-06-06] MEDS: HEPARIN SOD/D5W 100 UNITS/ML 25,000 UNITS/250 ML BAG 10 UNITS IV CONT ×2 (10:54→18:09)
--- NOTE | 2019-06-06 11:54 | PM.IMPN ---
Progress Note: A&P Assessment and Plan (1) Subtherapeutic international normalized ratio (INR): Code(s): R79.1 - Abnormal coagulation profile Status: Acute Assessment and Plan: Patient with several comorbidities presents to ED due to subtherapeautic INR. She is on long-term anticoagulation with Coumadin for mechanical mitral and aortic valves. Noted to have longstanding difficulty controlling this. Management per cardiology - appreciate input. On 05/28/19 - Coumadin held at [facility] due to INR > 7; cardiology ordered to resume Coumadin 4mg daily on 05/30/19 but for unclear reasons, this was not done at the [facility]. INR 1.5 today, warfarin and heparin drip per cardiology. Trouble drawing labs this AM, hard stick. (2) COVID-19: Code(s): U07.1 - COVID-19 Status: Acute Assessment and Plan: Stable from respiratory standpoint. Patient was recently admitted for PNA and suspected COVID19 but tested negative here 05/27/19. Patient was retested outpatient and found to be COVID positive 05/31/19. Continue isolation. (3) Chronic hyponatremia: Code(s): E87.1 - Hypo-osmolality and hyponatremia Status: Chronic Assessment and Plan: Sodium is chronically low based on review of previous labs. Low but stable today, will monitor. (4) End-stage renal disease on hemodialysis: Code(s): N18.6 - End stage renal disease; Z99.2 - Dependence on renal dialysis Status: Acute Assessment and Plan: Nephrology consulted for dialysis - appreciate recommendations. Mon//Mon schedule currently. (5) Anemia of chronic disease: Code(s): D63.8 - Anemia in other chronic diseases classified elsewhere Status: Chronic Assessment and Plan: H&H low but stable, near her baseline. Monitor CBC. No signs or symptoms of acute bleeding. Subjective Date/time seen: 06/06/19 1115 Interval history: Ms. Pandey is a 59yo F admitted due to subtherapeutic INR on long-term anticoagulation with Coumadin for mechanical valves. She also tested positive for COVID-19 05/31/19 outpatient. She denies chest pain. She tells me her breathing and cough feel improved from yesterday. She denies abdominal pain, nausea, or vomiting. Review of Systems Review of Systems: Narrative: Twelve systems were reviewed with pertinent positives and negatives as per HPI. Exam Narrative: Exam Narrative: General: Female resting comfortably in bed in no acute distress, appears older than stated age, hoarse voice. HEENT: Normocephalic, EOMI, oral mucosa tacky. Cardiovascular: Rate and rhythm are regular. Respiratory: Expiratory rhonchi, normal effort with respirations even and nonlabored. Abdomen: Soft, non-tender, non-distended, bowel sounds present. Extremities: Peripheral pulses intact. No edema appreciated today. Neuro: No focal neurological deficits. Speech is clear. Objective Data Vital Signs Vital Signs: Last Vital Signs Temp 97.3 F L 06/06/19 10:00 Pulse 60 06/06/19 10:00 Resp 18 06/06/19 10:00 BP 139/65 06/06/19 10:00 Pulse Ox 90 06/06/19 10:00 Intake/Output Intake/Output: Intake & Output 06/03/19 06/04/19 06/05/19 06/06/19 23:59 23:59 23:59 23:59 Intake Total 1510 1220 590 Output Total 1025 50 0 Balance 485 1170 590 Meds/Results Medications: Active Medications Generic Name Dose Route Start Last Admin Trade Name Freq PRN Reason Stop Dose Admin Albuterol 2 puff 06/05/19 16:00 06/06/19 09:01 Proventil Hfa INHALATION 2 puff QIDRT [facility] Administration Alprazolam 1 mg 06/05/19 11:57 06/05/19 19:58 Xanax PO 1 mg BID PRN Administration Anxiety Budesonide/Formoterol Fumarate 2 puff 06/04/19 08:00 06/06/19 09:01 Symbicort 160-4.5 Mcg (*Sp) Inhaler INHALATION 2 puff Q12HRT [facility]
--- NOTE | 2019-06-06 12:05 | PM.PNNEP ---
Progress Note: A&P Assessment and Plan (1) End-stage renal disease on hemodialysis: Code(s): N18.6 - End stage renal disease; Z99.2 - Dependence on renal dialysis Status: Acute Assessment and Plan: Patient has end-stage renal disease. She is due for dialysis today. Will get a in her room later on. (2) COVID-19: Code(s): U07.1 - COVID-19 Status: Acute Assessment and Plan: Patient has no symptoms right now. (3) Anemia of chronic disease: Code(s): D63.8 - Anemia in other chronic diseases classified elsewhere Status: Chronic Assessment and Plan: The patient will get EPO with dialysis. (4) Mechanical heart valve present: Code(s): Z95.2 - Presence of prosthetic heart valve Status: Chronic Assessment and Plan: The patient is on Coumadin. She was subtherapeutic and so is on a heparin drip. INR is 1.5 today. Subjective Date/time seen: 06/06/19 12:05 Interval history: Patient is feeling okay. No chest pain or shortness of breath. Still coughing a little bit. This is her usual. To get dialysis later today. Review of Systems Cardiovascular: Cardiovascular: Reports no additional cardiovascular complaints Respiratory: Respiratory: Reports no additional respiratory complaints Gastrointestinal: Gastrointestinal: Reports no additional gastrointestinal complaints Genitourinary: Genitourinary: Reports no additional female genitourinary complaints Exam Narrative: Exam Narrative: Well developed well-nourished in no acute distress Lungs mildly coarse at bases. This is her baseline. Heart regular without rub Abdomen bowel sounds positive soft nontender Extremities no edema Skin no rash or subcu nodules Objective Data Vital Signs Vital Signs: Vital Signs - 24 hr 06/05/19 13:49 06/05/19 14:00 06/05/19 14:30 Temperature 37.0 C Pulse Rate 65 Respiratory Rate 16 Blood Pressure 125/59 L Pulse Oximetry 100 100 85 L 06/05/19 14:45 06/05/19 16:00 06/05/19 18:42 Temperature 36.9 C Pulse Rate 69 72 Respiratory Rate 18 Blood Pressure 135/69 Pulse Oximetry 94 98 06/05/19 19:59 06/05/19 20:00 06/05/19 20:34 Temperature Pulse Rate 62 74 68 Respiratory Rate 20 Blood Pressure Pulse Oximetry 98 06/05/19 22:00 06/06/19 00:00 06/06/19 02:00 Temperature 36.6 C 36.3 C L Pulse Rate 58 L 54 L 60 Respiratory Rate 20 20 Blood Pressure 139/55 L 128/46 L Pulse Oximetry 99 100 06/06/19 04:00 06/06/19 06:00 06/06/19 08:00 Temperature 37.2 C Pulse Rate 53 L 64 50 L Respiratory Rate 18 Blood Pressure 112/64 Pulse Oximetry 100 06/06/19 08:08 06/06/19 09:12 06/06/19 10:00 Temperature 36.3 C L Pulse Rate 61 60 Respiratory Rate 18 Blood Pressure 139/65 Pulse Oximetry 93 90 Intake/Output Intake/Output: Intake & Output 06/03/19 06/04/19 06/05/19 06/06/19 23:59 23:59 23:59 23:59 Intake Total 1510 1220 590 Output Total 1025 50 0 Balance 485 1170 590 Meds/Results Medications: Active Medications Generic Name Dose Route Start Last Admin Trade Name Freq PRN Reason Stop Dose Admin Albuterol 2 puff 06/05/19 16:00 06/06/19 09:01 Proventil Hfa INHALATION 2 puff QIDRT [facility] Administration Alprazolam 1 mg 06/05/19 11:57 06/05/19 19:58 Xanax PO 1 mg BID PRN Administration Anxiety Budesonide/Formoterol Fumarate 2 puff 06/04/19 08:00 06/06/19 09:01 Symbicort 160-4.5 Mcg (*Sp) Inhaler INHALATION 2 puff Q12HRT [facility] Administration Carvedilol 6.25 mg 06/03/19 23:45 06/06/19 08:08 Coreg PO 6.25 mg Q12HR [facility] Administration Clotrimazole 1 applic 06/03/19 23:58 06/04/19 11:09 Lotrisone Cream TOPICAL 1 applic BID PRN Administration Rash Duloxetine HCl 60 mg 06/04/19 09:00 06/06/19 08:11 Cymbalta PO 60 mg DAILY GORDON Administration Fluticasone Propionate 1 spray 06/03/19 23:58 Flonase 0.
[2019-06-06 15:22] LABS: Partial Thromboplastin Time 73.2 SECONDS (22.3-36.8)
--- NOTE | 2019-06-06 17:03 | PM.PNCARD ---
Progress Note: A&P Assessment and Plan (1) Subtherapeutic international normalized ratio (INR): Code(s): R79.1 - Abnormal coagulation profile Status: Acute Assessment and Plan: 05/17/2019 INR 3.1, taking warfarin 6 mg daily except 5 mg MWF 05/24/2019 INR 4.7; held 05/25/2019 INR 3.8, resumed at 5 mg qd 05/27/2019 INR 7.3, held 05/28/2019 INR 8.4, held 05/29/2019 INR 6.9, held 05/30/2019 INR 4.7, ordered to resume warfarin at 4 mg daily but not done. 06/03/2019 INR 1.2, resumed warfarin 5 mg qd + heparin 06/04/2019 INR 1.2 06/05/2019 INR 1.3 06/06/2019 INR 1.5 Cont same. (2) History of mitral valve replacement with mechanical valve: Code(s): Z95.2 - Presence of prosthetic heart valve Status: Acute Assessment and Plan: INR goal 2.5-3.5 (3) Status post mechanical aortic valve replacement: Code(s): Z95.2 - Presence of prosthetic heart valve Status: Acute Assessment and Plan: INR goal 2.5-3.5. (4) COVID-19 virus infection: Code(s): U07.1 - COVID-19 Status: Acute Assessment and Plan: Does not appear in distress, oxygenating OK. (5) End-stage renal disease on hemodialysis: Code(s): N18.6 - End stage renal disease; Z99.2 - Dependence on renal dialysis Status: Acute Assessment and Plan: Management per DR. Johnson. (6) Hypertension: Code(s): I10 - Essential (primary) hypertension Status: Acute Assessment and Plan: Will monitor. (7) Muscular deconditioning: Code(s): R29.898 - Other symptoms and signs involving the musculoskeletal system Status: Acute Assessment and Plan: Encouraged pt to dangle, exercise her arms and move around. Subjective Date/time seen: 06/06/19 17:03 Interval history: Bessy Pandey is a 59 year old female seen for FU of her subtherapeutic anticoagulation in view of her mechanical aortic and mitral valves. She also has a history of end-stage renal disease on dialysis. The patient's anticoagulation status has been extremely difficult to manage. She is also COVID positive. Date of service: 06/06/2019 Pt doing well, intermittently on O2 now for O2 sats in low 90's bur denies much SOB. Still w/ cough, no fever. No bleeding. REemains on heparin gtt and warfarin 5 mg qd. Says she is not allowed to bear weight on her feet -- because of swelling??? She is hoarse which she says happens off and on 2nd smoking.. Review of Systems Constitutional: Constitutional: Reports lethargy ENT: Denies epistaxis Cardiovascular: Cardiovascular: Denies chest pain and Denies leg edema Respiratory: Respiratory: Reports chest congestion, Reports cough and Denies dyspnea Gastrointestinal: Gastrointestinal: Denies abdominal pain (decreased appetite) and Denies hematemesis Genitourinary: Genitourinary: Denies hematuria Musculoskeletal: Musculoskeletal: Denies back pain and Reports arthralgias Integumentary/Breasts: Skin/Breast: Denies rash Neurologic: Denies confusion Psychiatric: Psychiatric: Reports no additional psychiatric complaints Exam Const: General: comfortable and no acute distress Other: Chronically ill-appearing lady in no distress HENMT: General nose exam: no epistaxis Eyes: EOM: EOMs intact bilaterally Neck: Neck: supple Resp: Effort & Inspection: normal respiratory effort Cardio: Rate: not tachycardic Rhythm: regular rhythm Other: No cyanosis GI: Inspection: non-distended Skin: Other: REsolving areas of old ecchymosis over forearms likely from phlebotomy. Neuro: Cognition (Neuro): normal cognition (though in-depth cognition impaired) Speech: normal speech and Abnormal speech present (hoarse today) Extrem: General: no pedal e
[2019-06-06] MEDS: WARFARIN (*PBKC) 5 MG TABLET PO (18:05)
[2019-06-06] MEDS: lamoTRIgine 100 MG TABLET 400 MG PO (21:08)
[2019-06-06] MEDS: MIRTAZAPINE 15 MG TABLET PO (21:08)
[2019-06-06] MEDS: ALPRAZOLAM 0.5 MG TABLET 1 MG PO (21:09)
[2019-06-07] VITALS (24 sets, daily range): BP systolic 104–164; BP diastolic 51–71; PULSE 58–78; RESP 16–22; TEMP 36.7–37.5; O2SAT 94–100
[2019-06-07] MEDS: LEVOTHYROXINE SODIUM 125 MCG TABLET PO (06:00)
[2019-06-07 07:03] LABS: Basophils Percent Auto 0.2 % (0.2-1.2); Eosinophils Percent Auto 0.2 % (0-4.4); Hematocrit 27.8 % (37.0-47.0); Hemoglobin 8.2 g/dL (12.0-15.0); Immature Granulocyte Absolute 0.07 K/mm3 (0.00-0.031); Immature Granulocyte Percent A 1.5 % (0-0.5); Immature Platelet Fraction Pct 3.5 % (0.9-11.2); Lymphocytes Absolute Auto 0.91 K/mm3 (0.9-3.2); Mean Corpuscular HGB Conc 29.5 g/dl (32-36); Mean Corpuscular Hemoglobin 27.6 pg (26-34); Mean Corpuscular Volume 93.6 fl (80-100); Mean Platelet Volume 11.3 fl (7.4-10.4); Monocytes Absolute Auto 0.3 K/mm3 (0.1-0.6); Monocytes Percent Auto 6.9 % (2.6-8.5); Neutrophils Absolute Auto 3.5 K/mm3 (1.3-6.7); Neutrophils Percent Auto 72.2 % (45.5-73.1); Platelet Count Result 124 k/mm3 (150-375); Red Blood Count 2.97 M/mm3 (4.2-5.4); Red Cell Distribution Width 18.6 % (11.5-14.5); White Blood Count 4.8 K/mm3 (4.5-10.0)
[2019-06-07 07:14] LABS: Albumin Level 2.7 g/dL (3.5-5.1); Blood Urea Nitrogen 13 mg/dL (7-17); Calcium 7.2 mg/dL (8.4-10.2); Carbon Dioxide 31 mmol/L (22-30); Chloride 97 mmol/L (98-107); Estimated CRCL calculation 22 ml/min; Estimated Glomerular Filt Rate 21; Glucose 75 mg/dL (65-105); Phosphorus 3.4 mg/dL (2.5-4.5); Potassium 4.7 mmol/L (3.4-5.0); Sodium 130 mmol/L (137-145)
[2019-06-07 07:35] LABS: INR 1.7; Prothrombin Time 19.3 Seconds (11.1-14.7)
[2019-06-07 07:36] LABS: Partial Thromboplastin Time 67.6 SECONDS (22.3-36.8)
[2019-06-07 07:39] LABS: Anisocytosis 1+ (NORMAL); Hypochromasia 1+ (NORMAL); Platelet Estimate Adequate (Adequate); Poikilocytosis 1+ (NORMAL)
[2019-06-07] MEDS: ALBUTEROL SULFATE (*SP) INHALER 2 PUFF INHALATION ×4 (08:02→19:37)
[2019-06-07] MEDS: SEVELAMER CARBONATE 800 MG TABLET PO ×3 (08:06→16:52)
[2019-06-07] MEDS: polyethylene glycoL 3350 17 GM POWD.PACK PO (08:07)
[2019-06-07] MEDS: HEPARIN SODIUM 5,000 UNITS/ML VIAL 3000 UNITS IV PUSH (08:08)
[2019-06-07] MEDS: PANTOPRAZOLE 40 MG TABLET PO ×2 (08:08→16:52)
[2019-06-07] MEDS: carvediloL 6.25 MG TABLET PO ×2 (08:09→23:16)
[2019-06-07] MEDS: MIDODRINE HCL 10 MG TABLET PO ×3 (08:09→16:52)
[2019-06-07] MEDS: FUROSEMIDE 80 MG TABLET PO (08:09)
[2019-06-07] MEDS: SIMVASTATIN 20 MG TABLET 40 MG PO (08:10)
[2019-06-07] MEDS: DULOXETINE 60 MG CAPSULE.DR PO (08:10)
--- NOTE | 2019-06-07 09:44 | PM.PNCARD ---
Progress Note: A&P Time Spent With Patient Time: Patient should be continued on IV heparin until INR of at least 2.5 is achieved. Following that she should be discharged on Coumadin at 4 mg per day. No additional cardiac recommendations. Remi Mohr MD [facility] Subjective Date/time seen: Date of service: 06/07/19 09:44 Interval history: 59-year-old female with valvular heart disease well known to Dr. Luz of our practice admitted because of subtherapeutic INR. Patient is chronically on Coumadin because of mechanical aortic and mitral valves. Management of her anticoagulation has been extremely difficult. INR is increasing on warfarin. The goal according to Dr. Luz note is to achieve an INR at least 2.5 prior to discharge. The patient's chart has been reviewed I elected not to enter her room for examination to avoid exposure to Coronavirus as patient is positive. Do not perceive any benefit to this patient by personally examining her. Objective Data Vital Signs Vital Signs: Vital Signs - 24 hr 06/06/19 10:00 06/06/19 12:00 06/06/19 13:58 Temperature 36.3 C L 36.1 C L Pulse Rate 60 53 L 62 Respiratory Rate 18 18 Blood Pressure 139/65 140/68 Pulse Oximetry 90 94 06/06/19 16:00 06/06/19 18:00 06/06/19 20:00 Temperature 36.3 C L Pulse Rate 59 L 60 61 Respiratory Rate 18 Blood Pressure 140/64 Pulse Oximetry 96 06/06/19 21:08 06/06/19 21:09 06/06/19 22:00 Temperature 36.4 C Pulse Rate 56 L 70 70 Respiratory Rate 20 Blood Pressure 132/52 L Pulse Oximetry 96 96 06/06/19 23:02 06/06/19 23:06 06/06/19 23:15 Temperature 37.1 C Pulse Rate 70 70 71 Respiratory Rate 22 H Blood Pressure 145/68 H 148/68 H 138/70 Pulse Oximetry 06/06/19 23:30 06/06/19 23:45 06/07/19 00:00 Temperature Pulse Rate 69 68 69 Respiratory Rate Blood Pressure 153/74 H 130/67 Pulse Oximetry 06/07/19 00:01 06/07/19 00:15 06/07/19 00:46 Temperature Pulse Rate 68 75 75 Respiratory Rate Blood Pressure 109/59 L 104/59 L 113/59 L Pulse Oximetry 06/07/19 01:00 06/07/19 01:15 06/07/19 01:30 Temperature Pulse Rate 72 63 65 Respiratory Rate Blood Pressure 116/60 110/51 L 113/65 Pulse Oximetry 06/07/19 01:37 06/07/19 02:00 06/07/19 04:00 Temperature 37.2 C 37.1 C Pulse Rate 65 65 78 Respiratory Rate 22 H 22 H Blood Pressure 129/61 129/61 Pulse Oximetry 97 06/07/19 06:00 06/07/19 08:03 06/07/19 08:09 Temperature 36.8 C Pulse Rate 78 73 Respiratory Rate 20 Blood Pressure 138/60 Pulse Oximetry 94 96 Intake/Output Intake/Output: Intake & Output 06/04/19 06/05/19 06/06/19 06/07/19 23:59 23:59 23:59 23:59 Intake Total 1510 1220 960 240 Output Total 1025 50 2 2670 Balance 485 1170 955 -6230 Meds/Results Medications: Active Medications Generic Name Dose Route Start Last Admin Trade Name Freq PRN Reason Stop Dose Admin Albuterol 2 puff 06/05/19 16:00 06/07/19 08:02 Proventil Hfa INHALATION 2 puff QIDRT GORDON Administration Alprazolam 1 mg 06/05/19 11:57 06/06/19 21:09 Xanax PO 1 mg BID PRN Administration Anxiety Budesonide/Formoterol Fumarate 2 puff 06/04/19 08:00 06/07/19 08:02 Symbicort 160-4.5 Mcg (*Sp) Inhaler INHALATION 2 puff Q12HRT GORDON Administration Carvedilol 6.25 mg 06/03/19 23:45 06/07/19 08:09 Coreg PO 6.25 mg Q12HR GORDON Administration Clotrimazole 1 applic 06/03/19 23:58 06/04/19 11:09 Lotrisone Cream TOPICAL 1 applic BID PRN Administration Rash Duloxetine HCl 60 mg 06/04/19 09:00 06/07/19 08:10 Cymbalta PO 60 mg DAILY GORDON Administration Epoetin Jeronimo 10,000 units 06/07/19 09:00 Epogen SUB-Q [id number]@0900 GORDON Fluticasone Propionate 1 spray 06/03/19 23:58 Flonase 0.05% Nasal [place] NASAL Q12HR PRN Nasal Congestion Furosemide 80 mg 06/04/19 09:00 06/07/19 08:09 Lasix Tablet PO 80 mg DAILY GORDON
--- NOTE | 2019-06-07 11:20 | PM.IMPN ---
Progress Note: A&P Assessment and Plan (1) Subtherapeutic international normalized ratio (INR): Code(s): R79.1 - Abnormal coagulation profile Status: Acute Assessment and Plan: Patient with several comorbidities presents to ED due to subtherapeautic INR. She is on long-term anticoagulation with Coumadin for mechanical mitral and aortic valves. Noted to have longstanding difficulty maintaining therapeautic INR. Management per cardiology. On 05/28/19 - Coumadin held at assisted due to INR > 7; cardiology ordered to resume Coumadin 4mg daily on 05/30/19 but for unclear reasons, this was not done at the assisted. INR 1.7 today, warfarin and heparin drip per cardiology. (2) COVID-19: Code(s): U07.1 - COVID-19 Status: Acute Assessment and Plan: Stable from respiratory standpoint. Patient was recently admitted for PNA and suspected COVID19 but tested negative here 05/27/19. Patient was retested outpatient and found to be COVID positive 05/31/19. Continue isolation. (3) Chronic hyponatremia: Code(s): E87.1 - Hypo-osmolality and hyponatremia Status: Chronic Assessment and Plan: Sodium is chronically low based on review of previous labs. Low but stable today, will monitor. (4) End-stage renal disease on hemodialysis: Code(s): N18.6 - End stage renal disease; Z99.2 - Dependence on renal dialysis Status: Acute Assessment and Plan: Nephrology consulted for dialysis - appreciate recommendations. Mon//Mon schedule currently. (5) Anemia of chronic disease: Code(s): D63.8 - Anemia in other chronic diseases classified elsewhere Status: Chronic Assessment and Plan: H&H low but stable, near her baseline. Monitor CBC. No signs or symptoms of acute bleeding. Subjective Date/time seen: 06/07/19 11:00 Interval history: Ms. Pandey is a 59yo F admitted due to subtherapeutic INR on long-term anticoagulation with Coumadin for mechanical valves. She also tested positive for COVID-19 05/31/19 outpatient. She tells me her breathing feels okay and her cough is improved. Not eating much, denies abdominal pain, nausea or vomiting. Decreased motivation. Review of Systems Review of Systems: Narrative: Twelve systems were reviewed with pertinent positives and negatives as per HPI. Exam Narrative: Exam Narrative: General: Female resting comfortably in bed in no acute distress, appears older than stated age, hoarse voice is improved today. HEENT: Normocephalic, EOMI, oral mucosa tacky. Cardiovascular: Rate and rhythm are regular. Respiratory: Expiratory rhonchi, normal effort with respirations even and nonlabored. Abdomen: Soft, non-tender, non-distended, bowel sounds present. Extremities: Peripheral pulses intact. No edema appreciated today. Neuro: No focal neurological deficits. Speech is clear. Objective Data Vital Signs Vital Signs: Last Vital Signs Temp 98.3 F 06/07/19 10:00 Pulse 75 06/07/19 10:00 Resp 16 06/07/19 10:00 BP 125/71 06/07/19 10:00 Pulse Ox 96 06/07/19 10:00 Intake/Output Intake/Output: Intake & Output 06/04/19 06/05/19 06/06/19 06/07/19 23:59 23:59 23:59 23:59 Intake Total 1510 1220 960 480 Output Total 1025 50 2 2670 Balance 485 1170 958 2190 Meds/Results Medications: Active Medications Generic Name Dose Route Start Last Admin Trade Name Freq PRN Reason Stop Dose Admin Albuterol 2 puff 06/05/19 16:00 06/07/19 11:13 Proventil Hfa INHALATION 2 puff QIDRT GORDON Administration Alprazolam 1 mg 06/05/19 11:57 06/06/19 21:09 Xanax PO 1 mg BID PRN Administration Anxiety Budesonide/Formoterol Fumarate 2 puff 06/04/19 08:00 06/07/19 08:02 Symbicort 160-4.5 Mcg (*Sp) Inhaler INHALATION 2 puff Q12HRT [facility] Administr
[2019-06-07] MEDS: HEPARIN SOD/D5W 100 UNITS/ML 25,000 UNITS/250 ML BAG 11 UNITS IV CONT (13:20)
--- NOTE | 2019-06-07 14:27 | PM.PNNEP ---
Progress Note: A&P Assessment and Plan (1) End-stage renal disease on hemodialysis: Code(s): N18.6 - End stage renal disease; Z99.2 - Dependence on renal dialysis Status: Acute Assessment and Plan: Patient has end-stage renal disease. She is due for dialysis tomorrow (2) COVID-19: Code(s): U07.1 - COVID-19 Status: Acute Assessment and Plan: Patient has no symptoms right now. (3) Anemia of chronic disease: Code(s): D63.8 - Anemia in other chronic diseases classified elsewhere Status: Chronic Assessment and Plan: The patient will get EPO with dialysis. (4) Mechanical heart valve present: Code(s): Z95.2 - Presence of prosthetic heart valve Status: Chronic Assessment and Plan: The patient is on Coumadin. She was subtherapeutic and so is on a heparin drip. INR is 1.7 today. Subjective Date/time seen: 06/07/19 14:27 Interval history: Patient is feeling okay. No chest pain or shortness of breath. He eats the food here. She says she is not eating well. To get dialysis later tomorrow Review of Systems Cardiovascular: Cardiovascular: Reports no additional cardiovascular complaints Respiratory: Respiratory: Reports no additional respiratory complaints Gastrointestinal: Gastrointestinal: Reports no additional gastrointestinal complaints Genitourinary: Genitourinary: Reports no additional female genitourinary complaints Exam Narrative: Exam Narrative: Well developed well-nourished in no acute distress Lungs mildly coarse at bases. Heart regular without rub Abdomen bowel sounds positive soft nontender Extremities no edema Skin no rash Objective Data Vital Signs Vital Signs: Vital Signs - 24 hr 06/06/19 16:00 06/06/19 18:00 06/06/19 20:00 Temperature 36.3 C L Pulse Rate 59 L 60 61 Respiratory Rate 18 Blood Pressure 140/64 Pulse Oximetry 96 06/06/19 21:08 06/06/19 21:09 06/06/19 22:00 Temperature 36.4 C Pulse Rate 56 L 70 70 Respiratory Rate 20 Blood Pressure 132/52 L Pulse Oximetry 96 96 06/06/19 23:02 06/06/19 23:06 06/06/19 23:15 Temperature 37.1 C Pulse Rate 70 70 71 Respiratory Rate 22 H Blood Pressure 145/68 H 148/68 H 138/70 Pulse Oximetry 06/06/19 23:30 06/06/19 23:45 06/07/19 00:00 Temperature Pulse Rate 69 68 69 Respiratory Rate Blood Pressure 153/74 H 130/67 Pulse Oximetry 06/07/19 00:01 06/07/19 00:15 06/07/19 00:46 Temperature Pulse Rate 68 75 75 Respiratory Rate Blood Pressure 109/59 L 104/59 L 113/59 L Pulse Oximetry 06/07/19 01:00 06/07/19 01:15 06/07/19 01:30 Temperature Pulse Rate 72 63 65 Respiratory Rate Blood Pressure 116/60 110/51 L 113/65 Pulse Oximetry 06/07/19 01:37 06/07/19 02:00 06/07/19 04:00 Temperature 37.2 C 37.1 C Pulse Rate 65 65 78 Respiratory Rate 22 H 22 H Blood Pressure 129/61 129/61 Pulse Oximetry 97 06/07/19 06:00 06/07/19 08:00 06/07/19 08:03 Temperature 36.8 C Pulse Rate 78 77 Respiratory Rate 20 Blood Pressure 138/60 Pulse Oximetry 94 96 06/07/19 08:05 06/07/19 08:09 06/07/19 10:00 Temperature 36.8 C Pulse Rate 73 75 Respiratory Rate 16 Blood Pressure 125/71 Pulse Oximetry 98 96 06/07/19 12:00 06/07/19 14:00 Temperature 36.7 C Pulse Rate 72 72 Respiratory Rate 16 Blood Pressure 152/69 H Pulse Oximetry 97 Intake/Output Intake/Output: Intake & Output 06/04/19 06/05/19 06/06/19 06/07/19 23:59 23:59 23:59 23:59 Intake Total 1510 1220 960 970 Output Total 1025 50 2 2670 Balance 485 3846 855 -4684 Meds/Results Medications: Active Medications Generic Name Dose Route Start Last Admin Trade Name Freq PRN Reason Stop Dose Admin Albuterol 2 puff 06/05/19 16:00 06/07/19 11:13 Proventil Hfa INHALATION 2 puff QIDRT GORDON Administration Alprazolam 1 mg 06/05/19 11:57 06/06/19 21:09 Xanax PO 1 mg
[2019-06-07 15:40] LABS: Partial Thromboplastin Time > 200.0 SECONDS (22.3-36.8)
[2019-06-07] MEDS: WARFARIN (*PBKC) 5 MG TABLET PO (16:53)
[2019-06-07] MEDS: lamoTRIgine 100 MG TABLET 400 MG PO (23:16)
[2019-06-07] MEDS: MIRTAZAPINE 15 MG TABLET PO (23:17)
[2019-06-08] VITALS (32 sets, daily range): BP systolic 90–170; BP diastolic 50–79; PULSE 50–83; RESP 18–22; TEMP 36.2–37; O2SAT 67–97
[2019-06-08 07:16] LABS: INR 2.3; Prothrombin Time 24.7 Seconds (11.1-14.7)
[2019-06-08 07:18] LABS: Partial Thromboplastin Time 90.4 SECONDS (22.3-36.8)
[2019-06-08] MEDS: LEVOTHYROXINE SODIUM 125 MCG TABLET PO (07:57)
[2019-06-08] MEDS: SEVELAMER CARBONATE 800 MG TABLET PO ×3 (08:29→20:56)
[2019-06-08 08:30] LABS: Albumin Level 2.5 g/dL (3.5-5.1); Blood Urea Nitrogen 19 mg/dL (7-17); Calcium 7.1 mg/dL (8.4-10.2); Carbon Dioxide 30 mmol/L (22-30); Chloride 96 mmol/L (98-107); Estimated CRCL calculation 16 ml/min; Estimated Glomerular Filt Rate 14; Glucose 73 mg/dL (65-105); Magnesium 1.7 mg/dL (1.6-2.3); Phosphorus 3.7 mg/dL (2.5-4.5); Potassium 3.9 mmol/L (3.4-5.0); Sodium 133 mmol/L (137-145)
[2019-06-08] MEDS: polyethylene glycoL 3350 17 GM POWD.PACK PO (08:30)
[2019-06-08] MEDS: PANTOPRAZOLE 40 MG TABLET PO ×2 (08:30→20:56)
[2019-06-08] MEDS: SIMVASTATIN 20 MG TABLET 40 MG PO (08:30)
[2019-06-08] MEDS: MIDODRINE HCL 10 MG TABLET PO ×3 (08:30→20:56)
[2019-06-08] MEDS: DULOXETINE 60 MG CAPSULE.DR PO (08:31)
[2019-06-08] MEDS: FUROSEMIDE 80 MG TABLET PO (08:31)
[2019-06-08] MEDS: carvediloL 6.25 MG TABLET PO ×2 (08:33→20:56)
[2019-06-08] MEDS: ALBUTEROL SULFATE (*SP) INHALER 2 PUFF INHALATION ×3 (09:02→19:36)
--- NOTE | 2019-06-08 10:58 | PM.IMPN ---
Progress Note: A&P Assessment and Plan (1) Subtherapeutic international normalized ratio (INR): Code(s): R79.1 - Abnormal coagulation profile Status: Acute Assessment and Plan: Patient with several comorbidities presents to ED due to subtherapeautic INR. She is on long-term anticoagulation with Coumadin for mechanical mitral and aortic valves. Noted to have longstanding difficulty maintaining therapeautic INR. Management per cardiology. On 05/28/19 - Coumadin held at [facility] due to INR > 7; cardiology ordered to resume Coumadin 4mg daily on 05/30/19 but for unclear reasons, this was not done at the [facility]. INR up to 2.3 today, warfarin and heparin drip per cardiology. (2) COVID-19: Code(s): U07.1 - COVID-19 Status: Acute Assessment and Plan: Stable from respiratory standpoint. Patient was recently admitted for PNA and suspected COVID19 but tested negative here 05/27/19. Patient was retested outpatient and found to be COVID positive 05/31/19. Continue isolation. (3) Chronic hyponatremia: Code(s): E87.1 - Hypo-osmolality and hyponatremia Status: Chronic Assessment and Plan: Sodium is chronically low based on review of previous labs. Low but stable today, will monitor. (4) End-stage renal disease on hemodialysis: Code(s): N18.6 - End stage renal disease; Z99.2 - Dependence on renal dialysis Status: Acute Assessment and Plan: Nephrology consulted for dialysis - appreciate recommendations. Tue/ur/Sat schedule currently. She'll get dialysis here today. (5) Anemia of chronic disease: Code(s): D63.8 - Anemia in other chronic diseases classified elsewhere Status: Chronic Assessment and Plan: H&H low but stable, near her baseline. Monitor CBC. No signs or symptoms of acute bleeding. Subjective Date/time seen: 06/08/19 10:30 Interval history: Ms. Pandey is a 59yo F admitted due to subtherapeutic INR on long-term anticoagulation with Coumadin for mechanical valves. She also tested positive for COVID-19 05/31/19 outpatient. She feels fine today. No shortness of breath. Not eating much, but denies abdominal pain, nausea or vomiting. Decreased motivation. Due for dialysis today. Review of Systems Review of Systems: Narrative: Twelve systems were reviewed with pertinent positives and negatives as per HPI. Exam Narrative: Exam Narrative: General: Thin female resting comfortably in bed in no acute distress, appears older than stated age, hoarse voice is improving. HEENT: Normocephalic, EOMI, oral mucosa tacky. Cardiovascular: Rate and rhythm are regular. Respiratory: Expiratory rhonchi, normal effort with respirations even and nonlabored. Tolerating room air. Abdomen: Soft, non-tender, non-distended, bowel sounds present. Extremities: Peripheral pulses intact. No edema appreciated today. Neuro: No focal neurological deficits. Speech is clear. Objective Data Vital Signs Vital Signs: Last Vital Signs Temp 97.4 F L 06/08/19 14:00 Pulse 56 L 06/08/19 14:00 Resp 18 06/08/19 14:00 BP 90/64 L 06/08/19 14:00 Pulse Ox 90 06/08/19 14:00 Intake/Output Intake/Output: Intake & Output 06/05/19 06/06/19 06/07/19 06/08/19 23:59 23:59 23:59 23:59 Intake Total 9222 505 3601 250 Output Total 50 2 2820 Balance 1170 958 -1050 250 Meds/Results Medications: Active Medications Generic Name Dose Route Start Last Admin Trade Name Freq PRN Reason Stop Dose Admin Albuterol 2 puff 06/05/19 16:00 06/08/19 09:02 Proventil Hfa INHALATION 2 puff QIDRT GORDON Administration Alprazolam 1 mg 06/05/19 11:57 04/23/20 21:09 Xanax PO 1 mg BID PRN Administration Anxiety Budesonide/Formoterol Fumarate 2 puff 06/04/19 08:00 06/08/19 09:02 Symbicort 160-4.5
--- NOTE | 2019-06-08 12:16 | PM.PNNEP ---
Progress Note: A&P Assessment and Plan (1) End-stage renal disease on hemodialysis: Code(s): N18.6 - End stage renal disease; Z99.2 - Dependence on renal dialysis Status: Acute Assessment and Plan: Patient has end-stage renal disease. She is due for dialysis today. She will get it later today. (2) COVID-19: Code(s): U07.1 - COVID-19 Status: Acute Assessment and Plan: Patient has no symptoms right now. (3) Anemia of chronic disease: Code(s): D63.8 - Anemia in other chronic diseases classified elsewhere Status: Chronic Assessment and Plan: The patient will get EPO with dialysis. (4) Mechanical heart valve present: Code(s): Z95.2 - Presence of prosthetic heart valve Status: Chronic Assessment and Plan: The patient is on Coumadin. She was subtherapeutic and so is on a heparin drip. INR is 2.3 today. Subjective Date/time seen: 06/08/19 12:16 Interval history: Patient is feeling okay. No chest pain or shortness of breath. Due for dialysis today. No bleeding Review of Systems Cardiovascular: Cardiovascular: Reports no additional cardiovascular complaints Respiratory: Respiratory: Reports no additional respiratory complaints Gastrointestinal: Gastrointestinal: Reports no additional gastrointestinal complaints Genitourinary: Genitourinary: Reports no additional female genitourinary complaints Exam Narrative: Exam Narrative: Well developed well-nourished in no acute distress Lungs mildly coarse at bases. Heart regular without rub Abdomen bowel sounds positive soft nontender Extremities no edema Skin no rash or subcu nodules Objective Data Vital Signs Vital Signs: Vital Signs - 24 hr 06/07/19 14:00 06/07/19 15:00 06/07/19 16:00 Temperature 36.7 C Pulse Rate 72 58 L Respiratory Rate 16 Blood Pressure 152/69 H Pulse Oximetry 97 97 06/07/19 18:00 06/07/19 20:00 06/07/19 22:00 Temperature 36.8 C 37.5 C Pulse Rate 59 L 60 60 Respiratory Rate 16 18 Blood Pressure 164/53 H 142/59 H Pulse Oximetry 100 98 06/07/19 23:16 06/08/19 00:00 06/08/19 02:00 Temperature 37.0 C Pulse Rate 71 75 67 Respiratory Rate 18 Blood Pressure 142/65 H Pulse Oximetry 67 L 04/25/20 04:00 06/08/19 06:00 06/08/19 08:00 Temperature 36.2 C L Pulse Rate 75 71 83 Respiratory Rate 18 18 Blood Pressure 147/73 H Pulse Oximetry 96 93 06/08/19 08:33 06/08/19 09:00 06/08/19 10:00 Temperature 36.4 C L Pulse Rate 83 56 L Respiratory Rate 18 Blood Pressure 159/70 H Pulse Oximetry 93 92 Intake/Output Intake/Output: Intake & Output 06/05/19 06/06/19 06/07/19 06/08/19 23:59 23:59 23:59 23:59 Intake Total 2959 179 4962 250 Output Total 50 2 2820 Balance 1170 958 -1050 250 Meds/Results Medications: Active Medications Generic Name Dose Route Start Last Admin Trade Name Freq PRN Reason Stop Dose Admin Albuterol 2 puff 06/05/19 16:00 06/08/19 09:02 Proventil Hfa INHALATION 2 puff QIDRT GORDON Administration Alprazolam 1 mg 06/05/19 11:57 06/06/19 21:09 Xanax PO 1 mg BID PRN Administration Anxiety Budesonide/Formoterol Fumarate 2 puff 06/04/19 08:00 06/08/19 09:02 Symbicort 160-4.5 Mcg (*Sp) Inhaler INHALATION 2 puff Q12HRT GORDON Administration Carvedilol 6.25 mg 06/03/19 23:45 06/08/19 08:33 Coreg PO 6.25 mg Q12HR GORDON Administration Clotrimazole 1 applic 06/03/19 23:58 06/04/19 11:09 Lotrisone Cream TOPICAL 1 applic BID PRN Administration Rash Duloxetine HCl 60 mg 06/04/19 09:00 06/08/19 08:31 Cymbalta PO 60 mg DAILY GORDON Administration Epoetin Jeronimo 10,000 units 06/08/19 09:00 Epogen SUB-Q [id number]@0900 [facility] Fluticasone Propionate 1 spray 06/03/19 23:58 Flonase 0.05% Nasal [place] NASAL Q12HR PRN Nasal Congestion Furosemide 80 mg 06/04/19 09:00 06/08/19 08:31 Lasfartun
[2019-06-08 12:31] LABS: Partial Thromboplastin Time > 200.0 SECONDS (22.3-36.8)
[2019-06-08] MEDS: lamoTRIgine 100 MG TABLET 400 MG PO (20:56)
[2019-06-08] MEDS: MIRTAZAPINE 15 MG TABLET PO (20:56)
[2019-06-08] MEDS: WARFARIN (*PBKC) 5 MG TABLET PO (20:56)
[2019-06-08] MEDS: HEPARIN SODIUM 5,000 UNITS/ML VIAL 3000 UNITS IV PUSH (21:20)
[2019-06-08] MEDS: HEPARIN SOD/D5W 100 UNITS/ML 25,000 UNITS/250 ML BAG 6 UNITS IV CONT (21:25)
[2019-06-08] MEDS: ALPRAZOLAM 0.5 MG TABLET 1 MG PO (22:44)
[2019-06-09] VITALS (9 sets, daily range): BP systolic 146–157; BP diastolic 60–64; PULSE 53–64; RESP 16–20; TEMP 36.5–36.7; O2SAT 91–96
[2019-06-09 04:21] LABS: Blood Urea Nitrogen 10 mg/dL (7-17); Calcium 7.4 mg/dL (8.4-10.2); Carbon Dioxide 33 mmol/L (22-30); Chloride 96 mmol/L (98-107); Estimated CRCL calculation 23 ml/min; Estimated Glomerular Filt Rate 22; Glucose 67 mg/dL (65-105); Potassium 3.5 mmol/L (3.4-5.0); Sodium 133 mmol/L (137-145)
--- NOTE | 2019-06-09 04:30 | PC.NURSE ---
Notified of critical PTT by lab. Asked to have lab redrawn. Labs redrawn. Results pending.
[2019-06-09] MEDS: LEVOTHYROXINE SODIUM 125 MCG TABLET PO (05:37)
[2019-06-09 06:50] LABS: INR 2.5; Prothrombin Time 26.3 Seconds (11.1-14.7)
[2019-06-09 07:09] LABS: Partial Thromboplastin Time > 200.0 SECONDS (22.3-36.8)
--- NOTE | 2019-06-09 09:13 | PM.PNNEP ---
Progress Note: A&P Assessment and Plan (1) End-stage renal disease on hemodialysis: Code(s): N18.6 - End stage renal disease; Z99.2 - Dependence on renal dialysis Status: Acute Assessment and Plan: Patient has end-stage renal disease. Dialysis due on Monday. (2) COVID-19: Code(s): U07.1 - COVID-19 Status: Acute Assessment and Plan: Patient has no symptoms right now. (3) Anemia of chronic disease: Code(s): D63.8 - Anemia in other chronic diseases classified elsewhere Status: Chronic Assessment and Plan: The patient will get EPO with dialysis. (4) Mechanical heart valve present: Code(s): Z95.2 - Presence of prosthetic heart valve Status: Chronic Assessment and Plan: The patient is on Coumadin. She was subtherapeutic and so is on a heparin drip. INR is 2.5 today Subjective Date/time seen: 06/09/19 09:13 Interval history: Patient is feeling okay. No chest pain or shortness of breath. had dialysis yesterday and did well. Review of Systems Cardiovascular: Cardiovascular: Reports no additional cardiovascular complaints Respiratory: Respiratory: Reports no additional respiratory complaints Gastrointestinal: Gastrointestinal: Reports no additional gastrointestinal complaints Genitourinary: Genitourinary: Reports no additional female genitourinary complaints Exam Narrative: Exam Narrative: Well developed well-nourished in no acute distress Lungs mildly coarse at bases. Heart regular without rub or gallop Abdomen bowel sounds positive soft nontender Extremities no edema Skin no rash Objective Data Vital Signs Vital Signs: Vital Signs - 24 hr 06/08/19 10:00 06/08/19 12:00 06/08/19 14:00 Temperature 36.4 C L 36.3 C L Pulse Rate 56 L 56 L 56 L Respiratory Rate 18 18 Blood Pressure 159/70 H 90/64 L Pulse Oximetry 92 90 06/08/19 15:45 06/08/19 16:00 06/08/19 16:02 Temperature 36.7 C Pulse Rate 72 59 L 68 Respiratory Rate 22 H Blood Pressure 160/68 H 170/55 H Pulse Oximetry 06/08/19 16:15 06/08/19 16:30 06/08/19 16:45 Temperature Pulse Rate 56 L 56 L 56 L Respiratory Rate Blood Pressure 157/65 H 142/60 H 160/72 H Pulse Oximetry 06/08/19 17:00 06/08/19 17:15 06/08/19 17:30 Temperature Pulse Rate 56 L 56 L 55 L Respiratory Rate Blood Pressure 157/62 H 143/70 H 150/70 H Pulse Oximetry 06/08/19 17:45 06/08/19 18:00 06/08/19 18:15 Temperature Pulse Rate 61 54 L 62 Respiratory Rate Blood Pressure 160/79 H 162/68 H 136/67 Pulse Oximetry 06/08/19 18:30 06/08/19 18:45 06/08/19 19:00 Temperature Pulse Rate 60 67 62 Respiratory Rate Blood Pressure 129/66 129/66 120/70 Pulse Oximetry 06/08/19 19:13 06/08/19 19:20 06/08/19 19:36 Temperature 36.9 C Pulse Rate 50 L 54 L Respiratory Rate 22 H Blood Pressure 132/50 L 134/57 L Pulse Oximetry 93 06/08/19 20:00 06/08/19 20:56 06/08/19 22:00 Temperature 36.4 C Pulse Rate 52 L 78 58 L Respiratory Rate 20 Blood Pressure 136/60 Pulse Oximetry 97 06/09/19 00:00 06/09/19 02:00 06/09/19 04:00 Temperature 36.5 C Pulse Rate 53 L 57 L 54 L Respiratory Rate 20 Blood Pressure 157/60 H Pulse Oximetry 91 06/09/19 06:00 06/09/19 08:42 Temperature 36.7 C Pulse Rate 64 Respiratory Rate 20 Blood Pressure 150/61 H Pulse Oximetry 96 93 Intake/Output Intake/Output: Intake & Output 06/06/19 06/07/19 06/08/19 06/09/19 23:59 23:59 23:59 23:59 Intake Total 960 1770 620 200 Output Total 2 4260 2362 0 Balance 456 -9760 -3960 200 Meds/Results Medications: Active Medications Generic Name Dose Route Start Last Admin Trade Name Freq PRN Reason Stop Dose Admin Albuterol 2 puff 06/08/19 16:10 06/08/19 19:36 Proventil Hfa INHALATION 2 puff QIDRT PRN Administration Shortness Of Breath Or Wheezing Alprazolam 1 mg 06/05/19 11:57 06/07
[2019-06-09] MEDS: SIMVASTATIN 20 MG TABLET 40 MG PO (10:12)
[2019-06-09] MEDS: SEVELAMER CARBONATE 800 MG TABLET PO (10:12)
[2019-06-09] MEDS: FUROSEMIDE 80 MG TABLET PO (10:13)
[2019-06-09] MEDS: MIDODRINE HCL 10 MG TABLET PO (10:13)
[2019-06-09] MEDS: PANTOPRAZOLE 40 MG TABLET PO (10:13)
[2019-06-09] MEDS: polyethylene glycoL 3350 17 GM POWD.PACK PO (10:13)
[2019-06-09] MEDS: carvediloL 6.25 MG TABLET PO (10:14)
[2019-06-09] MEDS: DULOXETINE 60 MG CAPSULE.DR PO (10:14)
--- NOTE | 2019-06-09 11:36 | PM.DS ---
DS: Diagnosis Admitting Diagnosis Admitting Diagnosis: Abnormal coagulation profile Discharge Diagnosis (1) Subtherapeutic international normalized ratio (INR): Code(s): R79.1 - Abnormal coagulation profile Status: Acute Assessment and Plan: Date of Service 06/09/19 - Ms. Pandey is a 59yo F with several comorbidities including ESRD on hemodialysis and long-term anticoagulation with warfarin secondary to mechanical heart valves who presented to the ED at the instruction of her patch sander due to subtherapeutic INR. Her INR was 1.2 on arrival and she was treated with daily warfarin and a heparin drip by cardiology. She is a patient of Dr Luz. INR was monitored daily and on day of discharge, INR was 2.5. She was discharged to continue 4mg warfarin daily per cardiology recommendations. She tested positive for COVID-19 as an outpatient prior to this admission and she was kept on isolations precautions here. Her respiratory status was stable at her baseline. She was maintained on her hemodialysis here as scheduled. She was hemodynamically stable for discharge 06/09/19. She is on long-term anticoagulation with Coumadin for mechanical mitral and aortic valves. Noted to have longstanding difficulty maintaining therapeautic INR. Management per cardiology. On 05/28/19 - Coumadin held at residential due to INR > 7; cardiology ordered to resume Coumadin 4mg daily on 05/30/19 but for unclear reasons, this was not done at the residential. INR up to 2.5 today. Discharge with warfarin 4mg daily. (2) COVID-19: Code(s): U07.1 - COVID-19 Status: Acute Assessment and Plan: Stable from respiratory standpoint. Patient was recently admitted for PNA and suspected COVID19 but tested negative here 05/27/19. Patient was retested outpatient and found to be COVID positive 05/31/19. Continue isolation. (3) Chronic hyponatremia: Code(s): E87.1 - Hypo-osmolality and hyponatremia Status: Chronic Assessment and Plan: Sodium is chronically low based on review of previous labs. Low but stable today. (4) End-stage renal disease on hemodialysis: Code(s): N18.6 - End stage renal disease; Z99.2 - Dependence on renal dialysis Status: Acute Assessment and Plan: Nephrology consulted for dialysis. Mon//Sat schedule currently. (5) Anemia of chronic disease: Code(s): D63.8 - Anemia in other chronic diseases classified elsewhere Status: Chronic Assessment and Plan: H&H low but stable, near her baseline. No signs or symptoms of acute bleeding. DS: Summary Time Spent with Patient Time attestation: Total time spent providing and/or coordinating discharge services: 35 minutes Exam Narrative: Exam Narrative: General: Thin female resting comfortably in bed in no acute distress, appears older than stated age, hoarse voice is improving. HEENT: Normocephalic, EOMI, oral mucosa tacky. Cardiovascular: Rate and rhythm are regular. Respiratory: Expiratory rhonchi, normal effort with respirations even and nonlabored. Tolerating room air. Abdomen: Soft, non-tender, non-distended, bowel sounds present. Extremities: Peripheral pulses intact. No edema appreciated today. Neuro: No focal neurological deficits. Speech is clear. DS: Data Data Completed and Pending Labs on day of discharge: Labs from last 24 hours 06/09/19 06/09/19 06/08/19 05:44 03:18 21:31 PT 26.3 H INR 2.5 APTT > 200.0 H* 64.0 H Sodium 133 L Potassium 3.5 Chloride 96 L Carbon Dioxide 33 H BUN 10 D Creatinine 2.30 H Estim Creat Clear Calc 23 Estimated GFR 22 L Glucose 67 Calcium 7.4 L 06/08/19 12:00 PT INR APTT > 200.0 H* Sodium Potassium Chloride Carbon Dioxide BUN C
== END 2019-06-09 12:45 | DRG 947 ==
LOC: ANHED 18:19 → ANH3MEDSUR 18:31
PROVIDERS: Family Medicine; Internal Medicine; Internal Medicine Cardiovascular Disease; Internal Medicine Nephrology; Physician Assistant; Admitting Provider Internal Medicine; Emergency Provider Emergency Medicine; PCP Family Medicine; Visit Provider Internal Medicine
DX: R79.1 Abnormal coagulation profile (principal); U07.1 COVID-19; N18.6 End stage renal disease; I13.2 Hypertensive heart and chronic kidney disease with heart failure and with stage 5 chronic kidney disease, or end stage renal disease; I50.32 Chronic diastolic (congestive) heart failure; E87.1 Hypo-osmolality and hyponatremia; J96.11 Chronic respiratory failure with hypoxia; T45.515A Adverse effect of anticoagulants, initial encounter; D63.8 Anemia in other chronic diseases classified elsewhere; I25.10 Atherosclerotic heart disease of native coronary artery without angina pectoris; G47.33 Obstructive sleep apnea (adult) (pediatric); J44.9 Chronic obstructive pulmonary disease, unspecified; F31.9 Bipolar disorder, unspecified; K21.9 Gastro-esophageal reflux disease without esophagitis; F41.8 Other specified anxiety disorders; G25.81 Restless legs syndrome; I73.9 Peripheral vascular disease, unspecified; M17.0 Bilateral primary osteoarthritis of knee; E78.5 Hyperlipidemia, unspecified; E05.90 Thyrotoxicosis, unspecified without thyrotoxic crisis or storm; M19.90 Unspecified osteoarthritis, unspecified site; N25.0 Renal osteodystrophy; I27.20 Pulmonary hypertension, unspecified; F17.210 Nicotine dependence, cigarettes, uncomplicated; Z99.2 Dependence on renal dialysis; Z95.2 Presence of prosthetic heart valve; Z79.01 Long term (current) use of anticoagulants; Z86.718 Personal history of other venous thrombosis and embolism; Z90.710 Acquired absence of both cervix and uterus; I25.2 Old myocardial infarction; Z86.73 Personal history of transient ischemic attack (TIA), and cerebral infarction without residual deficits
CPT/HCPCS: 36415; 71045; 80048; 80069; 83735; 84100; 85025; 85055; 85610; 85730; 94640; 96365; 96366; 97162; 97165; 99285; A9270; G0257; G0378; J1644; J7030

== ENCOUNTER 2019-06-19 11:47 | Inpatient (IN) | payer MEDICARE, MEDICAID, SELFPAY ==
[2019-06-19] VITALS (10 sets, daily range): BP systolic 117–174; BP diastolic 43–105; PULSE 72–94; RESP 15–24; TEMP 36.6–37.5; O2SAT 91–100
--- NOTE | ~2019-06-19 | XR_ITS ---
XR chest 1V portable DATE: 06/22/2019 14:21 INDICATION: Shortness of breath. Right pleural effusion assessment. TECHNIQUE: Portable upright AP chest on 07/02/2019 at 1414 hours COMPARISON: 06/19/2019 portable AP chest FINDINGS: There is considerable improvement of right pleural effusion. Small residual bilateral pleur al effusions remain. There is cardiac megaly. There is aortic calcification. Cardiac valve replacements are noted. Status post sternotomy. Dual lumen large bore left internal jugular central venous catheter tip overlies the right atrium. No pneumothorax. There are mild infiltrates in the mid and lower lung zones. IMPRESSION: Considerable improvement of right pleural effusion since 06/19/2019 Mild patchy infiltrates of the mid and lower lung zones and small pleural effusions, right greater th an left Reviewed, dictated and finalized at location A. IMPRESSION: Considerable improvement of right pleural effusion since 06/19/2019 Mild patchy infiltrates of the mid and lower lung zones and small pleural effus ions, right greater than left
--- NOTE | ~2019-06-19 | XR_ITS ---
EXAMINATION: XR chest 1V portable DATE: 06/19/2019 12:53 INDICATION: Shortness of breath TECHNIQUE: frontal view of the chest was obtained. COMPARISON: Chest radiograph dated 06/03/2019 FINDINGS: There is increasing opacification of the right mid and lower lung zones and new thickening of the rig ht paratracheal stripe consistent with increasing large right pleural effusion. Airspace opacities in the remaining aerated lung in the portions of the right mid and upper lung zones most likely combina tion of atelectasis and mild pulmonary edema. Increasing interstitial pattern throughout the left gen g also consistent with mild pulmonary edema. No pneumothorax or left-sided pleural effusion. Cardiome mel. Right heart border is obscured however the margins can be inferred by the position of a large-b ore dual-lumen left internal jugular central venous catheter which is positioned in the right atrium. Postoperative change of prior anterior sternotomy with both sternotomy wire and plate and screw fixa tions. Aortic and mitral valve repair as. IMPRESSION: 1. Likely congestive heart failure with cardiomegaly and increasing mild pulmonary edema. 2. Increasing opacification of much of the right hemithorax consistent with large right pleural effus ion and associated atelectasis and/or pneumonia.. Reviewed, dictated and finalized at location A. IMPRESSION: 1. Likely congestive heart failure with cardiomegaly and increasing mild pulmon julian edema. 2. Increasing opacification of much of the right hemithorax consistent with lar ge right pleural effusion and associated atelectasis and/or pneumonia..
--- NOTE | 2019-06-19 12:26 | ED.SOB ---
HPI - SOB/Dyspnea General Chief Complaint: Shortness of Breath/Dyspnea Stated Complaint: SOB History of Present Illness HPI Narrative: Patient is a 59-year-old female who presents ER with increased shortness of breath since last night. Patient has chronic O2 requirement that is increased to 5 L. Patient has audible rails from across the room while breathing. She speaks in 2 word sentences. She last had dialysis yesterday. Patient tested positive for COVID-19 on 05/31/2019. Reports shortness of breath increases with any type of movement. No chest pain or chest pressure. Recently mid to the hospital service for subtherapeutic INR. Patient has history of a mechanical valve requires persistent anticoagulation. Patient reports chronic cough that has not increased. No fevers or chills or sweats. Related Data Home Medications Medication Instructions Recorded Confirmed Vraylar 3 mg PO DAILY 01/31/19 06/03/19 budesonide-formoterol [Symbicort] 2 puff INHALATION BID 01/31/19 06/03/19 clotrimazole-betamethasone 1 applic TOPICAL BID PRN 01/31/19 06/03/19 escitalopram oxalate [Lexapro] 10 mg PO DAILY 01/31/19 06/03/19 lamotrigine 400 mg PO HS 01/31/19 06/03/19 levothyroxine 125 mcg PO DAILY 01/31/19 06/03/19 meclizine 12.5 mg PO TID PRN 01/31/19 06/03/19 omeprazole 40 mg PO DAILY 01/31/19 06/03/19 ropinirole 5 mg PO HS 01/31/19 06/03/19 sevelamer carbonate [Renvela] 800 mg PO TIDWM 01/31/19 06/03/19 simvastatin 40 mg PO DAILY 01/31/19 06/03/19 duloxetine [Cymbalta] 60 mg PO DAILY 04/26/19 06/03/19 polyethylene glycol 3350 [Miralax] 17 g PO QAM 04/26/19 06/03/19 albuterol sulfate [Proventil HFA] 2 puff INHALATION QIDRT PRN 06/03/19 06/03/19 carvedilol 6.25 mg PO Q12H 06/03/19 06/03/19 fluticasone propionate 1 spray INTRANASAL Q12HR PRN 06/03/19 06/03/19 furosemide 80 mg PO DAILY 06/03/19 06/03/19 ipratropium bromide 2.5 mg INHALATION QID PRN 06/03/19 06/03/19 nicotine 1 patch TRANSDERMAL DAILY PRN 06/03/19 06/03/19 ondansetron 8 mg PO Q8H PRN 06/19/19 Allergies Allergy/AdvReac Type Severity Reaction Status Date / Time adhesive tape Allergy Intermediate blisters Verified 05/22/19 19:27 iron Allergy Unknown Nausea And Verified 05/22/19 19:27 Vomiting Review of Systems Review of Systems: ROS unobtainable: Yes unobtainable due to medical condition Constitutional: Constitutional: Denies chills, Denies fever(s) and Denies weakness Cardiovascular: Cardiovascular: Denies chest pain and Denies radiating jaw, neck or arm pain Respiratory: Respiratory: Reports chest congestion, Reports cough and Reports dyspnea Gastrointestinal: Gastrointestinal: Denies nausea and Denies vomiting [facility] Social History Social History Social History: She is currently at [facility], and I believe she is a full-time resident now. She designates her son, Shantanu, as her surrogate decision maker and she wishes to be a full code. She has smoked up to 2 packs of cigarettes per day, but has cut back, since placement at the alf to about 4 cigarettes a day. Smoking packs per day: 2 Smoking cigarettes per day: 40.0 Years smoked: 47 Smoking pack-years: 94.00 Smoking status: Current every day smoker Tobacco type: cigarettes Second hand tobacco smoke exposure: Yes Alcohol intake: unknown Substance use: unknown Substance use type: does not use Additional living arrangements comments: Now residing at [facility]. Gender identity (if verbalized by the patient): Female Spiritual care concerns: No Agree to blood products: Yes Exam Narrative: Exam Narrative: GENERAL: Thin and chronically ill-appearing, and in mild distress. HEAD: Normocephalic, atraumatic. EYES: PERRL and EOMI. ENT: Mucous membranes moist. CHEST: Coarse Rales heard across the room. Diminished breath sounds on the right side when compared to the left but rales also heard on exam.
--- NOTE | 2019-06-19 12:41 | ECG_ITS ---
Measurements Intervals [place] Rate: 91 P: 48 MA: 145 QRS: 175 QRSD: 130 T: 58 QT: 396 QTc: 490 Interpretive Statements SINUS RHYTHM RIGHT AXIS DEVIATION INTRAVENTRICULAR CONDUCTION DELAY DELAYED PRECORDIAL R/S TRANSITION BORDERLINE ECG Electronically Signed On 06-19-2019 13:00:26 CDT by Preet Velázquez D.O.
[2019-06-19] MEDS: ALBUTEROL SULFATE NEB 2.5 MG/0.5 ML INH 15 MG INHALATION (13:21)
[2019-06-19] MEDS: IPRATROPIUM BR 0.02% INH SOLN 0.5 MG/2.5 ML VIAL 1.5 MG INHALATION (13:21)
[2019-06-19 13:40] LABS: Basophils Percent Auto 0.3 % (0.2-1.2); Hematocrit 33.3 % (37.0-47.0); Hemoglobin 9.6 g/dL (12.0-15.0); Immature Granulocyte Absolute 0.05 K/mm3 (0.00-0.031); Immature Granulocyte Percent A 0.6 % (0-0.5); Lymphocytes Absolute Auto 0.94 K/mm3 (0.9-3.2); Lymphocytes Percent Auto 10.7 % (18.3-44.2); Mean Corpuscular HGB Conc 28.8 g/dl (32-36); Mean Corpuscular Hemoglobin 27.9 pg (26-34); Mean Corpuscular Volume 96.8 fl (80-100); Mean Platelet Volume 10.7 fl (7.4-10.4); Monocytes Absolute Auto 0.5 K/mm3 (0.1-0.6); Monocytes Percent Auto 5.8 % (2.6-8.5); Neutrophils Absolute Auto 7.3 K/mm3 (1.3-6.7); Neutrophils Percent Auto 82.6 % (45.5-73.1); Platelet Count Result 205 k/mm3 (150-375); Red Blood Count 3.44 M/mm3 (4.2-5.4); Red Cell Distribution Width 18.5 % (11.5-14.5); White Blood Count 8.8 K/mm3 (4.5-10.0)
[2019-06-19 13:55] LABS: Alanine Aminotransferase 8 U/L (4-35); Albumin Level 3.3 g/dL (3.5-5.1); Alkaline Phosphatase 159 U/L (38-126); Aspartate Amino Transferase 17 U/L (14-36); Bilirubin,Total 1.1 mg/dL (0.2-1.3); Blood Urea Nitrogen 20 mg/dL (7-17); Calcium 8.2 mg/dL (8.4-10.2); Carbon Dioxide 33 mmol/L (22-30); Chloride 97 mmol/L (98-107); Estimated CRCL calculation 15 ml/min; Estimated Glomerular Filt Rate 12; Glucose 82 mg/dL (65-105); Sodium 134 mmol/L (137-145)
[2019-06-19 14:07] LABS: NT Pro B Type Natriuretic Pept > 35000 PG/ML (5-100); Troponin I 0.023 ng/mL (0.000-0.034)
[2019-06-19 15:22] LABS: INR 2.2; Prothrombin Time 23.6 Seconds (11.1-14.7)
[2019-06-19] MEDS: MORPHINE SULFATE 4 MG/ML INJ IV PUSH (16:00)
--- NOTE | 2019-06-19 17:50 | ADMGEN ---
This patient, Bessy Pandey, was admitted to Intensive Care Unit-8 at 1655. Patient oriented to hospital policies and general routines including ID bracelet, bed and alarms, visiting hours, pain management, procedures, bathroom and other care routines, personal items, smoking policy, room service/diet, and visiting hours. Valuables list has been completed. Information on how to activate the Rapid Response Team has been discussed. Patient are encouraged to report perceived risks to care and to ask questions if they do not understand what they are told or what they should do.
--- NOTE | 2019-06-19 19:45 | PM.IMHP ---
H&P: HPI History of Present Illness Chief complaint: Shortness of breath. Narrative: Bessy Pandey is a 59-year-old female with multiple medical problems to include end-stage renal disease on hemodialysis, coronary artery disease, congestive heart failure, chronic respiratory failure, valvular heart disease status post mechanical mitral and aortic valve replacements on long-term anticoagulation, COPD, sleep apnea, and several other comorbidities who presented to the emergency department earlier today for evaluation of shortness of breath. Bessy tells me that she isn't really that short of breath, and that she called the ambulance today as she needed to get to dialysis and [facility] reportedly was not able to transport her there. According to the triage note, she came in with complaints of shortness of breath since yesterday. She is chronically on 2 liters nasal cannula, which was increased to 5 liters last evening. On arrival to the emergency department her oxygen saturations were 100%. At the time my evaluation she has absolutely no complaints. She denies fever, chills, sweats, cold and flu symptoms, chest pain, pleuritic pain, palpitations, shortness of breath, cough, nausea, vomiting, diarrhea, dysuria. It is noted that she has a large right-sided pleural effusion. An effusion was documented when she was hospitalized on May 24 2019, however that did improve with dialysis and chest x-ray showed only a small right pleural effusion on June 03, 2019. Also of note, the patient tested positive for COVID-19 in May 2019, but was will asymptomatic with that. Review of Systems Review of Systems: Narrative: Twelve systems were reviewed with pertinent positives and negatives as per HPI. Except as documented, all other systems were reviewed and are negative. [facility] Past Medical History Medical History Anemia of chronic disease With history of blood transfusion. Arthritis Atrial fibrillation Bipolar disorder Breast mass Chronic breast mass which was biopsied previously, showing acute on chronic inflammation and fat necrosis. She had a negative bone scan done at that time as well. Cataracts, bilateral Chronic anticoagulation Long-term warfarin due to presence of mechanical heart valves. Chronic back pain With history of narcotic abuse. Chronic diastolic CHF (congestive heart failure) Chronic hyponatremia Chronic respiratory failure with hypoxia Clostridium difficile infection COPD (chronic obstructive pulmonary disease) Coronary artery disease She does not have significant coronary artery disease. She had a cardiac catheterization approximately 8 years ago per Cardiology notes that was not significant for disease Deep vein thrombosis of left lower extremity 04/26/2019 involving left popliteal, peroneal and gastrocnemius which occurred while the patient off of Coumadin due to a large buttock/thigh hematoma resulting from a fall March 2019 Depression with anxiety Diastolic congestive heart failure Eating disorder Emphysema of lung End-stage renal disease on hemodialysis Endometriosis Status post hysterectomy. GERD (gastroesophageal reflux disease) Gout History of ectopic Hyperlipidemia Hypertension Hyperthyroidism Morbid obesity Prior history of obesity, reportedly weighing as much as 408 pounds previously. She now appears to have protein calorie malnutrition. 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 Myocardial infarction Obstructive sleep apnea Osteoarthritis Both knees. Patient has refused replacement and is no essentially wheelchair-bound. PVD (peripheral vascular disease) Renal osteodystrophy Restless leg syndrome Rheumatic disease Suicidal ideation Prior hospitalization October 2017 due to suicidal ideation overdose. TIA (transient ischemic attack) Tobacco dependence
[2019-06-19] MEDS: ALBUTEROL SULFATE (*SP) AEROSOL 1 PUFF 6 PUFF INHALATION (22:41)
[2019-06-19] MEDS: carvediloL 6.25 MG TABLET PO (23:00)
[2019-06-19] MEDS: BETAMETHASONE/CLOTRIMAZOLE CR 15 GM TUBE 1 APPLIC TOPICAL (23:00)
[2019-06-19] MEDS: MIRTAZAPINE 15 MG TABLET PO (23:01)
[2019-06-19] MEDS: lamoTRIgine 100 MG TABLET 400 MG PO (23:01)
[2019-06-20] VITALS (36 sets, daily range): BP systolic 103–169; BP diastolic 40–75; PULSE 61–88; RESP 17–22; TEMP 35.5–37.7; O2SAT 91–100; BMI 20.7
[2019-06-20 05:04] LABS: Blood Urea Nitrogen 22 mg/dL (7-17); Carbon Dioxide 33 mmol/L (22-30); Chloride 97 mmol/L (98-107); Estimated CRCL calculation 14 ml/min; Estimated Glomerular Filt Rate 11; Glucose 81 mg/dL (65-105); Sodium 134 mmol/L (137-145)
[2019-06-20] MEDS: LEVOTHYROXINE SODIUM 125 MCG TABLET PO (06:36)
[2019-06-20 06:43] LABS: Hematocrit 26.6 % (37.0-47.0); Hemoglobin 7.6 g/dL (12.0-15.0); Immature Platelet Fraction Pct 3.4 % (0.9-11.2); Mean Corpuscular HGB Conc 28.6 g/dl (32-36); Mean Corpuscular Hemoglobin 27.9 pg (26-34); Mean Corpuscular Volume 97.8 fl (80-100); Mean Platelet Volume 12.3 fl (7.4-10.4); Platelet Count Result 131 k/mm3 (150-375); Red Blood Count 2.72 M/mm3 (4.2-5.4); Red Cell Distribution Width 18.7 % (11.5-14.5); White Blood Count 9.5 K/mm3 (4.5-10.0)
--- NOTE | 2019-06-20 06:56 | PM.CNNEP ---
Assessment and Plan Assessment and plan (1) End-stage renal disease on hemodialysis: Code(s): N18.6 - End stage renal disease; Z99.2 - Dependence on renal dialysis Status: Acute Assessment and Plan: Bessy has end-stage renal disease. Admission note says that she missed dialysis on Monday but she had dialysis on Monday and did not have anything scheduled on Monday. She is due today. We will do a treatment here today unless she is ready for discharge and can go to her [place] unit today. We will take fluid off as tolerated to try to help this pleural effusion. (2) COVID-19 virus infection: Code(s): U07.1 - COVID-19 Status: Acute Assessment and Plan: She is COVID-19 positive. (3) Status post mechanical aortic valve replacement: Code(s): Z95.2 - Presence of prosthetic heart valve Status: Acute Assessment and Plan: The patient is on Coumadin. (4) Pleural effusion: Code(s): J90 - Pleural effusion, not elsewhere classified Status: Acute Assessment and Plan: She has a huge pleural effusion. The right hemithorax is just about opacified. Amazingly she is not symptomatic from this. We will try to take fluid off with dialysis to see if that helps a pleural effusion. This would take a long time. She is anticoagulated because of her aortic valve and so would need to have reversal of anticoagulation before having the pleural effusion tapped. Considering her asymptomatic state 1 might consider just treating this conservatively and following this as an outpatient. I will let the hospitalist decide the approach. (5) Chronic respiratory failure with hypoxia: Code(s): J96.11 - Chronic respiratory failure with hypoxia Status: Acute Assessment and Plan: The patient has COPD and pulmonary hypertension. Oxygenation is okay. (6) Hypertension: Code(s): I10 - Essential (primary) hypertension Status: Acute Assessment and Plan: Her blood pressure is well controlled. She is on a small dose of carvedilol but this is more for her heart then for her blood pressure. In fact she is on midodrine to help keep her blood pressure up to enable us to take fluid off. (7) Anemia of chronic disease: Code(s): D63.8 - Anemia in other chronic diseases classified elsewhere Status: Chronic Assessment and Plan: Hemoglobin is low. We will give her Epogen. (8) Renal osteodystrophy: Code(s): N25.0 - Renal osteodystrophy Status: Acute Assessment and Plan: Will check a renal panel in the morning. History of Present Illness Reason for Consult Consult date: 06/20/19 Chief Complaint Chief complaint: Shortness of breath. History of Present Illness Narrative: Bessy is a very pleasant 59-year-old lady who has multiple medical problems including on dialysis 3 times a week, COPD, pulmonary hypertension, atrial fibrillation, aortic valve replacement on Coumadin, coronary artery disease, hyperlipidemia, hypertension, TIA, anemia, renal osteodystrophy, bipolar disorder, history of DVT, GERD, gout, hyperthyroidism, sleep apnea. The patient is COVID-19 positive. She has been dialyzing in a COVID positive unit in [facility]. She had her last dialysis on Monday. Yesterday she had diarrhea. It is not clear why but the detention sent her over to the emergency room. In the ER she was not short of breath but she did get a chest x-ray showing a large pleural effusion so she was admitted. She has not had diarrhea since she came in. She is not short of breath. She has no fever. No chills. No cough. No ENT or neurologic issues. No skin rash joint pains or swelling. No back pain. No belly pain. No nausea vomiting. She has been eating. She has not been coughing up blood or blow blood out of her nose. She is on her usual medications. She continues on the Coumadin. Review of Systems Constitutional: Constitut
[2019-06-20] MEDS: SEVELAMER CARBONATE 800 MG TABLET PO ×3 (08:50→18:30)
[2019-06-20] MEDS: DULOXETINE 60 MG CAPSULE.DR PO (08:50)
[2019-06-20] MEDS: carvediloL 6.25 MG TABLET PO ×2 (08:50→21:54)
[2019-06-20] MEDS: FUROSEMIDE 80 MG TABLET PO (08:50)
[2019-06-20] MEDS: PANTOPRAZOLE 40 MG TABLET PO ×2 (08:51→21:57)
[2019-06-20] MEDS: ESCITALOPRAM OXALATE 10 MG TABLET PO (08:51)
[2019-06-20] MEDS: SIMVASTATIN 20 MG TABLET 40 MG PO (08:51)
[2019-06-20] MEDS: MIDODRINE HCL 10 MG TABLET PO ×3 (08:51→18:30)
[2019-06-20] MEDS: BETAMETHASONE/CLOTRIMAZOLE CR 15 GM TUBE 1 APPLIC TOPICAL ×2 (08:53→21:54)
[2019-06-20 14:13] LABS: SARS-CoV-2 RNA PCR Positive
[2019-06-20] MEDS: EPOETIN ALFA 20,000 UNITS/ML VIAL 20000 UNITS IV PUSH (16:34)
[2019-06-20 16:50] LABS: Prothrombin Time 22.3 Seconds (11.1-14.7)
--- NOTE | 2019-06-20 17:26 | PM.IMPN ---
Progress Note: A&P Assessment and Plan (1) Recurrent right pleural effusion: Code(s): J90 - Pleural effusion, not elsewhere classified Status: Acute Assessment and Plan: This is been an ongoing issue for the patient, but is now larger than what it has been recently. Possibly related to volume overload? Underlying infection seems less likely. Thoracentesis is not possible at this juncture as she is on long-term anticoagulation due to the presence of mechanical valve. She seems to be tolerating it quite well. So will have aggressive dialysis and see if effusion resolves as it has in the past Would have to reverse warfarin and bridge with heparin in order to perform thoracentesis in all fully will not half to (2) End-stage renal disease on hemodialysis: Code(s): N18.6 - End stage renal disease; Z99.2 - Dependence on renal dialysis Status: Acute Assessment and Plan: Patient states she called 911 from the halfway because halfway could not arrange transportation for her to go to dialysis Nephrology will arrange for dialysis. (3) Anemia of chronic disease: Code(s): D63.8 - Anemia in other chronic diseases classified elsewhere Status: Chronic Assessment and Plan: Hemoglobin and hematocrit are stable on review of previous labs. Recheck a.m. (4) Chronic anticoagulation: Code(s): Z79.01 - document controller (current) use of anticoagulants Status: Chronic Assessment and Plan: INR today is 2.0, with a goal INR but least 2.5 given presence of mechanical valves. Will continue warfarin and increase to 6 mg today. She has been very difficult to maintain therapeutic INRs. (5) COVID-19: Code(s): U07.1 - COVID-19 Status: Acute Assessment and Plan: Patient tested positive for such in May 2019. She had never had any symptoms, however. Repeat COVID-19 test again positive. (6) Chronic respiratory failure with hypoxia: Code(s): J96.11 - Chronic respiratory failure with hypoxia Status: Acute Assessment and Plan: At the time of this dictation, she is on 4 liters nasal cannula (chronically on 2 liters) with an SpO2 of 100%. Continue to monitor Subjective Date/time seen: 06/20/19 17:26 Interval history: Date of visit 06/19. 59-year-old white female chronic renal failure on hemodialysis mitral and aortic mechanical heart valves admitted with increasing shortness of breath and right pleural effusion. She has had effusions in the past which have resolved with increasing dialysis and remains chronically anticoagulated. She is comfortable laying in bed at present time on 4 L nasal cannula Exam Narrative: Exam Narrative: Blood pressure 152/52 pulse 66 respirations 20 per minute sat 100% on 4 L nasal cannula Lungs decreased breath sounds right posterior base CV regular rate rhythm crisp closing of the bile Abdomen is soft nontender Extremities trace to 1+ edema distal pulses 1+ Neuro drowsy but arousable and no focal deficits Integument no skin breakdown rashes Objective Data Vital Signs Vital Signs: Vital Signs - 24 hr 06/19/19 20:00 06/19/19 22:00 06/19/19 22:38 Temperature 37.5 C Pulse Rate 83 74 75 Respiratory Rate 20 22 H 19 Blood Pressure 117/43 L 123/53 L Pulse Oximetry 98 98 100 06/19/19 22:41 06/19/19 23:00 06/20/19 00:00 Temperature 37.3 C Pulse Rate 76 78 75 Respiratory Rate 19 19 Blood Pressure 103/40 L Pulse Oximetry 98 06/20/19 02:00 06/20/19 04:00 06/20/19 06:00 Temperature 37.7 C H Pulse Rate 80 79 70 Respiratory Rate 19 20 Blood Pressure 139/52 L 115/50 L Pu
[2019-06-20] MEDS: WARFARIN (*PBKC) 3 MG TABLET 6 MG PO (18:30)
[2019-06-20 19:02] LABS: Hepatitis B Surface Antigen Negative (Negative)
[2019-06-20 19:20] LABS: Hepatitis B Surface Anti Res Negative
[2019-06-20] MEDS: ALBUTEROL SULFATE (*SP) AEROSOL 1 PUFF 6 PUFF INHALATION (21:35)
[2019-06-20] MEDS: lamoTRIgine 100 MG TABLET 400 MG PO (21:55)
[2019-06-20] MEDS: MIRTAZAPINE 15 MG TABLET PO (21:56)
[2019-06-21] VITALS (10 sets, daily range): BP systolic 103–141; BP diastolic 40–75; PULSE 56–110; RESP 16–29; TEMP 36.4–37.5; O2SAT 93–100
[2019-06-21 05:26] LABS: Hematocrit 25.1 % (37.0-47.0); Hemoglobin 7.3 g/dL (12.0-15.0); Immature Platelet Fraction Pct 4.1 % (0.9-11.2); Mean Corpuscular HGB Conc 29.1 g/dl (32-36); Mean Corpuscular Hemoglobin 27.7 pg (26-34); Mean Corpuscular Volume 95.1 fl (80-100); Mean Platelet Volume 11.3 fl (7.4-10.4); Platelet Count Result 142 k/mm3 (150-375); Red Blood Count 2.64 M/mm3 (4.2-5.4); Red Cell Distribution Width 18.6 % (11.5-14.5); White Blood Count 11.6 K/mm3 (4.5-10.0)
[2019-06-21 05:43] LABS: INR 1.8; Prothrombin Time 20.5 Seconds (11.1-14.7)
[2019-06-21] MEDS: LEVOTHYROXINE SODIUM 125 MCG TABLET PO (05:45)
[2019-06-21] MEDS: polyethylene glycoL 3350 17 GM POWD.PACK PO (08:21)
[2019-06-21] MEDS: DULOXETINE 60 MG CAPSULE.DR PO (08:21)
[2019-06-21] MEDS: FUROSEMIDE 80 MG TABLET PO (08:21)
[2019-06-21] MEDS: SEVELAMER CARBONATE 800 MG TABLET PO ×3 (08:21→17:38)
[2019-06-21] MEDS: PANTOPRAZOLE 40 MG TABLET PO ×2 (08:21→20:48)
[2019-06-21] MEDS: ENOXAPARIN 100 MG/ML SYRINGE 90 MG SUB-Q (08:21)
[2019-06-21] MEDS: carvediloL 6.25 MG TABLET PO (08:21)
[2019-06-21] MEDS: MIDODRINE HCL 10 MG TABLET PO ×3 (08:21→17:38)
[2019-06-21] MEDS: SIMVASTATIN 20 MG TABLET 40 MG PO (08:21)
[2019-06-21] MEDS: ESCITALOPRAM OXALATE 10 MG TABLET PO (08:23)
[2019-06-21] MEDS: BETAMETHASONE/CLOTRIMAZOLE CR 15 GM TUBE 1 APPLIC TOPICAL ×2 (08:23→20:48)
--- NOTE | 2019-06-21 10:56 | PC.NURSE ---
This patient, Bessy Pandey, was received from ICU on 06/21/19 at 1056. Personal belongings list checked and signed. Patient/family oriented to unit policies and routines
--- NOTE | 2019-06-21 11:03 | PC.NURSE ---
This patient, Bessy Pandey, was transferred to [facility] on 06/21/19 at 1050. Personal belongings sent with patient. Report given to RN. Appropriate documentation sent with patient.
--- NOTE | 2019-06-21 16:03 | PM.PNNEP ---
Progress Note: A&P Assessment and Plan (1) End-stage renal disease on hemodialysis: Code(s): N18.6 - End stage renal disease; Z99.2 - Dependence on renal dialysis Status: Acute Assessment and Plan: Bessy has end-stage renal disease. The patient received dialysis yesterday and tolerated it well. 4L were removed. I talked with the dialysis unit who talked with the residential. Apparently she did not miss dialysis on Monday. The residential felt she was short of breath and that is why they sent her to the emergency room. Patient still insists that she did not have shortness of breath yesterday. (2) COVID-19 virus infection: Code(s): U07.1 - COVID-19 Status: Acute Assessment and Plan: She is COVID-19 positive. (3) Status post mechanical aortic valve replacement: Code(s): Z95.2 - Presence of prosthetic heart valve Status: Acute Assessment and Plan: The patient is on Coumadin. INR is low. Doctor said well has requested radiology to tap the pleural effusion (4) Pleural effusion: Code(s): J90 - Pleural effusion, not elsewhere classified Status: Acute Assessment and Plan: She had 4L of fluid removed on dialysis yesterday. Will take off more tomorrow. (5) Chronic respiratory failure with hypoxia: Code(s): J96.11 - Chronic respiratory failure with hypoxia Status: Acute Assessment and Plan: The patient has COPD and pulmonary hypertension. Oxygenation is okay. (6) Hypertension: Code(s): I10 - Essential (primary) hypertension Status: Acute Assessment and Plan: Her blood pressure is well controlled. Systolic ranges between 120 and 140 (7) Anemia of chronic disease: Code(s): D63.8 - Anemia in other chronic diseases classified elsewhere Status: Chronic Assessment and Plan: Hemoglobin is low. We will give her Epogen. (8) Renal osteodystrophy: Code(s): N25.0 - Renal osteodystrophy Status: Acute Assessment and Plan: Will check a renal panel in the morning. Subjective Date/time seen: 06/21/19 16:03 Interval history: Patient is alert. Not very hungry. No chest pain or shortness of Breath Review of Systems Cardiovascular: Cardiovascular: Reports no additional cardiovascular complaints Respiratory: Respiratory: Reports no additional respiratory complaints Gastrointestinal: Gastrointestinal: Reports no additional gastrointestinal complaints Genitourinary: Genitourinary: Reports no additional female genitourinary complaints Exam Narrative: Exam Narrative: WDWN in NAD skin no rash head ncat lungs clear on left, decreased breath sounds on the right cor reg no rub abd BS+ nontender and soft ext no edema. Objective Data Vital Signs Vital Signs: Vital Signs - 24 hr 06/20/19 16:18 06/20/19 16:21 06/20/19 16:30 Temperature 36.1 C L Pulse Rate 66 65 70 Respiratory Rate 22 H Blood Pressure 132/52 L 132/52 L 133/49 L Pulse Oximetry 100 06/20/19 16:45 06/20/19 17:00 06/20/19 17:15 Temperature Pulse Rate 61 64 64 Respiratory Rate Blood Pressure 123/65 131/75 127/69 Pulse Oximetry 06/20/19 17:30 06/20/19 17:45 06/20/19 18:00 Temperature Pulse Rate 68 68 69 Respiratory Rate 20 Blood Pressure 132/63 126/54 L 122/63 Pulse Oximetry 100 06/20/19 18:15 06/20/19 18:30 06/20/19 18:45 Temperature Pulse Rate 70 70 68 Respiratory Rate Blood Pressure 148/50 H 169/64 H 139/51 L Pulse Oximetry 06/20/19 19:00 06/20/19 19:15 06/20/19 19:30 Temperature Pulse Rate 64 65 64 Respiratory Rate Blood Pressure 151/53 H 121/54 L 145/59 H Pulse Oximetry 06/20/19 19:45 06/20/19 19:51 06/20/19 19:57 Temperature 36.0 C L Pulse Rate 65 65 67 Respiratory Rate 20 Blood Pressure 120/52 L 134/46 L 125/55 L Pulse Oximetry 100 06/20/19 20:00 06/20/19 20:01 06/20/19 21:30 Temperature 36.7 C Puls
--- NOTE | 2019-06-21 16:10 | PM.IMPN ---
Progress Note: A&P Assessment and Plan (1) Recurrent right pleural effusion: Code(s): J90 - Pleural effusion, not elsewhere classified Status: Acute Assessment and Plan: This is been an ongoing issue for the patient, but is now larger than what it has been recently. Possibly related to volume overload? Underlying infection seems less likely. Thoracentesis is not possible at this juncture as she is on long-term anticoagulation due to the presence of mechanical valve. She seems to be tolerating it quite well. So will have aggressive dialysis and see if effusion resolves as it has in the past (4 liters removed 06/19 and to have dialysis again tomorrow) Plan is to repeat chest xray after dialysis 06/21 and if effusion is subsiding would discharge Would have to reverse warfarin and bridge with heparin in order to perform thoracentesis and hopefully will not have to (2) End-stage renal disease on hemodialysis: Code(s): N18.6 - End stage renal disease; Z99.2 - Dependence on renal dialysis Status: Acute Assessment and Plan: Patient states she called 911 from the senior care because senior care could not arrange transportation for her to go to dialysis. apparently she did not miss dialysis tues and is on , th Sat schedule Nephrology will arrange for dialysis 06/21. (3) Anemia of chronic disease: Code(s): D63.8 - Anemia in other chronic diseases classified elsewhere Status: Chronic Assessment and Plan: Hemoglobin and hematocrit are stable on review of previous labs. Chronically low . 7.3 today. (4) Chronic anticoagulation: Code(s): Z79.01 - long term care social worker (current) use of anticoagulants Status: Chronic Assessment and Plan: INR today is 1.8, with a goal INR but least 2.5 given presence of mechanical valves. Will continue warfarin and increased to 6 mg 06/19. She has been very difficult to maintain therapeutic INRs. Lovenox one time dose of 1.5 mg/kg today . Better to bridge with heparin but hopefully INR will be back up 06/21 and will not have to give IV heparin. If INR goes lower would switch to IV heparin until therapuetic again. (5) COVID-19: Code(s): U07.1 - COVID-19 Status: Acute Assessment and Plan: Patient tested positive for such in May 2019. She had never had any symptoms, however. Repeat COVID-19 test again positive 06/19. (6) Chronic respiratory failure with hypoxia: Code(s): J96.11 - Chronic respiratory failure with hypoxia Status: Acute Assessment and Plan: At the time of this dictation, she is back on 2 liters nasal cannula (chronically on 2 liters) with an SpO2 of 100%. Continue to monitor Subjective Date/time seen: 06/21/19 16:10 Interval history: Date of visit 06/20. 59-year-old white female chronic renal failure on hemodialysis with mitral and aortic mechanical heart valves admitted with increasing shortness of breath and right pleural effusion. She has had effusions in the past which have resolved with increasing dialysis and remains chronically anticoagulated. She is comfortable laying in bed at present time on 2 L nasal cannula. denies sob Exam Narrative: Exam Narrative: Blood pressure 140/54 pulse 76 respirations 16 per minute sat 100% on 2 L nasal cannula Lungs decreased breath sounds right posterior base CV regular rate rhythm crisp closing of the valves Abdomen is soft nontender Extremities no edema distal pulses 1+ Neuro drowsy but arousable and no focal deficits Integument no skin breakdown rashes Objective Data Vital Signs Vital Signs: Vital Signs - 24 h
[2019-06-21] MEDS: WARFARIN (*PBKC) 3 MG TABLET 6 MG PO (17:38)
[2019-06-21] MEDS: lamoTRIgine 100 MG TABLET 400 MG PO (20:46)
[2019-06-21] MEDS: MIRTAZAPINE 15 MG TABLET PO (20:46)
[2019-06-22] VITALS (28 sets, daily range): BP systolic 109–174; BP diastolic 52–89; PULSE 66–706; RESP 18–20; TEMP 36–37.3; O2SAT 84–100
[2019-06-22] MEDS: LEVOTHYROXINE SODIUM 125 MCG TABLET PO (06:07)
[2019-06-22 06:51] LABS: Albumin Level 3.1 g/dL (3.5-5.1); Blood Urea Nitrogen 23 mg/dL (7-17); Calcium 7.9 mg/dL (8.4-10.2); Carbon Dioxide 29 mmol/L (22-30); Chloride 95 mmol/L (98-107); Estimated CRCL calculation 17 ml/min; Estimated Glomerular Filt Rate 15; Glucose 95 mg/dL (65-105); Phosphorus 2.2 mg/dL (2.5-4.5); Potassium 3.7 mmol/L (3.4-5.0); Sodium 134 mmol/L (137-145)
[2019-06-22 09:13] LABS: Glucose Point of Care 90 (65-105)
[2019-06-22] MEDS: SEVELAMER CARBONATE 800 MG TABLET PO ×3 (09:37→18:08)
[2019-06-22] MEDS: carvediloL 6.25 MG TABLET PO ×2 (09:38→20:32)
[2019-06-22] MEDS: DULOXETINE 60 MG CAPSULE.DR PO (09:38)
[2019-06-22] MEDS: FUROSEMIDE 80 MG TABLET PO (09:39)
[2019-06-22] MEDS: MIDODRINE HCL 10 MG TABLET PO ×3 (09:39→18:08)
[2019-06-22] MEDS: SIMVASTATIN 20 MG TABLET 40 MG PO (09:40)
[2019-06-22] MEDS: ESCITALOPRAM OXALATE 10 MG TABLET PO (09:40)
[2019-06-22] MEDS: polyethylene glycoL 3350 17 GM POWD.PACK PO (09:40)
[2019-06-22] MEDS: PANTOPRAZOLE 40 MG TABLET PO ×2 (09:40→20:31)
[2019-06-22] MEDS: BETAMETHASONE/CLOTRIMAZOLE CR 15 GM TUBE 1 APPLIC TOPICAL ×2 (09:41→21:00)
[2019-06-22 09:47] LABS: Basophils Percent Auto 0.1 % (0.2-1.2); Hematocrit 23.6 % (37.0-47.0); Immature Granulocyte Absolute 0.04 K/mm3 (0.00-0.031); Immature Granulocyte Percent A 0.6 % (0-0.5); Immature Platelet Fraction Pct 5.3 % (0.9-11.2); Lymphocytes Absolute Auto 0.64 K/mm3 (0.9-3.2); Lymphocytes Percent Auto 9.2 % (18.3-44.2); Mean Corpuscular HGB Conc 28.8 g/dl (32-36); Mean Corpuscular Hemoglobin 27.5 pg (26-34); Mean Corpuscular Volume 95.5 fl (80-100); Mean Platelet Volume 11.7 fl (7.4-10.4); Monocytes Absolute Auto 0.3 K/mm3 (0.1-0.6); Monocytes Percent Auto 4.3 % (2.6-8.5); Neutrophils Percent Auto 85.8 % (45.5-73.1); Platelet Count Result 132 k/mm3 (150-375); Red Blood Count 2.47 M/mm3 (4.2-5.4); Red Cell Distribution Width 18.6 % (11.5-14.5)
[2019-06-22 09:54] LABS: INR 2.6; Prothrombin Time 27.3 Seconds (11.1-14.7)
[2019-06-22 10:07] LABS: Hemoglobin 6.8 g/dL (12.0-15.0)
[2019-06-22] MEDS: ALPRAZOLAM 0.5 MG TABLET 1 MG PO (10:07)
[2019-06-22 10:09] LABS: Anisocytosis 1+ (NORMAL); Hypochromasia 2+ (NORMAL); Platelet Estimate Decreased (Adequate); Poikilocytosis 1+ (NORMAL)
[2019-06-22 10:10] LABS: Stomatocytes 2+ (NORMAL); Target Cells 1+ (NORMAL)
[2019-06-22] MEDS: EPOETIN ALFA 20,000 UNITS/ML VIAL 20000 UNITS IV PUSH (11:02)
[2019-06-22] MEDS: HEPARIN SODIUM 1,000 UNITS/ML VIAL 6000 UNITS (13:05)
[2019-06-22 13:50] LABS: Glucose Point of Care 68 (65-105)
--- NOTE | 2019-06-22 15:34 | PM.IMPN ---
Progress Note: A&P Assessment and Plan (1) Recurrent right pleural effusion: Code(s): J90 - Pleural effusion, not elsewhere classified Status: Acute Assessment and Plan: Continue to watch pleural effusion, recent cxr shows - improvement of right pleural effusion since 06/19/2019 Mild patchy infiltrates of the mid and lower lung zones and small pleural effusions, right greater than left (2) End-stage renal disease on hemodialysis: Code(s): N18.6 - End stage renal disease; Z99.2 - Dependence on renal dialysis Status: Acute Assessment and Plan: Patient states she called 911 from the senior living because senior living could not arrange transportation for her to go to dialysis. pt missed her dialysis pt had dilaysis today (3) Anemia of chronic disease: Code(s): D63.8 - Anemia in other chronic diseases classified elsewhere Status: Chronic Assessment and Plan: Hemoglobin and hematocrit are low hb is 6.8. pt will benefit from epogen shot (4) Chronic anticoagulation: Code(s): Z79.01 - group home (current) use of anticoagulants Status: Chronic Assessment and Plan: . Inr is good today at 2.6 (5) COVID-19: Code(s): U07.1 - COVID-19 Status: Acute Assessment and Plan: Patient tested positive for such in May 2019. Repeat COVID-19 test again positive 06/19. (6) Chronic respiratory failure with hypoxia: Code(s): J96.11 - Chronic respiratory failure with hypoxia Status: Acute Assessment and Plan: continue oxygenation and supportive care Subjective Date/time seen: 06/22/19 15:34 Interval history: 59-year-old white female chronic renal failure on hemodialysis with mitral and aortic mechanical heart valves admitted with increasing shortness of breath and right pleural effusion. She has had effusions in the past which have resolved with increasing dialysis and remains chronically anticoagulated. pt had dialysis this morning, hb low at 6.8. pt may benefit from epogen shot. No compliants apart from mild SOB Review of Systems Review of Systems: All systems reviewed & are unremarkable except as noted in HPI and below Respiratory: Respiratory: Reports dyspnea Exam Narrative: Exam Narrative: Vital Signs Temp Pulse Resp BP Pulse Ox 36.6 C 94 24 H 167/80 H 100 06/19/19 11:50 06/19/19 11:50 06/19/19 11:50 06/19/19 11:50 06/19/19 11:50 Lungs decreased breath sounds bilaterally Objective Data Vital Signs Vital Signs: Vital Signs - 24 hr 06/21/19 20:00 06/21/19 20:57 06/21/19 23:02 Temperature 36.4 C Pulse Rate 56 L 66 56 L Respiratory Rate 16 Blood Pressure 103/40 L Pulse Oximetry 97 93 06/22/19 01:59 06/22/19 06:00 06/22/19 09:10 Temperature 36.0 C L 36.1 C L 36.1 C L Pulse Rate 70 69 76 Respiratory Rate 20 20 20 Blood Pressure 150/57 H 142/52 H 162/70 H Pulse Oximetry 98 98 06/22/19 09:26 06/22/19 09:30 06/22/19 09:32 Temperature Pulse Rate 79 81 70 Respiratory Rate Blood Pressure 165/89 H 148/82 H Pulse Oximetry 96 06/22/19 09:38 06/22/19 09:45 06/22/19 10:00 Temperature 36.2 C L Pulse Rate 70 81 72 Respiratory Rate 20 Blood Pressure 152/62 H 147/53 H Pulse Oximetry 98 06/22/19 10:15 06/22/19 10:30 06/22/19 10:45 Temperature Pulse Rate 66 71 70 Respiratory Rate Blood Pressure 141/70 H 130/58 L 122/59 L Pulse Oximetry 06/22/19 11:00 06/22/19 11:15 06/22/19 11:30 Temperature Pulse
[2019-06-22 17:34] LABS: Glucose Point of Care 103 (65-105)
[2019-06-22] MEDS: WARFARIN (*PBKC) 3 MG TABLET 6 MG PO (18:10)
[2019-06-22] MEDS: lamoTRIgine 100 MG TABLET 400 MG PO (20:31)
[2019-06-22] MEDS: ACETAMINOPHEN 325 MG TABLET 650 MG PO (20:32)
[2019-06-22] MEDS: MIRTAZAPINE 15 MG TABLET PO (20:32)
[2019-06-22] MEDS: ALBUTEROL SULFATE (*SP) AEROSOL 1 PUFF 6 PUFF INHALATION (20:52)
[2019-06-22 21:05] LABS: Glucose Point of Care 58 (65-105)
[2019-06-23 06:00] VITALS: BP 112/41; PULSE 70; RESP 20; TEMP 36.8; O2SAT 97
[2019-06-23] MEDS: LEVOTHYROXINE SODIUM 125 MCG TABLET PO (06:43)
[2019-06-23 06:46] LABS: INR 2.7; Prothrombin Time 27.8 Seconds (11.1-14.7)
[2019-06-23] MEDS: SEVELAMER CARBONATE 800 MG TABLET PO ×2 (07:56→12:56)
[2019-06-23] MEDS: BETAMETHASONE/CLOTRIMAZOLE CR 15 GM TUBE 1 APPLIC TOPICAL (07:58)
[2019-06-23] MEDS: DULOXETINE 60 MG CAPSULE.DR PO (07:59)
[2019-06-23] MEDS: ESCITALOPRAM OXALATE 10 MG TABLET PO (07:59)
[2019-06-23] MEDS: PANTOPRAZOLE 40 MG TABLET PO (07:59)
[2019-06-23 08:00] VITALS: PULSE 70
[2019-06-23] MEDS: SIMVASTATIN 20 MG TABLET 40 MG PO (08:00)
[2019-06-23] MEDS: carvediloL 6.25 MG TABLET PO (08:00)
[2019-06-23] MEDS: MIDODRINE HCL 10 MG TABLET PO ×2 (08:01→12:56)
[2019-06-23] MEDS: FUROSEMIDE 80 MG TABLET PO (08:01)
[2019-06-23] MEDS: polyethylene glycoL 3350 17 GM POWD.PACK PO (08:02)
[2019-06-23 08:59] VITALS: O2SAT 92
--- NOTE | 2019-06-23 10:34 | PM.PNNEP ---
Progress Note: A&P Assessment and Plan (1) End-stage renal disease on hemodialysis: Code(s): N18.6 - End stage renal disease; Z99.2 - Dependence on renal dialysis Status: Acute Assessment and Plan: eBssy has end-stage renal disease. The patient received dialysis yesterday and tolerated it well. 4L were removed. she will get dialysis again on Monday (2) COVID-19 virus infection: Code(s): U07.1 - COVID-19 Status: Acute Assessment and Plan: She is COVID-19 positive. (3) Status post mechanical aortic valve replacement: Code(s): Z95.2 - Presence of prosthetic heart valve Status: Acute Assessment and Plan: The patient is on Coumadin. INR is low. Doctor said well has requested radiology to tap the pleural effusion (4) Pleural effusion: Code(s): J90 - Pleural effusion, not elsewhere classified Status: Acute Assessment and Plan: She had 4L of fluid removed on dialysis on and again yesterday. Recent chest x-ray shows improvement in the pleural effusion. We can continue to remove fluid in dialysis as an outpatient. Okay for discharge from the kidney standpoint if all other issues are doing okay. (5) Chronic respiratory failure with hypoxia: Code(s): J96.11 - Chronic respiratory failure with hypoxia Status: Acute Assessment and Plan: The patient has COPD and pulmonary hypertension. Oxygenation is okay. (6) Hypertension: Code(s): I10 - Essential (primary) hypertension Status: Acute Assessment and Plan: Her blood pressure is up and down. Systolic ranges between 110-170. Fluid removal definitely makes it better. (7) Anemia of chronic disease: Code(s): D63.8 - Anemia in other chronic diseases classified elsewhere Status: Chronic Assessment and Plan: Hemoglobin is low. On EPO. (8) Renal osteodystrophy: Code(s): N25.0 - Renal osteodystrophy Status: Acute Assessment and Plan: Will check a renal panel in the morning. Subjective Date/time seen: 06/23/19 10:34 Interval history: Patient is tired. No chest pain or shortness of Breath Review of Systems Cardiovascular: Cardiovascular: Reports no additional cardiovascular complaints Respiratory: Respiratory: Reports no additional respiratory complaints Gastrointestinal: Gastrointestinal: Reports no additional gastrointestinal complaints Genitourinary: Genitourinary: Reports no additional female genitourinary complaints Exam Narrative: Exam Narrative: WDWN in NAD skin no rash head ncat lungs clear on left, decreased breath sounds on the right cor reg no rub abd BS+ nontender and soft ext no edema. Objective Data Vital Signs Vital Signs: Vital Signs - 24 hr 06/22/19 10:45 06/22/19 11:00 06/22/19 11:15 Temperature Pulse Rate 70 77 66 Respiratory Rate Blood Pressure 122/59 L 131/63 138/62 Pulse Oximetry 06/22/19 11:30 06/22/19 11:45 06/22/19 12:00 Temperature Pulse Rate 68 70 66 Respiratory Rate Blood Pressure 130/54 L 141/71 H 132/60 Pulse Oximetry 06/22/19 12:15 06/22/19 12:30 06/22/19 12:45 Temperature Pulse Rate 69 67 70 Respiratory Rate Blood Pressure 139/63 134/69 145/66 H Pulse Oximetry 06/22/19 12:56 06/22/19 13:05 06/22/19 14:00 Temperature 36.3 C L Pulse Rate 67 706 H 80 Respiratory Rate 20 18 Blood Pressure 132/64 153/69 H 174/63 H Pulse Oximetry 100 06/22/19 15:00 06/22/19 20:32 06/22/19 20:50 Temperature 37.2 C Pulse Rate 80 Respiratory Rate Blood Pressure Pulse Oximetry 84 L 97 06/22/19 21:35 06/23/19 06:00 06/23/19 08:00 Temperature 37.3 C 36.8 C Pulse Rate 91 70 70 Respiratory Rate 20 20 Blood Pressure 109/78 112/41 L Pulse Oximetry 97 97 06/23/19 08:59 Temperature Pulse Rate Respiratory Rate Blood Pressure Pulse Oximetry 92 Intake/Output Intake/Output: Intake & Outp
--- NOTE | 2019-06-23 12:02 | PM.DS ---
DS: Diagnosis Admitting Diagnosis Admitting Diagnosis: Pleural effusion, not elsewhere classified Discharge Diagnosis (1) Recurrent right pleural effusion: Code(s): J90 - Pleural effusion, not elsewhere classified Status: Acute Assessment and Plan: Recent cxr shows - improvement of right pleural effusion since 06/19/2019. Better after dialysis. (2) End-stage renal disease on hemodialysis: Code(s): N18.6 - End stage renal disease; Z99.2 - Dependence on renal dialysis Status: Acute Assessment and Plan: Patient [facility] could not arrange transportation for her to go to dialysis. pt missed her dialysis Pt had dialysis today and she feels better, pt stable for discharge back on her 2 liters of oxygen. (3) Anemia of chronic disease: Code(s): D63.8 - Anemia in other chronic diseases classified elsewhere Status: Chronic Assessment and Plan: Hemoglobin and hematocrit are low hb is 6.8. pt can epogen shot during hospital admission. (4) Chronic anticoagulation: Code(s): Z79.01 - [facility] (current) use of anticoagulants Status: Chronic Assessment and Plan: . Inr is good today at 2.7, on warfarin at 6 mg. pt can be discharged on warfarin 4 mg (5) COVID-19: Code(s): U07.1 - COVID-19 Status: Acute Assessment and Plan: Patient tested positive for such in May 2019. Repeat COVID-19 test again positive 06/19. (6) Chronic respiratory failure with hypoxia: Code(s): J96.11 - Chronic respiratory failure with hypoxia Status: Acute Assessment and Plan: Continue oxygenation at 2 liters which is patient baseline DS: Summary Time Spent with Patient Time attestation: Total time spent providing and/or coordinating discharge services:38 minutes on day of discharge Exam Narrative: Exam Narrative: Vital Signs Temp Pulse Resp BP Pulse Ox 36.6 C 94 24 H 167/80 H 100 06/19/19 11:50 06/19/19 11:50 06/19/19 11:50 06/19/19 11:50 06/19/19 11:50 Lungs decreased breath sounds bilaterally Doing well on 2-3 liters of oxygen DS: Data Data Completed and Pending Labs on day of discharge: Labs from last 24 hours 06/23/19 06/22/19 06/22/19 06:26 17:31 15:52 PT 27.8 H INR 2.7 POC Capillary Glucose 103 58 L* 06/22/19 13:33 PT INR POC Capillary Glucose 68 Discharge Plan Discharge Attending physician on discharge: Miriam Martínez Consulting providers: Denisha Beltrán Discharging Clinician: Miriam Martínez Anticipated Discharge Date/Time: 06/23/19 14:00 Patient Disposition: NH Group Home/Asst Living Activity: as tolerated Diet: renal Discharge Instructions: Continue dialysis sessions Patient Instructions: Antibiotic Form, Warfarin (By mouth), How to Stop Smoking (GEN), Cigarette Smoking and Your Health (GEN) Stand Alone Forms: General Discharge Information Follow-up/Referrals: [facility] [Alf] - Kell Del Rio MD [Primary Care Provider] - Discharge Medications: Continued lamotrigine 200 mg tablet 400 mg PO HS RF: 0 omeprazole 40 mg capsule,delayed release(DR/EC) 40 mg PO DAILY RF: 0 levothyroxine 125 mcg tablet 125 mcg PO DAILY RF: 0 ropinirole 5 mg tablet 5 mg PO HS RF: 0 budesonide-formoterol [Symbicort] 160-4.5 mcg/actuation HFA aerosol inhaler 2 puff INHALATION BID RF: 0 sev
== END 2019-06-23 13:30 | DRG 640 ==
LOC: ANHED 15:12 → ANHICU 16:10 → ANH3MEDSUR 06-22 09:16 → ANHICU 06-26 14:49
PROVIDERS: Internal Medicine Nephrology; Physician Assistant; Admitting Provider Internal Medicine; Emergency Provider Emergency Medicine; PCP Family Medicine; Visit Provider Family Medicine
DX: E87.79 Other fluid overload (principal); U07.1 COVID-19; N18.6 End stage renal disease; I13.2 Hypertensive heart and chronic kidney disease with heart failure and with stage 5 chronic kidney disease, or end stage renal disease; J90 Pleural effusion, not elsewhere classified; I50.32 Chronic diastolic (congestive) heart failure; I48.20 Chronic atrial fibrillation, unspecified; J96.11 Chronic respiratory failure with hypoxia; D63.1 Anemia in chronic kidney disease; I25.10 Atherosclerotic heart disease of native coronary artery without angina pectoris; E05.90 Thyrotoxicosis, unspecified without thyrotoxic crisis or storm; E78.5 Hyperlipidemia, unspecified; J43.9 Emphysema, unspecified; G47.33 Obstructive sleep apnea (adult) (pediatric); K21.9 Gastro-esophageal reflux disease without esophagitis; M17.0 Bilateral primary osteoarthritis of knee; I73.9 Peripheral vascular disease, unspecified; G25.81 Restless legs syndrome; N25.0 Renal osteodystrophy; I27.20 Pulmonary hypertension, unspecified; F41.8 Other specified anxiety disorders; F31.9 Bipolar disorder, unspecified; F17.210 Nicotine dependence, cigarettes, uncomplicated; Z99.81 Dependence on supplemental oxygen; Z99.2 Dependence on renal dialysis; Z86.718 Personal history of other venous thrombosis and embolism; Z79.01 Long term (current) use of anticoagulants; Z90.710 Acquired absence of both cervix and uterus; Z86.73 Personal history of transient ischemic attack (TIA), and cerebral infarction without residual deficits; Z95.2 Presence of prosthetic heart valve; Z90.49 Acquired absence of other specified parts of digestive tract
CPT/HCPCS: 36415; 71045; 80048; 80053; 80069; 83880; 84484; 85025; 85027; 85055; 85610; 85730; 86706; 87340; 87635; 93005; 94640; 96374; 99285; A9270; G0257; J1644; J1650; J2270; J7030; P9047; Q4081; U0003

== ENCOUNTER 2019-06-26 21:36 | Inpatient (IN) | payer MEDICARE, MEDICAID, SELFPAY ==
[2019-06-26] VITALS (9 sets, daily range): BP systolic 133–137; BP diastolic 64–65; PULSE 84–91; RESP 14–23; TEMP 36.2; O2SAT 97–98
--- NOTE | ~2019-06-26 | XR_ITS ---
EXAMINATION: XR chest 1V portable INDICATION: COVID 19 pneumonia TECHNIQUE: Portable AP chest at 0554 hours COMPARISON: 06/28/2019 FINDINGS: A left internal jugular central venous catheter ends with its tip in the proximal right atr ium. There is stable cardiomegaly. Changes of cardiac valve replacement are noted. Diffuse interstiti al and airspace opacities with a lower lobe predominance persists without significant change. A small right pleural effusion is stable. There is no pneumothorax. IMPRESSION: 1. Diffuse lung disease without significant change, consistent with pneumonia versus pulmonary edema. 2. Stable cardiomegaly. 3. Small right pleural effusion, stable. Reviewed, dictated and finalized at location A. IMPRESSION: 1. Diffuse lung disease without significant change, consistent with pneumonia v ersus pulmonary edema. 2. Stable cardiomegaly. 3. Small right pleural effusion, stable.
--- NOTE | ~2019-06-26 | CT_ITS ---
EXAMINATION: CT brain wo con DATE: 06/27/2019 02:36 INDICATION: Altered mental status. TECHNIQUE: Computed tomography (CT) of the head was performed without intravenous contrast. The mA wa s adjusted according to patient size. Iterative reconstruction technique was employed. The dose-lengt h product was 605.33 mGy-cm. COMPARISON: Head CT 04/05/2019 FINDINGS: There are scattered areas of low attenuation in the cerebral white matter. There is no intr acranial hemorrhage, acute infarction, or abnormal intracranial mass lesion. The ventricles are tameka l in size. The paranasal sinuses are clear. The orbits are normal. The mastoid air cells are normal. IMPRESSION: 1. Unchanged moderate nonspecific cerebral white matter disease, which likely represents chronic smal l vessel ischemic disease. Reviewed, dictated and finalized at location A. IMPRESSION: 1. Unchanged moderate nonspecific cerebral white matter disease, which likely r epresents chronic small vessel ischemic disease.
--- NOTE | ~2019-06-26 | XR_ITS ---
EXAMINATION: XR chest 1V portable DATE: 06/28/2019 05:54 INDICATION: COVID-19 pneumonia. TECHNIQUE: A single frontal view of the chest was obtained. COMPARISON: Chest single view 06/27/2019 FINDINGS: The patient is rotated to her left. There are airspace and interstitial opacities in all everette ng zones bilaterally with a lower lung predominance. There is a small right pleural effusion. No pneu mothorax. Cardiomegaly is noted. There are changes of heart valve replacement. A left internal jugula r central venous catheter is seen with tip in the proximal right atrium. IMPRESSION: 1. Stable diffuse lung disease, consistent with pulmonary edema versus pneumonia. 2. Stable small right pleural effusion. 3. Cardiomegaly. Reviewed, dictated and finalized at location A. IMPRESSION: 1. Stable diffuse lung disease, consistent with pulmonary edema versus pneumoni a. 2. Stable small right pleural effusion. 3. Cardiomegaly.
--- NOTE | ~2019-06-26 | XR_ITS ---
EXAMINATION: XR chest 1V portable DATE: 06/27/2019 02:10 INDICATION: Transient alteration of awareness. COVID-19 pneumonia. TECHNIQUE: A single frontal view of the chest was obtained. COMPARISON: Chest single view 06/22/2019, CT abdomen and pelvis 04/09/2019 FINDINGS: There is a small right pleural effusion. There are airspace opacities in the mid and lower lung zones. No pneumothorax. Cardiomegaly is noted. There is a left internal jugular central venous c atheter with tip in right atrium. There are changes of heart valve replacement. A wire overlies right neck. IMPRESSION: 1. Worsened airspace opacities in the mid and lower lung zones, consistent with pulmonary edema versu s pneumonia. 2. Stable small right pleural effusion. 3. Cardiomegaly. Reviewed, dictated and finalized at location A. IMPRESSION: 1. Worsened airspace opacities in the mid and lower lung zones, consistent with pulmonary edema versus pneumonia. 2. Stable small right pleural effusion. 3. Cardiomegaly.
--- NOTE | 2019-06-26 21:52 | ECG_ITS ---
Measurements Intervals [place] Rate: 84 P: 83 IN: 148 QRS: 61 QRSD: 131 T: 77 QT: 448 QTc: 530 Interpretive Statements SINUS RHYTHM POSSIBLE LEFT ATRIAL ENLARGEMENT RSR' IN V1 OR V2, CONSIDER RIGHT VENTRICULAR HYPERTROPHY OR RIGHT VCD BORDERLINE ECG Electronically Signed On 06-27-2019 7:08:46 CDT by Preet Velázquez D.O.
[2019-06-26 22:31] LABS: Basophils Percent Auto 0.3 % (0.2-1.2); Hemoglobin 7.6 g/dL (12.0-15.0); Immature Granulocyte Absolute 0.04 K/mm3 (0.00-0.031); Immature Granulocyte Percent A 0.4 % (0-0.5); Lymphocytes Percent Auto 5.5 % (18.3-44.2); Mean Corpuscular HGB Conc 29.2 g/dl (32-36); Mean Corpuscular Hemoglobin 27.2 pg (26-34); Mean Corpuscular Volume 93.2 fl (80-100); Mean Platelet Volume 10.2 fl (7.4-10.4); Monocytes Absolute Auto 0.6 K/mm3 (0.1-0.6); Monocytes Percent Auto 5.2 % (2.6-8.5); Neutrophils Absolute Auto 9.8 K/mm3 (1.3-6.7); Neutrophils Percent Auto 88.6 % (45.5-73.1); Platelet Count Result 122 k/mm3 (150-375); Red Blood Count 2.79 M/mm3 (4.2-5.4); Red Cell Distribution Width 18.9 % (11.5-14.5)
[2019-06-26 22:41] LABS: Hypochromasia 1+ (NORMAL); Platelet Estimate Decreased (Adequate); Target Cells 1+ (NORMAL)
[2019-06-26 22:44] LABS: Alanine Aminotransferase 7 U/L (4-35); Albumin Level 3.1 g/dL (3.5-5.1); Alkaline Phosphatase 154 U/L (38-126); Aspartate Amino Transferase 15 U/L (14-36); Bilirubin,Total 1.4 mg/dL (0.2-1.3); Blood Urea Nitrogen 21 mg/dL (7-17); Calcium 7.8 mg/dL (8.4-10.2); Carbon Dioxide 32 mmol/L (22-30); Chloride 94 mmol/L (98-107); Estimated CRCL calculation 15 ml/min; Estimated Glomerular Filt Rate 16; Glucose 86 mg/dL (65-105); Potassium 3.2 mmol/L (3.4-5.0); Sodium 134 mmol/L (137-145)
[2019-06-27] VITALS (53 sets, daily range): BP systolic 116–154; BP diastolic 50–92; PULSE 75–95; RESP 14–27; TEMP 36–37.2; O2SAT 90–100; BMI 19.3
--- NOTE | 2019-06-27 00:11 | ED.AMS ---
HPI - Altered Mental Status General Chief Complaint: Altered Mental Status Stated Complaint: covid positive, ams Time Seen by Provider: 06/27/19 00:09 History of Present Illness HPI narrative: Patient presents via EMS from the assisted for altered mental status. She is known to be COVID positive. She is a dialysis patient. She appears to be angry, refusing the IV and blood tests, and pushing people away. She does not answer questions, but she does say short sentences that are audible. She gets her dialysis on Monday and Monday. MD complaint: altered mental status Related Data Home Medications Medication Instructions Recorded Confirmed Vraylar 3 mg PO DAILY 01/31/19 06/19/19 budesonide-formoterol [Symbicort] 2 puff INHALATION BID 01/31/19 06/19/19 clotrimazole-betamethasone 1 applic TOPICAL BID PRN 01/31/19 06/19/19 escitalopram oxalate [Lexapro] 10 mg PO DAILY 01/31/19 06/19/19 lamotrigine 400 mg PO HS 01/31/19 06/19/19 levothyroxine 125 mcg PO DAILY 01/31/19 06/19/19 meclizine 12.5 mg PO TID PRN 01/31/19 06/19/19 omeprazole 40 mg PO DAILY 01/31/19 06/19/19 ropinirole 5 mg PO HS 01/31/19 06/19/19 sevelamer carbonate [Renvela] 800 mg PO TIDWM 01/31/19 06/19/19 simvastatin 40 mg PO DAILY 01/31/19 06/19/19 duloxetine [Cymbalta] 60 mg PO DAILY 04/26/19 06/19/19 polyethylene glycol 3350 [Miralax] 17 g PO QAM 04/26/19 06/19/19 albuterol sulfate [Proventil HFA] 2 puff INHALATION QIDRT PRN 06/03/19 06/19/19 carvedilol 6.25 mg PO Q12H 06/03/19 06/19/19 fluticasone propionate 1 spray INTRANASAL Q12HR PRN 06/03/19 06/19/19 furosemide 80 mg PO DAILY 06/03/19 06/19/19 ipratropium bromide 2.5 mg INHALATION QID PRN 06/03/19 06/19/19 nicotine 1 patch TRANSDERMAL DAILY PRN 06/03/19 06/19/19 clotrimazole-betamethasone 1 applic TOPICAL BID 06/19/19 06/19/19 ondansetron 8 mg PO Q8H PRN 06/19/19 06/19/19 Allergies Allergy/AdvReac Type Severity Reaction Status Date / Time adhesive tape Allergy Intermediate blisters Verified 06/27/19 03:08 iron Allergy Unknown Nausea And Verified 06/27/19 03:08 Vomiting Review of Systems Review of Systems: Narrative: Cannot get a review of systems because she does not answer appropriately, due to her altered mental status. [facility] Past Medical History Medical History Anemia of chronic disease With history of blood transfusion. Arthritis Atrial fibrillation Bipolar disorder Breast mass Chronic breast mass which was biopsied previously, showing acute on chronic inflammation and fat necrosis. She had a negative bone scan done at that time as well. Cataracts, bilateral Chronic anticoagulation Long-term warfarin due to presence of mechanical heart valves. Chronic back pain With history of narcotic abuse. Chronic diastolic CHF (congestive heart failure) Chronic hyponatremia Chronic respiratory failure with hypoxia Clostridium difficile infection COPD (chronic obstructive pulmonary disease) Coronary artery disease She does not have significant coronary artery disease. She had a cardiac catheterization approximately 8 years ago per Cardiology notes that was not significant for disease Deep vein thrombosis of left lower extremity 04/26/2019 involving left popliteal, peroneal and gastrocnemius which occurred while the patient off of Coumadin due to a large buttock/thigh hematoma resulting from a fallMarch 2019 Depression with anxiety Diastolic congestive heart failure Eating disorder Emphysema of lung End-stage renal disease on hemodialysis Endometriosis Status post hysterectomy. GERD (gastroesophageal reflux disease) Gout History of ectopic Hyperlipidemia Hypertension Hyperthyroidism Morbid obesity Prior history of obesity, reportedly weighing as much as 408 pounds previously. She now appears to have protein calorie malnutrition. MRSA (methicillin resistant staph aureus) culture positive MRSA colonization of the nares noted
--- NOTE | 2019-06-27 00:33 | PC.NURSE ---
Per NH staff pt dialysis dates are Tu., Th., Sat.
[2019-06-27] MEDS: LORAZEPAM INJ 2 MG/ML VIAL 0.5 MG IM (00:58)
--- NOTE | 2019-06-27 01:01 | PC.NURSE ---
This nurse went into room to give patient ordered medications and redraw blood. Patient ripped her IV out, took off her oxygen, and is refusing to wear her oxygen. Patient speaking, stating she wants to go home, patient unable to answer a/o questions. This nurse placed oxygen back on patient, patient became combative, swinging her arms and yelling at this nurse. EDP notifed, received VORB to give 0.5mg ativan IM. Patient given medication and then allowed this nurse to apply her oxygen on via NC. Patient oxygen saturation was 76%, after placing her oxygen back on, her oxygen saturation increased to 96%.
[2019-06-27 01:13] LABS: INR 2.9
[2019-06-27] MEDS: SODIUM CHLORIDE 0.9% IV 1,000 ML 150 ML IV CONT (01:36)
[2019-06-27 01:55] LABS: Ammonia < 9 umol/L (9-30)
--- NOTE | 2019-06-27 01:58 | PC.NURSE ---
Patient attempting to pull out IV, picking at the coban the IV is secured with. Armboard applied and secured with coban. Patient constantly being reminded to leave the IV alone, not to pull it out. Lights dimmed in room, patient starting to get sleepy, patient repositioned and given a blanket. Patient observed to be speaking to rodri in corner of room, patient looking and pointing to corner of the room stating roslyn mace, take me out of here, and tell your dad to come back from the hallway so I can see him. Can you take me to the ball game? EDP notified.
--- NOTE | 2019-06-27 02:03 | PC.NURSE ---
Xray in room.
--- NOTE | 2019-06-27 02:20 | PC.NURSE ---
Patient being taken to CT.
[2019-06-27] MEDS: HALOPERIDOL LACTATE 5 MG/ML VIAL 2 MG IV PUSH (02:34)
[2019-06-27] MEDS: levoFLOXacin 500 MG/D5W 100 ML 500 MG/100 ML BAG 100 MG IVPB (04:07)
--- NOTE | 2019-06-27 04:47 | PC.NURSE ---
Patient changed, no urine in brief. Patient given ice chips upon request, patient took a few ice chips, then threw the cup of ice at this nurse, in a raised voice, states You put something in there! I know you have intentions! Patient then looks away and states okay rodri, you can take me home now. Take me outside and see how the friends are, see if they're laughing. Patient then sitting up in the bed with assistance. Patient stating I can watch while you play games. Patient then lays back down on the stretcher and picks at the IV and armboard. This nurse informs patient that the armboard is protecting her IV that is secured, which she is getting medications through it. Patient then states fine, okay then closes her eyes and covers herself. Patient resting comfortably on the stretcher, IV fluids are infusing via IV pump. Patient has her oxygen on via NC at 3L and is cooperative at this time.
--- NOTE | 2019-06-27 06:31 | ADMGEN ---
This patient, Bessy Pandey, was admitted to Intensive Care Unit-5 on 06/27/2019 at 0640. Patient/family oriented to hospital policies and general routines including ID bracelet, bed and alarms, visiting hours, pain management, procedures, bathroom and other care routines, personal items, smoking policy, room service/diet, and visiting hours. Valuables list has been completed. Information on how to activate the Rapid Response Team has been discussed. Patient/Family are encouraged to report perceived risks to care and to ask questions if they do not understand what they are told or what they should do.
[2019-06-27] MEDS: levoFLOXacin 250 MG/D5W 50 ML 250 MG/50 ML BAG 50 MG IVPB (08:56)
[2019-06-27 09:53] LABS: Estimated CRCL calculation 15 ml/min; Estimated Glomerular Filt Rate 16
--- NOTE | 2019-06-27 11:07 | PC.NURSE ---
This patient, Bessy Pandey, was transferred to [ [id number]] on 06/27/19 at 1107. Personal belongings sent with patient. Belongings list checked and signed with receiving [ ]. Report given to [ COLT Contreras @ [id number]]. Appropriate documentation sent with patient.
[2019-06-27 13:13] LABS: SARS-CoV-2 RNA PCR Positive
--- NOTE | 2019-06-27 17:01 | PC.NURSE ---
This patient, Bessy Pandey, was received from ICU on 06/27/19 at 1100. Personal belongings list checked and signed. Patient oriented to unit policies and routines
--- NOTE | 2019-06-27 17:14 | PM.IMHP ---
H&P: HPI History of Present Illness Chief complaint: pneumonia, ESRD on dialysis, mental status change Narrative: Bessy Pandey is a 59 year old female patient is resident of senior care with end-stage renal disease on hemodialysis patient was just recently discharged after being treated with COVID-19 however see presented again to emergency department with acute mental status change patient is unable to provide any history review of symptom and does not answer any questions, Review of Systems Review of Systems: ROS unobtainable: Yes unobtainable due to medical condition [facility] Past Medical History Medical History Anemia of chronic disease With history of blood transfusion. Arthritis Atrial fibrillation Bipolar disorder Breast mass Chronic breast mass which was biopsied previously, showing acute on chronic inflammation and fat necrosis. She had a negative bone scan done at that time as well. Cataracts, bilateral Chronic anticoagulation Long-term warfarin due to presence of mechanical heart valves. Chronic back pain With history of narcotic abuse. Chronic diastolic CHF (congestive heart failure) Chronic hyponatremia Chronic respiratory failure with hypoxia Clostridium difficile infection COPD (chronic obstructive pulmonary disease) Coronary artery disease She does not have significant coronary artery disease. She had a cardiac catheterization approximately 8 years ago per Cardiology notes that was not significant for disease Deep vein thrombosis of left lower extremity 04/26/2019 involving left popliteal, peroneal and gastrocnemius which occurred while the patient off of Coumadin due to a large buttock/thigh hematoma resulting from a fall March 2019 Depression with anxiety Diastolic congestive heart failure Eating disorder Emphysema of lung End-stage renal disease on hemodialysis Endometriosis Status post hysterectomy. GERD (gastroesophageal reflux disease) Gout History of ectopic Hyperlipidemia Hypertension Hyperthyroidism Morbid obesity Prior history of obesity, reportedly weighing as much as 408 pounds previously. She now appears to have protein calorie malnutrition. 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 Myocardial infarction Obstructive sleep apnea Osteoarthritis Both knees. Patient has refused replacement and is no essentially wheelchair-bound. PVD (peripheral vascular disease) Renal osteodystrophy Restless leg syndrome Rheumatic disease Suicidal ideation Prior hospitalization October 2017 due to suicidal ideation overdose. TIA (transient ischemic attack) Tobacco dependence UTI (urinary tract infection) Valvular heart disease Status post mechanical mitral and aortic valve replacements 2010, on long-term anticoagulation with Coumadin. Surgical History Surgical History History of cardiac cath History of mitral valve replacement with mechanical valve 2010 Status post arthroscopy of left knee Status post cholecystectomy Status post D&C Status post hemorrhoidectomy Status post hysterectomy For endometriosis. Status post left foot surgery Status post mechanical aortic valve replacement 2010 Status post tonsillectomy Status post tubal ligation Social History Social History Social History: She is currently at [facility], and I believe she is a full-time resident now. She designates her son, Shantanu, as her surrogate decision maker and she wishes to be a do not resuscitate. She has smoked up to 2 packs of cigarettes per day, but has cut back, since placement at the senior care to about 4 cigarettes a day. Smoking packs per day: 2 Smoking cigarettes per day: 40.0 Years smoked: 47 Smoking pack-years: 94.00 Smoking status: Current every day
--- NOTE | 2019-06-27 17:38 | PM.PNNEP ---
Progress Note: A&P Assessment and Plan (1) End stage renal disease: Code(s): N18.6 - End stage renal disease Status: Chronic (2) Altered mental status: Qualifiers: Altered mental status type: unspecified Qualified Code(s): R41.82 - Altered mental status, unspecified Code(s): R41.82 - Altered mental status, unspecified Status: Acute (3) COVID-19: Code(s): U07.1 - COVID-19 Status: Acute Assessment and Plan: . Additional Plan HD today FULL CONSULT TO FOLLOW Subjective Date/time seen: 06/27/19 17:38 Tolerating dialysis at the time of my visit (seen on HD at ~ 5:20PM); appears to be sleeping comfortably and in no apparent distress; moved out of ICU. Exam Narrative: Exam Narrative: General: WD/WN female in NAD Heart: normal S1 and S2; no rub Lungs: coarse and decreased at bases Abdomen: soft, nontender, nondistended, positive bowel sounds Extremities: no cyanosis or clubbing; no edema Skin: warm and dry Objective Data Vital Signs Vital Signs: Vital Signs Temp Pulse Resp BP Pulse Ox 06/27/19 17:10 37.1 C 94 22 H 130/68 06/27/19 12:00 90 06/27/19 10:00 78 06/27/19 08:00 77 06/27/19 06:52 36.1 C L 85 19 127/60 95 06/27/19 06:21 36.6 C 86 20 125/58 L 96 06/27/19 05:15 88 16 90 06/27/19 05:01 85 19 96 06/27/19 05:00 87 18 130/68 96 06/27/19 04:45 89 15 06/27/19 04:31 86 20 06/27/19 04:30 86 154/80 H 06/27/19 04:29 36.3 C L 86 19 133/70 99 06/27/19 04:15 87 16 06/27/19 04:01 83 19 100 06/27/19 04:00 84 14 133/70 100 06/27/19 02:57 75 20 129/68 99 06/27/19 02:41 100 06/27/19 02:15 91 18 06/27/19 02:01 91 21 H 06/27/19 02:00 89 116/66 06/27/19 01:52 89 22 H 118/62 100 06/27/19 01:45 95 18 100 06/27/19 01:38 89 20 100 06/27/19 01:15 92 27 H 99 06/27/19 01:12 92 20 98 06/27/19 00:45 92 19 06/27/19 00:31 86 21 H 06/27/19 00:30 86 22 H 139/65 06/27/19 00:16 89 24 H 06/27/19 00:15 90 26 H 122/92 H 06/26/19 23:56 86 21 H 06/26/19 23:31 90 23 H 06/26/19 23:30 87 17 137/65 06/26/19 23:16 91 14 06/26/19 23:02 85 18 06/26/19 22:49 85 20 06/26/19 22:40 87 06/26/19 21:50 36.2 C L 85 22 H 133/64 97 06/26/19 21:33 84 20 133/64 98 Intake/Output Intake/Output: Intake & Output 06/24/19 06/25/19 06/26/19 06/27/19 23:59 23:59 23:59 23:59 Intake Total 1200 Balance 1200 Meds/Results Medications: Active Medications Generic Name Dose Route Start Last Admin Trade Name Freq PRN Reason Stop Dose Admin Epoetin Jeronimo 20,000 units 06/27/19 19:00 Epogen IV PUSH 06/27/19 19:01 ONCE ONE Heparin Sodium (Porcine) 1,000 units 06/27/19 19:00 Heparin Sodium IV PUSH 06/27/19 19:01 ONCE ONE Levofloxacin/Dextrose 500 mg in 100 mls @ 100 mls/hr 06/29/19 06:00 Levaquin 500 Mg/D5w 100 Ml IVPB Q48H GORDON Vancomycin HCl 750 mg in 250 mls @ 250 mls/hr 06/27/19 09:26 Vancomycin 750 Mg/D5w 250 Ml IVPB PRN PRN DIALYSIS PATIENT Albumin Human 50 mls @ 999 mls/hr 06/27/19 12:41 Albutein IVPB 07/27/19 12:42 Q10M PRN HYPOTENSION Morphine Sulfate 4 mg 06/27/19 05:05 Morphine Sulfate Inj IV PUSH Q2H PRN Pain Rated 7-10 Radiology Results: ITS Impressions Head CT 06/27/19 06:43 IMPRESSION: 1. Unchanged moderate nonspecific cerebral white matter disease, which likely represents chronic small vessel ischemic disease. Chest X-Ray 06/27/19 06:46 IMPRESSION: 1. Worsened airspace opacities in the mid and lower lung zones, consistent with pulmonary edema versus pneumonia. 2. Stable small right pleural effusion. 3. Cardiomegaly. Labs Labs: Laboratory Tests 06/26/19 22:21 06/27/19 08:56
[2019-06-27] MEDS: EPOETIN ALFA 20,000 UNITS/ML VIAL 20000 UNITS IV PUSH (19:09)
[2019-06-27 19:44] LABS: Vancomycin Trough 8.9 ug/mL (10.0-20.0)
[2019-06-28] VITALS (16 sets, daily range): BP systolic 86–125; BP diastolic 45–67; PULSE 67–93; RESP 18–20; TEMP 36.3–36.6; O2SAT 90–100
--- NOTE | 2019-06-28 01:01 | P.PNCROSS_ITS ---
Event Note Event Note Event Note: June 27, 2018 at 0020 Nursing staff called as the patient was requesting her home Xanax. The patient was also requesting Brookesmith by name but the patient has not been prescribed Brookesmith in quite some time. The patient is known to have mechanical mitral and aortic valve replacement is on chronic anticoagulation. 2.9 late on the evening of the . A repeat INR was not ordered for the . I just reviewed the patient's chart just after midnight on the . I will repeat an INR for 5:00 a.m.. I will defer addressing the remainder of the patient's med rec to the daytime team. I did give 1 time dose of Xanax but I do not want upright any other sedating medications as the patient had came in with altered mental status. The patient's diet was also advanced to a renal heart healthy diet.
[2019-06-28] MEDS: ALPRAZOLAM 0.5 MG TABLET 1 MG PO (02:05)
[2019-06-28 07:17] LABS: INR 1.8
[2019-06-28] MEDS: MIDODRINE HCL 10 MG TABLET PO ×3 (09:02→17:37)
[2019-06-28] MEDS: polyethylene glycoL 3350 17 GM POWD.PACK PO (09:03)
[2019-06-28] MEDS: SIMVASTATIN 20 MG TABLET 40 MG PO (09:03)
[2019-06-28] MEDS: SEVELAMER CARBONATE 800 MG TABLET PO ×3 (09:04→17:37)
[2019-06-28] MEDS: ESCITALOPRAM OXALATE 10 MG TABLET PO (09:04)
[2019-06-28] MEDS: LEVOTHYROXINE SODIUM 125 MCG TABLET PO (09:04)
[2019-06-28] MEDS: PANTOPRAZOLE 40 MG TABLET PO ×2 (09:04→21:28)
[2019-06-28] MEDS: FUROSEMIDE 80 MG TABLET PO (09:04)
[2019-06-28] MEDS: carvediloL 6.25 MG TABLET PO ×2 (09:05→21:30)
[2019-06-28] MEDS: DULOXETINE 60 MG CAPSULE.DR PO (09:05)
[2019-06-28 11:52] LABS: Basophils Percent Auto 0.2 % (0.2-1.2); Eosinophils Percent Auto 0.2 % (0-4.4); Hematocrit 25.4 % (37.0-47.0); Hemoglobin 7.5 g/dL (12.0-15.0); Immature Granulocyte Absolute 0.03 K/mm3 (0.00-0.031); Immature Granulocyte Percent A 0.5 % (0-0.5); Immature Platelet Fraction Pct 5.1 % (0.9-11.2); Lymphocytes Percent Auto 7.8 % (18.3-44.2); Mean Corpuscular HGB Conc 29.5 g/dl (32-36); Mean Corpuscular Hemoglobin 27.7 pg (26-34); Mean Corpuscular Volume 93.7 fl (80-100); Mean Platelet Volume 11.8 fl (7.4-10.4); Monocytes Absolute Auto 0.4 K/mm3 (0.1-0.6); Neutrophils Absolute Auto 5.5 K/mm3 (1.3-6.7); Neutrophils Percent Auto 85.3 % (45.5-73.1); Platelet Count Result 145 k/mm3 (150-375); Red Blood Count 2.71 M/mm3 (4.2-5.4); Red Cell Distribution Width 19.4 % (11.5-14.5); White Blood Count 6.5 K/mm3 (4.5-10.0)
[2019-06-28 12:09] LABS: Hypochromasia 2+ (NORMAL); INR 1.9; Prothrombin Time 21.2 Seconds (11.1-14.7)
[2019-06-28 12:11] LABS: Alanine Aminotransferase 8 U/L (4-35); Alkaline Phosphatase 146 U/L (38-126); Aspartate Amino Transferase 14 U/L (14-36); Bilirubin,Total 1.2 mg/dL (0.2-1.3); Blood Urea Nitrogen 13 mg/dL (7-17); Calcium 8.5 mg/dL (8.4-10.2); Carbon Dioxide 36 mmol/L (22-30); Chloride 94 mmol/L (98-107); Estimated CRCL calculation 22 ml/min; Estimated Glomerular Filt Rate 25; Glucose 109 mg/dL (65-105); Sodium 136 mmol/L (137-145)
--- NOTE | 2019-06-28 12:52 | PM.CNNEP ---
Assessment and Plan Assessment and plan (1) End stage renal disease: Code(s): N18.6 - End stage renal disease Status: Chronic (2) Altered mental status: Qualifiers: Altered mental status type: unspecified Qualified Code(s): R41.82 - Altered mental status, unspecified Code(s): R41.82 - Altered mental status, unspecified Status: Acute (3) COVID-19 virus infection: Code(s): U07.1 - COVID-19 Status: Acute (4) Anemia: Code(s): D64.9 - Anemia, unspecified Status: Chronic (5) Chronic anticoagulation: Code(s): Z79.01 - adjunct faculty for medical terminology (current) use of anticoagulants Status: Chronic Assessment and Plan: . Additional Plan Bessy has end stage renal disease. She is currently on a Monday, , Monday dialysis schedule at [facility] (due to her positive COVID-19 infection status). She received dialysis yesterday to maintain this outpatient schedule. Her electrolytes, volume status, and clearance appear acceptable at this time. It is difficult to ascertain the etiology of her altered mental status but from my previous experience in taking care this patient, there has been some concern that she may have some early signs of dementia and she is also known to sometimes overmedicate with pain medications and ant-anxiety medications in the past. For now, I would continue supportive measures that have already been instituted the hopes that her mental status will improve with these conservative changes. I will continue follow the patient with you while she remains hospitalized to make further recommendations during her hospital course particularly with regard to her CKD parameters with included medication just minutes and changes to her dialysis prescription as deemed necessary. thank you for allowing me to participate in care this patient. History of Present Illness Reason for Consult Consult date: 06/29/19 Reason for consult: end stage renal disease Chief Complaint Chief complaint: pneumonia, ESRD on dialysis, mental status change History of Present Illness Narrative: The patient is a 59 year old female with an extensive past medical history as outlined below who presented to [facility] emergency department with altered mental status. The details and specifics of her altered mental status as her not entirely clear to me as the patient is unable to or unwilling to answer some of my questions with regard to this issue in general. Reportedly, in the emergency room, she was somewhat uncooperative with exam, refusing blood draws, refusing medications that at that etc. Workup and evaluation in the emergency room demonstrated labs consistent with her known history of end-stage renal disease with no other significant findings. CT scan of the brain did not demonstrate any type of acute intracranial process. She is already known to be Covid 19 positive. Given her extensive past medical history and symptoms that led to her presentation to the emergency room, she was admitted the hospital for further evaluation and therapy. Renal consultation was requested due to her end-stage renal disease. The patient normally dialyzes on a Monday, , Monday dialysis schedule at [facility] fill of the care of Dr. Norm Johnson. Previous to this, she was normally doing dialysis on a Monday schedule at [facility]. She was switched to [facility] due to her Covid 19 positive status. She received dialysis yesterday to maintain her current T/T/S schedule and is due for dialysis again tomorrow. Since her admission, her mentation seems to be somewhat better and even overnight, she apparently requested further medications for anxiety arguing that her mental status is somewhat improving. [facility] Past Medical History Medical History Anemia of chronic
[2019-06-28] MEDS: LIDOCAINE 5% PATCH 1 PATCH TRANSDERM (13:24)
[2019-06-28 13:37] LABS: CRP 17.5 mg/dL (<1.0)
--- NOTE | 2019-06-28 14:27 | PM.IMPN ---
Progress Note: A&P Assessment and Plan (1) Altered mental status: Qualifiers: Altered mental status type: unspecified Qualified Code(s): R41.82 - Altered mental status, unspecified Code(s): R41.82 - Altered mental status, unspecified Status: Acute Assessment and Plan: 06/28/19 14:27 Bessy Pandey is a 59 year old female patient is resident of [facility] with end-stage renal disease on hemodialysis patient was just recently discharged after being treated with COVID-19 however she presented again to emergency department on 06/26 with acute mental status change patient again is positive for COVID-19 3rd time, today is feeling better not a short of breath, I spoke the patient see does not want to be intubated and wants to be DNR, she is concerned about getting her dialysis which is scheduled for tomorrow, will continue supportive care as patient is holding her oxygen to baseline with 2-3 L nasal cannula. (2) ESRD on dialysis: Code(s): N18.6 - End stage renal disease; Z99.2 - Dependence on renal dialysis Status: Acute Assessment and Plan: Patient will have scheduled dialysis seen by senior system operator (3) COVID-19 virus infection: Code(s): U07.1 - COVID-19 Status: Acute Assessment and Plan: Again patient is positive for COVID-19 continue to provide supportive (4) Hypertension: Code(s): I10 - Essential (primary) hypertension Status: Acute Assessment and Plan: Will monitor Subjective Date/time seen: 06/28/19 14:27 Bessy Pandey is a 59 year old female patient is resident of [facility] with end-stage renal disease on hemodialysis patient was just recently discharged after being treated with COVID-19 however she presented again to emergency department on 06/26 with acute mental status change patient again is positive for COVID-19 3rd time, today is feeling better not a short of breath, I spoke the patient see does not want to be intubated and wants to be DNR, she is concerned about getting her dialysis which is scheduled for tomorrow, will continue supportive care as patient is holding her oxygen to baseline with 2-3 L nasal cannula Review of Systems Review of Systems: All systems reviewed & are unremarkable except as noted in HPI and below Exam Narrative: Exam Narrative: Patient is a COVID positive was seen but not examined, patient is wearing oxygen nasal cannula, appears chronically ill much older than her age and under nourished Const: General: comfortable and no acute distress HENMT: General nose exam: Normal nares present Neck: Other: No retraction Resp: Effort & Inspection: normal respiratory effort GI: Other: Nondistended Skin: General skin exam: normal color Neuro: Other: Today patient is calmer and cooperative Extrem: General: normal to inspection Psych: Other: Patient is calmer, Objective Data Vital Signs Vital Signs: Vital Signs - 24 hr 06/27/19 16:00 06/27/19 17:10 06/27/19 17:13 Temperature 98.8 F Pulse Rate 88 94 93 Respiratory Rate 22 H Blood Pressure 130/68 123/71 Pulse Oximetry 06/27/19 17:15 06/27/19 17:30 06/27/19 17:45 Temperature Pulse Rate 92 86 86 Respiratory Rate Blood Pressure 133/60 119/59 L 131/64 Pulse Oximetry 06/27/19 18:00 06/27/19 18:15 06/27/19 18:30 Temperature Pulse Rate 87 88 88 Respiratory Rate Blood Pressure 123/63 139/63 130/63 Pulse Oximetry 06/27/19 18:44 06/27/19 18:45 06/27/19 19:00 Temperature 98.3 F Pulse Rate 88 84 93 Respiratory Rate 24 H Blood Pressure 119/58 L 124/50 L 129/62 Pulse Oximetry 98 06/27/19 19:15 06/27/19 19:30 06/27/19 19:45 Temperature Pulse Rate 88 89 80 Respiratory Rate Blood Pressure 119/62 136/54 L 144/65 H Pulse Oximetry 06/27/19 20:00 06/27/19 20:15 06/27/19 20:30 Temperature Pulse Rate 79 80 76 Respiratory Rate Blood Pressure 122/51 L 122/51 L 121/56 L Pulse Oximet
[2019-06-28] MEDS: WARFARIN (*PBKC) 4 MG TABLET PO (17:38)
[2019-06-28] MEDS: MORPHINE SULFATE 4 MG/ML INJ IV PUSH (19:47)
[2019-06-28] MEDS: MIRTAZAPINE 15 MG TABLET PO (21:29)
[2019-06-28] MEDS: lamoTRIgine 100 MG TABLET 400 MG PO (21:29)
[2019-06-29] VITALS (16 sets, daily range): BP systolic 66–121; BP diastolic 25–60; PULSE 69–83; RESP 16–20; TEMP 36.4–37; O2SAT 90–92
[2019-06-29] MEDS: LEVOTHYROXINE SODIUM 125 MCG TABLET PO (06:03)
[2019-06-29] MEDS: levoFLOXacin 500 MG/D5W 100 ML 500 MG/100 ML BAG 100 MG IVPB (06:03)
[2019-06-29 06:58] LABS: Basophils Percent Auto 0.5 % (0.2-1.2); Eosinophils Percent Auto 0.1 % (0-4.4); Hematocrit 25.6 % (37.0-47.0); Hemoglobin 7.1 g/dL (12.0-15.0); Immature Granulocyte Absolute 0.06 K/mm3 (0.00-0.031); Immature Granulocyte Percent A 0.7 % (0-0.5); Lymphocytes Absolute Auto 0.54 K/mm3 (0.9-3.2); Lymphocytes Percent Auto 6.4 % (18.3-44.2); Mean Corpuscular HGB Conc 27.7 g/dl (32-36); Mean Corpuscular Hemoglobin 27.4 pg (26-34); Mean Corpuscular Volume 98.8 fl (80-100); Mean Platelet Volume 12.5 fl (7.4-10.4); Monocytes Absolute Auto 0.3 K/mm3 (0.1-0.6); Neutrophils Absolute Auto 7.5 K/mm3 (1.3-6.7); Neutrophils Percent Auto 88.3 % (45.5-73.1); Platelet Count Result 123 k/mm3 (150-375); Red Blood Count 2.59 M/mm3 (4.2-5.4); White Blood Count 8.5 K/mm3 (4.5-10.0)
[2019-06-29 07:32] LABS: INR 1.9; Prothrombin Time 21.7 Seconds (11.1-14.7)
[2019-06-29 07:37] LABS: Alanine Aminotransferase 6 U/L (4-35); Albumin Level 2.9 g/dL (3.5-5.1); Alkaline Phosphatase 141 U/L (38-126); Aspartate Amino Transferase 13 U/L (14-36); Blood Urea Nitrogen 18 mg/dL (7-17); Calcium 7.9 mg/dL (8.4-10.2); Carbon Dioxide 32 mmol/L (22-30); Chloride 94 mmol/L (98-107); Estimated CRCL calculation 16 ml/min; Estimated Glomerular Filt Rate 20; Glucose 96 mg/dL (65-105); Potassium 3.4 mmol/L (3.4-5.0); Sodium 131 mmol/L (137-145)
[2019-06-29 09:46] LABS: Target Cells 2+ (NORMAL)
[2019-06-29 09:47] LABS: Hypochromasia 2+ (NORMAL)
--- NOTE | 2019-06-29 14:31 | P.DN_ITS ---
Discharge Sum: Prov Provider Primary care physician: Kell Del Rio MD Admitting provider: Berry Lopez MD Consults: 06/27/19 Consult to Physician Routine Comment: Consulting Provider: Denisha Beltrán Reason for consultation: dialysis t,th,sa Has provider been notified: Yes Discharge Sum: Summary Date and Time Date of admission: 06/27/19 05:06 Date of : 06/29/19 Time of : 10:10 Summary Details: Bessy Pandey is a 59 year old female patient is [facility] end-[facility] renal disease on hemodialysis patient was just recently discharged after being treated with COVID-19 however she presented again to emergency department on 06/26 with acute mental status change patient again is positive for COVID-19 3rd time, today is feeling better not a short of breath, I spoke the patient see does not want to be intubated and wants to be DNR, she is concerned about getting her dialysis which is scheduled for tomorrow, will continue supportive care as patient is holding her oxygen to baseline with 2-3 L nasal cannula. Patient was having HD and during the dialysis patient became hypotensive, HD was stopped patient was given bolus of 250cc NS, during the bolus patient heart stopped and patient was unresponsive, patient was DNR and patient . Additional Data Confirmation of as documented by pronouncing clinician: no pulse, no respirations, no heart sounds and pupils fixed and dilated Family: not available Additional persons at bedside: clinical informatics strategist Attending/PCP notified?: Yes Attending physician: Berry Lopez MD Was code activated?: No Autopsy requested?: No telecommunications facility examiner notified?: Yes Organ bank notified?: No Advance directives: Yes Hospice patient?: No
--- NOTE | 2019-07-01 06:53 | WPDCDIQUERY2 ---
CDI Query Clarification Request -Pneumonia documented by EDP -Pt was given IV Vancomycin and Levaquin during stay -No mention of Pneumonia by hospitalists Please clarify if pneumonia was ruled in or ruled out.
== END 2019-06-29 10:10 | disposition expired | DRG 177 ==
LOC: ANHED 06-27 05:12 → ANH3MEDSUR 06-27 14:27 → ANHICU 07-03 14:55
PROVIDERS: Internal Medicine; Admitting Provider Family Medicine; Emergency Provider Emergency Medicine; PCP Family Medicine; Visit Provider Family Medicine
DX: U07.1 COVID-19 (principal); J12.89 Other viral pneumonia; N18.6 End stage renal disease; E46 Unspecified protein-calorie malnutrition; I13.2 Hypertensive heart and chronic kidney disease with heart failure and with stage 5 chronic kidney disease, or end stage renal disease; I50.32 Chronic diastolic (congestive) heart failure; Z68.1 Body mass index [BMI] 19.9 or less, adult; J96.10 Chronic respiratory failure, unspecified whether with hypoxia or hypercapnia; E87.1 Hypo-osmolality and hyponatremia; D64.9 Anemia, unspecified; F41.8 Other specified anxiety disorders; E78.5 Hyperlipidemia, unspecified; G47.33 Obstructive sleep apnea (adult) (pediatric); I73.9 Peripheral vascular disease, unspecified; I48.91 Unspecified atrial fibrillation; F31.9 Bipolar disorder, unspecified; D63.1 Anemia in chronic kidney disease; G25.81 Restless legs syndrome; Z66 Do not resuscitate; F17.210 Nicotine dependence, cigarettes, uncomplicated; I25.10 Atherosclerotic heart disease of native coronary artery without angina pectoris; Z79.01 Long term (current) use of anticoagulants; Z86.73 Personal history of transient ischemic attack (TIA), and cerebral infarction without residual deficits; Z95.2 Presence of prosthetic heart valve
CPT/HCPCS: 36415; 70450; 71045; 80053; 80202; 82140; 82565; 83605; 85025; 85055; 85610; 86140; 87040; 87635; 87804; 93005; 94640; 96361; 96365; 96367; 96372; 96375; 99285; A9270; G0257; J0885; J1630; J1644; J1956; J2060; J2270; J3370; J7030; U0003